=== PATIENT | male | born 1990 | race African-American/Black ===

== ENCOUNTER 2016-05-17 15:54 | Inpatient (IN) | payer SELFPAY ==
[~2016-05-17] VITALS: Ht 152.4 cm; Wt 66.0 kg
[2016-05-17] VITALS (7 sets, daily range): BP systolic 112–121; BP diastolic 65–79; PULSE 72–117; RESP 15–18; TEMP 102.9; O2SAT 96–99
[~2016-05-17 15:54] MED LIST: ALBUAER3 INH; PRED20 PO; VENTAER INH
--- NOTE | 2016-05-17 16:29 | PD ---
HPI . Cough and cold Chief Complaint: Cold / Flu Symptoms Time Seen by Provider: 16:18 Travel History International Travel<30 days: No Contact w/Intl Traveler<30days: No Traveled to known affect area: No History of Present Illness HPI Patient presents with a three-day history of cough, sputum production, shortness of breath, myalgias, nausea and vomiting. He states that he took a generic NyQuil earlier today. Otherwise he has not treated himself at home in any way. He has a history of asthma and states that he is out of his albuterol. PFSH Past Medical History ADHD: Yes Arthritis: No Asthma: Yes Blood Disorders: No Anxiety: Yes Depression: Yes Heart Rhythm Problems: Yes Cancer: No Cardiovascular Problems: No High Cholesterol: No Chest Pain: No Congestive Heart Failure: No COPD: No Diabetes: No Diminished Hearing: No Endocrine: No GERD: No Genitourinary: No Hiatal Hernia: No Immune Disorder: No Musculoskeletal: Yes (fx left arm and right wrist) Neurologic: No Psychiatric: No Reproductive: No Respiratory: Yes (ASTHMA) Integumentary: Yes (ezema) Immunizations Current: Yes Renal Failure: Yes (pt states 1st stage) Sleep Apnea: No Thyroid Disease: No Ulcer: No Past Surgical History Other Surgery: No Social History Alcohol Use: No Tobacco Use: Yes (0.25) Substance Use: No Allergies-Medications (Allergen,Severity, Reaction): Coded Allergies: No Known Allergies (Verified , 05/17/16) Reported Meds & Prescriptions Reported Meds & Active Scripts Active Prednisone 20 Mg Tab 40 Mg PO DAILY Ventolin Hfa 18 GM Inh (Albuterol Sulfate) 90 Mcg/Act Aer 2 Puff INH Q4H PRN Reported Proair Hfa 8.5 GM Inh (Albuterol Sulfate) 90 Mcg/Act Aer 2 Puff INH Q4-6H PRN 108 mcg/actuation Review of Systems Except as stated in HPI: all other systems reviewed are Neg General / Constitutional: Positive: Fever, Chills Cardiovascular: Positive: Chest Pain or Discomfort Respiratory: Positive: Cough, Shortness of Breath, Wheezing, Other (sputum production) Gastrointestinal: Positive: Nausea, Vomiting Musculoskeletal: Positive: Myalgias, Arthralgias Physical Exam Narrative GENERAL: This is a slightly built man who has a very persistent cough. SKIN: Warm and dry. HEAD: Atraumatic. Normocephalic. EYES: Pupils equal and round. ENT: No nasal bleeding or discharge. Mucous membranes pink and moist. NECK: Trachea midline. Neck is supple without cervical lymphadenopathy. CARDIOVASCULAR: Regular rate and rhythm. Heart sounds are normal. RESPIRATORY: No accessory muscle use. Chest is tight with diffuse expiratory wheezing. GASTROINTESTINAL: Abdomen soft, non-tender, nondistended. MUSCULOSKELETAL: No obvious deformities. No edema. NEUROLOGICAL: Awake and alert. No obvious cranial nerve deficits. Motor grossly within normal limits. Normal speech. PSYCHIATRIC: Appropriate mood and affect; insight and judgment normal. Data Data Last Documented VS Vital Signs Date Time Temp Pulse Resp B/P Pulse Ox O2 Delivery O2 Flow Rate FiO2 05/17/16 16:42 99 Nasal Cannula 2 05/17/16 15:56 102.9 117 16 121/79 Orders Electrocardiogram (05/17/16 16:19) Basic Metabolic Panel (Bmp) (05/17/16 16:19) Complete Blood Count With Diff (05/17/16 16:19) Lactic Acid Sepsis Protocol (05/17/16 16:19) Influenzae A/B Antigen (05/17/16 16:19) Blood Culture (05/17/16 16:19) Chest, Single Ap (05/17/16 16:19) Sodium Chloride 0.9% Flush (Ns Flush) (05/17/16 16:30) Albuterol-Ipratropium Neb (Duoneb Neb) (05/17/16 16:30) Methylprednisolone So Succ Inj (Solumedr (05/17/16 16:30) Acetaminophen (Tylenol) (05/17/16 16:30) MDM Medical Decision Making Medical Screen Exam Complete: Yes Emergency Medical Condition: Yes Interpretation(s) EKG shows a sinus rhythm with no acute ischemic changes. EKG is unchanged from previous. Differential Diagnosis Differential diagnosis of fever includes but is not limited to viral illness, strep throat, otitis media, pneumonia, sepsis, UTI Narrative Course Patient presents for evaluation and treatment of fever and respiratory symptoms. I have ordered a pneumonia workup. I have also ordered nebs and Solu -Medrol. Tylenol for the fever. Care will be turned over to the oncoming physician. Diagnosis Primary Impression: Fever Qualified Code: R50.9 - Fever, unspecified fever cause Additional Impression: Asthma exacerbation Condition: Liliana Larios MD May 17, 2016 16:29
[2016-05-17] MEDS ORDERED: ACETAMINOPHEN 325 MG TAB PO ONE ×2 (16:30→18:15)
[2016-05-17] MEDS ORDERED: methylPREDNISolone SOD SUCC 125 MG/2 ML VIAL IV PUSH ONE (16:30)
[2016-05-17] MEDS ORDERED: SODIUM CHLORIDE 0.9% FLUSH 5 ML FLUSH IVF PRN (16:30)
[2016-05-17] MEDS: RESP: ALBUTEROL 2.5 MG/IPRATROPIUM 0.5 MG NEB (SCH) INH ×2 (16:51→16:52)
[2016-05-17 17:14] LABS: AUTOMATED NEUTROPHIL # 5.5 TH/MM3 (1.8-7.7); BASOPHIL % 0.3 % (0.0-2.0); EOSINOPHIL % 0.2 % (0.0-4.0); HEMATOCRIT 41.3 % (39.0-51.0); HEMO FLAGS DIFF FINAL; LYMPHOCYTE # 1.5 TH/MM3 (1.0-4.8); MEAN CELL VOLUME 90.2 FL (80.0-100.0); MEAN CORPUSCULAR HEMOGLOBIN 30.8 PG (27.0-34.0); MEAN CORPUSCULAR HGB CONC 34.2 % (32.0-36.0); MONO % 8.8 % (0.0-8.0); NEUT % 70.7 % (16.0-70.0); PLATELET COUNT 233 TH/MM3 (150-450); RED BLOOD COUNT 4.57 MIL/MM3 (4.50-5.90); WHITE BLOOD COUNT 7.7 TH/MM3 (4.0-11.0)
--- NOTE | 2016-05-17 17:19 | RADRPT ---
EXAM DATE/TIME: 05/17/2016 17:00 [facility] COMPARISON: CHEST SINGLE AP, February 26, 2016, 4:45. INDICATIONS : Short of breath, cough MEDICAL HISTORY : Asthma SURGICAL HISTORY : None. ENCOUNTER: Initial ACUITY: 3 days PAIN SCORE: 0/10 LOCATION: Bilateral chest FINDINGS: A single view of the chest demonstrates the lungs to be symmetrically aerated without evidence of mas s, infiltrate or effusion. The cardiomediastinal contours are unremarkable. Osseous structures are intact. CONCLUSION: No acute disease. Rik Omer MD on May 17, 2016 at 17:15 Board Certified Radiologist. This report was verified electronically.
[2016-05-17 17:39] LABS: BICARBONATE 29.4 MEQ/L (21.0-32.0); POTASSIUM 3.8 MEQ/L (3.5-5.1)
[2016-05-17] MEDS ORDERED: SODIUM CHLOR 0.9% 1000 ML INJ 1,000 ML IV ONE ×2 (18:00→18:15)
[2016-05-17] MEDS: MAGNESIUM SULFATE 1 GM PREMIX 100 ML IV SCH ×2 (18:04→20:25)
--- NOTE | 2016-05-17 18:06 | PD ---
Data Data Last Documented VS Vital Signs Date Time Temp Pulse Resp B/P Pulse Ox O2 Delivery O2 Flow Rate FiO2 05/17/16 17:55 99 40 05/17/16 16:42 Nasal Cannula 2 05/17/16 15:56 102.9 117 16 121/79 Orders Electrocardiogram (05/17/16 16:19) Basic Metabolic Panel (Bmp) (05/17/16 16:19) Complete Blood Count With Diff (05/17/16 16:19) Lactic Acid Sepsis Protocol (05/17/16 16:19) Influenzae A/B Antigen (05/17/16 16:19) Blood Culture (05/17/16 16:19) Chest, Single Ap (05/17/16 16:19) Sodium Chloride 0.9% Flush (Ns Flush) (05/17/16 16:30) Albuterol-Ipratropium Neb (Duoneb Neb) (05/17/16 16:30) Methylprednisolone So Succ Inj (Solumedr (05/17/16 16:30) Acetaminophen (Tylenol) (05/17/16 16:30) Arterial Blood Gas (Abg) (05/17/16 ) Albuterol Neb (Albuterol Neb) (05/17/16 18:00) Magnesium Sulfate 1 Gm Premix (Magnesium (05/17/16 18:00) Sodium Chlor 0.9% 1000 Ml Inj (Ns 1000 M (05/17/16 18:00) Acetaminophen (Tylenol) (05/17/16 18:15) Sodium Chlor 0.9% 1000 Ml Inj (Ns 1000 M (05/17/16 18:15) Ckmb (Isoenzyme) Profile (05/17/16 18:06) Troponin I (05/17/16 18:06) CKMB (05/17/16 16:45) CKMB% (05/17/16 16:45) Labs Laboratory Tests Test 05/17/16 05/17/16 05/17/16 16:45 16:50 18:34 White Blood Count 7.7 TH/MM3 Red Blood Count 4.57 MIL/MM3 Hemoglobin 14.1 GM/DL Hematocrit 41.3 % Mean Corpuscular Volume 90.2 FL Mean Corpuscular Hemoglobin 30.8 PG Mean Corpuscular Hemoglobin 34.2 % Concent Red Cell Distribution Width 13.0 % Platelet Count 233 TH/MM3 Mean Platelet Volume 6.8 FL Neutrophils (%) (Auto) 70.7 % Lymphocytes (%) (Auto) 20.0 % Monocytes (%) (Auto) 8.8 % Eosinophils (%) (Auto) 0.2 % Basophils (%) (Auto) 0.3 % Neutrophils # (Auto) 5.5 TH/MM3 Lymphocytes # (Auto) 1.5 TH/MM3 Monocytes # (Auto) 0.7 TH/MM3 Eosinophils # (Auto) 0.0 TH/MM3 Basophils # (Auto) 0.0 TH/MM3 CBC Comment DIFF FINAL Differential Comment Sodium Level 131 MEQ/L Potassium Level 3.8 MEQ/L Chloride Level 97 MEQ/L Carbon Dioxide Level 29.4 MEQ/L Anion Gap 5 MEQ/L Blood Urea Nitrogen 18 MG/DL Creatinine 1.80 MG/DL Estimat Glomerular Filtration 55 ML/MIN Rate Random Glucose 83 MG/DL Calcium Level 8.5 MG/DL Total Creatine Kinase 114 U/L Creatine Kinase MB LESS THAN 0.5 NG/ML Troponin I LESS THAN 0.02 NG/ML Lactic Acid Level 1.7 mmol/L Blood Gas Puncture Site RT RADIAL Blood Gas Patient Temperature 98.6 Blood Gas HCO3 25 mmol/L Blood Gas Base Excess 1.5 mmol/L Blood Gas Oxygen Saturation 94 % Arterial Blood pH 7.47 Arterial Blood Partial 35 mmHg Pressure CO2 Arterial Blood Partial 152 mmHG Pressure O2 Arterial Blood Oxygen Content 17.1 Vol % Arterial Blood 2.5 % Carboxyhemoglobin Arterial Blood Methemoglobin 2.2 % Blood Gas Hemoglobin 12.7 G/DL Oxygen Delivery Device BIPAP Blood Gas Ventilator Setting 15/+5/PS10 Blood Gas Inspired Oxygen 40 % [facility] Supervised Visit with BILL: No Narrative Course The patient was initially evaluated by the previous provider in sign out to me at the beginning of my shift pending labs, chest x-ray, and disposition. See her note for further details. Briefly this is a 26-year-old male with history of asthma who presents with fever, cough, shortness of breath. Initial provider noted that the patient seemed very tight and not moving much air when breathing. She administered 3 DuoNeb treatments and IV Solu-Medrol. Upon my assessment the patient is in moderate respiratory distress, speaking a few words at a time, inspiratory and expiratory wheezes bilaterally. His O2 saturation was 99% on room air and his heart rate was in the 130s. His initial temp is 102.7F. I started the patient on BiPAP and provided 3 more albuterol nebulized treatments. Patient was also given 2 mg of IV magnesium. Blood cultures and lactate sent. Patient was also given Tylenol. CBC is essentially unremarkable. BMP is remarkable for sodium 131, chloride 97, creatinine 1.8 which is slightly worse than his baseline, GFR 55. Lactic acid is 1.7. Influenza is negative. Chest x-ray shows no acute disease. Patient was given 2 L of IV fluids as well as above treatments. He'll be admitted for further treatment and evaluation of fever, asthma exacerbation. Patient is complaining of chest pain. His EKG on initial presentation was reviewed and shows sinus, rate 97, normal axis, normal intervals, nonspecific ST /T-wave abnormality. Cardiac enzymes sent. Pt denies IVDU. Cardiac enzymes are negative. The patient has had significant improvement on BiPAP. He is still requiring BiPAP. Case discussed with farm worker Dr. Carreon who will admit the patient to his service. Diagnosis Primary Impression: Asthma exacerbation Additional Impression: Fever Qualified Code: R50.9 - Fever, unspecified fever cause Condition: Stable Samuel Handley MD May 17, 2016 18:06
[2016-05-17 18:44] LABS: CREATINE KINASE 114 U/L (39-308)
[2016-05-17 18:44] LABS: BLOOD GAS BASE EXCESS 1.5 mmol/L (-2-2); BLOOD GAS CARBOXYHEMOGLOBIN 2.5 % (0-4); BLOOD GAS HCO3 25 mmol/L (22-26); BLOOD GAS METHEMOGLOBIN 2.2 % (0-2); BLOOD GAS O2 HGB SATURATION 94 % (90-100); BLOOD GAS OXYGEN CONTENT 17.1 Vol % (12.0-20.0); BLOOD GAS PCO2 35 mmHg (38-42); BLOOD GAS PO2 152 mmHG (61-120); BLOOD GAS TOTAL HGB 12.7 G/DL (12.0-16.0); TEMP CORR TO 98.6
[2016-05-17 18:45] LABS: CRITICAL VALUE NO
[2016-05-17 18:46] LABS: DRAW SITE RT RADIAL; FIO2 40 %; NUMBER OF ARTERIAL PUNCTURES 1; OXYGEN DEVICE BIPAP; STAT YES; ULNAR PULSE PRESENT; VENT SETTINGS 15/+5/PS10
[2016-05-17 18:56] LABS: CKMB LESS THAN 0.5 NG/ML (0.5-3.6)
[2016-05-17] MEDS: RESP: ALBUTEROL 2.5 MG/3 ML NEB (SCH) INH ×2 (18:57→18:58)
[2016-05-17] MEDS ORDERED: POTASSIUM PHOSPHATE MONOBASIC 500 MG TAB PO PRN (20:15)
[2016-05-17] MEDS ORDERED: SODIUM CHLORIDE 0.9% FLUSH 5 ML FLUSH IV FLUSH PRN (20:15)
[2016-05-17] MEDS ORDERED: POTASSIUM PHOSPHATE INJ 30 MMOL in SODIUM CHLOR 0.9% 250 ML INJ 250 ML IV PRN (20:15)
[2016-05-17] MEDS ORDERED: MISCELLANEOUS NURSING INFORMATION XX SCH (20:15)
[2016-05-17] MEDS ORDERED: POTASSIUM CHLOR 20 MEQ PREMIX 100 ML IV PRN ×2 (20:15)
[2016-05-17] MEDS ORDERED: MAGNESIUM SULFATE INJ 2 GM in SODIUM CHLORIDE 0.9% INJ 96 ML IV PRN (20:15)
[2016-05-17] MEDS ORDERED: POTASSIUM CHLOR 40 MEQ PREMIX 100 ML IV PRN ×2 (20:15)
[2016-05-17] MEDS ORDERED: ACETAMINOPHEN 325 MG TAB PO PRN (20:15)
[2016-05-17] MEDS ORDERED: MAGNESIUM SULFATE INJ 4 GM in SODIUM CHLORIDE 0.9% INJ 92 ML IV PRN (20:15)
[2016-05-17] MEDS ORDERED: DEXTROSE 50% IN WATER 50 ML VIAL(D50) IV PUSH PRN (20:15)
[2016-05-17] MEDS ORDERED: POTASSIUM PHOSPHATE MONOBASIC 500 MG TAB PO/TUBE PRN (20:15)
[2016-05-17] MEDS ORDERED: MAGNESIUM OXIDE 400 MG TAB PO PRN (20:15)
[2016-05-17] MEDS ORDERED: RESP: ALBUTEROL 2.5 MG/IPRATROPIUM 0.5 MG NEB (PRN) INH (20:15)
[2016-05-17] MEDS ORDERED: CHLORHEXIDINE GLUCONATE 2 % 1 PACK (2 CLOTHS) TOP PRN (20:15)
[2016-05-17] MEDS ORDERED: POTASSIUM CL 40 MEQ/30 ML LIQ UDC PO/TUBE PRN ×2 (20:15)
[2016-05-17] MEDS ORDERED: SODIUM PHOSPHATE INJ 30 MMOL in SODIUM CHLOR 0.9% 250 ML INJ 240 ML IV PRN (20:15)
--- NOTE | 2016-05-17 20:16 | HHI.HP ---
HPI Service Critical Care Medicine Primary Care Physician No Primary Care Physician Admission Diagnosis asthma exacerbation, fever Diagnosis: Chief Complaint: Shortness of breath Travel History International Travel<30 Days: No Contact w/Intl Traveler <30 Da: No Traveled to Known Affected Are: No History of Present Illness This is a 26-year-old male with a history of asthma who presented with a three- day history of cough with productive sputum and worsening shortness of breath. He uses albuterol home but does not take any additional medications for his chronic asthma. On my evaluation the patient is severely dyspneic and cannot provide any additional history. He is currently on BiPAP on my evaluation. Critical-care medicine as consult to evaluate and manage his hypoxic and hypercarbic respiratory failure. In the emergency department he received a number of albuterol nebs as well as IV Solu-Medrol and IV magnesium. Review of Systems ROS Limitations: Clinical Condition (severely dyspneic) ROS patient severely dyspneic and unable to provide detailed ROS. Past Family Social History Allergies: Coded Allergies: No Known Allergies (Verified , 05/17/16) Past Medical History Patient's past medical history is unobtainable secondary to his clinical condition and his dyspnea. Per chart review: ADHD Asthma Anxiety Depression Prior fractures of the left arm and right wrist Eczema Stage I chronic kidney disease Past Surgical History Unobtainable secondary to patient's clinical condition. Per chart review: No past surgery. Reported Medications Unobtainable secondary to patient's clinical condition. Per chart review: Prednisone 20 Mg Tab 40 Mg PO DAILY Ventolin Hfa 18 GM Inh (Albuterol Sulfate) 90 Mcg/Act Aer 2 Puff INH Q4H PRN Proair Hfa 8.5 GM Inh (Albuterol Sulfate) 90 Mcg/Act Aer 2 Puff INH Q4-6H PRN 108 mcg/actuation Active Ordered Medications See MAR Family History Unobtainable secondary to patient's clinical condition. Unlikely to be contributory to his acute illness. Social History Unobtainable secondary to patient's clinical condition. Per chart review: 0.25 pack per day smoker. Physical Exam Vital Signs Vital Signs Date Time Temp Pulse Resp B/P Pulse Ox O2 Delivery O2 Flow Rate FiO2 05/17/16 17:55 99 40 05/17/16 16:42 99 Nasal Cannula 2 05/17/16 15:56 102.9 117 16 121/79 96 Room Air Physical Exam GENERAL: Male, lying in bed, BiPAP in place, in moderate to severe dyspnea and in distress due to this. HEENT: Normocephalic. Atraumatic. Pupils equal, round, reactive, conjugate. Mucous membranes are dry. NECK: Trachea is midline. There is no JVD. CHEST: Labored respirations. Equal chest rise. Significant expiratory wheezes. Distant breath sounds. CARDIOVASCULAR: Normal rate, regular rhythm. No appreciable murmurs. ABDOMEN:, Nontender, nondistended. No guarding. MUSCULOSKELETAL: No peripheral edema. Distal pulses 2+. NEUROLOGICAL: RASS 0. Oriented 3. Follows commands in all 4 extremities. Laboratory Laboratory Tests Test 05/17/16 05/17/16 05/17/16 16:45 16:50 18:34 White Blood Count 7.7 Red Blood Count 4.57 Hemoglobin 14.1 Hematocrit 41.3 Mean Corpuscular Volume 90.2 Mean Corpuscular Hemoglobin 30.8 Mean Corpuscular Hemoglobin 34.2 Concent Red Cell Distribution Width 13.0 Platelet Count 233 Mean Platelet Volume 6.8 Neutrophils (%) (Auto) 70.7 Lymphocytes (%) (Auto) 20.0 Monocytes (%) (Auto) 8.8 Eosinophils (%) (Auto) 0.2 Basophils (%) (Auto) 0.3 Neutrophils # (Auto) 5.5 Lymphocytes # (Auto) 1.5 Monocytes # (Auto) 0.7 Eosinophils # (Auto) 0.0 Basophils # (Auto) 0.0 CBC Comment DIFF FINAL Differential Comment Sodium Level 131 Potassium Level 3.8 Chloride Level 97 Carbon Dioxide Level 29.4 Anion Gap 5 Blood Urea Nitrogen 18 Creatinine 1.80 Estimat Glomerular Filtration 55 Rate Random Glucose 83 Calcium Level 8.5 Total Creatine Kinase 114 Creatine Kinase MB LESS THAN 0.5 Troponin I LESS THAN 0.02 Lactic Acid Level 1.7 Blood Gas Puncture Site RT RADIAL Blood Gas Patient Temperature 98.6 Blood Gas HCO3 25 Blood Gas Base Excess 1.5 Blood Gas Oxygen Saturation 94 Arterial Blood pH 7.47 Arterial Blood Partial 35 Pressure CO2 Arterial Blood Partial 152 Pressure O2 Arterial Blood Oxygen Content 17.1 Arterial Blood 2.5 Carboxyhemoglobin Arterial Blood Methemoglobin 2.2 Blood Gas Hemoglobin 12.7 Oxygen Delivery Device BIPAP Blood Gas Ventilator Setting 15/+5/PS10 Blood Gas Inspired Oxygen 40 Date/Time Procedure Status Source Growth 05/17/16 16:50 Aerobic Blood Culture Received Blood Peripheral Pending 05/17/16 16:50 Anaerobic Blood Culture Received Blood Peripheral Pending 05/17/16 16:40 Influenza Types A,B Antigen (TYREE) - Final Complete Nasal Washing NEGATIVE FOR FLU A AND B ANTIGEN.... Result Diagram: 05/17/16 1645 05/17/16 1645 Assessment and Plan Assessment and Plan Assessment: This is a 26-year-old male with history of asthma who presents with an asthma exacerbation and 3 days of productive cough and sputum production which is likely community-acquired pneumonia versus community acquired viral tracheal bronchitis. Given the severity of his asthma exacerbation we will cover him empirically with IV Levaquin. We will admit him to the ICU for close monitoring. We will continue his BiPAP and IV steroids as well as scheduled and when necessary nebs. He remains critically ill and may require intubation mechanical ventilation. Active problems: Asthma exacerbation Community-acquired pneumonia versus viral tracheobronchitis Acute hypercarbic and hypoxic respiratory failure Plan: Admit to the ICU Continue BiPAP ABG in the morning Wean FiO2 for goal SPO2 greater than 90% Chest x-ray in the morning Nothing by mouth for now Levaquin 750 mg IV every 24 hours Sputum culture Daily CBC and BMP Nebs every 4 and every 2 when necessary Solu-Medrol 60 mg IV every 12 Protonix for GI prophylaxis SCDs and Lovenox for DVT prophylaxis This patient remains critically ill with one or more organ systems which are or may become a threat to life. I have spent in excess of 40 minutes discontinuously in the care and management of this patient. This time is exclusive of procedures, and includes, but is not limited to, evaluation of the patient, review of the medical record, discussions with family, consultants, nursing staff, or respiratory therapy, and documentation in the medical record. Code Status full Code Pool Carreon MD May 17, 2016 20:16
[2016-05-17] MEDS: DOCUSATE SODIUM 50 MG/SENNA 8.6 MG TAB PO SCH (21:00)
[2016-05-17] MEDS: SODIUM CHLOR 0.9% 1000 ML INJ 1,000 ML IV SCH (23:40)
[2016-05-17] MEDS ORDERED: LEVOFLOXACIN 750 MG/DEXTROSE 150 ML IV ONE (23:45)
[2016-05-17] MEDS: SODIUM CHLORIDE 0.9% FLUSH 5 ML FLUSH IV FLUSH SCH (23:54)
[2016-05-17] MEDS: ENOXAPARIN SODIUM 40 MG/0.4 ML SYRINGE SQ SCH (23:55)
[2016-05-18] VITALS (18 sets, daily range): BP systolic 110–145; BP diastolic 61–86; PULSE 74–100; RESP 17–22; TEMP 98.2–99; O2SAT 97–100
[2016-05-18] MEDS: RESP: ALBUTEROL 2.5 MG/IPRATROPIUM 0.5 MG NEB (SCH) INH ×7 (00:19→23:15)
[2016-05-18] MEDS: CHLORHEXIDINE GLUCONATE 2 % 1 PACK (2 CLOTHS) TOP SCH (03:42)
[2016-05-18] MEDS ORDERED: methylPREDNISolone SOD SUCC 125 MG/2 ML VIAL IV PUSH SCH (05:00)
[2016-05-18] MEDS: SODIUM CHLOR 0.9% 1000 ML INJ 1,000 ML IV SCH ×3 (05:36→23:22)
[2016-05-18] MEDS: INSULIN NovoLIN REGULAR SUPPLEMENTAL SCALE SQ SCH ×4 (05:37→18:00)
--- NOTE | 2016-05-18 05:57 | RADRPT ---
EXAM DATE/TIME: 05/18/2016 05:38 [facility] COMPARISON: CHEST PA & LAT, October 12, 2013, 14:11. CHEST SINGLE AP, May 17, 2016, 17:00. INDICATIONS : Short of breath. MEDICAL HISTORY : Asthma. SURGICAL HISTORY : None. ENCOUNTER: Subsequent ACUITY: 3 days PAIN SCORE: Non-responsive. LOCATION: Bilateral chest FINDINGS: A single view of the chest demonstrates the lungs to be symmetrically aerated without evidence of mas s, infiltrate or effusion. The cardiomediastinal contours are unremarkable. Osseous structures are intact. CONCLUSION: 1. No acute cardiopulmonary disease. Rajan Nogueira MD on May 18, 2016 at 5:55 Board Certified Radiologist. This report was verified electronically.
[2016-05-18 06:00] LABS: BLOOD GAS CARBOXYHEMOGLOBIN 1.9 % (0-4); BLOOD GAS HCO3 22 mmol/L (22-26); BLOOD GAS O2 HGB SATURATION 94 % (90-100); BLOOD GAS OXYGEN CONTENT 15.6 Vol % (12.0-20.0); BLOOD GAS PCO2 34 mmHg (38-42); BLOOD GAS PO2 88 mmHG (61-120); BLOOD GAS TOTAL HGB 11.8 G/DL (12.0-16.0); CRITICAL VALUE NO; TEMP CORR TO 98.6
[2016-05-18 06:01] LABS: DRAW SITE LT RADIAL; FIO2 21 %; NUMBER OF ARTERIAL PUNCTURES 1; OXYGEN DEVICE BIPAP; STAT NO; ULNAR PULSE PRESENT; VENT SETTINGS IPAP=10 EPAP=5
[2016-05-18 07:47] LABS: HEMATOCRIT 33.2 % (39.0-51.0); MEAN CELL VOLUME 89.4 FL (80.0-100.0); MEAN CORPUSCULAR HEMOGLOBIN 30.1 PG (27.0-34.0); MEAN CORPUSCULAR HGB CONC 33.7 % (32.0-36.0); PLATELET COUNT 205 TH/MM3 (150-450); RED BLOOD COUNT 3.71 MIL/MM3 (4.50-5.90); RED CELL DISTRIBUTION WIDTH 13.2 % (11.6-17.2); REVIEW FLAG FINAL; WHITE BLOOD COUNT 9.2 TH/MM3 (4.0-11.0)
[2016-05-18 08:06] LABS: BICARBONATE 24.2 MEQ/L (21.0-32.0); POTASSIUM 4.1 MEQ/L (3.5-5.1)
[2016-05-18] MEDS: DOCUSATE SODIUM 50 MG/SENNA 8.6 MG TAB PO SCH ×2 (09:00→20:36)
[2016-05-18] MEDS: SODIUM CHLORIDE 0.9% FLUSH 5 ML FLUSH IV FLUSH SCH ×2 (09:00→20:36)
--- NOTE | 2016-05-18 10:14 | HHI.CCPN ---
Subjective Remarks/Hospital Course This is a 26-year-old male with a history of asthma who presented with a three- day history of cough with productive sputum and worsening shortness of breath. He uses albuterol home but does not take any additional medications for his chronic asthma. On my evaluation the patient is severely dyspneic and cannot provide any additional history. He is currently on BiPAP on my evaluation. Critical-care medicine as consult to evaluate and manage his hypoxic and hypercarbic respiratory failure. In the emergency department he received a number of albuterol nebs as well as IV Solu-Medrol and IV magnesium. 05/18 Patient is off BIPAP still reports SOB and wheezing. Afebrile. States he works in [employer] which exacerbates his asthma and requires him to use his inhalers more frequently. Objective Vital Signs Date Time Temp Pulse Resp B/P Pulse Ox O2 Delivery O2 Flow Rate FiO2 05/18/16 08:35 97 21 05/18/16 08:22 BiPAP 05/18/16 08:22 99.0 92 20 134/77 05/17/16 16:42 2 Result Diagram: 05/18/16 0656 05/18/16 0656 Other Results Laboratory Tests Test 05/17/16 05/17/16 05/17/16 05/18/16 16:45 16:50 18:34 05:55 White Blood Count 7.7 TH/MM3 Red Blood Count 4.57 MIL/MM3 Hemoglobin 14.1 GM/DL Hematocrit 41.3 % Mean Corpuscular Volume 90.2 FL Mean Corpuscular Hemoglobin 30.8 PG Mean Corpuscular Hemoglobin 34.2 % Concent Red Cell Distribution Width 13.0 % Platelet Count 233 TH/MM3 Mean Platelet Volume 6.8 FL Neutrophils (%) (Auto) 70.7 % Lymphocytes (%) (Auto) 20.0 % Monocytes (%) (Auto) 8.8 % Eosinophils (%) (Auto) 0.2 % Basophils (%) (Auto) 0.3 % Neutrophils # (Auto) 5.5 TH/MM3 Lymphocytes # (Auto) 1.5 TH/MM3 Monocytes # (Auto) 0.7 TH/MM3 Eosinophils # (Auto) 0.0 TH/MM3 Basophils # (Auto) 0.0 TH/MM3 CBC Comment DIFF FINAL Differential Comment Sodium Level 131 MEQ/L Potassium Level 3.8 MEQ/L Chloride Level 97 MEQ/L Carbon Dioxide Level 29.4 MEQ/L Anion Gap 5 MEQ/L Blood Urea Nitrogen 18 MG/DL Creatinine 1.80 MG/DL Estimat Glomerular Filtration 55 ML/MIN Rate Random Glucose 83 MG/DL Calcium Level 8.5 MG/DL Total Creatine Kinase 114 U/L Creatine Kinase MB LESS THAN 0.5 NG/ML Troponin I LESS THAN 0.02 NG/ML Lactic Acid Level 1.7 mmol/L Blood Gas Puncture Site RT RADIAL LT RADIAL Blood Gas Patient Temperature 98.6 98.6 Blood Gas HCO3 25 mmol/L 22 mmol/L Blood Gas Base Excess 1.5 mmol/L -2.0 mmol/L Blood Gas Oxygen Saturation 94 % 94 % Arterial Blood pH 7.47 7.42 Arterial Blood Partial 35 mmHg 34 mmHg Pressure CO2 Arterial Blood Partial 152 mmHG 88 mmHG Pressure O2 Arterial Blood Oxygen Content 17.1 Vol % 15.6 Vol % Arterial Blood 2.5 % 1.9 % Carboxyhemoglobin Arterial Blood Methemoglobin 2.2 % 2.0 % Blood Gas Hemoglobin 12.7 G/DL 11.8 G/DL Oxygen Delivery Device BIPAP BIPAP Blood Gas Ventilator Setting 15/+5/PS10 IPAP=10 EPAP=5 Blood Gas Inspired Oxygen 40 % 21 % Test 05/18/16 06:56 White Blood Count 9.2 TH/MM3 Red Blood Count 3.71 MIL/MM3 Hemoglobin 11.2 GM/DL Hematocrit 33.2 % Mean Corpuscular Volume 89.4 FL Mean Corpuscular Hemoglobin 30.1 PG Mean Corpuscular Hemoglobin 33.7 % Concent Red Cell Distribution Width 13.2 % Platelet Count 205 TH/MM3 Mean Platelet Volume 6.9 FL Sodium Level 134 MEQ/L Potassium Level 4.1 MEQ/L Chloride Level 104 MEQ/L Carbon Dioxide Level 24.2 MEQ/L Anion Gap 6 MEQ/L Blood Urea Nitrogen 17 MG/DL Creatinine 1.19 MG/DL Estimat Glomerular Filtration 89 ML/MIN Rate Random Glucose 112 MG/DL Calcium Level 7.7 MG/DL Imaging Last Impressions Chest X-Ray 05/18/16 0600 Signed Impressions: Service Date/Time: Wednesday, May 18, 2016 05:38 - CONCLUSION: 1. No acute cardiopulmonary disease. Rajan Nogueira MD Objective Remarks GENERAL: Patient is 26 yo off BIPAP still wheezing SKIN: Warm and dry. HEAD: Normocephalic. EYES: No scleral icterus. No injection or drainage. NECK: Supple, trachea midline. No JVD or lymphadenopathy. CARDIOVASCULAR: Regular rate and rhythm without murmurs, gallops, or rubs. RESPIRATORY: Breath sounds equal bilaterally. Scattered wheezing and coarse BS GASTROINTESTINAL: Abdomen soft, non-tender, nondistended. MUSCULOSKELETAL: No cyanosis, or edema. Neuro: Awake and alert A/P Assessment and Plan 1)Acute Resp Insuff 2)Acute Asthma exacerbation 3)Tracheobronchitis 4)Bronchospasm 5)Mild Hyponatremia Plan: Neuro: Awake and alert Pulm: Continue with oxygen keep sat >92% DuoNeb Q4+Q2 PRN , add Symbicort, increase Solumederol 60mg IV Q6 Pulm eval, will need PFT to asses severity of his obstructive lung disease Check IgE level. CV:Monitor HR and BP keep MAP >65mmHg. Lactic acid: 1.7 :Monitor renal function, electrolytes replacement per protocol. Decrease IVF NS@75ml/hr GI: On PO diet ID: Continue with empiric abx ( Levaquin)monitor for signs of infections ( Fever , WBC) Nasal washing for Influenza is negative. CXR: No acute disease Heme: Monior CBC Endo: SSI with accuchecks for glycemic control No indication for GI prophylaxis as patient ese PO diet. DVT prophylaxis- On Lovenox 40mg SQ daily Level 3 Mumtaz Upton MD May 18, 2016 10:14
--- NOTE | 2016-05-18 10:31 | EKG ---
Date Performed: 05/17/2016 Time Performed: 16:44:47 PTAGE: 26 years EKG: Sinus rhythm NONSPECIFIC ST & T-WAVE ABNORMALITY BORDERLINE ECG Compared to PREVIOUS TRACING the ST elevation is not as prominent. PREVIOUS TRACIN01/03/2016 06.3 2 DOCTOR: Nikolas Peters Interpretating Date/Time 05/18/2016 10:30:02
[2016-05-18] MEDS: methylPREDNISolone SOD SUCC 125 MG/2 ML VIAL IV PUSH SCH ×3 (11:31→23:21)
[2016-05-18] MEDS: BUDESONIDE-FORMOTEROL 160/4.5 MCG INHALER INH SCH ×2 (12:09→20:37)
--- NOTE | 2016-05-18 19:42 | MB ---
cc: ROCKY HIDALGO M.D. DATE OF CONSULTATION 05/18/2016 REASON FOR CONSULTATION Asthma exacerbation. HISTORY OF PRESENT ILLNESS Mr. Oakley is a 26-year-old -[place] male who was admitted with exacerbation of bronchial asthma, chest wheeze. The patient has been with increasing shortness of breath for a few days. He has longstanding bronchial asthma over 10 years. Has an albuterol inhaler which he uses as needed, however, has ran out of medication after which his symptomatology failed to improve. He denies history of fever, chills, cough, expectoration. No hemoptysis, TB or previous industrial exposure. PAST MEDICAL HISTORY Is that of: 1. Bronchial asthma. 2. ADHD. 3. Mood disorder namely anxiety and depression. 4. Eczema. 5. Mild chronic kidney disease. FAMILY HISTORY Noncontributory. REVIEW OF SYSTEMS Systems review, a 12 point review of systems as per HPI and past history otherwise negative. SOCIAL HISTORY The patient does smoke a few cigarettes a day as well as drinks alcohol socially. PHYSICAL EXAMINATION GENERAL: The patient is alert. VITAL SIGNS: Temperature 98 degrees Fahrenheit, pulse 80, respiratory rate 17, blood pressure 135/80. O2 saturation 98% on room air. HEENT: Unremarkable. Eyes without icterus. NECK: Without adenopathy or thyroid enlargement. Central trachea. CHEST: No dullness to percussion. Scattered wheeze on auscultation. CARDIAC: Point of maximal impulse distant. S1, S2 audible. No murmur, no rub. ABDOMEN: Lax. Audible bowel sounds. EXTREMITIES: No clubbing, cyanosis or edema. LABORATORY DATA White count 9.2, hemoglobin 11, hematocrit 33, platelets at 205,000. Arterial blood gas pH 7.42, pCO2 34 and a pO2 of 88 on room air. IMAGING Chest x-ray no acute infiltrate. IMPRESSION Asthma exacerbation. PLAN The patient has been given intravenous steroids as well as bronchodilator therapy and indeed he is improved. We will change to oral therapy once possible. Increase activities encouraged. I do thank you for asking me to partake in Mr. Oakley's care. Rocky Hidalgo MD WWW/DELIA /7:14 PM /7:28 PM
[2016-05-18] MEDS: ENOXAPARIN SODIUM 40 MG/0.4 ML SYRINGE SQ SCH (20:36)
[2016-05-18] MEDS: LEVOFLOXACIN 750 MG PREMIX INJ 150 ML IV SCH (23:21)
[2016-05-19] VITALS (13 sets, daily range): BP systolic 115–140; BP diastolic 58–74; PULSE 74–108; RESP 18–22; TEMP 97.9–98.4; O2SAT 95–99
[2016-05-19] MEDS: INSULIN NovoLIN REGULAR SUPPLEMENTAL SCALE SQ SCH ×5 (00:02→22:57)
[2016-05-19] MEDS: RESP: ALBUTEROL 2.5 MG/IPRATROPIUM 0.5 MG NEB (SCH) INH ×5 (03:24→23:48)
[2016-05-19] MEDS: CHLORHEXIDINE GLUCONATE 2 % 1 PACK (2 CLOTHS) TOP SCH (05:30)
[2016-05-19] MEDS: methylPREDNISolone SOD SUCC 125 MG/2 ML VIAL IV PUSH SCH ×3 (05:31→22:44)
[2016-05-19 06:10] LABS: AUTOMATED NEUTROPHIL # 11.9 TH/MM3 (1.8-7.7); BASOPHIL % 0.2 % (0.0-2.0); HEMATOCRIT 33.1 % (39.0-51.0); HEMO FLAGS DIFF FINAL; LYMPH % 4.5 % (9.0-44.0); LYMPHOCYTE # 0.6 TH/MM3 (1.0-4.8); MEAN CELL VOLUME 89.6 FL (80.0-100.0); MEAN CORPUSCULAR HEMOGLOBIN 29.6 PG (27.0-34.0); NEUT % 92.3 % (16.0-70.0); PLATELET COUNT 263 TH/MM3 (150-450); RED BLOOD COUNT 3.69 MIL/MM3 (4.50-5.90); RED CELL DISTRIBUTION WIDTH 13.3 % (11.6-17.2); WHITE BLOOD COUNT 12.9 TH/MM3 (4.0-11.0)
[2016-05-19 06:33] LABS: BICARBONATE 22.5 MEQ/L (21.0-32.0); POTASSIUM 3.9 MEQ/L (3.5-5.1)
[2016-05-19] MEDS: SODIUM CHLORIDE 0.9% FLUSH 5 ML FLUSH IV FLUSH SCH ×2 (07:44→22:46)
[2016-05-19] MEDS: DOCUSATE SODIUM 50 MG/SENNA 8.6 MG TAB PO SCH ×2 (07:44→22:44)
[2016-05-19] MEDS: BUDESONIDE-FORMOTEROL 160/4.5 MCG INHALER INH SCH ×2 (07:45→22:46)
--- NOTE | 2016-05-19 09:34 | HHI.CCPN ---
Subjective Remarks/Hospital Course This is a 26-year-old male with a history of asthma who presented with a three- day history of cough with productive sputum and worsening shortness of breath. He uses albuterol home but does not take any additional medications for his chronic asthma. On my evaluation the patient is severely dyspneic and cannot provide any additional history. He is currently on BiPAP on my evaluation. Critical-care medicine as consult to evaluate and manage his hypoxic and hypercarbic respiratory failure. In the emergency department he received a number of albuterol nebs as well as IV Solu-Medrol and IV magnesium. 05/18 Patient is off BIPAP still reports SOB and wheezing. Afebrile. States he works in [employer] which exacerbates his asthma and requires him to use his inhalers more frequently. 05/19 No acute events overnight. Patient is feeling better overall. Objective Vital Signs Date Time Temp Pulse Resp B/P Pulse Ox O2 Delivery O2 Flow Rate FiO2 05/19/16 06:00 102 05/19/16 04:00 98.3 20 115/63 95 05/18/16 13:36 BiPAP 21 05/18/16 07:00 Intake and Output 05/18/16 05/18/16 05/19/16 08:00 16:00 00:00 Intake Total 1075 ml Output Total 1150 ml Balance -75 ml Result Diagram: 05/19/16 0531 05/19/16 0531 Other Results Laboratory Tests Test 05/18/16 05/19/16 14:40 05:31 Nasal Screen MRSA (PCR) NEGATIVE White Blood Count 12.9 TH/MM3 Red Blood Count 3.69 MIL/MM3 Hemoglobin 10.9 GM/DL Hematocrit 33.1 % Mean Corpuscular Volume 89.6 FL Mean Corpuscular Hemoglobin 29.6 PG Mean Corpuscular Hemoglobin 33.0 % Concent Red Cell Distribution Width 13.3 % Platelet Count 263 TH/MM3 Mean Platelet Volume 7.4 FL Neutrophils (%) (Auto) 92.3 % Lymphocytes (%) (Auto) 4.5 % Monocytes (%) (Auto) 3.0 % Eosinophils (%) (Auto) 0.0 % Basophils (%) (Auto) 0.2 % Neutrophils # (Auto) 11.9 TH/MM3 Lymphocytes # (Auto) 0.6 TH/MM3 Monocytes # (Auto) 0.4 TH/MM3 Eosinophils # (Auto) 0.0 TH/MM3 Basophils # (Auto) 0.0 TH/MM3 CBC Comment DIFF FINAL Differential Comment Sodium Level 137 MEQ/L Potassium Level 3.9 MEQ/L Chloride Level 107 MEQ/L Carbon Dioxide Level 22.5 MEQ/L Anion Gap 8 MEQ/L Blood Urea Nitrogen 20 MG/DL Creatinine 1.15 MG/DL Estimat Glomerular Filtration 92 ML/MIN Rate Random Glucose 137 MG/DL Calcium Level 8.3 MG/DL Imaging Last Impressions Chest X-Ray 05/18/16 0600 Signed Impressions: Service Date/Time: Wednesday, May 18, 2016 05:38 - CONCLUSION: 1. No acute cardiopulmonary disease. Rajan Nogueira MD Objective Remarks GENERAL: Patient is 26 yo off BIPAP lying in bed in no acute distress SKIN: Warm and dry. HEAD: Normocephalic. EYES: No scleral icterus. No injection or drainage. NECK: Supple, trachea midline. No JVD or lymphadenopathy. CARDIOVASCULAR: Regular rate and rhythm without murmurs, gallops, or rubs. RESPIRATORY: Breath sounds equal bilaterally. Few scattered wheezing GASTROINTESTINAL: Abdomen soft, non-tender, nondistended. MUSCULOSKELETAL: No cyanosis, or edema. Neuro: Awake and alert A/P Assessment and Plan 1)Acute Resp Insuff 2)Acute Asthma exacerbation 3)Tracheobronchitis 4)Bronchospasm- improved 5)Mild Hyponatremia- resolved Plan: Neuro: Awake and alert Pulm: Continue with oxygen keep sat >92% DuoNeb Q4+Q2 PRN ,Symbicort, decrease Solumederol 60mg IV Q8 Pulm is following- Dr. Hidalgo, Follow up IgE level. CV:Monitor HR and BP keep MAP >65mmHg. Lactic acid: 1.7 :Monitor renal function, electrolytes replacement per protocol. D/c IVF GI: On PO diet ID: Continue with empiric abx ( Levaquin)monitor for signs of infections ( Fever , WBC) Nasal washing for Influenza is negative. CXR: No acute disease Heme: Monitor CBC Endo: SSI with accuchecks for glycemic control No indication for GI prophylaxis as patient ese PO diet. DVT prophylaxis- On Lovenox 40mg SQ daily Will sign off and transfer care to [facility] Level 3 Mumtaz Upton MD May 19, 2016 09:34
[2016-05-19] MEDS ORDERED: INFLUENZA VIRUS VACCINE (QUADRIVALENT) 0.5 ML SYR IM ONE (10:00)
--- NOTE | 2016-05-19 19:07 | HHI.PR ---
Subjective Remarks Alert less sob cough , white sputum Objective Vital Signs Date Time Temp Pulse Resp B/P Pulse Ox O2 Delivery O2 Flow Rate FiO2 05/19/16 19:02 98 Nasal Cannula 21 05/19/16 14:00 79 05/19/16 12:00 87 05/19/16 12:00 98.1 87 18 140/74 97 05/19/16 11:43 99 05/19/16 10:00 83 05/19/16 08:00 74 05/19/16 08:00 97.9 74 22 121/61 98 05/19/16 06:00 102 05/19/16 04:00 86 05/19/16 04:00 98.3 86 20 115/63 95 05/19/16 02:00 108 05/19/16 00:00 98.4 105 19 126/58 99 05/19/16 00:00 105 05/18/16 23:18 100 05/18/16 22:00 92 05/18/16 20:00 100 05/18/16 20:00 98.9 100 18 117/61 99 05/18/16 19:47 100 I/O 05/18/16 05/18/16 05/18/16 05/19/16 05/19/16 05/19/16 07:00 15:00 23:00 07:00 15:00 23:00 Intake Total 1075 ml 574 ml 240 ml Output Total 1150 ml 300 ml 600 ml Balance -75 ml 274 ml -360 ml Intake Oral 1060 ml 100 ml 240 ml IV Total 15 ml 474 ml 0 ml Output Urine Total 1150 ml 300 ml 600 ml Stool Total 0 ml 0 ml # Voids 1 2 1 2 # Bowel Movements 0 0 0 Result Diagram: 05/19/16 0531 05/19/16 05 Objective Remarks GENERAL: SKIN: Warm and dry. HEAD: Atraumatic. Normocephalic. EYES: Pupils equal and round. No scleral icterus. No injection or drainage. ENT: No nasal bleeding or discharge. Mucous membranes pink and moist. NECK: Trachea midline. No JVD. CARDIOVASCULAR: Regular rate and rhythm. RESPIRATORY: No accessory muscle use. Clear to auscultation. Breath sounds equal bilaterally. scattered wheeze GASTROINTESTINAL: Abdomen soft, non-tender, nondistended. Hepatic and splenic margins not palpable. MUSCULOSKELETAL: Extremities without clubbing, cyanosis, or edema. No obvious deformities. NEUROLOGICAL: Awake and alert. No obvious cranial nerve deficits. Motor grossly within normal limits. Five out of 5 muscle strength in the arms and legs. Normal speech. PSYCHIATRIC: Appropriate mood and affect; insight and judgment normal. Assessment and Plan Assessment and Plan ASTHMA EXACERBATION IMPROVING PLAN CONTINUE O2 BRONCHODILATOR THERAPY INCREASE ACTIVITY Rocky Hidalgo MD May 19, 2016 19:07
[2016-05-19] MEDS: ENOXAPARIN SODIUM 40 MG/0.4 ML SYRINGE SQ SCH (22:45)
[2016-05-19] MEDS: LEVOFLOXACIN 750 MG PREMIX INJ 150 ML IV SCH (22:45)
[2016-05-20] VITALS (9 sets, daily range): BP systolic 113–133; BP diastolic 61–76; PULSE 59–90; RESP 16–20; TEMP 97.7–98.3; O2SAT 97–99
[2016-05-20] MEDS: RESP: ALBUTEROL 2.5 MG/IPRATROPIUM 0.5 MG NEB (SCH) INH ×6 (03:17→23:50)
[2016-05-20] MEDS: CHLORHEXIDINE GLUCONATE 2 % 1 PACK (2 CLOTHS) TOP SCH (04:00)
[2016-05-20] MEDS ORDERED: ONDANSETRON HCL 4 MG/2 ML VIAL IV PUSH PRN (04:15)
[2016-05-20] MEDS: methylPREDNISolone SOD SUCC 125 MG/2 ML VIAL IV PUSH SCH (04:30)
[2016-05-20] MEDS: INSULIN NovoLIN REGULAR SUPPLEMENTAL SCALE SQ SCH ×3 (05:09→17:51)
[2016-05-20 06:02] LABS: AUTOMATED NEUTROPHIL # 10.6 TH/MM3 (1.8-7.7); BASOPHIL % 0.2 % (0.0-2.0); HEMATOCRIT 33.8 % (39.0-51.0); LYMPHOCYTE # 0.6 TH/MM3 (1.0-4.8); MEAN CORPUSCULAR HEMOGLOBIN 30.3 PG (27.0-34.0); MEAN CORPUSCULAR HGB CONC 34.4 % (32.0-36.0); MONO % 5.1 % (0.0-8.0); NEUT % 89.7 % (16.0-70.0); PLATELET COUNT 301 TH/MM3 (150-450); RED BLOOD COUNT 3.84 MIL/MM3 (4.50-5.90); RED CELL DISTRIBUTION WIDTH 13.2 % (11.6-17.2); WHITE BLOOD COUNT 11.8 TH/MM3 (4.0-11.0)
[2016-05-20 06:08] LABS: HEMO FLAGS AUTO DIFF
[2016-05-20 06:33] LABS: BICARBONATE 27.8 MEQ/L (21.0-32.0); MAGNESIUM 1.9 MG/DL (1.5-2.5); POTASSIUM 4.1 MEQ/L (3.5-5.1)
[2016-05-20 07:50] LABS: PLATELET ESTIMATE SMEAR NORMAL (NORMAL); PLATELET MORPHOLOGY NORMAL (NORMAL); SCAN/DIFF AUTO DIFF CONFIRMED
[2016-05-20] MEDS: SODIUM CHLORIDE 0.9% FLUSH 5 ML FLUSH IV FLUSH SCH ×2 (08:33→20:26)
[2016-05-20] MEDS: BUDESONIDE-FORMOTEROL 160/4.5 MCG INHALER INH SCH ×2 (08:36→20:25)
[2016-05-20] MEDS: DOCUSATE SODIUM 50 MG/SENNA 8.6 MG TAB PO SCH ×2 (08:36→20:26)
--- NOTE | 2016-05-20 08:50 | HHI.PR ---
Subjective Remarks Alert less sob cough , white sputum Objective Vital Signs Date Time Temp Pulse Resp B/P Pulse Ox O2 Delivery O2 Flow Rate FiO2 05/20/16 04:00 98.0 88 18 133/63 99 05/20/16 00:00 98.3 82 16 113/61 97 05/19/16 20:06 96 05/19/16 20:00 98.4 80 18 138/72 97 05/19/16 19:02 98 Nasal Cannula 21 05/19/16 16:00 98.4 91 20 129/60 95 05/19/16 14:00 79 05/19/16 12:00 87 05/19/16 12:00 98.1 87 18 140/74 97 05/19/16 11:43 99 05/19/16 10:00 83 I/O 05/19/16 05/19/16 05/19/16 05/20/16 05/20/16 05/20/16 07:00 15:00 23:00 07:00 15:00 23:00 Intake Total 574 ml 240 ml Output Total 300 ml 600 ml Balance 274 ml -360 ml Intake Oral 100 ml 240 ml IV Total 474 ml 0 ml Output Urine Total 300 ml 600 ml Stool Total 0 ml # Voids 1 2 # Bowel Movements 0 0 Result Diagram: 05/20/16 0519 05/20/16518 Objective Remarks GENERAL: SKIN: Warm and dry. HEAD: Atraumatic. Normocephalic. EYES: Pupils equal and round. No scleral icterus. No injection or drainage. ENT: No nasal bleeding or discharge. Mucous membranes pink and moist. NECK: Trachea midline. No JVD. CARDIOVASCULAR: Regular rate and rhythm. RESPIRATORY: No accessory muscle use. Clear to auscultation. Breath sounds equal bilaterally. scattered wheeze GASTROINTESTINAL: Abdomen soft, non-tender, nondistended. Hepatic and splenic margins not palpable. MUSCULOSKELETAL: Extremities without clubbing, cyanosis, or edema. No obvious deformities. NEUROLOGICAL: Awake and alert. No obvious cranial nerve deficits. Motor grossly within normal limits. Five out of 5 muscle strength in the arms and legs. Normal speech. PSYCHIATRIC: Appropriate mood and affect; insight and judgment normal. Assessment and Plan Assessment and Plan ASTHMA EXACERBATION IMPROVING PLAN CONTINUE O2 BRONCHODILATOR THERAPY INCREASE ACTIVITY Rocky Hidalgo MD May 20, 2016 08:50
--- NOTE | 2016-05-20 09:06 | HHI.PR ---
Subjective Remarks Follow for asthma exacerbation Still with tight breathing, better than yesterday, off BiPAP. Still coughing, afebrile. Objective Vitals Vital Signs Date Time Temp Pulse Resp B/P Pulse Ox O2 Delivery O2 Flow Rate FiO2 05/20/16 08:56 98 21 05/20/16 04:00 98.0 88 18 133/63 99 05/20/16 00:00 98.3 82 16 113/61 97 05/19/16 20:06 96 05/19/16 20:00 98.4 80 18 138/72 97 05/19/16 19:02 98 Nasal Cannula 21 05/19/16 16:00 98.4 91 20 129/60 95 05/19/16 14:00 79 05/19/16 12:00 87 05/19/16 12:00 98.1 87 18 140/74 97 05/19/16 11:43 99 05/19/16 10:00 83 I/O 05/19/16 05/19/16 05/19/16 05/20/16 05/20/16 05/20/16 07:00 15:00 23:00 07:00 15:00 23:00 Intake Total 574 ml 240 ml Output Total 300 ml 600 ml Balance 274 ml -360 ml Intake Oral 100 ml 240 ml IV Total 474 ml 0 ml Output Urine Total 300 ml 600 ml Stool Total 0 ml # Voids 1 2 # Bowel Movements 0 0 Result Diagram: 05/20/1651805/20/16518 Objective Remarks GENERAL: Patient is 26 yo off BIPAP, eating. SKIN: Warm and dry. HEAD: Normocephalic. EYES: No scleral icterus. No injection or drainage. NECK: Supple, trachea midline. No JVD or lymphadenopathy. CARDIOVASCULAR: Regular rate and rhythm without murmurs, gallops, or rubs. RESPIRATORY: Occasional wheezing, tight bilateral air entry. GASTROINTESTINAL: Abdomen soft, non-tender, nondistended. MUSCULOSKELETAL: No cyanosis, or edema. Neuro: Awake and alert, oriented 3, no focal deficits. A/P Assessment and Plan 26-year-old male initially admitted at the ICU unit for respiratory distress Acute respiratory failure-secondary to asthma exacerbation with tracheobronchitis-continue oxygen support, duo nebs, decrease Solu-Medrol to 40 mg every 12 hours, pulmonary following. Increase activity. Continue Levaquin empirically, switch to oral. Influenza negative. Chest x-ray unremarkable. IgE elevated. DVT prophylaxis- On Lovenox 40mg SQ daily Discharge Planning Possible discharge tomorrow Gaby Etienne MD May 20, 2016 09:06 , WBC) Nasal washing for Influenza is negative. CXR: No acute disease Heme: Monitor CBC Endo: SSI with accuchecks for glycemic control No indication for GI prophylaxis as patient ese PO diet. DVT prophylaxis- On Lovenox 40mg SQ daily Gaby Etienne MD May 20, 2016 09:06
[2016-05-20] MEDS: methylPREDNISolone SOD SUCC 40 MG/1 ML VIAL IV PUSH SCH (17:51)
[2016-05-20] MEDS: ENOXAPARIN SODIUM 40 MG/0.4 ML SYRINGE SQ SCH (20:25)
[2016-05-21] VITALS: BP 120/60; PULSE 78; RESP 22; TEMP 97.8; O2SAT 98
[2016-05-21] MEDS: CHLORHEXIDINE GLUCONATE 2 % 1 PACK (2 CLOTHS) TOP SCH (03:34)
[2016-05-21 04:00] VITALS: BP 134/76; PULSE 64; RESP 18; TEMP 98; O2SAT 97
[2016-05-21] MEDS: RESP: ALBUTEROL 2.5 MG/IPRATROPIUM 0.5 MG NEB (SCH) INH ×3 (05:02→10:18)
[2016-05-21] MEDS: methylPREDNISolone SOD SUCC 40 MG/1 ML VIAL IV PUSH SCH (05:16)
[2016-05-21] MEDS: INSULIN NovoLIN REGULAR SUPPLEMENTAL SCALE SQ SCH ×3 (05:20→10:32)
[2016-05-21 07:40] VITALS: O2SAT 97
[2016-05-21 08:00] VITALS: BP 123/59; PULSE 91; RESP 20; TEMP 96.7; O2SAT 97
--- NOTE | 2016-05-21 08:44 | HHI.PR ---
Subjective Remarks Alert less sob cough , white sputum Objective Vital Signs Date Time Temp Pulse Resp B/P Pulse Ox O2 Delivery O2 Flow Rate FiO2 05/21/16 07:40 97 21 05/21/16 04:00 98.0 64 18 134/76 97 05/21/16 00:00 97.8 78 22 120/60 98 05/20/16 20:34 90 05/20/16 20:00 97.9 80 20 124/69 97 05/20/16 19:55 97 05/20/16 16:00 98.3 77 18 115/65 97 05/20/16 12:00 98.3 62 18 122/76 99 05/20/16 08:56 98 21 I/O 05/20/16 05/20/16 05/20/16 05/21/16 05/21/16 05/21/16 07:00 15:00 23:00 07:00 15:00 23:00 Intake Total 480 ml 600 ml 240 ml Output Total 1400 ml 300 ml Balance -920 ml 600 ml -60 ml Intake Oral 480 ml 600 ml 240 ml Output Urine Total 1400 ml 300 ml # Voids 4 1 # Bowel Movements 0 1 0 Result Diagram: 05/20/16 0519 05/20/16 05 Objective Remarks GENERAL: SKIN: Warm and dry. HEAD: Atraumatic. Normocephalic. EYES: Pupils equal and round. No scleral icterus. No injection or drainage. ENT: No nasal bleeding or discharge. Mucous membranes pink and moist. NECK: Trachea midline. No JVD. CARDIOVASCULAR: Regular rate and rhythm. RESPIRATORY: No accessory muscle use. Clear to auscultation. Breath sounds equal bilaterally. scattered wheeze GASTROINTESTINAL: Abdomen soft, non-tender, nondistended. Hepatic and splenic margins not palpable. MUSCULOSKELETAL: Extremities without clubbing, cyanosis, or edema. No obvious deformities. NEUROLOGICAL: Awake and alert. No obvious cranial nerve deficits. Motor grossly within normal limits. Five out of 5 muscle strength in the arms and legs. Normal speech. PSYCHIATRIC: Appropriate mood and affect; insight and judgment normal. Assessment and Plan Assessment and Plan ASTHMA EXACERBATION IMPROVING PLAN CONTINUE O2 BRONCHODILATOR THERAPY INCREASE ACTIVITY Rocky Hidalgo MD May 21, 2016 08:44
[2016-05-21] MEDS: DOCUSATE SODIUM 50 MG/SENNA 8.6 MG TAB PO SCH (09:00)
[2016-05-21] MEDS: SODIUM CHLORIDE 0.9% FLUSH 5 ML FLUSH IV FLUSH SCH (09:00)
[2016-05-21] MEDS ORDERED: LEVOFLOXACIN 750 MG TAB PO SCH (09:00)
[2016-05-21] MEDS: BUDESONIDE-FORMOTEROL 160/4.5 MCG INHALER INH SCH (09:18)
[2016-05-21 10:29] VITALS: PULSE 80
[2016-05-21] MEDS ORDERED: MUCI30TA2 PO (11:42)
[2016-05-21] MEDS ORDERED: LEVA750T PO (11:42)
[2016-05-21] MEDS ORDERED: SYMB160A INH (11:42)
[2016-05-21] MEDS ORDERED: PRED20 PO (11:42)
[2016-05-21] MEDS ORDERED: VENTAER INH (11:42)
--- NOTE | 2016-05-21 11:46 | HHI.PR ---
Subjective Remarks Follow-up acute respiratory failure/asthma exacerbation 05/21/16-patient seen and examined, starting above 92%, still with some cough however nonproductive. Currently afebrile Objective Vitals Vital Signs Date Time Temp Pulse Resp B/P Pulse Ox O2 Delivery O2 Flow Rate FiO2 05/21/16 10:29 80 05/21/16 08:00 96.7 91 20 123/59 97 05/21/16 07:40 97 21 05/21/16 04:00 98.0 64 18 134/76 97 05/21/16 00:00 97.8 78 22 120/60 98 05/20/16 20:34 90 05/20/16 20:00 97.9 80 20 124/69 97 05/20/16 19:55 97 05/20/16 16:00 98.3 77 18 115/65 97 05/20/16 12:00 98.3 62 18 122/76 99 I/O 05/20/16 05/20/16 05/20/16 05/21/16 05/21/16 05/21/16 07:00 15:00 23:00 07:00 15:00 23:00 Intake Total 480 ml 600 ml 240 ml Output Total 1400 ml 300 ml Balance -920 ml 600 ml -60 ml Intake Oral 480 ml 600 ml 240 ml Output Urine Total 1400 ml 300 ml # Voids 4 1 # Bowel Movements 0 1 0 Result Diagram: 05/20/1651805/20/16518 Imaging Last Impressions Chest X-Ray 05/18/16 0600 Signed Impressions: Service Date/Time: Wednesday, May 18, 2016 05:38 - CONCLUSION: 1. No acute cardiopulmonary disease. Rajan Nogueira MD Objective Remarks GENERAL: NAD SKIN: Warm and dry. HEAD: Normocephalic. EYES: No scleral icterus. No injection or drainage. NECK: Supple, trachea midline. No JVD or lymphadenopathy. CARDIOVASCULAR: Regular rate and rhythm without murmurs, gallops, or rubs. RESPIRATORY: Breath sounds equal bilaterally. No accessory muscle use. GASTROINTESTINAL: Abdomen soft, non-tender, nondistended. MUSCULOSKELETAL: No cyanosis, or edema. BACK: Nontender without obvious deformity. No CVA tenderness. Procedures none A/P Problem List: (1) Acute respiratory failure ICD Code: J96.00 Status: Acute (2) Asthma exacerbation ICD Code: J45.901 Status: Acute Assessment and Plan 26-year-old male with 1-Acute respiratory failure: Secondary to asthma exacerbation, now resolved 2-Asthma exacerbation with tracheobronchitis:continue oxygen support, duo nebs, Levaquin 750 mg daily, discontinue Solu-Medrol to 40 mg every 12 hours and start by mouth prednisone. Appreciate input from pulmonary medicine. Influenza negative. Chest x-ray unremarkable. IgE elevated. 3-DVT prophylaxis: Karri Mishra MD May 21, 2016 11:46
--- NOTE | 2016-05-21 11:47 | HHI.DS ---
Discharge Summary Admission Date May 17, 2016 at 19:10 Discharge Date: May 21, 2016 Admitting Diagnosis asthma exacerbation, fever (1) Acute respiratory failure ICD Code: J96.00 (2) Asthma exacerbation ICD Code: J45.901 Procedures none Brief History - From Admission This is a 26-year-old male with a history of asthma who presented with a three- day history of cough with productive sputum and worsening shortness of breath. He uses albuterol home but does not take any additional medications for his chronic asthma. On my evaluation the patient is severely dyspneic and cannot provide any additional history. He is currently on BiPAP on my evaluation. Critical-care medicine as consult to evaluate and manage his hypoxic and hypercarbic respiratory failure. In the emergency department he received a number of albuterol nebs as well as IV Solu-Medrol and IV magnesium. CBC/BMP: 05/20/16 0519 05/20/16 0519 Significant Findings Laboratory Tests Test 05/18/16 05/19/16 05/20/16 12:18 05:31 05:19 Immunoglobulin E 1398 kU/L (<= 214) White Blood Count 12.9 TH/MM3 11.8 TH/MM3 (4.0-11.0) (4.0-11.0) Red Blood Count 3.69 MIL/MM3 3.84 MIL/MM3 (4.50-5.90) (4.50-5.90) Hemoglobin 10.9 GM/DL 11.6 GM/DL (13.0-17.0) (13.0-17.0) Hematocrit 33.1 % 33.8 % (39.0-51.0) (39.0-51.0) Neutrophils (%) (Auto) 92.3 % 89.7 % (16.0-70.0) (16.0-70.0) Lymphocytes (%) (Auto) 4.5 % 5.0 % (9.0-44.0) (9.0-44.0) Neutrophils # (Auto) 11.9 TH/MM3 10.6 TH/MM3 (1.8-7.7) (1.8-7.7) Lymphocytes # (Auto) 0.6 TH/MM3 0.6 TH/MM3 (1.0-4.8) (1.0-4.8) Blood Urea Nitrogen 20 MG/DL (7-18) Random Glucose 137 MG/DL 126 MG/DL (74-106) (74-106) Calcium Level 8.3 MG/DL (8.5-10.1) Imaging Last Impressions Chest X-Ray 05/18/16 0600 Signed Impressions: Service Date/Time: Wednesday, May 18, 2016 05:38 - CONCLUSION: 1. No acute cardiopulmonary disease. Rajan Nogueira MD PE at Discharge GENERAL: NAD SKIN: Warm and dry. HEAD: Normocephalic. EYES: No scleral icterus. No injection or drainage. NECK: Supple, trachea midline. No JVD or lymphadenopathy. CARDIOVASCULAR: Regular rate and rhythm without murmurs, gallops, or rubs. RESPIRATORY: Breath sounds equal bilaterally. No accessory muscle use. GASTROINTESTINAL: Abdomen soft, non-tender, nondistended. MUSCULOSKELETAL: No cyanosis, or edema. BACK: Nontender without obvious deformity. No CVA tenderness. Hospital Course 1-Acute respiratory failure: Secondary to asthma exacerbation, now resolved 2-Asthma exacerbation with tracheobronchitis: Treated with oxygen support, duo nebs, Levaquin 750 mg daily, discontinue Solu-Medrol to 40 mg every 12 hours and start by mouth prednisone. Appreciate input from pulmonary medicine. Influenza negative. Chest x-ray unremarkable. IgE elevated. 3-DVT prophylaxis: Lovenox Pt Condition on Discharge: Stable Discharge Disposition: Discharge Home Discharge Time: <= 30 minutes Discharge Instructions DIET: Follow Instructions for: As Tolerated, No Restrictions Activities you can perform: Regular-No Restrictions Follow up Referrals: PCP Follow-up - 1 Week New Medications: Albuterol 18 GM Inh (Ventolin Hfa 18 GM Inh) 90 Mcg/Act Aer 2 PUFF INH Q4H PRN SHORTNESS OF BREATH #1 Ref 3 INHALER Dextromethorphan-Guaifenesin (Mucinex DM) 30-600 Mg Tab 1 TAB PO BID PRN CHEST CONGESTION AND/OR COUGH #20 Ref 0 TAB Prednisone (Prednisone) 20 Mg Tab 20 MG PO DIRECTED 40 MG twice a day x 3 days, then 20 MG daily x 3 days, then 10 MG daily x 3 days Inflammation #11 Ref 0 TAB Budesonide-Formoterol Inh (Symbicort Inh) 160-4.5 Mcg/Act Aero 2 PUFF INH Q12HR Breathing Treatment #60 INHALER Levofloxacin (Levaquin) 750 Mg Tab 750 MG PO DAILY Infection #2 TAB Continued Medications: Albuterol 18 GM Inh (Ventolin Hfa 18 GM Inh) 90 Mcg/Act Aer 2 PUFF INH Q4H PRN SHORTNESS OF BREATH #1 Ref 0 INHALER Karri Barton MD May 21, 2016 11:47
[2016-05-21 12:00] VITALS: BP 123/59; PULSE 92; RESP 20; TEMP 98; O2SAT 98
[2016-05-22] MEDS ORDERED: predniSONE 20 MG TAB PO SCH (09:00)
== END 2016-05-21 13:44 | disposition home or self-care (01) | DRG 189 ==
LOC: NEPA 15:54 → NEDA 19:10 → NEDH 23:10 → HIMN 05-18 13:58 → N04A 05-19 16:12
PROVIDERS: ADMIT Hospitalist; ATTEND Hospitalist
PROC: 5A09357 Assistance with Respiratory Ventilation, Less than 24 Consecutive Hours, Continuous Positive Airway Pressure (ICD-10-PCS; principal; 2016-05-17)
PROC: 5A09357 Assistance with Respiratory Ventilation, Less than 24 Consecutive Hours, Continuous Positive Airway Pressure (ICD-10-PCS; 2016-05-18)
DX: J96.01 Acute respiratory failure with hypoxia (principal); E87.1 Hypo-osmolality and hyponatremia; J45.901 Unspecified asthma with (acute) exacerbation; J96.02 Acute respiratory failure with hypercapnia; J40 Bronchitis, not specified as acute or chronic; F32.9 Major depressive disorder, single episode, unspecified; F41.9 Anxiety disorder, unspecified; F90.9 Attention-deficit hyperactivity disorder, unspecified type; N18.1 Chronic kidney disease, stage 1; L30.9 Dermatitis, unspecified; F17.210 Nicotine dependence, cigarettes, uncomplicated; Z23 Encounter for immunization
CPT/HCPCS: 36600; 71010; 76937; 80048; 82550; 82552; 82785; 82805; 82948; 83605; 83735; 84100; 84484; 85025; 85027; 87040; 87070; 87205; 87641; 87804; 90686; 93005; 94002; 94003; 94150; 94640; 94664; 94667; 94668; 96365; 96375; J1650; J1956; J2405; J2920; J2930; J3475; J7030; J7613; Q2038

== ENCOUNTER 2016-05-29 00:58 | Observation (INO) | payer SELFPAY ==
[~2016-05-29] VITALS: Ht 152.4 cm; Wt 62.0 kg
[2016-05-29] VITALS (8 sets, daily range): BP systolic 98–126; BP diastolic 53–82; PULSE 80–118; RESP 16–20; TEMP 97.4–98.4; O2SAT 97–100
[~2016-05-29 00:58] MED LIST changes: -ALBUAER3 INH; +LEVA750T PO; +MUCI30TA2 PO; +SYMB160A INH
[2016-05-29] MEDS ORDERED: SODIUM CHLOR 0.9% 1000 ML INJ 1,000 ML IV SCH (02:14)
[2016-05-29] MEDS ORDERED: ONDANSETRON HCL 4 MG/2 ML VIAL IVP ONE (02:15)
[2016-05-29] MEDS ORDERED: MORPHINE SULFATE 4 MG/ML INJ IV PUSH ONE ×2 (02:15→04:00)
[2016-05-29] MEDS ORDERED: SODIUM CHLORIDE 0.9% FLUSH 5 ML FLUSH IVF PRN (02:15)
--- NOTE | 2016-05-29 02:26 | PD ---
HPI Chief Complaint: GI Complaint Time Seen by Provider: 02:06 Travel History International Travel<30 days: No Contact w/Intl Traveler<30days: No Traveled to known affect area: No History of Present Illness HPI The patient is a 26-year-old [place] male who presents emergency department for chest pain and epigastric abdominal pain with eating. The patient states his symptoms or 4 days ago when he was eating a hamburger. The patient felt like he had pain in the mid esophageal area, and then subsequently vomited a hamburger. The patient states he is unable to tolerate oral intake, solids, secondary to pain. He is able to drink a few fluids, however, occasionally will vomit the liquids as well. The patient states he has had very little oral intake over the last 4 days. The patient denies any known history of esophagitis, gastritis, esophageal spasm, or esophageal strictures. He denies any history of HIV or diabetes. The patient does have a history of pancreatitis several years ago, however, stated that episode was different with nausea, vomiting, and abdominal pain. The patient's symptoms are moderate, there are no known alleviating or exacerbating factors. PFSH Past Medical History ADHD: Yes Arthritis: No Asthma: Yes Blood Disorders: No Anxiety: Yes Depression: Yes Heart Rhythm Problems: Yes Cancer: No Cardiovascular Problems: No High Cholesterol: No Chest Pain: No Congestive Heart Failure: No COPD: No Diabetes: No Diminished Hearing: No Endocrine: No GERD: No Genitourinary: No Hiatal Hernia: No Immune Disorder: No Musculoskeletal: Yes (fx left arm and right wrist) Neurologic: No Psychiatric: No Reproductive: No Respiratory: Yes (ASTHMA) Integumentary: Yes (ezema) Immunizations Current: Yes Renal Failure: Yes (pt states 1st stage) Sleep Apnea: No Thyroid Disease: No Ulcer: No Past Surgical History Surgical History: No Previous Surgery Other Surgery: No Social History Alcohol Use: No Tobacco Use: Yes (0.25) Substance Use: No Allergies-Medications (Allergen,Severity, Reaction): Coded Allergies: No Known Allergies (Verified , 05/29/16) Reported Meds & Prescriptions Reported Meds & Active Scripts Active Mucinex DM (Dextromethorphan-Guaifenesin) 30-600 Mg Tab 1 Tab PO BID PRN Symbicort Inh (Budesonide/Formoterol Fumarate) 160-4.5 Mcg/Act Aero 2 Puff INH Q12HR Ventolin Hfa 18 GM Inh (Albuterol Sulfate) 90 Mcg/Act Aer 2 Puff INH Q4H PRN Review of Systems Except as stated in HPI: all other systems reviewed are Neg Cardiovascular: Positive: Chest Pain or Discomfort Respiratory: No: Shortness of Breath Gastrointestinal: Positive: Nausea, Vomiting, Abdominal Pain, Dysphagia Musculoskeletal: No: Weakness Neurologic: No: Weakness Physical Exam Narrative GENERAL: Awake, alert, 26-year-old male who appears his stated age and is in no acute respiratory distress. SKIN: Warm and dry. HEAD: Atraumatic. Normocephalic. EYES: Pupils equal and round. No scleral icterus. No injection or drainage. ENT: No nasal bleeding or discharge. Slightly dry mucous membranes. NECK: Trachea midline. No JVD. CARDIOVASCULAR: Regular, tachycardic with a heart rate of 105. RESPIRATORY: No accessory muscle use. Clear to auscultation. Breath sounds equal bilaterally. GASTROINTESTINAL: Abdomen soft, mild epigastric tenderness. No rebound tenderness. MUSCULOSKELETAL: No obvious deformities. No clubbing. No cyanosis. No edema. NEUROLOGICAL: Awake and alert. No obvious cranial nerve deficits. Motor grossly within normal limits. Normal speech. PSYCHIATRIC: Appropriate mood and affect; insight and judgment normal. Data Data Last Documented VS Vital Signs Date Time Temp Pulse Resp B/P Pulse Ox O2 Delivery O2 Flow Rate FiO2 05/29/16 02:49 16 99 Room Air 05/29/16 02:49 87 116/71 05/29/16 01:09 98.3 Orders Complete Blood Count With Diff (05/29/16 02:14) Comprehensive Metabolic Panel (05/29/16 02:14) Lipase (05/29/16 02:14) Ct Abd/Pel W/O Iv Contrast (05/29/16 02:14) Iv Access Insert/Monitor (05/29/16 02:14) Ecg Monitoring (05/29/16 02:14) Oximetry (05/29/16 02:14) Morphine Inj (Morphine Inj) (05/29/16 02:15) Ondansetron Inj (Zofran Inj) (05/29/16 02:15) Sodium Chlor 0.9% 1000 Ml Inj (Ns 1000 M (05/29/16 02:14) Sodium Chloride 0.9% Flush (Ns Flush) (05/29/16 02:15) Chest, Single Ap (05/29/16 02:14) Labs Laboratory Tests Test 05/29/16 02:20 White Blood Count 4.8 TH/MM3 Red Blood Count 4.64 MIL/MM3 Hemoglobin 14.6 GM/DL Hematocrit 41.3 % Mean Corpuscular Volume 89.1 FL Mean Corpuscular Hemoglobin 31.5 PG Mean Corpuscular Hemoglobin 35.4 % Concent Red Cell Distribution Width 13.5 % Platelet Count 345 TH/MM3 Mean Platelet Volume 6.2 FL Neutrophils (%) (Auto) 62.4 % Lymphocytes (%) (Auto) 24.8 % Monocytes (%) (Auto) 10.3 % Eosinophils (%) (Auto) 2.1 % Basophils (%) (Auto) 0.4 % Neutrophils # (Auto) 3.0 TH/MM3 Lymphocytes # (Auto) 1.2 TH/MM3 Monocytes # (Auto) 0.5 TH/MM3 Eosinophils # (Auto) 0.1 TH/MM3 Basophils # (Auto) 0.0 TH/MM3 CBC Comment AUTO DIFF Sodium Level 134 MEQ/L Potassium Level 4.0 MEQ/L Chloride Level 100 MEQ/L Carbon Dioxide Level 24.9 MEQ/L Anion Gap 9 MEQ/L Blood Urea Nitrogen 26 MG/DL Creatinine 1.62 MG/DL Estimat Glomerular Filtration 62 ML/MIN Rate Random Glucose 69 MG/DL Calcium Level 8.3 MG/DL Total Bilirubin 0.3 MG/DL Aspartate Amino Transf 19 U/L (AST/SGOT) Alanine Aminotransferase 18 U/L (ALT/SGPT) Alkaline Phosphatase 51 U/L Total Protein 8.9 GM/DL Albumin 2.7 GM/DL Lipase 91 U/L [facility] Medical Decision Making Medical Screen Exam Complete: Yes Emergency Medical Condition: Yes Medical Record Reviewed: Yes Interpretation(s) Last Impressions Chest X-Ray 05/29/16213 Signed Impressions: Service Date/Time: Sunday, May 29, 2016 02:47 - CONCLUSION: Normal examination. Tim Simon MD Abdomen/Pelvis CT 05/29/16213 Signed Impressions: Service Date/Time: Sunday, May 29, 2016 03:08 - CONCLUSION: 1. Right basilar pulmonary scarring otherwise unremarkable exam. Tim Simon MD Laboratory Tests Test 05/29/16 02:20 White Blood Count 4.8 TH/MM3 Red Blood Count 4.64 MIL/MM3 Hemoglobin 14.6 GM/DL Hematocrit 41.3 % Mean Corpuscular Volume 89.1 FL Mean Corpuscular Hemoglobin 31.5 PG Mean Corpuscular Hemoglobin 35.4 % Concent Red Cell Distribution Width 13.5 % Platelet Count 345 TH/MM3 Mean Platelet Volume 6.2 FL Neutrophils (%) (Auto) 62.4 % Lymphocytes (%) (Auto) 24.8 % Monocytes (%) (Auto) 10.3 % Eosinophils (%) (Auto) 2.1 % Basophils (%) (Auto) 0.4 % Neutrophils # (Auto) 3.0 TH/MM3 Lymphocytes # (Auto) 1.2 TH/MM3 Monocytes # (Auto) 0.5 TH/MM3 Eosinophils # (Auto) 0.1 TH/MM3 Basophils # (Auto) 0.0 TH/MM3 CBC Comment AUTO DIFF Sodium Level 134 MEQ/L Potassium Level 4.0 MEQ/L Chloride Level 100 MEQ/L Carbon Dioxide Level 24.9 MEQ/L Anion Gap 9 MEQ/L Blood Urea Nitrogen 26 MG/DL Creatinine 1.62 MG/DL Estimat Glomerular Filtration 62 ML/MIN Rate Random Glucose 69 MG/DL Calcium Level 8.3 MG/DL Total Bilirubin 0.3 MG/DL Aspartate Amino Transf 19 U/L (AST/SGOT) Alanine Aminotransferase 18 U/L (ALT/SGPT) Alkaline Phosphatase 51 U/L Total Protein 8.9 GM/DL Albumin 2.7 GM/DL Lipase 91 U/L Differential Diagnosis Differential diagnosis includes esophagitis, esophageal stricture, esophageal motility disorder, food bolus impaction, gastritis, peptic ulcer disease, pancreatitis. Narrative Course IV was established, labs are drawn and sent, the patient was placed on cardiac telemetry monitoring continuous pulse oximetry monitoring. Chest x-ray was obtained. CT of the abdomen and pelvis was obtained. The patient was provided IV fluids and Zofran. The patient's kidney function is elevated with creatinine 1.62, albumin is low at 2.7, may be indicative of mild dehydration and poor nutrition. CT the abdomen and pelvis is negative. Chest x-rays unremarkable. The patient may benefit from GI consultation for evaluation of the esophagus including barium swallow and/or endoscopy. The patient is comfortable with this plan of care. Therefore, the on-call medical service was paged for 23 hour observation. Physician Communication Physician Communication The on-call medical service was paged for 23 hour observation. Diagnosis Primary Impression: Dysphagia Qualified Code: R13.10 - Dysphagia, unspecified type Additional Impressions: Acute kidney injury (nontraumatic) Dehydration Admitting Information Admitting Physician Requests: Observation Condition: Stable Carson Ly MD May 29, 2016 02:26
[2016-05-29 02:37] LABS: BASOPHIL % 0.4 % (0.0-2.0); EOSINOPHIL # 0.1 TH/MM3 (0-0.4); EOSINOPHIL % 2.1 % (0.0-4.0); HEMATOCRIT 41.3 % (39.0-51.0); LYMPH % 24.8 % (9.0-44.0); LYMPHOCYTE # 1.2 TH/MM3 (1.0-4.8); MEAN CELL VOLUME 89.1 FL (80.0-100.0); MEAN CORPUSCULAR HEMOGLOBIN 31.5 PG (27.0-34.0); MEAN CORPUSCULAR HGB CONC 35.4 % (32.0-36.0); MONO % 10.3 % (0.0-8.0); NEUT % 62.4 % (16.0-70.0); PLATELET COUNT 345 TH/MM3 (150-450); RED BLOOD COUNT 4.64 MIL/MM3 (4.50-5.90); RED CELL DISTRIBUTION WIDTH 13.5 % (11.6-17.2); WHITE BLOOD COUNT 4.8 TH/MM3 (4.0-11.0)
[2016-05-29 02:45] LABS: HEMO FLAGS AUTO DIFF
[2016-05-29 02:54] LABS: ALT (GPT) 18 U/L (12-78); ANION GAP 9 MEQ/L (5-15); AST (GOT) 19 U/L (15-37); BICARBONATE 24.9 MEQ/L (21.0-32.0); BLOOD UREA NITROGEN 26 MG/DL (7-18); CHLORIDE 100 MEQ/L (98-107); GLOMERULAR FILTRATION RATE 62 ML/MIN (>89); SODIUM (NA) 134 MEQ/L (136-145)
--- NOTE | 2016-05-29 02:54 | RADRPT ---
EXAM DATE/TIME: 05/29/2016 02:47 [facility] COMPARISON: CHEST SINGLE AP, May 18, 2016, 5:38. INDICATIONS : Chest pain. MEDICAL HISTORY : Asthma SURGICAL HISTORY : None. ENCOUNTER: Initial ACUITY: 1 day PAIN SCORE: 6/10 LOCATION: Bilateral chest FINDINGS: A single view of the chest demonstrates the lungs to be symmetrically aerated without evidence of mas s, infiltrate or effusion. The cardiomediastinal contours are unremarkable. Osseous structures are intact. CONCLUSION: Normal examination. Tim Simon MD on May 29, 2016 at 2:52 Board Certified Radiologist. This report was verified electronically.
[2016-05-29 02:57] LABS: ALKALINE PHOSPHATASE 51 U/L (45-117); TOTAL BILIRUBIN ADULT 0.3 MG/DL (0.2-1.0)
--- NOTE | 2016-05-29 03:21 | RADRPT ---
EXAM DATE/TIME: 05/29/2016 03:08 [facility] COMPARISON: CT ABDOMEN & PELVIS W/O CONTRAST, February 13, 2015, 14:06. INDICATIONS : Epigastric pain with swallowing. ORAL CONTRAST: No oral contrast ingested. RADIATION DOSE: 4.48 CTDIvol (mGy) MEDICAL HISTORY : Cardiovascular disease. Renal failure, chronic. Asthma SURGICAL HISTORY : None. ENCOUNTER: Initial ACUITY: 4 - 6 days PAIN SCALE: 5/10 LOCATION: abdomen TECHNIQUE: Volumetric scanning of the abdomen and pelvis was performed. Using automated exposure control and ad justment of the mA and/or kV according to patient size, radiation dose was kept as low as reasonably achievable to obtain optimal diagnostic quality images. FINDINGS: LOWER LUNGS: There is bandlike scarring at the right lung base. LIVER: Homogeneous density without lesion. There is no dilation of the biliary tree. No calcified gallston es. SPLEEN: Normal size without lesion. PANCREAS: Within normal limits. KIDNEYS: Normal in size and shape. There is no mass, stone, or hydronephrosis. ADRENAL GLANDS: Within normal limits. VASCULAR: There is no aortic aneurysm. BOWEL/MESENTERY: The stomach, small bowel, and colon demonstrate no acute abnormality. There is no free intraperitone al air or fluid. ABDOMINAL WALL: Within normal limits. RETROPERITONEUM: There is no lymphadenopathy. BLADDER: No wall thickening or mass. REPRODUCTIVE: Within normal limits. INGUINAL: There is no lymphadenopathy or hernia. MUSCULOSKELETAL: Within normal limits for patient age. CONCLUSION: 1. Right basilar pulmonary scarring otherwise unremarkable exam. Tim Simon MD on May 29, 2016 at 3:18 Board Certified Radiologist. This report was verified electronically.
[2016-05-29] MEDS ORDERED: SODIUM CHLOR 0.9% 1000 ML INJ 1,000 ML IV ONE (03:45)
[2016-05-29] MEDS ORDERED: ACETAMINOPHEN/HYDROcodone 325 MG/5 MG TAB PO PRN (04:00)
[2016-05-29] MEDS ORDERED: ONDANSETRON HCL 4 MG/2 ML VIAL IVP PRN (04:00)
[2016-05-29] MEDS ORDERED: ACETAMINOPHEN 325 MG TAB PO PRN (04:00)
[2016-05-29] MEDS ORDERED: SODIUM CHLORIDE 0.9% FLUSH 5 ML FLUSH FLUSH PRN (04:00)
[2016-05-29] MEDS ORDERED: PANTOPRAZOLE SODIUM 40 MG VIAL IV PUSH ONE (04:00)
[2016-05-29] MEDS ORDERED: BISACODYL 10 MG SUPP PR PRN (04:00)
[2016-05-29 04:05] LABS: SCAN/DIFF AUTO DIFF CONFIRMED
[2016-05-29] MEDS: SODIUM CHLOR 0.9% 1000 ML INJ 1,000 ML IV SCH ×2 (04:24→17:02)
--- NOTE | 2016-05-29 05:02 | HHI.HP ---
[facility] Service [facility] Primary Care Physician No Primary Care Physician Admission Diagnosis dysphagia, acute kidney injury, dehydration Diagnoses: (1) Dysphagia Diagnosis: Principal (2) CINDY (acute kidney injury) Diagnosis: Principal (3) Dehydration Diagnosis: Principal Travel History International Travel<30 Days: No Contact w/Intl Traveler <30 Da: No Traveled to Known Affected Are: No History of Present Illness This is a 26-year-old male with a PMH of Asthma and h/o Pancreatitis who presented to the ER w/ complaints of epigastric pain and difficulty swallowing x4 days. States he was eating a hamburger approx 4 days ago and felt "like it got stuck". States he's been unable to swallow liquids or solids since then due to intense squeezing pain followed by non-bloody emesis. Denies fever, chills, nausea, vomiting or diarrhea. No h/o similar symptoms in the past. Recent admit 05/17-05/21/16 for Asthma exacerbation, on Solu-Medrol IV and d/c'd on Prednisone taper in addition to Symbicort, Albuterol and Levaquin. Review of Systems ROS: 14 point review of systems otherwise negative. Past Family Social History Past Medical History PMH: Asthma and h/o Pancreatitis Past Surgical History PAST SURGICAL HISTORY: None Allergies: Coded Allergies: No Known Allergies (Verified , 05/29/16) Family History PAST FAMILY HISTORY: Reviewed. No h/o DM or CAD Social History PAST SOCIAL HISTORY: Negative for alcohol or drugs. Smokes 1/4 ppd. Physical Exam Vital Signs Vital Signs Date Time Temp Pulse Resp B/P Pulse Ox O2 Delivery O2 Flow Rate FiO2 05/29/16 04:24 83 16 109/60 99 Room Air 05/29/16 04:24 16 05/29/16 02:49 16 99 Room Air 05/29/16 02:49 87 16 116/71 99 Room Air 05/29/16 02:09 16 05/29/16 01:09 98.3 118 18 126/82 99 Room Air Physical Exam PE: GENERAL: Young black male in no acute distress. Speaking clearly, no airway compromise. HEENT: PERRLA, EOMI. No scleral icterus or conjunctival pallor. No lid lag or facial droop. CARDIOVASCULAR: Regular rate and rhythm. No obvious murmurs to auscultation. No chest tenderness to palpation. RESPIRATORY: No obvious rhonchi or wheezing. Clear to auscultation. Breath sounds equal bilaterally. GASTROINTESTINAL: Abdomen soft, mild epigastric tenderness to palpation, nondistended. BS normal. MUSCULOSKELETAL: Extremities without clubbing, cyanosis, or edema. No obvious deformities. NEUROLOGICAL: Awake, alert and oriented x4. No focal neurologic deficits. Moving both upper and lower extremities spontaneously. Laboratory Laboratory Tests Test 05/29/16 02:20 White Blood Count 4.8 Red Blood Count 4.64 Hemoglobin 14.6 Hematocrit 41.3 Mean Corpuscular Volume 89.1 Mean Corpuscular Hemoglobin 31.5 Mean Corpuscular Hemoglobin 35.4 Concent Red Cell Distribution Width 13.5 Platelet Count 345 Mean Platelet Volume 6.2 Neutrophils (%) (Auto) 62.4 Lymphocytes (%) (Auto) 24.8 Monocytes (%) (Auto) 10.3 Eosinophils (%) (Auto) 2.1 Basophils (%) (Auto) 0.4 Neutrophils # (Auto) 3.0 Lymphocytes # (Auto) 1.2 Monocytes # (Auto) 0.5 Eosinophils # (Auto) 0.1 Basophils # (Auto) 0.0 CBC Comment AUTO DIFF Differential Comment AUTO DIFF CONFIRMED Sodium Level 134 Potassium Level 4.0 Chloride Level 100 Carbon Dioxide Level 24.9 Anion Gap 9 Blood Urea Nitrogen 26 Creatinine 1.62 Estimat Glomerular Filtration 62 Rate Random Glucose 69 Calcium Level 8.3 Total Bilirubin 0.3 Aspartate Amino Transf 19 (AST/SGOT) Alanine Aminotransferase 18 (ALT/SGPT) Alkaline Phosphatase 51 Total Protein 8.9 Albumin 2.7 Lipase 91 Result Diagram: 05/29/1621905/29/16219 Assessment and Plan Problem List: (1) Dysphagia ICD Code: R13.10 Status: Acute (2) CINDY (acute kidney injury) ICD Code: N17.9 Status: Acute (3) Dehydration ICD Code: E86.0 Status: Acute Assessment and Plan A/P: 1. Dysphagia: acute onset of dysphagia for liquids and solids x4 days, unable to tolerate PO secondary to pain and occasional episodes of emesis after attempting to eat. No h/o similar symptoms. Denies HIV. No h/o DM. Recent admit for Asthma on Solu-Medrol IV and d/c'd home 05/21/16 on Prednisone taper, symptoms possibly secondary to severe gastritis from steroid therapy. Protonix IV. Barium Swallow to eval for stricture/obstruction. GI Consult as needed. IVF, antiemetics/analgesics as needed. 2. CINDY: Creatinine 1.62, previously 1.15 on 05/20/16. Likely secondary to decreased PO intake. IVF, repeat labs in am. 3. Dehydration: secondary to above, IVF for hydration. Repeat labs in am. 4. DVT Prophylaxis: SCD/Teds. 5. Social work for d/c planning as needed. 6. Case discussed w/ ER physician at length. Problem Qualifiers (1) Dysphagia: Qualified Code: R13.10 - Dysphagia, unspecified type Afia Perea MD May 29, 2016 05:02
[2016-05-29] MEDS: MORPHINE SULFATE 4 MG/ML INJ IV PRN ×4 (07:48→21:44)
--- NOTE | 2016-05-29 08:04 | HHI.PR ---
Subjective Remarks F-U Odynophagia/dysphagia 05/29/16-patient seen and examined; complains of mostly pain with swallowing and from the ligament of Trez down; Afebrile. denies any SOB. Reported only one episode of GI bleed of a small amount Objective Vitals Vital Signs Date Time Temp Pulse Resp B/P Pulse Ox O2 Delivery O2 Flow Rate FiO2 05/29/16 07:36 97.4 83 16 98/53 97 05/29/16 05:23 98.2 82 16 104/59 99 05/29/16 04:24 83 16 109/60 99 Room Air 05/29/16 04:24 16 05/29/16 02:49 16 99 Room Air 05/29/16 02:49 87 16 116/71 99 Room Air 05/29/16 02:09 16 05/29/16 01:09 98.3 118 18 126/82 99 Room Air I/O 05/28/16 05/28/16 05/28/16 05/29/16 05/29/16 05/29/16 07:00 15:00 23:00 07:00 15:00 23:00 Intake Total 120 ml Balance 120 ml Intake Oral 120 ml Result Diagram: 05/29/1621905/29/16219 Imaging Last Impressions Chest X-Ray 05/29/16213 Signed Impressions: Service Date/Time: Sunday, May 29, 2016 02:47 - CONCLUSION: Normal examination. Tim Simon MD Abdomen/Pelvis CT 05/29/16213 Signed Impressions: Service Date/Time: Sunday, May 29, 2016 03:08 - CONCLUSION: 1. Right basilar pulmonary scarring otherwise unremarkable exam. Tim Simon MD Objective Remarks GENERAL: NAD SKIN: Warm and dry. HEAD: Normocephalic. EYES: No scleral icterus. No injection or drainage. NECK: Supple, trachea midline. No JVD or lymphadenopathy. CARDIOVASCULAR: Regular rate and rhythm without murmurs, gallops, or rubs. RESPIRATORY: Breath sounds equal bilaterally. No accessory muscle use. GASTROINTESTINAL: Abdomen soft, non-tender, nondistended. MUSCULOSKELETAL: No cyanosis, or edema. BACK: Nontender without obvious deformity. No CVA tenderness. A/P Problem List: (1) Dysphagia ICD Code: R13.10 Status: Acute (2) CINDY (acute kidney injury) ICD Code: N17.9 Status: Acute (3) Dehydration ICD Code: E86.0 Status: Acute Assessment and Plan 26yrs old man 1. Odynophagia/Dysphagia: No h/o DM. symptoms possibly secondary to severe gastritis from steroid therapy. Protonix IV. Barium Swallow to eval for stricture/obstruction this AM. GI Consult as needed. IVF, antiemetics/ analgesics as needed. 2. CINDY: Creatinine 1.62, previously 1.15 on 05/20/16. Likely secondary to decreased PO intake. IVF, repeat labs pending this am. 3. Dehydration: secondary to above, IVF for hydration. Repeat labs in am. 4. DVT Prophylaxis: SCD/Teds. Problem Qualifiers (1) Dysphagia: Qualified Code: R13.10 - Dysphagia, unspecified type Karri Barton MD May 29, 2016 08:04
[2016-05-29] MEDS: NYSTATIN SUSP 500,000 U/5 ML CUP SWISH-SWAL SCH ×4 (09:05→21:43)
[2016-05-29] MEDS: SODIUM CHLORIDE 0.9% FLUSH 5 ML FLUSH FLUSH SCH ×2 (09:06→21:00)
--- NOTE | 2016-05-29 09:09 | RADRPT ---
EXAM DATE/TIME: 05/29/2016 08:18 [facility] COMPARISON: CT ABDOMEN & PELVIS W/O CONTRAST, May 29, 2016, 3:08. INDICATIONS : Pain While Swallowing. FLUORO TIME: 0.7 minutes IMAGE COUNT: 9 CONTRAST: 1. Liquid E-Z Paque Barium Sulfate (60% w/v, 41% w.w) 2. E-Z HD Barium Sulfate (98% w.w) MEDICAL HISTORY : Cardiovascular disease. Renal failure, chronic. Asthma SURGICAL HISTORY : None. ENCOUNTER: Initial ACUITY: 4 - 6 days PAIN SCORE: 8/10 LOCATION: Esophagus. FINDINGS: Patient swallowed thin and thick barium suspension. Multiple digital spot images were obtained. Cervical esophagus is within normal limits without oval narrowing or filling defect. Contrast passes without delay into the stomach. Thoracic esophagus demonstrates normal contour and ca liber. No focal filling defects or diverticula. No hiatal hernia identified. The patient indicates ma rked discomfort during swallowing. CONCLUSION: 1. Barium swallow within normal limits. 2. Marked discomfort indicated by the patient during swallowing as contrast passes through the esopha aisha raising the question of occult esophagitis Byron Pineda MD on May 29, 2016 at 8:57 Board Certified Radiologist. This report was verified electronically.
[2016-05-30 01:03] VITALS: BP 139/84; PULSE 86; RESP 20; TEMP 98; O2SAT 100
[2016-05-30] MEDS: MORPHINE SULFATE 4 MG/ML INJ IV PRN (03:32)
[2016-05-30] MEDS: SODIUM CHLOR 0.9% 1000 ML INJ 1,000 ML IV SCH ×2 (03:32→09:19)
[2016-05-30 04:43] VITALS: BP 122/72; PULSE 78; RESP 20; TEMP 98.3; O2SAT 99
[2016-05-30 08:08] LABS: AUTOMATED NEUTROPHIL # 1.7 TH/MM3 (1.8-7.7); BASOPHIL % 0.4 % (0.0-2.0); EOSINOPHIL # 0.1 TH/MM3 (0-0.4); EOSINOPHIL % 3.5 % (0.0-4.0); HEMATOCRIT 35.7 % (39.0-51.0); LYMPH % 37.1 % (9.0-44.0); LYMPHOCYTE # 1.3 TH/MM3 (1.0-4.8); MEAN CELL VOLUME 90.4 FL (80.0-100.0); MEAN CORPUSCULAR HEMOGLOBIN 29.7 PG (27.0-34.0); MEAN CORPUSCULAR HGB CONC 32.9 % (32.0-36.0); MONO % 11.1 % (0.0-8.0); NEUT % 47.9 % (16.0-70.0); PLATELET COUNT 262 TH/MM3 (150-450); RED BLOOD COUNT 3.94 MIL/MM3 (4.50-5.90); RED CELL DISTRIBUTION WIDTH 13.3 % (11.6-17.2); WHITE BLOOD COUNT 3.5 TH/MM3 (4.0-11.0)
[2016-05-30 08:29] LABS: ALKALINE PHOSPHATASE 43 U/L (45-117); ALT (GPT) 13 U/L (12-78); ANION GAP 5 MEQ/L (5-15); AST (GOT) 24 U/L (15-37); BICARBONATE 27.5 MEQ/L (21.0-32.0); BLOOD UREA NITROGEN 12 MG/DL (7-18); CHLORIDE 107 MEQ/L (98-107); GLOMERULAR FILTRATION RATE 69 ML/MIN (>89); POTASSIUM 4.8 MEQ/L (3.5-5.1); SODIUM (NA) 139 MEQ/L (136-145); TOTAL BILIRUBIN ADULT 0.3 MG/DL (0.2-1.0)
[2016-05-30 08:31] VITALS: BP 118/64; PULSE 77; RESP 18; TEMP 99; O2SAT 99
[2016-05-30 08:32] LABS: HEMO FLAGS AUTO DIFF
--- NOTE | 2016-05-30 08:46 | HHI.PR ---
Subjective Remarks F-U Odynophagia/dysphagia 05/29/16-patient seen and examined; complains of mostly pain with swallowing and from the ligament of Trez down; Afebrile. denies any SOB. Reported only one episode of GI bleed of a small amount 05/30/16-patient seen and examined, still complain of periumbilical epigastric pain. Barium swallow study was within normal limit however with finding of possible occult esophagitis Objective Vitals Vital Signs Date Time Temp Pulse Resp B/P Pulse Ox O2 Delivery O2 Flow Rate FiO2 05/30/16 08:31 99.0 77 18 118/64 99 05/30/16 04:43 98.3 78 20 122/72 99 05/30/16 04:08 18 05/30/16 01:03 98.0 86 20 139/84 100 05/29/16 19:50 98.3 91 20 118/61 97 05/29/16 15:21 97.5 83 16 115/62 100 05/29/16 11:40 98.4 80 18 108/55 98 I/O 05/29/16 05/29/16 05/29/16 05/30/16 05/30/16 05/30/16 07:00 15:00 23:00 07:00 15:00 23:00 Intake Total 120 ml 600 ml Output Total 1400 ml Balance 120 ml 600 ml -1400 ml Intake Oral 120 ml 300 ml IV Total 300 ml Output Urine Total 1400 ml # Voids 2 Result Diagram: 05/30/1640 05/30/1640 Imaging Last Impressions Chest X-Ray 05/29/16213 Signed Impressions: Service Date/Time: Sunday, May 29, 2016 02:47 - CONCLUSION: Normal examination. Tim Simon MD Abdomen/Pelvis CT 05/29/16213 Signed Impressions: Service Date/Time: Sunday, May 29, 2016 03:08 - CONCLUSION: 1. Right basilar pulmonary scarring otherwise unremarkable exam. Tim Simon MD Barium Swallow X-Ray 05/29/16 0000 Signed Impressions: Service Date/Time: Sunday, May 29, 2016 08:18 - CONCLUSION: 1. Barium swallow within normal limits. 2. Marked discomfort indicated by the patient during swallowing as contrast passes through the esophagus raising the question of occult esophagitis Byron Pineda MD Objective Remarks GENERAL: NAD SKIN: Warm and dry. HEAD: Normocephalic. EYES: No scleral icterus. No injection or drainage. NECK: Supple, trachea midline. No JVD or lymphadenopathy. CARDIOVASCULAR: Regular rate and rhythm without murmurs, gallops, or rubs. RESPIRATORY: Breath sounds equal bilaterally. No accessory muscle use. GASTROINTESTINAL: Abdomen soft, non-tender, nondistended. MUSCULOSKELETAL: No cyanosis, or edema. BACK: Nontender without obvious deformity. No CVA tenderness. A/P Problem List: (1) Esophagitis ICD Code: K20.9 Status: Acute (2) Dysphagia ICD Code: R13.10 Status: Acute (3) CINDY (acute kidney injury) ICD Code: N17.9 Status: Acute (4) Dehydration ICD Code: E86.0 Status: Resolved Assessment and Plan 26yrs old man 1. Occult esophagitis : symptoms possibly secondary to severe gastritis from steroid therapy.Barium swallow study was within normal limit however with finding of possible occult esophagitis. Protonix IV and switch to by mouth. IVF, antiemetics/analgesics as needed. 2. CINDY: Creatinine 1.62, previously 1.15 on 05/20/16. Likely secondary to decreased PO intake. IVF, 3. Dehydration: secondary to above, improved with IVF for hydration. 4. DVT Prophylaxis: SCD/Teds. Discharge Planning Discharge patient to home Condition on discharge: Improved Regular Diet as tolerated Ad Natalie activity Rx written: Protonix 40 mg by mouth daily Follow-up with primary care physician in one week Problem Qualifiers (1) Dysphagia: Qualified Code: R13.10 - Dysphagia, unspecified type Karri Barton MD May 30, 2016 08:46
[2016-05-30] MEDS ORDERED: PROT40TA PO (08:47)
[2016-05-30] MEDS: NYSTATIN SUSP 500,000 U/5 ML CUP SWISH-SWAL SCH ×2 (09:19→13:00)
[2016-05-30] MEDS: SODIUM CHLORIDE 0.9% FLUSH 5 ML FLUSH FLUSH SCH (09:19)
[2016-05-30 10:17] LABS: SCAN/DIFF AUTO DIFF CONFIRMED
[2016-05-30 12:06] VITALS: BP 113/64; PULSE 86; RESP 22; TEMP 98; O2SAT 98
== END 2016-05-30 15:07 | disposition home or self-care (01) ==
LOC: NEPE 00:58 → NEDA 03:45 → NEPGCP 05:43
PROVIDERS: ADMIT Hospitalist; ATTEND Hospitalist
DX: R13.10 Dysphagia, unspecified (principal); N17.9 Acute kidney failure, unspecified; E86.0 Dehydration; K92.2 Gastrointestinal hemorrhage, unspecified; K20.9 Esophagitis, unspecified; F90.9 Attention-deficit hyperactivity disorder, unspecified type; J45.909 Unspecified asthma, uncomplicated
CPT/HCPCS: 71010; 74176; 74230; 80053; 83690; 85025; 96361; 96374; 96375; 99285; C9113; G0378; J2270; J2405; J7030

== ENCOUNTER 2016-07-17 03:06 | Emergency (ER) | payer OTHER ==
[~2016-07-17 03:06] MED LIST changes: -LEVA750T PO; -PRED20 PO; +PROT40TA PO
[2016-07-17 03:14] VITALS: BP 139/73; PULSE 82; RESP 20; TEMP 97.6; O2SAT 96
[2016-07-17] MEDS ORDERED: methylPREDNISolone SOD SUCC 125 MG/2 ML VIAL IM ONE (03:15)
[2016-07-17] MEDS ORDERED: FAMOTIDINE 20 MG/2 ML VIAL IV PUSH ONE (03:15)
[2016-07-17] MEDS ORDERED: SODIUM CHLORIDE 0.9% FLUSH 10 ML FLUSH IV FLUSH PRN (03:15)
[2016-07-17 03:24] VITALS: RESP 18; O2SAT 96
--- NOTE | 2016-07-17 04:08 | PD ---
HPI . Anaphylaxis Chief Complaint: Allergic/Adverse Reaction Time Seen by Provider: 03:12 Travel History International Travel<30 days: No Contact w/Intl Traveler<30days: No Traveled to known affect area: No History of Present Illness HPI Patient is brought to us by EMS for wheezing, angioedema, hives. This all started about an hour prior to presentation. Symptoms were severe. He was treated by EMS with subcutaneous epinephrine, Benadryl 50 mg IV, DuoNeb 3. Symptoms have improved but he is still pruritic and wheezing. Patient reports no exacerbating factors. Relieving factors were the medications administered by EMS. PFSH Past Medical History ADHD: Yes Arthritis: No Asthma: Yes Blood Disorders: No Anxiety: Yes Depression: Yes Heart Rhythm Problems: Yes Cancer: No Cardiovascular Problems: No High Cholesterol: No Chest Pain: No Congestive Heart Failure: No COPD: No Diabetes: No Diminished Hearing: No Endocrine: No Gastrointestinal Disorders: Yes (Reflux) GERD: No Genitourinary: No Hiatal Hernia: No Immune Disorder: No Musculoskeletal: Yes Neurologic: No Psychiatric: Yes Reproductive: No Respiratory: Yes Integumentary: Yes (ezema) Immunizations Current: Yes Renal Failure: Yes (pt states 1st stage) Sleep Apnea: No Thyroid Disease: No Ulcer: No Past Surgical History Surgical History: No Previous Surgery Other Surgery: No Social History Alcohol Use: No Tobacco Use: Yes (0.25) Substance Use: No Allergies-Medications (Allergen,Severity, Reaction): Uncoded Allergies: cucumber body wash (Allergy, Severe, Hives, 07/17/16) shortness of breath,swelling Reported Meds & Prescriptions Reported Meds & Active Scripts Active Symbicort Inh (Budesonide/Formoterol Fumarate) 160-4.5 Mcg/Act Aero 2 Puff INH Q12HR Ventolin Hfa 18 GM Inh (Albuterol Sulfate) 90 Mcg/Act Aer 2 Puff INH Q4H PRN Review of Systems Except as stated in HPI: all other systems reviewed are Neg General / Constitutional: No: Fever, Chills HENT: Positive: Other (angioedema) Respiratory: Positive: Shortness of Breath, Wheezing Gastrointestinal: Positive: Nausea, No: Vomiting, Diarrhea Skin: Positive Rash Physical Exam Narrative GENERAL: Patient does appear to be in some distress. SKIN: Warm and dry. Urticarial rash. HEAD: Atraumatic. Normocephalic. EYES: Pupils equal and round. Extraocular movements intact. ENT: No nasal bleeding or discharge. Mucous membranes pink and moist. NECK: Trachea midline. Neck supple. CARDIOVASCULAR: Tachycardic rate, regular rhythm. RESPIRATORY: Tachypneic with wheezing. GASTROINTESTINAL: Abdomen soft, non-tender, nondistended. MUSCULOSKELETAL: No obvious deformities. No peripheral edema. NEUROLOGICAL: Awake and alert. No obvious cranial nerve deficits. Motor grossly within normal limits. Normal speech. PSYCHIATRIC: Appropriate mood and affect; insight and judgment normal. Data Data Last Documented VS Vital Signs Date Time Temp Pulse Resp B/P Pulse Ox O2 Delivery O2 Flow Rate FiO2 07/17/16 05:41 74 16 144/66 99 Nasal Cannula 2 07/17/16 03:14 97.6 Orders Ecg Monitoring (07/17/16 03:12) Iv Access Insert/Monitor (07/17/16 03:12) Oximetry (07/17/16 03:12) Oxygen Administration (07/17/16 03:12) Methylprednisolone So Succ Inj (Solumedr (07/17/16 03:15) Famotidine Inj (Pepcid Inj) (07/17/16 03:15) Sodium Chloride 0.9% Flush (Ns Flush) (07/17/16 03:15) Albuterol-Ipratropium Neb (Duoneb Neb) (07/17/16 04:15) Complete Blood Count With Diff (07/17/16 04:08) Basic Metabolic Panel (Bmp) (07/17/16 04:08) Magnesium (Mg) (07/17/16 04:08) Ckmb (Isoenzyme) Profile (07/17/16 04:08) Troponin I (07/17/16 04:08) Arterial Blood Gas (Abg) (07/17/16 04:08) Electrocardiogram (07/17/16 04:08) Chest, Single Ap (07/17/16 04:08) Methylprednisolone So Succ Inj (Solumedr (07/17/16 04:45) CKMB (07/17/16 04:30) CKMB% (07/17/16 04:30) Labs Laboratory Tests Test 07/17/16 07/17/16 04:30 05:10 White Blood Count 4.6 TH/MM3 Red Blood Count 4.35 MIL/MM3 Hemoglobin 13.7 GM/DL Hematocrit 39.1 % Mean Corpuscular Volume 89.9 FL Mean Corpuscular Hemoglobin 31.5 PG Mean Corpuscular Hemoglobin 35.1 % Concent Red Cell Distribution Width 14.1 % Platelet Count 302 TH/MM3 Mean Platelet Volume 6.8 FL Neutrophils (%) (Auto) 50.0 % Lymphocytes (%) (Auto) 38.0 % Monocytes (%) (Auto) 8.4 % Eosinophils (%) (Auto) 3.2 % Basophils (%) (Auto) 0.4 % Neutrophils # (Auto) 2.3 TH/MM3 Lymphocytes # (Auto) 1.8 TH/MM3 Monocytes # (Auto) 0.4 TH/MM3 Eosinophils # (Auto) 0.2 TH/MM3 Basophils # (Auto) 0.0 TH/MM3 CBC Comment AUTO DIFF Differential Total Cells 100 Counted Neutrophils % (Manual) 54 % Band Neutrophils % 3 % Lymphocytes % 33 % Monocytes % 7 % Eosinophils % 2 % Basophils % 1 % Neutrophils # (Manual) 2.6 TH/MM3 Differential Comment FINAL DIFF MANUAL Atypical Lymphocytes % Platelet Estimate NORMAL Platelet Morphology Comment NORMAL Sodium Level 141 MEQ/L Potassium Level 3.5 MEQ/L Chloride Level 108 MEQ/L Carbon Dioxide Level 26.4 MEQ/L Anion Gap 7 MEQ/L Blood Urea Nitrogen 22 MG/DL Creatinine 1.22 MG/DL Estimat Glomerular Filtration 86 ML/MIN Rate Random Glucose 109 MG/DL Calcium Level 7.8 MG/DL Magnesium Level 2.0 MG/DL Total Creatine Kinase 109 U/L Creatine Kinase MB 1.0 NG/ML Troponin I LESS THAN 0.02 NG/ML Blood Gas Puncture Site RT BRACHIAL Blood Gas Patient Temperature 98.6 Blood Gas HCO3 26 mmol/L Blood Gas Base Excess 1.5 mmol/L Blood Gas Oxygen Saturation 91 % Arterial Blood pH 7.39 Arterial Blood Partial 44 mmHg Pressure CO2 Arterial Blood Partial 54 mmHG Pressure O2 Arterial Blood Oxygen Content 17.2 Vol % Arterial Blood 2.2 % Carboxyhemoglobin Arterial Blood Methemoglobin 0.6 % Blood Gas Hemoglobin 13.5 G/DL Blood Gas Inspired Oxygen 21 % [facility] Medical Decision Making Medical Screen Exam Complete: Yes Emergency Medical Condition: Yes Interpretation(s) EKG shows a normal sinus rhythm with an early repolarization pattern. It is unchanged from previous. Differential Diagnosis My differential diagnosis includes but is not limited to asthma, COPD, bronchitis, pneumonia, CHF, allergic reaction Narrative Course Patient presents to us via EMS with an allergic reaction. He had been treated prior to presentation with epinephrine, Benadryl and given nebs. I added Pepcid and Solu-Medrol. Recheck showed continued wheezing. I have added 3 more duo nebs. CBC & BMP Diagram 07/17/16 04:30 pH 7.39, pCO2 44, pO2 54 and sats 91% on RA. Are sats are not really correlating with his sats from the blood gas. He has been 98-99% on RA. Sats have been rechecked off of oxygen. They remain in the upper 90s. Cardiac enzymes negative. Last Impressions Chest X-Ray 07/17/16 0408 Signed Impressions: Service Date/Time: Sunday, July 17, 2016 04:19 - CONCLUSION: No acute cardiopulmonary disease. Rajan Nogueira MD Chest x-ray was independently viewed by me. The patient has been observed here for about 3 hours. He appears medically stable for discharge. Critical Care Narrative Aggregate critical care time was 45 minutes. Time to perform other separately billable procedures was not included in the critical care time. My time did not include minutes spent treating any other patients simultaneously or on activities that did not directly contribute to the patient's treatment. The services I provided to this patient were to treat and/or prevent clinically significant deterioration due to anaphylaxis I provided critical care services requiring my management, as noted below: Chart data review, documentation time, medication orders and management, vital sign assessments/reviewing monitor data, ordering and reviewing lab tests, ordering and interpreting/reviewing x-rays and diagnostic studies, care of the patient and discussion of the patient with the admitting physicians Diagnosis Primary Impression: Anaphylaxis Qualified Code: T78.2XXA - Anaphylaxis, initial encounter Patient Instructions: Anaphylaxis (DC), General Instructions Med/Other Pt SpecificInfo: Prescription(s) given Scripts Epinephrine Inj (Epipen 2-Arjun Inj)0.3 Mg/0.3 Ml Pfpen0.3 Mg SQ ONCE PRN ( ALLERGIC REACTION) #1 PACK Ref 0 Prov:Liliana Stephens MD 07/17/16 Hydroxyzine Pamoate (Vistaril)50 Mg Cap50 Mg PO QID PRN (RASH) #30 CAP Ref 0 Prov:Liliana Stephens MD 07/17/16 Budesonide-Formoterol Inh (Symbicort Inh)160-4.5 Mcg/Act Aero2 Puff INH Q12HR # 60 INHALER Prov:Liliana Stephens MD 07/17/16 Albuterol 18 GM Inh (Ventolin Hfa 18 GM Inh)90 Mcg/Act Aer2 Puff INH Q4H PRN ( SHORTNESS OF BREATH) #1 INHALER Ref 0 Prov:Liliana Stephens MD 07/17/16 Disposition: 01 DISCHARGE HOME Condition: Stable Liliana Stephens MD Jul 17, 2016 04:08
[2016-07-17] MEDS: RESP: ALBUTEROL 2.5 MG/IPRATROPIUM 0.5 MG NEB (SCH) INH (04:13)
[2016-07-17] MEDS ORDERED: methylPREDNISolone SOD SUCC 125 MG/2 ML VIAL IV PUSH ONE (04:45)
[2016-07-17 04:54] LABS: AUTOMATED NEUTROPHIL # 2.3 TH/MM3 (1.8-7.7); BASOPHIL % 0.4 % (0.0-2.0); EOSINOPHIL # 0.2 TH/MM3 (0-0.4); EOSINOPHIL % 3.2 % (0.0-4.0); HEMATOCRIT 39.1 % (39.0-51.0); LYMPHOCYTE # 1.8 TH/MM3 (1.0-4.8); MEAN CELL VOLUME 89.9 FL (80.0-100.0); MEAN CORPUSCULAR HEMOGLOBIN 31.5 PG (27.0-34.0); MEAN CORPUSCULAR HGB CONC 35.1 % (32.0-36.0); MONO % 8.4 % (0.0-8.0); PLATELET COUNT 302 TH/MM3 (150-450); RED BLOOD COUNT 4.35 MIL/MM3 (4.50-5.90); RED CELL DISTRIBUTION WIDTH 14.1 % (11.6-17.2); WHITE BLOOD COUNT 4.6 TH/MM3 (4.0-11.0)
[2016-07-17 04:56] LABS: HEMO FLAGS AUTO DIFF
--- NOTE | 2016-07-17 05:20 | RADRPT ---
EXAM DATE/TIME: 07/17/2016 04:19 [facility] COMPARISON: CHEST SINGLE AP, May 29, 2016, 2:47. INDICATIONS : Shortness of breath; allergic reaction. MEDICAL HISTORY : Asthma. SURGICAL HISTORY : None. ENCOUNTER: Initial ACUITY: 1 day PAIN SCORE: 0/10 LOCATION: Bilateral chest FINDINGS: The cardiac silhouette is normal in transverse diameter. The lungs are free of acute parenchymal opac ity. No effusions are identified. CONCLUSION: No acute cardiopulmonary disease. Rajan Nogueira MD on July 17, 2016 at 5:18 Board Certified Radiologist. This report was verified electronically.
[2016-07-17 05:21] LABS: ANION GAP 7 MEQ/L (5-15); BICARBONATE 26.4 MEQ/L (21.0-32.0); BLOOD UREA NITROGEN 22 MG/DL (7-18); CHLORIDE 108 MEQ/L (98-107); CREATINE KINASE 109 U/L (39-308); GLOMERULAR FILTRATION RATE 86 ML/MIN (>89); SODIUM (NA) 141 MEQ/L (136-145)
[2016-07-17 05:24] LABS: BLOOD GAS BASE EXCESS 1.5 mmol/L (-2-2); BLOOD GAS CARBOXYHEMOGLOBIN 2.2 % (0-4); BLOOD GAS HCO3 26 mmol/L (22-26); BLOOD GAS METHEMOGLOBIN 0.6 % (0-2); BLOOD GAS O2 HGB SATURATION 91 % (90-100); BLOOD GAS OXYGEN CONTENT 17.2 Vol % (12.0-20.0); BLOOD GAS PCO2 44 mmHg (38-42); BLOOD GAS PO2 54 mmHG (61-120); BLOOD GAS TOTAL HGB 13.5 G/DL (12.0-16.0); TEMP CORR TO 98.6
[2016-07-17 05:24] LABS: POTASSIUM 3.5 MEQ/L (3.5-5.1)
[2016-07-17 05:25] LABS: CRITICAL VALUE YES; DRAW SITE RT BRACHIAL; FIO2 21 %; NUMBER OF ARTERIAL PUNCTURES 1; STAT YES; ULNAR PULSE PRESENT
[2016-07-17 05:38] LABS: BANDS 3 % (0-6); BASOPHILS 1 % (0-2); EOSINOPHILS 2 % (0-4); NEUTROPHIL # MANUAL DIFF 2.6 TH/MM3 (1.8-7.7); PLATELET ESTIMATE SMEAR NORMAL (NORMAL); PLATELET MORPHOLOGY NORMAL (NORMAL); POLYS (SEG NEUTROPHILS) 54 % (16-70); SCAN/DIFF FINAL DIFF MANUAL; WBC DIFF SAMPLE 100
[2016-07-17 05:41] VITALS: BP 144/66; PULSE 74; RESP 16; O2SAT 99
[2016-07-17] MEDS ORDERED: EPIP0.3I SQ (06:05)
[2016-07-17] MEDS ORDERED: VENTAER INH (06:05)
[2016-07-17] MEDS ORDERED: SYMB160A INH (06:05)
[2016-07-17] MEDS ORDERED: VIST50CA PO (06:05)
--- NOTE | 2016-07-17 14:05 | EKG ---
Date Performed: 07/17/2016 Time Performed: 04:23:39 PTAGE: 26 years EKG: Sinus rhythm ST-T changes are compatible with early repolarization Compared to previous tracing, early repolariza tion changes are somewhat more prominant. ABNORMAL ECG PREVIOUS TRACING : 05/17/2016 16.44 DOCTOR: Ralph Hernandez Interpretating Date/Time 07/17/2016 14:03:28
== END 2016-07-17 06:35 | disposition home or self-care (01) ==
LOC: NEPE 03:06
DX: T78.2XXA Anaphylactic shock, unspecified, initial encounter (principal); J45.909 Unspecified asthma, uncomplicated; R94.31 Abnormal electrocardiogram [ECG] [EKG]; K21.9 Gastro-esophageal reflux disease without esophagitis; F17.210 Nicotine dependence, cigarettes, uncomplicated; R11.0 Nausea; R00.0 Tachycardia, unspecified; R06.82 Tachypnea, not elsewhere classified; R06.2 Wheezing
CPT/HCPCS: 36600; 71010; 80048; 82550; 82552; 82805; 83735; 84484; 85007; 85027; 93005; 94664; 96374; 96375; 99291; J2930

== ENCOUNTER 2016-08-15 20:44 | Emergency (ER) | payer MEDICAID, OTHER ==
[~2016-08-15] VITALS: Ht 152.4 cm; Wt 50.0 kg
[~2016-08-15 20:44] MED LIST changes: +EPIP0.3I SQ; -MUCI30TA2 PO; -PROT40TA PO; +VIST50CA PO
[2016-08-15 20:51] VITALS: BP 116/69; PULSE 79; RESP 18; TEMP 99.5; O2SAT 18; O2SAT 99
[2016-08-15] MEDS ORDERED: SODIUM CHLOR 0.9% 1000 ML INJ 1,000 ML IV SCH (21:01)
[2016-08-15] MEDS ORDERED: ZITH250T PO (21:04)
[2016-08-15] MEDS ORDERED: BACT800T5 PO (21:04)
--- NOTE | 2016-08-15 21:09 | PD ---
HPI Chief Complaint: Abdominal Pain Time Seen by Provider: 21:04 Travel History International Travel<30 days: No Contact w/Intl Traveler<30days: No Traveled to known affect area: No History of Present Illness HPI 26-year-old male presents to the emergency department via EMS for evaluation of abdominal pain. Patient states he was diagnosed with HIV approximately one month ago. He states his CD4 count is less than 200. He states he went to an urgent care center approximately 2 weeks ago for evaluation of cough, congestion. He states he was started on Bactrim. He states he started this about 3 days ago. He also states that he saw his infectious disease physician for the first time. He states he is not on antivirals at this time. However, he is also on azithromycin. Reports history of asthma. He states that he has had increased wheezing, shortness of breath, cough over the past 2 weeks. He also reports nausea, vomiting, diarrhea for the past 3 days. He states he has not any eaten anything for 3 days. He reports abdominal pain. Patient states he had fever at home up to 102. PFSH Past Medical History ADHD: Yes Arthritis: No Asthma: Yes Blood Disorders: No Anxiety: Yes Depression: Yes Heart Rhythm Problems: Yes Cancer: No Cardiovascular Problems: No High Cholesterol: No Chest Pain: No Congestive Heart Failure: No COPD: No Diabetes: No Diminished Hearing: No Endocrine: No Gastrointestinal Disorders: Yes (Reflux) GERD: No Genitourinary: No Hiatal Hernia: No Immune Disorder: No Medical other: Yes (HIV+) Musculoskeletal: Yes Neurologic: No Psychiatric: Yes Reproductive: No Respiratory: Yes Integumentary: Yes (ezema) Immunizations Current: Yes Renal Failure: Yes (pt states 1st stage) Sleep Apnea: No Thyroid Disease: No Ulcer: No Tetanus Vaccination: < 5 Years Influenza Vaccination: Yes Past Surgical History Surgical History: No Previous Surgery Other Surgery: No Social History Alcohol Use: No Tobacco Use: Yes (0.25) Substance Use: No Allergies-Medications (Allergen,Severity, Reaction): Uncoded Allergies: cucumber body wash (Allergy, Severe, Hives, 07/17/16) shortness of breath,swelling Reported Meds & Prescriptions Reported Meds & Active Scripts Active Epipen 2-Arjun Inj (Epinephrine) 0.3 Mg/0.3 Ml Pfpen 0.3 Mg SQ ONCE PRN Vistaril (Hydroxyzine Pamoate) 50 Mg Cap 50 Mg PO QID PRN Symbicort Inh (Budesonide/Formoterol Fumarate) 160-4.5 Mcg/Act Aero 2 Puff INH Q12HR Ventolin Hfa 18 GM Inh (Albuterol Sulfate) 90 Mcg/Act Aer 2 Puff INH Q4H PRN Reported Zithromax (Azithromycin) 250 Mg Tab 250 Mg PO DAILY Bactrim DS (Sulfamethoxazole-Trimethoprim) 800-160 Mg Tab 1 Tab PO BID Review of Systems Except as stated in HPI: all other systems reviewed are Neg Physical Exam Narrative GENERAL: Well-nourished, well-developed male patient, ambulatory. Temperature 99.5. SKIN: Focused skin assessment warm/dry. HEAD: Normocephalic. Atraumatic. ENT: Mucosa pink and moist. No erythema or exudates. No uvular edema. No uvular , palatal, or tonsillar deviation. Airway patent. Nasal turbinates appear normal without nasal blood, purulent drainage or septal hematoma. Bilateral tympanic membranes are clear without erythema or perforation. EYES: No scleral icterus. No injection or drainage. NECK: Supple, trachea midline. No JVD or lymphadenopathy. CARDIOVASCULAR: Regular rate and rhythm without murmurs, gallops, or rubs. RESPIRATORY: Breath sounds equal bilaterally. No accessory muscle use. Lungs sounds with expiratory wheezes noted throughout. GASTROINTESTINAL: Abdomen soft and nondistended. Patient has tenderness throughout with palpation. MUSCULOSKELETAL: No cyanosis, or edema. BACK: Nontender without obvious deformity. No CVA tenderness. Data Data Last Documented VS Vital Signs Date Time Temp Pulse Resp B/P Pulse Ox O2 Delivery O2 Flow Rate FiO2 08/15/16 22:35 98 18 118/63 98 Room Air 08/15/16 20:51 99.5 Orders Complete Blood Count With Diff (08/15/16 21:) Comprehensive Metabolic Panel (08/15/16 21:01) Lipase (08/15/16 21:01) Lactic Acid (08/15/16 21:01) Prothrombin Time / Inr (Pt) (08/15/16 21:) Act Partial Throm Time (Ptt) (08/15/16 21:01) Urinalysis - C+S If Indicated (08/15/16 21:01) Ct Abd/Pel W Iv Contrast(Rout) (08/15/16 21:01) Iv Access Insert/Monitor (08/15/16 21:01) Ecg Monitoring (08/15/16 21:01) Oximetry (08/15/16 21:01) Ondansetron Inj (Zofran Inj) (08/15/16 21:15) Sodium Chlor 0.9% 1000 Ml Inj (Ns 1000 M (08/15/16 21:01) Sodium Chloride 0.9% Flush (Ns Flush) (08/15/16 21:15) Electrocardiogram (08/15/16 21:01) Blood Culture (08/15/16 21:01) Chest, Single Ap (08/15/16 ) Sodium Chlor 0.9% 1000 Ml Inj (Ns 1000 M (08/15/16 21:15) Methylprednisolone So Succ Inj (Solumedr (08/15/16 21:15) Albuterol-Ipratropium Neb (Duoneb Neb) (08/15/16 21:15) Iohexol 350 Inj (Omnipaque 350 Inj) (08/15/16 22:21) Labs Laboratory Tests Test 08/15/16 08/15/16 21:10 21:20 White Blood Count 4.6 TH/MM3 Red Blood Count 4.60 MIL/MM3 Hemoglobin 13.7 GM/DL Hematocrit 40.4 % Mean Corpuscular Volume 88.0 FL Mean Corpuscular Hemoglobin 29.7 PG Mean Corpuscular Hemoglobin 33.8 % Concent Red Cell Distribution Width 13.2 % Platelet Count 246 TH/MM3 Mean Platelet Volume 7.3 FL Neutrophils (%) (Auto) 59.9 % Lymphocytes (%) (Auto) 23.6 % Monocytes (%) (Auto) 7.7 % Eosinophils (%) (Auto) 8.5 % Basophils (%) (Auto) 0.3 % Neutrophils # (Auto) 2.8 TH/MM3 Lymphocytes # (Auto) 1.1 TH/MM3 Monocytes # (Auto) 0.4 TH/MM3 Eosinophils # (Auto) 0.4 TH/MM3 Basophils # (Auto) 0.0 TH/MM3 CBC Comment DIFF FINAL Differential Comment Prothrombin Time 11.0 SEC Prothromb Time International 1.0 RATIO Ratio Activated Partial 27.0 SEC Thromboplast Time Sodium Level 137 MEQ/L Potassium Level 4.1 MEQ/L Chloride Level 108 MEQ/L Carbon Dioxide Level 23.4 MEQ/L Anion Gap 6 MEQ/L Blood Urea Nitrogen 17 MG/DL Creatinine 1.47 MG/DL Estimat Glomerular Filtration 70 ML/MIN Rate Random Glucose 79 MG/DL Calcium Level 8.4 MG/DL Total Bilirubin 0.3 MG/DL Aspartate Amino Transf 25 U/L (AST/SGOT) Alanine Aminotransferase 21 U/L (ALT/SGPT) Alkaline Phosphatase 65 U/L Total Protein 8.9 GM/DL Albumin 3.1 GM/DL Lipase 331 U/L Lactic Acid Level 0.6 mmol/L [facility] Medical Decision Making Medical Screen Exam Complete: Yes Emergency Medical Condition: Yes Medical Record Reviewed: Yes Interpretation(s) chest x-ray - CONCLUSION: No acute disease. Differential Diagnosis Pneumonia versus electrolytes abnormality versus UTI versus diverticulitis versus sepsis versus pancreatitis Narrative Course 26-year-old male presents to the emergency department for evaluation of abdominal pain, vomiting, diarrhea, fever. He has reports cough, congestion, increased wheezing and shortness of breath. EKG, CBC, CMP, lipase, lactic acid , PTT, PTT/INR, UA, blood cultures 2 are ordered and pending. Chest x-ray and CT the abdomen/pelvis with IV contrast is ordered and pending. Patient is given normal saline 1 L IV bolus, Zofran 4 mg IV, Solu-Medrol 125 mg IV, DuoNeb 3. EKG shows sinus rhythm, heart rate 80, no acute ST changes. CBC is unremarkable. CMP shows elevated creatinine of 1.47, no acute abnormalities. Lipase is 331. Lactic acid is 0.6. Coags are unremarkable. UA is pending. Chest x-ray shows no acute disease. CT abdomen/pelvis is pending. Dr. Peters will follow up on CT results. Vannesa Roberts August 15, 2016 21:08
[2016-08-15] MEDS: RESP: ALBUTEROL 2.5 MG/IPRATROPIUM 0.5 MG NEB (SCH) INH ×3 (21:13→21:15)
[2016-08-15] MEDS ORDERED: SODIUM CHLORIDE 0.9% FLUSH 10 ML FLUSH IV FLUSH PRN (21:15)
[2016-08-15] MEDS ORDERED: methylPREDNISolone SOD SUCC 125 MG/2 ML VIAL IVP ONE (21:15)
[2016-08-15] MEDS ORDERED: SODIUM CHLOR 0.9% 1000 ML INJ 1,000 ML IV ONE (21:15)
[2016-08-15] MEDS ORDERED: ONDANSETRON HCL 4 MG/2 ML VIAL IVP ONE (21:15)
--- NOTE | 2016-08-15 21:24 | RADRPT ---
EXAM DATE/TIME: 08/15/2016 21:15 [facility] COMPARISON: CHEST SINGLE AP, July 17, 2016, 4:19. INDICATIONS : Chest and abdominal pain with nausea and vomitting. MEDICAL HISTORY : HIV SURGICAL HISTORY : None. ENCOUNTER: Initial ACUITY: 1 week PAIN SCORE: 5/10 LOCATION: Bilateral chest FINDINGS: A single view of the chest demonstrates the lungs to be symmetrically aerated without evidence of mas s, infiltrate or effusion. The cardiomediastinal contours are unremarkable. Osseous structures are intact. CONCLUSION: No acute disease. Koffi Ferguson MD FACR on August 15, 2016 at 21:22 Board Certified Radiologist. This report was verified electronically.
[2016-08-15 21:30] VITALS: BP 114/57; PULSE 74; RESP 18; O2SAT 99
[2016-08-15 21:33] LABS: AUTOMATED NEUTROPHIL # 2.8 TH/MM3 (1.8-7.7); BASOPHIL % 0.3 % (0.0-2.0); EOSINOPHIL # 0.4 TH/MM3 (0-0.4); EOSINOPHIL % 8.5 % (0.0-4.0); HEMATOCRIT 40.4 % (39.0-51.0); HEMO FLAGS DIFF FINAL; LYMPH % 23.6 % (9.0-44.0); LYMPHOCYTE # 1.1 TH/MM3 (1.0-4.8); MEAN CORPUSCULAR HEMOGLOBIN 29.7 PG (27.0-34.0); MEAN CORPUSCULAR HGB CONC 33.8 % (32.0-36.0); MONO % 7.7 % (0.0-8.0); NEUT % 59.9 % (16.0-70.0); PLATELET COUNT 246 TH/MM3 (150-450); RED CELL DISTRIBUTION WIDTH 13.2 % (11.6-17.2); WHITE BLOOD COUNT 4.6 TH/MM3 (4.0-11.0)
[2016-08-15 22:04] LABS: ALT (GPT) 21 U/L (12-78); ANION GAP 6 MEQ/L (5-15); AST (GOT) 25 U/L (15-37); BICARBONATE 23.4 MEQ/L (21.0-32.0); BLOOD UREA NITROGEN 17 MG/DL (7-18); CHLORIDE 108 MEQ/L (98-107); GLOMERULAR FILTRATION RATE 70 ML/MIN (>89); POTASSIUM 4.1 MEQ/L (3.5-5.1); SODIUM (NA) 137 MEQ/L (136-145)
[2016-08-15 22:06] LABS: ALKALINE PHOSPHATASE 65 U/L (45-117); TOTAL BILIRUBIN ADULT 0.3 MG/DL (0.2-1.0)
[2016-08-15] MEDS ORDERED: IOHEXOL 350 MG/ML 10 ML VIAL (for RAD DIAG) IV ONE (22:21)
[2016-08-15 22:35] VITALS: BP 118/63; PULSE 98; RESP 18; O2SAT 98
--- NOTE | 2016-08-15 23:07 | PD ---
Data Data Last Documented VS Vital Signs Date Time Temp Pulse Resp B/P Pulse Ox O2 Delivery O2 Flow Rate FiO2 08/16/16 00:02 77 18 108/53 98 08/15/16 22:35 Room Air 08/15/16 20:51 99.5 Orders Complete Blood Count With Diff (08/15/16 21:01) Comprehensive Metabolic Panel (08/15/16 21:01) Lipase (08/15/16 21:01) Lactic Acid (08/15/16 21:01) Prothrombin Time / Inr (Pt) (08/15/16 21:01) Act Partial Throm Time (Ptt) (08/15/16 21:01) Ct Abd/Pel W Iv Contrast(Rout) (08/15/16 21:01) Iv Access Insert/Monitor (08/15/16 21:01) Ecg Monitoring (08/15/16 21:01) Oximetry (08/15/16 21:01) Ondansetron Inj (Zofran Inj) (08/15/16 21:15) Sodium Chlor 0.9% 1000 Ml Inj (Ns 1000 M (08/15/16 21:01) Sodium Chloride 0.9% Flush (Ns Flush) (08/15/16 21:15) Electrocardiogram (08/15/16 21:01) Blood Culture (08/15/16 21:01) Chest, Single Ap (08/15/16 ) Sodium Chlor 0.9% 1000 Ml Inj (Ns 1000 M (08/15/16 21:15) Methylprednisolone So Succ Inj (Solumedr (08/15/16 21:15) Albuterol-Ipratropium Neb (Duoneb Neb) (08/15/16 21:15) Iohexol 350 Inj (Omnipaque 350 Inj) (08/15/16 22:21) Labs Laboratory Tests Test 08/15/16 08/15/16 21:10 21:20 White Blood Count 4.6 TH/MM3 Red Blood Count 4.60 MIL/MM3 Hemoglobin 13.7 GM/DL Hematocrit 40.4 % Mean Corpuscular Volume 88.0 FL Mean Corpuscular Hemoglobin 29.7 PG Mean Corpuscular Hemoglobin 33.8 % Concent Red Cell Distribution Width 13.2 % Platelet Count 246 TH/MM3 Mean Platelet Volume 7.3 FL Neutrophils (%) (Auto) 59.9 % Lymphocytes (%) (Auto) 23.6 % Monocytes (%) (Auto) 7.7 % Eosinophils (%) (Auto) 8.5 % Basophils (%) (Auto) 0.3 % Neutrophils # (Auto) 2.8 TH/MM3 Lymphocytes # (Auto) 1.1 TH/MM3 Monocytes # (Auto) 0.4 TH/MM3 Eosinophils # (Auto) 0.4 TH/MM3 Basophils # (Auto) 0.0 TH/MM3 CBC Comment DIFF FINAL Differential Comment Prothrombin Time 11.0 SEC Prothromb Time International 1.0 RATIO Ratio Activated Partial 27.0 SEC Thromboplast Time Sodium Level 137 MEQ/L Potassium Level 4.1 MEQ/L Chloride Level 108 MEQ/L Carbon Dioxide Level 23.4 MEQ/L Anion Gap 6 MEQ/L Blood Urea Nitrogen 17 MG/DL Creatinine 1.47 MG/DL Estimat Glomerular Filtration 70 ML/MIN Rate Random Glucose 79 MG/DL Calcium Level 8.4 MG/DL Total Bilirubin 0.3 MG/DL Aspartate Amino Transf 25 U/L (AST/SGOT) Alanine Aminotransferase 21 U/L (ALT/SGPT) Alkaline Phosphatase 65 U/L Total Protein 8.9 GM/DL Albumin 3.1 GM/DL Lipase 331 U/L Lactic Acid Level 0.6 mmol/L MDM Medical Record Reviewed: Yes Supervised Visit with BILL: No Interpretation(s) Last Impressions Abdomen/Pelvis CT 08/15/16 2101 Signed Impressions: Service Date/Time: Monday, August 15, 2016 22:21 - CONCLUSION: Mildly nonspecific, nonobstructive bowel gas pattern which could represent a mild ileus or gastroenteritis. Rik Omer MD Chest X-Ray 08/15/16 0000 Signed Impressions: Service Date/Time: Monday, August 15, 2016 21:15 - CONCLUSION: No acute disease. Koffi Ferguson MD FACR Narrative Course During the course of the patients emergency department visit, the patients history, examination, and differential diagnosis were reviewed with the patient. The patient had IV access obtained and blood work sent for analysis. The patient was placed on a remanufacturing technician with oximetry and blood pressure monitoring. The patient's case was checked out to me by Vannesa. Please see her complete history and physical. The patient was checked out to me at the conclusion of Vannesa shift. The patient at that time had a urinalysis and CT scan of the abdomen and pelvis pending. The patient was initially provided DuoNeb nebs for wheezing, Solu-Medrol 125 mg IV, normal saline a 1 L IV fluid bolus which was repeated 1, Zofran 4 mg IV. The patients laboratory studies were reviewed and remarkable for a white count of 4.6, hemoglobin 13.7, platelets 246 of 8.5 eosinophils, CMP is remarkable for chloride of 108, creatinine 1.47, GFR 70, calcium 8.4, total protein 8.9, albumin 3.1, lipase 331, lactic acid 0.6, PT PTT within normal limits Radiology studies were reviewed and remarkable for a chest x-ray that shows no acute abnormality. CT scan of the abdomen and pelvis showed a nonspecific bowel gas pattern, mild ileus versus gastroenteritis. No other acute abnormality. The patient will be discharged home with a Medrol Dosepak taper and a prescription for Phenergan to be taken as needed for nausea. The patient is instructed to continue the use of his inhaler as needed for wheezing. The patient is instructed to continue on the antibiotic that was recently prescribed. The patient is instructed regarding the importance of close follow- up with his physician for reexamination in the next 2 days. The patient is resting comfortably and feels better, is alert and in no distress. The patients results and examination findings were discussed with the patient. The repeat examination is unremarkable and benign. The history, exam, diagnostic testing, and current condition do not suggest any significant pathology to warrant further testing, continued ED treatment, admission, or surgical evaluation at this point. The vital signs have been stable. The patient does not have uncontrollable pain, intractable vomiting, or other significant symptoms. The patient's condition is stable and appropriate for discharge. The patient will pursue further outpatient evaluation with a primary care physician or other designated or consulting physician as indicated in the discharge instructions. The patient expressed understanding and was agreeable with this plan. Diagnosis Primary Impression: Nausea, vomiting, and diarrhea Additional Impressions: Asthma exacerbation Immunocompromised state Referrals: Primary Care Physician 2 days Patient Instructions: Acute Diarrhea (ED), Acute Nausea and Vomiting (ED), General Instructions Med/Other Pt SpecificInfo: Prescription(s) given Scripts Promethazine 12.5 Mg Tab12.5 Mg PO Q6H PRN (NAUSEA OR VOMITING) #7 TAB Ref 0 Prov:Krys Peters MD 08/15/16 Methylprednisolone Dosepak (Medrol Dosepak)4 Mg Dspk4 Mg PO DIRECTED #1 DSPK Ref 0 Per Pharmacist direction Prov:Krys Peters MD 08/15/16 Disposition: 01 DISCHARGE HOME Condition: Stable Krys Peters MD August 15, 2016 23:07
--- NOTE | 2016-08-15 23:10 | RADRPT ---
EXAM DATE/TIME: 08/15/2016 22:21 [facility] COMPARISON: CT ABDOMEN & PELVIS W CONTRAST, January 28, 2009, 2:50. INDICATIONS : Nausea and vomiting x 2 days. Lower abdominal pain today with blood in stool. IV CONTRAST: 96 cc Omnipaque 350 (iohexol) IV ORAL CONTRAST: No oral contrast ingested. RADIATION DOSE: 4.50 CTDIvol (mGy) MEDICAL HISTORY : Gastroesophageal reflux disease. Asthma. Renal failure. SURGICAL HISTORY : None. ENCOUNTER: Initial ACUITY: 2 days PAIN SCALE: 4/10 LOCATION: Bilateral lower quadrant TECHNIQUE: Volumetric scanning of the abdomen and pelvis was performed. Using automated exposure control and ad justment of the mA and/or kV according to patient size, radiation dose was kept as low as reasonably achievable to obtain optimal diagnostic quality images. FINDINGS: LOWER LUNGS: The visualized lower lungs are clear. LIVER: Homogeneous density without lesion. There is no dilation of the biliary tree. No calcified gallston es. SPLEEN: Normal size without lesion. PANCREAS: Within normal limits. KIDNEYS: Normal in size and shape. There is no mass, stone or hydronephrosis. ADRENAL GLANDS: Within normal limits. VASCULAR: There is no aortic aneurysm. BOWEL/MESENTERY: There are multiple loops of nondilated small bowel with several small air-fluid levels. No oral contr ast was given limiting the sensitivity and exam. There is no evidence of free air or definite fluid c ollection. There is minimal mesenteric fat limiting visualization of the individual bowel loops. ABDOMINAL WALL: Within normal limits. RETROPERITONEUM: There is no lymphadenopathy. BLADDER: No wall thickening or mass. REPRODUCTIVE: Within normal limits. INGUINAL: There is no lymphadenopathy or hernia. MUSCULOSKELETAL: Within normal limits for patient age. CONCLUSION: Mildly nonspecific, nonobstructive bowel gas pattern which could represent a mild ileus or gastroente ritis. Rik Omer MD on August 15, 2016 at 23:06 Board Certified Radiologist. This report was verified electronically.
[2016-08-15] MEDS ORDERED: PROM12.54 PO (23:26)
[2016-08-15] MEDS ORDERED: MEDR4PAK PO (23:26)
[2016-08-16 00:02] VITALS: BP 108/53
--- NOTE | 2016-08-16 14:40 | EKG ---
Date Performed: 08/15/2016 Time Performed: 21:58:33 PTAGE: 26 years EKG: Sinus rhythm WITH SINUS ARRHYTHMIA POSSIBLE RIGHT VENTRICULAR CONDUCTION DELAY NONSPECIFIC ST ELEVATION Compared to prior tracing no significant change BORDERLINE ECG PREVIOUS TRACING : 07/17/2016 04.23 DOCTOR: Daquan Hudson Interpretating Date/Time 08/16/2016 14:38:42
== END 2016-08-16 00:12 | disposition home or self-care (01) ==
LOC: NEPC 20:44
DX: J45.901 Unspecified asthma with (acute) exacerbation (principal); R11.2 Nausea with vomiting, unspecified; R19.7 Diarrhea, unspecified; F41.8 Other specified anxiety disorders; Z72.0 Tobacco use
CPT/HCPCS: 71010; 74177; 80053; 83605; 83690; 85025; 85610; 85730; 87040; 93005; 94640; 94664; 96374; 96375; 99285; J2405; J2930; J7030; Q9967

== ENCOUNTER 2016-11-27 10:07 | Inpatient (IN) | payer MEDICAID ==
[~2016-11-27] VITALS: Ht 152.4 cm; Wt 62.1 kg
[~2016-11-27 10:07] MED LIST changes: +BACT800T5 PO; +MEDR4PAK PO; +PROM12.54 PO; +ZITH250T PO
[2016-11-27 10:11] VITALS: BP 144/73; PULSE 100; RESP 28; TEMP 98.4; O2SAT 99
[2016-11-27 10:30] VITALS: O2SAT 96
[2016-11-27] MEDS: RESP: ALBUTEROL 2.5 MG/IPRATROPIUM 0.5 MG NEB (SCH) INH ×2 (10:31→11:45)
--- NOTE | 2016-11-27 10:35 | RADRPT ---
EXAM DATE/TIME: 11/27/2016 10:28 [facility] COMPARISON: CHEST SINGLE AP, August 15, 2016, 21:15. INDICATIONS : Shortness of breath. MEDICAL HISTORY : Gastroesophageal reflux disease. Asthma. Renal failure. SURGICAL HISTORY : None. ENCOUNTER: Initial ACUITY: 1 day PAIN SCORE: 0/10 LOCATION: Bilateral chest FINDINGS: A single view of the chest demonstrates the lungs to be symmetrically aerated without evidence of mas s, infiltrate or effusion. The cardiomediastinal contours are unremarkable. Osseous structures are intact. CONCLUSION: Normal examination for a patient of this age. No significant change has occurred. Walt Orozco MD on November 27, 2016 at 10:33 Board Certified Radiologist. This report was verified electronically.
[2016-11-27] MEDS: MAGNESIUM SULFATE 1 GM PREMIX 100 ML IV SCH ×2 (10:46→12:33)
[2016-11-27 10:48] LABS: BLOOD GAS BASE EXCESS 0.5 mmol/L (-2-2); BLOOD GAS CARBOXYHEMOGLOBIN 1.4 % (0-4); BLOOD GAS HCO3 24 mmol/L (22-26); BLOOD GAS METHEMOGLOBIN 0.7 % (0-2); BLOOD GAS O2 HGB SATURATION 91 % (90-100); BLOOD GAS OXYGEN CONTENT 17.2 Vol % (12.0-20.0); BLOOD GAS PCO2 35 mmHg (38-42); BLOOD GAS PO2 62 mmHG (61-120); BLOOD GAS TOTAL HGB 13.4 G/DL (12.0-16.0); CRITICAL VALUE NO; DRAW SITE RT RADIAL; LITER FLOW 2 L/M; NUMBER OF ARTERIAL PUNCTURES 1; OXYGEN DEVICE NASAL CANNULA; STAT YES; TEMP CORR TO 98.6; ULNAR PULSE PRESENT
--- NOTE | 2016-11-27 10:52 | PD ---
HPI . Respiratory distress Chief Complaint: Respiratory Distress Time Seen by Provider: 10:14 Travel History International Travel<30 days: No Contact w/Intl Traveler<30days: No Traveled to known affect area: No History of Present Illness HPI This patient presents to us via [facility] with the chief complaint of respiratory distress. Onset of symptoms was last night. It has been getting slightly worse since that time and became acutely worse just prior to presentation. He reports that his symptoms are now severe. He was reportedly treated with 2 albuterol nebs and Solu-Medrol 125 mg IV per [facility]. He states that he is not feeling any better with this treatment. No exacerbating factor noted. He states that he had a fever yesterday. He denies any sputum production. The patient reports a history of asthma and states that he has been "on a breathing machine before." He states that he was on the breathing machine the last time that he was here for his asthma. I have reviewed his records and he was on BiPAP. He was not intubated. PFSH Past Medical History ADHD: Yes Arthritis: No Asthma: Yes Blood Disorders: No Anxiety: Yes Depression: Yes Heart Rhythm Problems: Yes Cancer: No Cardiovascular Problems: No High Cholesterol: No Chest Pain: No Congestive Heart Failure: No COPD: No Diabetes: No Diminished Hearing: No Endocrine: No Gastrointestinal Disorders: Yes (Reflux) GERD: No Genitourinary: No Hiatal Hernia: No Hypertension: Yes Immune Disorder: No Musculoskeletal: Yes Neurologic: No Psychiatric: Yes Reproductive: No Respiratory: Yes (ASHTMA COPD) Integumentary: Yes (ezema) Immunizations Current: Yes Renal Failure: Yes (pt states 1st stage) Sleep Apnea: No Thyroid Disease: No Ulcer: No Past Surgical History Surgical History: No Previous Surgery Other Surgery: No Social History Alcohol Use: No Tobacco Use: Yes (0.25) Substance Use: No Allergies-Medications (Allergen,Severity, Reaction): Uncoded Allergies: cucumber body wash (Allergy, Severe, Hives, 11/27/16) shortness of breath,swelling. Reported Meds & Prescriptions Reported Meds & Active Scripts Active Epipen 2-Arjun Inj (Epinephrine) 0.3 Mg/0.3 Ml Pfpen 0.3 Mg SQ ONCE PRN Symbicort Inh (Budesonide/Formoterol Fumarate) 160-4.5 Mcg/Act Aero 2 Puff INH Q12HR Ventolin Hfa 18 GM Inh (Albuterol Sulfate) 90 Mcg/Act Aer 2 Puff INH Q4H PRN Review of Systems Except as stated in HPI: all other systems reviewed are Neg Respiratory: Positive: Cough, Shortness of Breath, Wheezing Genitourinary: Positive: Dysuria Physical Exam Narrative GENERAL: This patient is in respiratory distress with diaphoresis. SKIN: Warm and diaphoretic.. HEAD: Atraumatic. Normocephalic. EYES: Pupils equal and round. Extraocular movements are intact. ENT: No nasal bleeding or discharge. Mucous membranes pink and moist. NECK: Trachea midline. Neck is supple. CARDIOVASCULAR: Regular rate and rhythm. Heart sounds normal. RESPIRATORY: Tachypneic. Use of accessory muscles. Retractions. Decreased air movement throughout. Diffuse inspiratory and expiratory wheezing. GASTROINTESTINAL: Abdomen soft, non-tender, nondistended. MUSCULOSKELETAL: No obvious deformities. No edema. NEUROLOGICAL: Awake and alert. No obvious cranial nerve deficits. Motor grossly within normal limits. Normal speech. PSYCHIATRIC: Appropriate mood and affect; insight and judgment normal. Data Data Last Documented VS Vital Signs Date Time Temp Pulse Resp B/P (MAP) Pulse Ox O2 Delivery O2 Flow Rate FiO2 11/27/16 10:30 96 Nasal Cannula 2.00 11/27/16 10:15 98 26 11/27/16 10:11 98.4 144/73 (96) Orders Orders Complete Blood Count With Diff (11/27/16 10:15) Basic Metabolic Panel (Bmp) (11/27/16 10:15) Magnesium (Mg) (11/27/16 10:15) Arterial Blood Gas (Abg) (11/27/16 10:15) Blood Culture (11/27/16 10:15) Iv Access Insert/Monitor (11/27/16 10:15) Ecg Monitoring (11/27/16 10:15) Oximetry (11/27/16 10:15) Oxygen Administration (11/27/16 10:15) Chest, Single Ap (11/27/16 10:15) Sodium Chloride 0.9% Flush (Ns Flush) (11/27/16 10:15) Albuterol-Ipratropium Neb (Duoneb Neb) (11/27/16 10:15) Resp Bipap / Cpap Non Invas Vt (11/27/16 10:15) Magnesium Sulfate 1 Gm Premix (Magnesium (11/27/16 10:15) Lactic Acid (11/27/16 10:15) Urinalysis - C+S If Indicated (11/27/16 10:52) Albuterol-Ipratropium Neb (Duoneb Neb) (11/27/16 11:45) Labs Laboratory Tests Test 11/27/16 10:30 11/27/16 11:43 White Blood Count 8.4 TH/MM3 Red Blood Count 4.34 MIL/MM3 Hemoglobin 13.4 GM/DL Hematocrit 40.1 % Mean Corpuscular Volume 92.3 FL Mean Corpuscular Hemoglobin 30.9 PG Mean Corpuscular Hemoglobin Concent 33.5 % Red Cell Distribution Width 14.7 % Platelet Count 258 TH/MM3 Mean Platelet Volume 6.8 FL Neutrophils (%) (Auto) 58.2 % Lymphocytes (%) (Auto) 31.3 % Monocytes (%) (Auto) 6.7 % Eosinophils (%) (Auto) 3.5 % Basophils (%) (Auto) 0.3 % Neutrophils # (Auto) 4.9 TH/MM3 Lymphocytes # (Auto) 2.6 TH/MM3 Monocytes # (Auto) 0.6 TH/MM3 Eosinophils # (Auto) 0.3 TH/MM3 Basophils # (Auto) 0.0 TH/MM3 CBC Comment DIFF FINAL Differential Comment Blood Gas Puncture Site RT RADIAL Blood Gas Patient Temperature 98.6 Blood Gas HCO3 24 mmol/L Blood Gas Base Excess 0.5 mmol/L Blood Gas Oxygen Saturation 91 % Arterial Blood pH 7.45 Arterial Blood Partial Pressure CO2 35 mmHg Arterial Blood Partial Pressure O2 62 mmHG Arterial Blood Oxygen Content 17.2 Vol % Arterial Blood Carboxyhemoglobin 1.4 % Arterial Blood Methemoglobin 0.7 % Blood Gas Hemoglobin 13.4 G/DL Oxygen Delivery Device NASAL CANNULA Blood Gas Liter Flow 2 L/M Lactic Acid Level 2.2 mmol/L Blood Urea Nitrogen 14 MG/DL Creatinine 1.46 MG/DL Random Glucose 121 MG/DL Calcium Level 8.5 MG/DL Magnesium Level 2.5 MG/DL Sodium Level 141 MEQ/L Potassium Level 3.3 MEQ/L Chloride Level 106 MEQ/L Carbon Dioxide Level 27.1 MEQ/L Anion Gap 8 MEQ/L Estimat Glomerular Filtration Rate 70 ML/MIN [facility] Medical Decision Making Medical Screen Exam Complete: Yes Emergency Medical Condition: Yes Medical Record Reviewed: Yes (records reviewed. He does have a long-standing history of asthma and was admitted here in May for asthma. He was treated with BiPAP but did not require intubation.) Interpretation(s) EKG shows a sinus rhythm with rate of 97. No acute ischemic change. Differential Diagnosis Differential diagnosis of dyspnea includes but is not limited to congestive heart failure, pneumonia, wheezing, pneumothorax, pulmonary embolism Narrative Course This patient presents in respiratory distress because of an asthma attack. He was treated en route here with albuterol nebs 2 and Solu-Medrol 125 mg IV. I have ordered stacked DuoNeb 6, IV magnesium, BiPAP. The usual workup has been initiated including blood work and a chest x-ray. The respiratory therapist would like to see how he does with the stacked nebs before initiating BiPAP. ABG Test 11/27/16 10:30 Arterial Blood Carboxyhemoglobin 1.4 % Arterial Blood Methemoglobin 0.7 % Arterial Blood Oxygen Content 17.2 Vol % Arterial Blood Partial Pressure CO2 35 mmHg L Arterial Blood Partial Pressure O2 62 mmHG Arterial Blood pH 7.45 H Blood Gas Base Excess 0.5 mmol/L Blood Gas HCO3 24 mmol/L Blood Gas Hemoglobin 13.4 G/DL Blood Gas Liter Flow 2 L/M Blood Gas Oxygen Saturation 91 % Oxygen Delivery Device NASAL CANNULA Last Impressions Chest X-Ray 11/27/16 1015 Signed Impressions: Service Date/Time: Sunday, November 27, 2016 10:28 - CONCLUSION: Normal examination for a patient of this age. No significant change has occurred. Walt Orozco MD The chest x-ray was independently viewed by me. BMP Diagram 11/27/16 11:43 Calcium Level 8.5, Magnesium Level 2.5 CBC Diagram 11/27/16 10:30 This patient has been treated with 2 rounds of stacked DuoNebs. He was treated with Solu-Medrol prior to presentation. He has received 2 g of magnesium. He generally seems to be resting comfortably but continues to have diffuse inspiratory and expiratory wheezing. I will admit him to observation. Critical Care Narrative Aggregate critical care time was 45 minutes. Time to perform other separately billable procedures was not included in the critical care time. My time did not include minutes spent treating any other patients simultaneously or on activities that did not directly contribute to the patient's treatment. The services I provided to this patient were to treat and/or prevent clinically significant deterioration due to respiratory distress I provided critical care services requiring my management, as noted below: Chart data review, documentation time, medication orders and management, vital sign assessments/reviewing monitor data, ordering and reviewing lab tests, ordering and interpreting/reviewing x-rays and diagnostic studies, care of the patient and discussion of the patient with the admitting physicians Physician Communication Physician Communication Dr. Gray Diagnosis Primary Impression: Respiratory distress Additional Impressions: Asthma exacerbation Dysuria Admitting Information Admitting Physician Requests: Observation Condition: Stable Liliana Stephens MD Nov 27, 2016 10:52
[2016-11-27 10:59] LABS: AUTOMATED NEUTROPHIL # 4.9 TH/MM3 (1.8-7.7); BASOPHIL % 0.3 % (0.0-2.0); EOSINOPHIL # 0.3 TH/MM3 (0-0.4); EOSINOPHIL % 3.5 % (0.0-4.0); HEMATOCRIT 40.1 % (39.0-51.0); HEMO FLAGS DIFF FINAL; LYMPH % 31.3 % (9.0-44.0); LYMPHOCYTE # 2.6 TH/MM3 (1.0-4.8); MEAN CELL VOLUME 92.3 FL (80.0-100.0); MEAN CORPUSCULAR HEMOGLOBIN 30.9 PG (27.0-34.0); MEAN CORPUSCULAR HGB CONC 33.5 % (32.0-36.0); MONO % 6.7 % (0.0-8.0); NEUT % 58.2 % (16.0-70.0); PLATELET COUNT 258 TH/MM3 (150-450); RED BLOOD COUNT 4.34 MIL/MM3 (4.50-5.90); RED CELL DISTRIBUTION WIDTH 14.7 % (11.6-17.2); WHITE BLOOD COUNT 8.4 TH/MM3 (4.0-11.0)
[2016-11-27 12:15] LABS: BICARBONATE 27.1 MEQ/L (21.0-32.0); MAGNESIUM 2.5 MG/DL (1.5-2.5); POTASSIUM 3.3 MEQ/L (3.5-5.1)
[2016-11-27 14:16] VITALS: BP 131/72; PULSE 92; RESP 20; O2SAT 96
[2016-11-27 15:15] VITALS: BP 140/66; PULSE 88; RESP 20; TEMP 97.3; O2SAT 94
--- NOTE | 2016-11-27 15:18 | EKG ---
Date Performed: 11/27/2016 Time Performed: 10:19:44 PTAGE: 26 years EKG: Sinus rhythm NONSPECIFIC ST & T-WAVE ABNORMALITY BORDERLINE ECG PREVIOUS TRACING : 08/15/2016 21.58 Compared to prior tracing no significant change DOCTOR: Georgina Newberry Interpretating Date/Time 11/27/2016 15:17:44
--- NOTE | 2016-11-27 15:50 | HHI.HP ---
[facility] Yanna De Jesus MD Admission Diagnosis asthma Diagnoses: Chief Complaint: Shortness of breath Travel History International Travel<30 Days: No Contact w/Intl Traveler <30 Da: No Traveled to Known Affected Are: No History of Present Illness Patient is a 26-year-old male with history of hyperreactive airway disease, HIV with last CD4 count of 210, still smokes 2 sticks of cigarettes a day, recently got out of custodial about a week ago and - was getting his inhalers. However he was discharged/released from with no medications. About 2 days ago started getting short of breath associated with dry cough. Last night with worsening shortness of breath associated with fever and dry cough which patient to call [facility] and enroute was given 125 milligrams of IV Solu-Medrol. Down in the emergency room patient received 3 DuoNeb treatments with no relief which prompted patient to be admitted and for further observation. Patient states dry cough, occasional fever at night sweats and some burning urination. No nausea vomiting no diarrhea. History of mechanical intubation in the past Patient tachypneic- speak haltingly due to shortness of breath Past Family Social History Past Medical History HIV positive diagnosed years ago and last CD4 count was 10 about 8 weeks ago but patient is not sure. Hyperreactive airway disease on Advair 1 puff twice a day Past Surgical History No major surgeries Reported Medications Advair one puff twice a At one point was on Bactrim for what I'm assuming his PCP prophylaxis. Patient states he is not on any HIV meds Allergies: Coded Allergies: cucumber (Verified Allergy, Severe, 11/27/16) THE VEG CUCUMBER WELL CUCUMBER SOAP Uncoded Allergies: cucumber body wash (Allergy, Severe, Hives/ , 11/27/16) shortness of breath,swelling. Family History Family positive history of hypertension Grandmother with heart disease Social History Smokes about 2-5 sticks a day Occasional alcohol use Occasional marijuana use Physical Exam Vital Signs Vital Signs Date Time Temp Pulse Resp B/P (MAP) Pulse Ox O2 Delivery O2 Flow Rate FiO2 11/27/16 15:09 11/27/16 14:16 92 20 131/72 (91) 96 Nasal Cannula 2.00 11/27/16 10:30 96 Nasal Cannula 2.00 11/27/16 10:25 97 Nasal Cannula 2.00 11/27/16 10:15 98 26 98 Nasal Cannula 2.00 11/27/16 10:11 98.4 100 28 144/73 (96) 99 Physical Exam GENERAL: Awake alert acutely tachycardic with diffuse wheezing SKIN: No rashes, ecchymoses or lesions. Cool and dry. HEAD: Atraumatic. Normocephalic. No temporal or scalp tenderness. EYES: Pupils equal round and reactive. Extraocular motions intact. No scleral icterus. No injection or drainage. ENT: Dry oral mucosa Nose without bleeding, purulent drainage or septal hematoma. Throat without erythema, Uvula midline. Airway patent. NECK: Trachea midline. No JVD or lymphadenopathy. Supple, nontender, no meningeal signs. CARDIOVASCULAR: Regular rate and rhythm, tachycardic RESPIRATORY: Tachypneic, tight with diffuse inspiratory and expiratory wheezes GASTROINTESTINAL: Abdomen soft, non-tender, No hepato-splenomegaly, or palpable masses. No guarding. MUSCULOSKELETAL: Extremities without clubbing, cyanosis, or edema. No joint tenderness, effusion, or edema noted. No calf tenderness. Negative Homans sign bilaterally. NEUROLOGICAL: Awake and alert. Cranial nerves II through XII intact. Motor and sensory grossly within normal limits. Five out of 5 muscle strength in all muscle groups. Normal speech. Laboratory Laboratory Tests Test 11/27/16 10:30 11/27/16 11:43 White Blood Count 8.4 Red Blood Count 4.34 Hemoglobin 13.4 Hematocrit 40.1 Mean Corpuscular Volume 92.3 Mean Corpuscular Hemoglobin 30.9 Mean Corpuscular Hemoglobin Concent 33.5 Red Cell Distribution Width 14.7 Platelet Count 258 Mean Platelet Volume 6.8 Neutrophils (%) (Auto) 58.2 Lymphocytes (%) (Auto) 31.3 Monocytes (%) (Auto) 6.7 Eosinophils (%) (Auto) 3.5 Basophils (%) (Auto) 0.3 Neutrophils # (Auto) 4.9 Lymphocytes # (Auto) 2.6 Monocytes # (Auto) 0.6 Eosinophils # (Auto) 0.3 Basophils # (Auto) 0.0 CBC Comment DIFF FINAL Differential Comment Blood Gas Puncture Site RT RADIAL Blood Gas Patient Temperature 98.6 Blood Gas HCO3 24 Blood Gas Base Excess 0.5 Blood Gas Oxygen Saturation 91 Arterial Blood pH 7.45 Arterial Blood Partial Pressure CO2 35 Arterial Blood Partial Pressure O2 62 Arterial Blood Oxygen Content 17.2 Arterial Blood Carboxyhemoglobin 1.4 Arterial Blood Methemoglobin 0.7 Blood Gas Hemoglobin 13.4 Oxygen Delivery Device NASAL CANNULA Blood Gas Liter Flow 2 Lactic Acid Level 2.2 Blood Urea Nitrogen 14 Creatinine 1.46 Random Glucose 121 Calcium Level 8.5 Magnesium Level 2.5 Sodium Level 141 Potassium Level 3.3 Chloride Level 106 Carbon Dioxide Level 27.1 Anion Gap 8 Estimat Glomerular Filtration Rate 70 Date/Time Source Procedure Growth Status 11/27/16 10:30 Blood Peripheral Aerobic Blood Culture Pending Received 11/27/16 10:30 Blood Peripheral Anaerobic Blood Culture Pending Received Result Diagram: 11/27/16 1030 11/27/16 1143 Imaging Last Impressions Chest X-Ray 11/27/16 1015 Signed Impressions: Service Date/Time: Sunday, November 27, 2016 10:28 - CONCLUSION: Normal examination for a patient of this age. No significant change has occurred. Walt Orozco MD Septic Shock Reassessment Heart: Regular rate and rhythm Lungs: Other (diffuse wheezes) Skin: Warm Peripheral Pulses: Bounding Right Radial Bounding Left Radial Bounding Right Popliteal Bounding Left Popliteal Bounding Right Dorsalis Pedis Bounding Left Dorsalis Pedis Bounding Right Posterior Tibial Bounding Left Posterior Tibial Capillary Refill: Brisk Caprini VTE Risk Assessment Caprini VTE Risk Assessment: No/Low Risk (score <= 1) Caprini Risk Assessment Model Point Value = 1 Point Value = 2 Point Value = 3 Point Value = 5 Age 41-60 Minor surgery BMI > 25 kg/m2 Swollen legs Varicose veins or History of unexplained or recurrent spontaneous Oral contraceptives or hormone replacement Sepsis (< 1 month) Serious lung disease, including pneumonia (< 1 month) Abnormal pulmonary function Acute myocardial infarction Congestive heart failure (< 1 month) History of inflammatory bowel disease Medical patient at bed rest Age 61-74 Arthroscopic surgery Major open surgery (> 45 min) Laparoscopic surgery (> 45 min) Malignancy Confined to bed (> 72 hours) Immobilizing plaster cast Central venous access Age >= 75 History of VTE Family history of VTE Factor V Leiden Prothrombin [id number] Lupus anticoagulant Anticardiolipin antibodies Elevated serum homocysteine Heparin-induced thrombocytopenia Other congenital or acquired thrombophilia Stroke (< 1 month) Elective arthroplasty Hip, pelvis, or leg fracture Acute spinal cord injury (< 1 month) Prophylaxis Regimen Total Risk Factor Score Risk Level Prophylaxis Regimen 0-1 Low Early ambulation 2 Moderate Order ONE of the following: *Sequential Compression Device (SCD) *Heparin 5000 units SQ BID 3-4 Higher Order ONE of the following medications: *Heparin 5000 units SQ TID *Enoxaparin/Lovenox 40 mg SQ daily (WT < 150 kg, CrCl > 30 mL/min) *Enoxaparin/Lovenox 30 mg SQ daily (WT < 150 kg, CrCl > 10-29 mL/min) *Enoxaparin/Lovenox 30 mg SQ BID (WT < 150 kg, CrCl > 30 mL/min) AND/OR *Sequential Compression Device (SCD) 5 or more Highest Order ONE of the following medications: *Heparin 5000 units SQ TID (Preferred with Epidurals) *Enoxaparin/Lovenox 40 mg SQ daily (WT < 150 kg, CrCl > 30 mL/min) *Enoxaparin/Lovenox 30 mg SQ daily (WT < 150 kg, CrCl > 10-29 mL/min) *Enoxaparin/Lovenox 30 mg SQ BID (WT < 150 kg, CrCl > 30 mL/min) AND *Sequential Compression Device (SCD) Assessment and Plan Assessment and Plan 26-year-old male with shortness of breath Hyperreactive airway disease in severe exacerbation with history of intubation in the past We'll start patient on Solu-Medrol 60 mg IV every 6 first dose now *Dual nebs every 2 x 3 then q 4 hours scheduled Monitor closely for any worsening O2 nasal cannula 2 L/m History of HIV last CD4 count to 210 years ago. outpatient follow-up. Hypokalemia given by mouth potassium 1 Burning urination- check UA chronic renal insufficiency- IVF. ff BMP PPI for GI prophylaxis TEDS/ SCDs for DVT prophylaxis early ambulation as respiratory status improves Discussed Condition With Patient Dinorah Gray MD Nov 27, 2016 15:50
[2016-11-27] MEDS ORDERED: POTASSIUM CHLORIDE 20 MEQ CONTROLLED RELEASE TAB PO ONE (16:15)
[2016-11-27] MEDS ORDERED: RESP: ALBUTEROL 2.5 MG/IPRATROPIUM 0.5 MG NEB (PRN) NEB (17:30)
[2016-11-27] MEDS: methylPREDNISolone SOD SUCC 125 MG/2 ML VIAL IV PUSH SCH ×2 (17:54→23:28)
[2016-11-27] MEDS: AZITHROMYCIN INJ 500 MG in SODIUM CHLOR 0.9% 250 ML INJ 250 ML IV SCH (17:58)
[2016-11-27] MEDS ORDERED: PANTOPRAZOLE SODIUM 40 MG VIAL IV PUSH SCH (18:00)
[2016-11-27] MEDS: SULFAMETHOXAZOLE-TRIMETHOPRIM DS 800-160 MG TAB PO SCH (18:00)
[2016-11-27] MEDS: NS + KCL 20 MEQ INJ 1,000 ML IV SCH (18:09)
[2016-11-27] MEDS: LEVOFLOXACIN 500 MG PREMIX INJ 100 ML IV SCH (19:48)
[2016-11-27 20:00] VITALS: BP 124/59; PULSE 107; RESP 21; TEMP 97.7; O2SAT 94
[2016-11-27] MEDS: RESP: ALBUTEROL 2.5 MG/IPRATROPIUM 0.5 MG NEB (SCH) NEB ×2 (20:10→22:11)
[2016-11-27 22:54] LABS: BLOOD, URINE MOD (NEG); COMMENT (UR) CULT NOT INDICATED; CULTURE IF INDICATED CULT NOT INDICATED; GLUCOSE,URINE NEG (NEG); KETONE, URINE NEG (NEG); NITRITE,URINE NEG (NEG); URINE COLOR YELLOW (YELLW/STRAW)
[2016-11-28] VITALS (9 sets, daily range): BP systolic 122–144; BP diastolic 56–76; PULSE 88–112; RESP 16–21; TEMP 96.9–98.9; O2SAT 94–98
[2016-11-28] MEDS: RESP: ALBUTEROL 2.5 MG/IPRATROPIUM 0.5 MG NEB (SCH) NEB ×5 (00:30→19:36)
[2016-11-28] MEDS: methylPREDNISolone SOD SUCC 125 MG/2 ML VIAL IV PUSH SCH ×4 (05:08→23:57)
[2016-11-28] MEDS: NS + KCL 20 MEQ INJ 1,000 ML IV SCH (06:46)
[2016-11-28 08:07] LABS: ALT (GPT) 15 U/L (12-78); ANION GAP 10 MEQ/L (5-15); AST (GOT) 11 U/L (15-37); BICARBONATE 22.5 MEQ/L (21.0-32.0); BLOOD UREA NITROGEN 18 MG/DL (7-18); CHLORIDE 107 MEQ/L (98-107); GLOMERULAR FILTRATION RATE 86 ML/MIN (>89); POTASSIUM 3.9 MEQ/L (3.5-5.1); SODIUM (NA) 139 MEQ/L (136-145)
[2016-11-28 08:09] LABS: ALKALINE PHOSPHATASE 51 U/L (45-117); LDH SERUM 197 U/L (87-241); TOTAL BILIRUBIN ADULT 0.2 MG/DL (0.2-1.0)
--- NOTE | 2016-11-28 12:38 | HHI.PR ---
Subjective Remarks feeling better now able to speak in full sentences cough- minimal dry Objective Vitals Vital Signs Date Time Temp Pulse Resp B/P (MAP) Pulse Ox O2 Delivery O2 Flow Rate FiO2 11/28/16 08:15 98 Nasal Cannula 2.00 11/28/16 04:00 97.7 92 20 134/60 (84) 96 11/28/16 00:00 98.2 112 21 122/56 (78) 94 11/27/16 20:00 97.7 107 21 124/59 (80) 94 11/27/16 15:15 97.3 88 20 140/66 (90) 94 11/27/16 15:09 11/27/16 14:16 92 20 131/72 (91) 96 Nasal Cannula 2.00 I/O 11/27/16 11/27/16 11/27/16 11/28/16 11/28/16 11/28/16 07:00 15:00 23:00 07:00 15:00 23:00 Intake Total 100 ml 240 ml 1608 ml Output Total 950 ml Balance 100 ml 240 ml 658 ml Intake Oral 240 ml 240 ml IV Total 100 ml 1368 ml Output Urine Total 950 ml Result Diagram: 11/27/16 1030 11/28/16 0645 Imaging Last Impressions Chest X-Ray 11/27/16 1015 Signed Impressions: Service Date/Time: Sunday, November 27, 2016 10:28 - CONCLUSION: Normal examination for a patient of this age. No significant change has occurred. Walt Orozco MD Objective Remarks no acute distress, less tachypneic anicteric no oral thrush, no exudates lung exam still with few expiratory wheezes and rhonchi - less compared to admission regular rhythm- HR 80s abdomen soft extremities no edema, no calf swelling A/P Assessment and Plan 26-year-old male with shortness of breath Hyperreactive airway disease in severe exacerbation with history of intubation in the past- improving- exam less wheezing- few expiratory wheezes and rhonchi continue on Solu-Medrol 60 mg IV q 6- start taper in am or switch to po if continues to improve *Du0 nebs q 4 hours scheduled O2 nasal cannula 2 L/m increase activity History of HIV last CD4 count to 210 years ago. outpatient follow-up. Hypokalemia- resolved Microscopic hematuria -monitor. IVF. ff renal functions, now no burning or pain on urination with hydration Chronic kidney insufficiency- baseline creatinine 1.47 - creatinine improved with IVF. ff BMP- PPI for GI prophylaxis TEDS/ SCDs for DVT prophylaxis . Up and ambulating encourage Dinorah Gray MD Nov 28, 2016 12:38
[2016-11-28] MEDS: AZITHROMYCIN INJ 500 MG in SODIUM CHLOR 0.9% 250 ML INJ 250 ML IV SCH (17:07)
[2016-11-28] MEDS: LEVOFLOXACIN 500 MG PREMIX INJ 100 ML IV SCH (19:43)
[2016-11-29] VITALS (8 sets, daily range): BP systolic 122–146; BP diastolic 62–74; PULSE 76–109; RESP 16–20; TEMP 96.9–98.1; O2SAT 94–99
[2016-11-29] MEDS: NS + KCL 20 MEQ INJ 1,000 ML IV SCH ×3 (00:01→19:44)
[2016-11-29] MEDS: RESP: ALBUTEROL 2.5 MG/IPRATROPIUM 0.5 MG NEB (SCH) NEB ×6 (01:18→21:35)
[2016-11-29] MEDS: methylPREDNISolone SOD SUCC 125 MG/2 ML VIAL IV PUSH SCH (05:47)
[2016-11-29] MEDS: SODIUM CHLORIDE 0.9% FLUSH 10 ML FLUSH IVF PRN ×2 (05:48→22:49)
[2016-11-29] MEDS: PANTOPRAZOLE SOD 40 MG DELAYED RELEASE TAB PO SCH (08:05)
[2016-11-29] MEDS: SULFAMETHOXAZOLE-TRIMETHOPRIM DS 800-160 MG TAB PO SCH (08:05)
[2016-11-29] MEDS ORDERED: LORATADINE 10 MG TAB PO ONE (10:15)
--- NOTE | 2016-11-29 11:43 | HHI.PR ---
Subjective Remarks Only minimal improvement compared to yesterday. Patient is continuing to have significant dyspnea and problems exerting himself. This includes walking to the bathroom which is within 10 foot distance. Wheezing is continuous. Objective Vital Signs Date Time Temp Pulse Resp B/P (MAP) Pulse Ox O2 Delivery O2 Flow Rate FiO2 11/29/16 08:44 98 11/29/16 08:00 97.4 76 18 144/69 (94) 96 11/29/16 04:00 96.9 84 20 130/69 (89) 99 11/29/16 00:00 97.3 82 18 146/69 (94) 96 11/28/16 20:00 96.9 109 18 144/69 (94) 94 11/28/16 19:37 97 21 11/28/16 17:36 97 11/28/16 16:00 98.9 100 16 135/68 (90) 96 11/28/16 12:00 97.3 90 18 142/76 (98) 94 I/O 11/28/16 11/28/16 11/28/16 11/29/16 11/29/16 11/29/16 07:00 15:00 23:00 07:00 15:00 23:00 Intake Total 1608 ml 2030 ml 1000 ml Output Total 950 ml 1151 ml 400 ml 350 ml Balance 658 ml 879 ml 600 ml -350 ml Intake Oral 240 ml 1680 ml IV Total 1368 ml 350 ml 1000 ml Output Urine Total 950 ml 1151 ml 400 ml 350 ml # Voids 1 # Bowel Movements 1 Result Diagram: 11/27/16 1030 11/28/16 0645 Objective Remarks GENERAL: NAD, A&Ox3 HEAD: Normocephalic. NECK: Supple, trachea midline. No lymphadenopathy. EYES: No scleral icterus. No injection or drainage. CARDIOVASCULAR: Regular rate and rhythm without murmurs, gallops, or rubs. RESPIRATORY: Breath sounds equal bilaterally. No accessory muscle use. Diffuse wheezing bilaterally. GASTROINTESTINAL: Abdomen soft, non-tender, nondistended. MUSCULOSKELETAL: No cyanosis, or edema. SKIN: Warm and dry. NEURO: No focal neurological deficitis. A/P Problem List: (1) Asthma exacerbation ICD Code: J45.901 - Asthma with acute exacerbation Status: Acute (2) Respiratory distress ICD Code: R06.00 - Dyspnea, unspecified Status: Acute (3) Immunocompromised state ICD Code: D84.9 - Immunodeficiency, unspecified; R19.7 - Diarrhea, unspecified Status: Acute Assessment and Plan Assessment and plan 26-year-old male admitted secondary to reactive airway disease, asthma exacerbation. 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 Continue steroids IV Continue azithromycin empirically Continue schedule duo nebs Continue as needed albuterol Continue oxygen supplementation as needed Monitor for improvements clinically and symptomatically And loratadine 10 mg by mouth daily History of HIV Immunocompromise Continue Bactrim Empiric coverage with azithromycin No evidence of pneumonia on imaging Chronic kidney disease Follow renal function DVT prophylaxis SCDs Ambulation encouraged Discharge planning Exacerbated state of patient's respiratory status inhibitors discharge thus far Monitor for appropriate weaned from respiratory support Monitor for improved functional status Potential discharge in 1-2 days Aden Shaw MD Nov 29, 2016 11:43
[2016-11-29] MEDS: methylPREDNISolone SOD SUCC 40 MG/1 ML VIAL IV PUSH SCH ×2 (13:05→22:48)
[2016-11-29] MEDS: AZITHROMYCIN INJ 500 MG in SODIUM CHLOR 0.9% 250 ML INJ 250 ML IV SCH (19:42)
[2016-11-30] VITALS: BP 127/67; PULSE 92; RESP 18; TEMP 97; O2SAT 96
[2016-11-30] MEDS: RESP: ALBUTEROL 2.5 MG/IPRATROPIUM 0.5 MG NEB (SCH) NEB ×4 (01:19→12:45)
[2016-11-30 04:00] VITALS: BP 129/59; PULSE 76; RESP 18; TEMP 97.1; O2SAT 99
[2016-11-30] MEDS: NS + KCL 20 MEQ INJ 1,000 ML IV SCH (05:00)
[2016-11-30] MEDS: methylPREDNISolone SOD SUCC 40 MG/1 ML VIAL IV PUSH SCH ×2 (06:13→15:36)
[2016-11-30 08:00] VITALS: BP 141/81; PULSE 81; RESP 19; TEMP 97.3; O2SAT 98
[2016-11-30 08:22] VITALS: O2SAT 98
[2016-11-30] MEDS: PANTOPRAZOLE SOD 40 MG DELAYED RELEASE TAB PO SCH (08:56)
[2016-11-30] MEDS ORDERED: NEBULIZER1 MI1 (08:58)
[2016-11-30] MEDS ORDERED: SYMB160A INH (08:58)
[2016-11-30] MEDS ORDERED: VENTAER INH (08:58)
[2016-11-30] MEDS ORDERED: ALBU0.08 NEB (08:58)
[2016-11-30] MEDS ORDERED: CLAR10TA7 PO (08:58)
[2016-11-30] MEDS ORDERED: LACTTAB8 PO (08:58)
[2016-11-30] MEDS ORDERED: PRED10PA2 PO (08:58)
[2016-11-30] MEDS ORDERED: AZIT250T3 PO (08:58)
[2016-11-30] MEDS ORDERED: LORATADINE 10 MG TAB PO SCH (09:00)
--- NOTE | 2016-11-30 09:00 | HHI.DS ---
Discharge Summary Admission Date Nov 29, 2016 at 11:38 Discharge Date: Nov 30, 2016 Admitting Diagnosis asthma (1) Asthma exacerbation ICD Code: J45.901 - Asthma with acute exacerbation Diagnosis: Principal Status: Acute Procedures None Brief History - From Admission Patient is a 26-year-old male with history of hyperreactive airway disease, HIV with last CD4 count of 210, still smokes 2 sticks of cigarettes a day, recently got out of long-term about a week ago and - was getting his inhalers. However he was discharged/released from with no medications. About 2 days ago started getting short of breath associated with dry cough. Last night with worsening shortness of breath associated with fever and dry cough which patient to call [facility] and enroute was given 125 milligrams of IV Solu-Medrol. Down in the emergency room patient received 3 DuoNeb treatments with no relief which prompted patient to be admitted and for further observation. Patient states dry cough, occasional fever at night sweats and some burning urination. No nausea vomiting no diarrhea. History of mechanical intubation in the past Patient tachypneic- speak haltingly due to shortness of breath CBC/BMP: 11/27/16 1030 11/28/16 0645 Significant Findings Laboratory Tests Test 11/27/16 10:30 11/27/16 11:43 11/27/16 21:05 11/28/16 06:45 Red Blood Count 4.34 MIL/MM3 (4.50-5.90) Mean Platelet Volume 6.8 FL (7.0-11.0) Arterial Blood pH 7.45 (7.380-7.420) Arterial Blood Partial Pressure CO2 35 mmHg (38-42) Lactic Acid Level 2.2 mmol/L (0.4-2.0) Creatinine 1.46 MG/DL (0.60-1.30) Random Glucose 121 MG/DL (74-106) 156 MG/DL (74-106) Potassium Level 3.3 MEQ/L (3.5-5.1) Estimat Glomerular Filtration Rate 70 ML/MIN (>89) 86 ML/MIN (>89) Urine Occult Blood MOD (NEG) Urine RBC 6 /hpf (0-3) Albumin 2.7 GM/DL (3.4-5.0) Calcium Level 8.4 MG/DL (8.5-10.1) Aspartate Amino Transf (AST/SGOT) 11 U/L (15-37) Test 11/29/16 05:54 PE at Discharge no acute distress, less tachypneic anicteric no oral thrush, no exudates lung exam still with few expiratory wheezes and rhonchi - less compared to admission regular rhythm- HR 80s abdomen soft extremities no edema, no calf swelling Hospital Course Mr. Oakley is a 26-year-old male. He was admitted secondary to an acute asthma exacerbation. He seems to have severe persistent asthma at baseline and required oxygenation secondary to hypoxia at time of admit. She has had gradual recovery in today is stable off oxygen. Wheezing is improving. Exertional tolerance is improving. She is recommended to stay off work for 2 more days and finished treatments. He will finish a prednisone taper, 4 more days of antibiotic, and continued breathing treatments on a when necessary basis and on the long-acting basis. Medically stable for discharge today. Pt Condition on Discharge: Stable Discharge Disposition: Discharge Home Discharge Time: <= 30 minutes Discharge Instructions DIET: Follow Instructions for: As Tolerated, No Restrictions Activities you can perform: Regular-No Restrictions Follow up Referrals: PCP Follow-up - 1 Week New Medications: Albuterol Neb (Albuterol Neb) 2.5 Mg/3 Ml Neb 2.5 MG NEB Q4HR NEB PRN for SHORTNESS OF BREATH, #60 NEBULE 0 Refills Azithromycin (Azithromycin) 250 Mg Tab 250 MG PO DAILY for Infection, #4 TAB 0 Refills Lactobacillus Acidophilus (Lactobacillus Acidophilus) 1 Billion Cell Tab 1 TAB PO TIDAC for Nutritional Supplement, #21 TAB 0 Refills Nebulizer (Nebulizer) 1 Mis Mis EA .ROUTE DIRECTED for Breathing Treatment, #1 0 Refills Prednisone (48) 10 mg tab Dose Pack (Prednisone (48) 10 mg tab Dose Pack) 10 Mg Dspk 10 MG PO DIRECTED for Inflammation, #1 DSPK 0 Refills Loratadine (Claritin) 10 Mg Tablet 10 MG PO DAILY for Inflammation, #4 TAB Continued Medications: Albuterol 18 GM Inh (Ventolin Hfa 18 GM Inh) 90 Mcg/Act Aer 2 PUFF INH Q4H PRN for SHORTNESS OF BREATH, #1 INHALER 0 Refills (This prescription has been renewed) Budesonide-Formoterol Inh (Symbicort Inh) 160-4.5 Mcg/Act Aero 2 PUFF INH Q12HR for Breathing Treatment, #60 INHALER (This prescription has been renewed) Epinephrine Inj (Epipen 2-Arjun Inj) 0.3 Mg/0.3 Ml Pfpen 0.3 MG SQ ONCE PRN for ALLERGIC REACTION, #1 PACK 0 Refills Aden Shaw MD Nov 30, 2016 09:00
[2016-11-30] MEDS ORDERED: DOCUSATE SODIUM 100 MG CAP PO ONE (09:15)
[2016-11-30] MEDS ORDERED: SENNOSIDES 8.6 MG TAB PO PRN (10:00)
[2016-11-30 12:00] VITALS: BP 113/55; PULSE 94; RESP 20; TEMP 98.3; O2SAT 95
[2016-12-01 03:53] LABS: CD4/CD8 RATIO 0.3 (0.86-5.00)
== END 2016-11-30 16:01 | disposition home or self-care (01) | DRG 203 ==
LOC: NEPE 10:07 → NEDA 12:59 → HOCA 15:01 → OBSVTOIN 11-29 11:38
PROVIDERS: ADMIT Hospitalist; ATTEND Hospitalist
PROC: 3E0F7GC Introduction of Other Therapeutic Substance into Respiratory Tract, Via Natural or Artificial Opening (ICD-10-PCS; principal; 2016-11-27)
DX: J45.51 Severe persistent asthma with (acute) exacerbation (principal); E87.6 Hypokalemia; F17.210 Nicotine dependence, cigarettes, uncomplicated; Z82.49 Family history of ischemic heart disease and other diseases of the circulatory system; F12.90 Cannabis use, unspecified, uncomplicated; N18.9 Chronic kidney disease, unspecified; Z21 Asymptomatic human immunodeficiency virus [HIV] infection status; R09.02 Hypoxemia
CPT/HCPCS: 36600; 71010; 76937; 80048; 80053; 81001; 82805; 83605; 83615; 83735; 85025; 86355; 86357; 86359; 86360; 87040; 93005; 94640; 94664; 96361; 96365; 96366; 96367; 96375; 96376; C9113; G0378; J0456; J1956; J2920; J2930; J3475; J3480; J7050

== ENCOUNTER 2017-03-26 04:11 | Observation (INO) | payer MEDICAID ==
[2017-03-26] VITALS (12 sets, daily range): BP systolic 124–147; BP diastolic 58–92; PULSE 67–107; RESP 16–20; TEMP 97.5–98.4; O2SAT 94–98
[~2017-03-26] VITALS: Ht 152.4 cm; Wt 63.0 kg
[~2017-03-26 04:11] MED LIST changes: +ALBU0.08 NEB; +AZIT250T3 PO; -BACT800T5 PO; +CLAR10TA7 PO; +LACTTAB8 PO; -MEDR4PAK PO; +NEBULIZER1 MI1; +PRED10PA2 PO; -PROM12.54 PO; -VIST50CA PO; -ZITH250T PO
[2017-03-26] MEDS ORDERED: methylPREDNISolone SOD SUCC 125 MG/2 ML VIAL IV PUSH ONE (04:45)
[2017-03-26] MEDS: RESP: ALBUTEROL 2.5 MG/IPRATROPIUM 0.5 MG NEB (SCH) INH ×2 (04:50→04:51)
[2017-03-26] MEDS ORDERED: ONDANSETRON HCL 4 MG/2 ML VIAL ONE (04:57)
--- NOTE | 2017-03-26 05:05 | PD ---
HPI Chief Complaint: Respiratory Distress Time Seen by Provider: 04:39 Travel History International Travel<30 days: No Contact w/Intl Traveler<30days: No Traveled to known affect area: No History of Present Illness HPI 27yo M with PMH of asthma presents to the ED with c/o sob since yesterday. Also with midsternal chest pain, fever yesterday and cough. Denies any n/v, focal weakness or numbness. PFSH Past Medical History ADHD: Yes Arthritis: No Asthma: Yes Blood Disorders: No Anxiety: Yes Depression: Yes Heart Rhythm Problems: Yes Cancer: No Cardiovascular Problems: No High Cholesterol: No Chest Pain: No Congestive Heart Failure: No COPD: Yes Diabetes: No Diminished Hearing: No Endocrine: No Gastrointestinal Disorders: Yes (Reflux) GERD: No Genitourinary: No Hiatal Hernia: No Hypertension: Yes Immune Disorder: Yes (HIV) Musculoskeletal: Yes Neurologic: No Psychiatric: Yes Reproductive: No Respiratory: Yes (ASTHMA) Integumentary: Yes (ezema) Immunizations Current: Yes Renal Failure: Yes (pt states 1st stage) Sleep Apnea: No Thyroid Disease: No Ulcer: No Past Surgical History Surgical History: No Previous Surgery Other Surgery: No Social History Alcohol Use: Yes Tobacco Use: Yes Substance Use: Yes (MARIJUANA) Allergies-Medications (Allergen,Severity, Reaction): Coded Allergies: cucumber (Verified Allergy, Severe, 11/27/16) THE VEG CUCUMBER WELL CUCUMBER SOAP Uncoded Allergies: cucumber body wash (Allergy, Severe, Hives/ , 11/27/16) shortness of breath,swelling. Reported Meds & Prescriptions Reported Meds & Active Scripts Active Claritin (Loratadine) 10 Mg Tablet 10 Mg PO DAILY Lactobacillus Acidophilus 1 Billion Cell Tab 1 Tab PO TIDAC Albuterol Neb (Albuterol Sulfate) 2.5 Mg/3 Ml Neb 2.5 Mg NEB Q4HR NEB PRN Symbicort Inh (Budesonide/Formoterol Fumarate) 160-4.5 Mcg/Act Aero 2 Puff INH Q12HR Ventolin Hfa 18 GM Inh (Albuterol Sulfate) 90 Mcg/Act Aer 2 Puff INH Q4H PRN Epipen 2-Arjun Inj (Epinephrine) 0.3 Mg/0.3 Ml Pfpen 0.3 Mg SQ ONCE PRN Review of Systems Except as stated in HPI: all other systems reviewed are Neg Physical Exam Narrative GENERAL: 27yo M in moderate distress. SKIN: Focused skin assessment warm/dry. HEAD: Atraumatic. Normocephalic. EYES: Pupils equal and round. No scleral icterus. No injection or drainage. ENT: No nasal bleeding or discharge. Mucous membranes pink and moist. NECK: Trachea midline. No JVD. CARDIOVASCULAR: Regular rate and rhythm. No murmur appreciated. RESPIRATORY: + accessory muscle use. Expiratory wheezing bilaterally. GASTROINTESTINAL: Abdomen soft, diffuse ttp. MUSCULOSKELETAL: No obvious deformities. No clubbing. No cyanosis. No edema. NEUROLOGICAL: Awake and alert. No obvious cranial nerve deficits. Motor grossly within normal limits. Normal speech. PSYCHIATRIC: Appropriate mood and affect; insight and judgment normal. Data Data Last Documented VS Vital Signs Date Time Temp Pulse Resp B/P (MAP) Pulse Ox O2 Delivery O2 Flow Rate FiO2 03/26/17 07:44 18 03/26/17 06:54 81 129/70 (89) 98 Room Air 03/26/17 04:53 21 03/26/17 04:12 98.2 Orders Orders Complete Blood Count With Diff (03/26/17 04:44) Basic Metabolic Panel (Bmp) (03/26/17 04:44) Act Partial Throm Time (Ptt) (03/26/17 04:44) Prothrombin Time / Inr (Pt) (03/26/17 04:44) Troponin I (03/26/17 04:44) Electrocardiogram (03/26/17 04:44) Chest, Single Ap (03/26/17 04:44) Methylprednisolone So Succ Inj (Solumedr (03/26/17 04:45) Albuterol-Ipratropium Neb (Duoneb Neb) (03/26/17 04:45) Ondansetron Inj (Zofran Inj) (03/26/17 04:57) Ondansetron Inj (Zofran Inj) (03/26/17 05:15) Ct Abd/Pel W/O Iv Contrast (03/26/17 ) Albuterol Neb (Albuterol Neb) (03/26/17 06:45) Morphine Inj (Morphine Inj) (03/26/17 06:45) Morphine Inj (Morphine Inj) (03/26/17 07:10) Albuterol-Ipratropium Neb (Duoneb Neb) (03/26/17 08:15) Admit Order (Ed Use Only) (03/26/17 09:33) Labs Laboratory Tests Test 03/26/17 05:00 White Blood Count 3.4 TH/MM3 Red Blood Count 4.74 MIL/MM3 Hemoglobin 14.9 GM/DL Hematocrit 43.2 % Mean Corpuscular Volume 91.2 FL Mean Corpuscular Hemoglobin 31.4 PG Mean Corpuscular Hemoglobin Concent 34.4 % Red Cell Distribution Width 13.4 % Platelet Count 249 TH/MM3 Mean Platelet Volume 7.2 FL Neutrophils (%) (Auto) 32.2 % Lymphocytes (%) (Auto) 48.1 % Monocytes (%) (Auto) 10.6 % Eosinophils (%) (Auto) 7.2 % Basophils (%) (Auto) 1.9 % Neutrophils # (Auto) 1.1 TH/MM3 Lymphocytes # (Auto) 1.6 TH/MM3 Monocytes # (Auto) 0.4 TH/MM3 Eosinophils # (Auto) 0.2 TH/MM3 Basophils # (Auto) 0.1 TH/MM3 CBC Comment DIFF FINAL Differential Comment Prothrombin Time 10.0 SEC Prothromb Time International Ratio 1.0 RATIO Activated Partial Thromboplast Time 24.3 SEC Blood Urea Nitrogen 24 MG/DL Creatinine 1.40 MG/DL Random Glucose 81 MG/DL Calcium Level 8.7 MG/DL Sodium Level 138 MEQ/L Potassium Level 3.9 MEQ/L Chloride Level 104 MEQ/L Carbon Dioxide Level 29.0 MEQ/L Anion Gap 5 MEQ/L Estimat Glomerular Filtration Rate 73 ML/MIN Troponin I LESS THAN 0.02 NG/ML MDM Medical Decision Making Medical Screen Exam Complete: Yes Emergency Medical Condition: Yes Interpretation(s) EKG: Mobitz 1 AV block. Differential Diagnosis Asthma exacerbation vs. Pneumonia vs. ACS Narrative Course 27yo M with sob and chest pain since yesterday. Wheezing bilaterally but saturating well at 98% on RA. Pt given duonebs x3, methylprednisolone 125mg IV. Labs reviewed, WBC at 3.4. Troponin negative. BUN/creatinine mildly elevated at 24/1.40. CXR negative. Pt reevaluated at bedside and still sob. Pt also with abdominal pain on reevaluation and said he had pain and diarrhea since yesterday. Additional albuterol neb ordered. Pt sign out to next team to follow up CT and reevaluate. Diagnosis Primary Impression: Asthma exacerbation Qualified Codes: J45.901 - Unspecified asthma with (acute) exacerbation Vicky Mcadams DO Mar 26, 2017 05:05
[2017-03-26 05:10] LABS: AUTOMATED NEUTROPHIL # 1.1 TH/MM3 (1.8-7.7); BASOPHIL # 0.1 TH/MM3 (0-0.2); BASOPHIL % 1.9 % (0.0-2.0); EOSINOPHIL # 0.2 TH/MM3 (0-0.4); EOSINOPHIL % 7.2 % (0.0-4.0); HEMATOCRIT 43.2 % (39.0-51.0); HEMOGLOBIN 14.9 GM/DL (13.0-17.0); LYMPH % 48.1 % (9.0-44.0); LYMPHOCYTE # 1.6 TH/MM3 (1.0-4.8); MEAN CELL VOLUME 91.2 FL (80.0-100.0); MEAN CORPUSCULAR HEMOGLOBIN 31.4 PG (27.0-34.0); MEAN CORPUSCULAR HGB CONC 34.4 % (32.0-36.0); MEAN PLATELET VOLUME 7.2 FL (7.0-11.0); MONO % 10.6 % (0.0-8.0); MONOCYTE # 0.4 TH/MM3 (0-0.9); NEUT % 32.2 % (16.0-70.0); PLATELET COUNT 249 TH/MM3 (150-450); RED BLOOD COUNT 4.74 MIL/MM3 (4.50-5.90); RED CELL DISTRIBUTION WIDTH 13.4 % (11.6-17.2); WHITE BLOOD COUNT 3.4 TH/MM3 (4.0-11.0)
[2017-03-26] MEDS ORDERED: ONDANSETRON HCL 4 MG/2 ML VIAL IV PUSH ONE (05:15)
[2017-03-26 05:30] LABS: BLOOD UREA NITROGEN 24 MG/DL (7-18); CALCIUM 8.7 MG/DL (8.5-10.1); CHLORIDE 104 MEQ/L (98-107); GLOMERULAR FILTRATION RATE 73 ML/MIN (>89); GLUCOSE,RANDOM 81 MG/DL (74-106); SODIUM (NA) 138 MEQ/L (136-145)
[2017-03-26 05:31] LABS: TROPONIN I LESS THAN 0.02 NG/ML (0.02-0.05)
--- NOTE | 2017-03-26 06:27 | RADRPT ---
EXAM DATE/TIME: 03/26/2017 05:02 [facility] COMPARISON: CHEST SINGLE AP, November 27, 2016, 10:28. INDICATIONS : Shortness of breath. MEDICAL HISTORY : Gastroesophageal reflux disease. Asthma Renal failure SURGICAL HISTORY : None. ENCOUNTER: Initial ACUITY: 1 day PAIN SCORE: 0/10 LOCATION: Bilateral chest FINDINGS: A single view of the chest demonstrates the lungs to be symmetrically aerated without evidence of mas s, infiltrate or effusion. The cardiomediastinal contours are unremarkable. Osseous structures are intact. CONCLUSION: No acute disease. Carlyle Ziegler MD on March 26, 2017 at 6:25 Board Certified Radiologist. This report was verified electronically.
[2017-03-26] MEDS ORDERED: RESP: ALBUTEROL 2.5 MG/3 ML NEB (SCH) NEB ONE (06:45)
[2017-03-26] MEDS ORDERED: MORPHINE SULFATE 4 MG/ML INJ IV PUSH ONE (06:45)
[2017-03-26] MEDS ORDERED: MORPHINE SULFATE 2 MG/ML INJ IV PUSH ONE (07:10)
--- NOTE | 2017-03-26 07:57 | RADRPT ---
EXAM DATE/TIME: 03/26/2017 07:20 [facility] COMPARISON: CT ABDOMEN & PELVIS W/O CONTRAST, May 29, 2016, 3:08. INDICATIONS : Bilateral lower quadrant pain for two days. ORAL CONTRAST: No oral contrast ingested. RADIATION DOSE: 4.56 CTDIvol (mGy) MEDICAL HISTORY : Renal failure, chronic. HIV. Hypertension. SURGICAL HISTORY : None. ENCOUNTER: Initial ACUITY: 2 days PAIN SCALE: 5/10 LOCATION: Bilateral lower quadrant TECHNIQUE: Volumetric scanning of the abdomen and pelvis was performed. Using automated exposure control and ad justment of the mA and/or kV according to patient size, radiation dose was kept as low as reasonably achievable to obtain optimal diagnostic quality images. DICOM format image data is available electro nically for review and comparison. FINDINGS: Minimal bibasilar parenchymal changes are evident. Liver and gallbladder are unremarkable. Spleen i s normal. Pancreas and adrenal glands are normal. There is minimal brian hepatis adenopathy. There is no significant retroperitoneal adenopathy. The right and left kidneys are unremarkable There is no ascites Pelvic contents appear normal Review of bone windows reveals no abnormality. CONCLUSION: Negative for acute process. I do not see an etiology for the abdominal pain. Koffi Ferguson MD FACR on March 26, 2017 at 7:47 Board Certified Radiologist. This report was verified electronically.
[2017-03-26] MEDS ORDERED: RESP: ALBUTEROL 2.5 MG/IPRATROPIUM 0.5 MG NEB (SCH) INH ONE (08:15)
--- NOTE | 2017-03-26 09:38 | PD ---
Physical Exam Date Seen by Provider: Mar 26, 2017 Time Seen by Provider: 07:00 Narrative The patient was signed out to me by Dr. Vicky Mcadams at change of shift. Please see her H&P for further details. This is a 27-year-old male who presented with asthma exacerbation. The patient has been admitted several times in the past for asthma exacerbation. He was given 3 rounds of nebulizer treatments and 125 g of Solu-Medrol. Despite this, he was still having wheezes. Dr. Mcadams was concerned that there may be abdominal component to his breathing so she ordered a CT scan to rule out any acute abdominal process. Data Data Last Documented VS Vital Signs Date Time Temp Pulse Resp B/P (MAP) Pulse Ox O2 Delivery O2 Flow Rate FiO2 03/26/17 07:44 18 03/26/17 06:54 81 129/70 (89) 98 Room Air 03/26/17 04:53 21 03/26/17 04:12 98.2 Orders Orders Complete Blood Count With Diff (03/26/17 04:44) Basic Metabolic Panel (Bmp) (03/26/17 04:44) Act Partial Throm Time (Ptt) (03/26/17 04:44) Prothrombin Time / Inr (Pt) (03/26/17 04:44) Troponin I (03/26/17 04:44) Electrocardiogram (03/26/17 04:44) Chest, Single Ap (03/26/17 04:44) Methylprednisolone So Succ Inj (Solumedr (03/26/17 04:45) Albuterol-Ipratropium Neb (Duoneb Neb) (03/26/17 04:45) Ondansetron Inj (Zofran Inj) (03/26/17 04:57) Ondansetron Inj (Zofran Inj) (03/26/17 05:15) Ct Abd/Pel W/O Iv Contrast (03/26/17 ) Albuterol Neb (Albuterol Neb) (03/26/17 06:45) Morphine Inj (Morphine Inj) (03/26/17 06:45) Morphine Inj (Morphine Inj) (03/26/17 07:10) Albuterol-Ipratropium Neb (Duoneb Neb) (03/26/17 08:15) Admit Order (Ed Use Only) (03/26/17 09:33) Labs Laboratory Tests Test 03/26/17 05:00 White Blood Count 3.4 TH/MM3 Red Blood Count 4.74 MIL/MM3 Hemoglobin 14.9 GM/DL Hematocrit 43.2 % Mean Corpuscular Volume 91.2 FL Mean Corpuscular Hemoglobin 31.4 PG Mean Corpuscular Hemoglobin Concent 34.4 % Red Cell Distribution Width 13.4 % Platelet Count 249 TH/MM3 Mean Platelet Volume 7.2 FL Neutrophils (%) (Auto) 32.2 % Lymphocytes (%) (Auto) 48.1 % Monocytes (%) (Auto) 10.6 % Eosinophils (%) (Auto) 7.2 % Basophils (%) (Auto) 1.9 % Neutrophils # (Auto) 1.1 TH/MM3 Lymphocytes # (Auto) 1.6 TH/MM3 Monocytes # (Auto) 0.4 TH/MM3 Eosinophils # (Auto) 0.2 TH/MM3 Basophils # (Auto) 0.1 TH/MM3 CBC Comment DIFF FINAL Differential Comment Prothrombin Time 10.0 SEC Prothromb Time International Ratio 1.0 RATIO Activated Partial Thromboplast Time 24.3 SEC Blood Urea Nitrogen 24 MG/DL Creatinine 1.40 MG/DL Random Glucose 81 MG/DL Calcium Level 8.7 MG/DL Sodium Level 138 MEQ/L Potassium Level 3.9 MEQ/L Chloride Level 104 MEQ/L Carbon Dioxide Level 29.0 MEQ/L Anion Gap 5 MEQ/L Estimat Glomerular Filtration Rate 73 ML/MIN Troponin I LESS THAN 0.02 NG/ML MDM Medical Record Reviewed: Yes Supervised Visit with BILL: No Narrative Course 27-year-old male with history of asthma, presents with asthma exacerbation. Patient was seen and evaluated previously by Dr. Vicky Mcadams. He was signed out to me at change of shift. The patient presents with diffuse expiratory wheezes. His been given 3 breathing treatments and 125 mg of Solu-Medrol. On my reexamination after his CT scan, patient still had diffuse expiratory wheezes. He was still mildly tachypnea. Given this, the patient will be admitted under observation. There is a call out to the [facility] for observation admission. He was given one further nebulizer treatment which he still has wheezes after. CT scan was negative for acute process. Diagnosis Primary Impression: Asthma exacerbation Qualified Codes: J45.901 - Unspecified asthma with (acute) exacerbation Additional Impression: Chronic kidney disease Admitting Information Admitting Physician Requests: Observation Israel Fisher MD Mar 26, 2017 09:38
[2017-03-26] MEDS ORDERED: SENNOSIDES 8.6 MG TAB PO PRN (10:15)
[2017-03-26] MEDS ORDERED: NALOXONE HCL 0.4 MG/ML AMP IV PUSH PRN (10:15)
[2017-03-26] MEDS ORDERED: SODIUM CHLORIDE 0.9% FLUSH 10 ML FLUSH IV FLUSH SCH (10:15)
[2017-03-26] MEDS ORDERED: MAGNESIUM HYDROXIDE SUSP 30 ML CUP PO PRN (10:15)
[2017-03-26] MEDS ORDERED: SODIUM CHLORIDE 0.9% FLUSH 10 ML FLUSH IV FLUSH PRN ×2 (10:15)
[2017-03-26] MEDS ORDERED: BISACODYL 10 MG SUPP RECTAL PRN (10:15)
[2017-03-26] MEDS ORDERED: ONDANSETRON HCL 4 MG/2 ML VIAL IVP PRN (10:15)
[2017-03-26] MEDS ORDERED: ACETAMINOPHEN 325 MG TAB PO PRN ×2 (10:15)
[2017-03-26] MEDS ORDERED: PROCHLORPERAZINE 25 MG SUPP RECTAL PRN (10:15)
[2017-03-26] MEDS ORDERED: LACTULOSE SYRUP 20 GM/30 ML CUP PO PRN (10:15)
[2017-03-26] MEDS ORDERED: oxyCODONE/ACETAMINOPHEN 5 MG/325 MG TAB PO PRN (10:15)
[2017-03-26] MEDS ORDERED: oxyCODONE/ACETAMINOPHEN 10 MG/325 MG TAB PO PRN (10:15)
[2017-03-26] MEDS ORDERED: RESP: ALBUTEROL 2.5 MG/IPRATROPIUM 0.5 MG NEB (PRN) NEB (10:15)
--- NOTE | 2017-03-26 10:23 | HHI.HP ---
[facility] Yanna De Jesus MD Admission Diagnosis acute asthma exacerbation, Diagnoses: (1) HIV (human immunodeficiency virus infection) Diagnosis: Secondary (2) Asthma exacerbation Diagnosis: Principal (3) Chronic kidney disease Diagnosis: Secondary (4) SOB (shortness of breath) Diagnosis: Principal (5) Asthma Diagnosis: Principal Chief Complaint: Respiratory distress Travel History International Travel<30 Days: No Contact w/Intl Traveler <30 Da: No Traveled to Known Affected Are: No History of Present Illness Patient is a 27-year-old gentleman. With past medical history of asthma and HIV presents to the emergency department with the complaints of worsening shortness of breath since yesterday. Patient has had some chest pain and some possible fevers yesterday and some cough denies any nausea vomiting or weakness or numbness denies any dysuria urgency or frequency Patient will be placed in observation will be given Solu-Medrol will be given antibiotics will be given duo nebs will be given Mucinex as well as incentive spirometry Review of Systems Constitutional: COMPLAINS OF: Fatigue, Fever, DENIES: Diaphoretic episodes, Weight gain, Weight loss, Chills, Dizziness, Change in appetite, Night Sweats Endocrine: DENIES: Heat/cold intolerance, Polydipsia, Polyuria, Polyphagia Eyes: DENIES: Blurred vision, Diplopia, Eye inflammation, Eye pain Ears, nose, mouth, throat: DENIES: Tinnitus, Hearing loss, Vertigo, Nasal discharge Respiratory: COMPLAINS OF: Wheezing, Shortness of breath, DENIES: Apneas, Cough , Snoring, Hemoptysis, Sputum production Cardiovascular: COMPLAINS OF: Chest pain, DENIES: Palpitations, Syncope, Dyspnea on Exertion, PND Gastrointestinal: DENIES: Abdominal pain, Black stools, Bloody stools Musculoskeletal: DENIES: Joint pain, Muscle aches, Stiffness, Joint Swelling Integumentary: DENIES: Abnormal pigmentation, Nail changes Hematologic/lymphatic: DENIES: Bruising, Lymphadenopathy Immunologic/allergic: DENIES: Eczema, Urticaria Neurologic: DENIES: Abnormal gait, Headache, Localized weakness, Paresthesias, Seizures Psychiatric: DENIES: Anxiety, Confusion, Mood changes, Depression Except as stated in HPI: all other systems reviewed are Neg Past Family Social History Past Medical History HIV positive Questionable as to whether or not he HAS HAD FULL BLOWN AIDS?? Asthma ADHD NONCOMPLIANCE ANXIETY DEPRESSION GERD Past Surgical History Denies any surgery Reported Medications Reported Meds & Active Scripts Active Claritin (Loratadine) 10 Mg Tablet 10 Mg PO DAILY Lactobacillus Acidophilus 1 Billion Cell Tab 1 Tab PO TIDAC Nebulizer 1 Mis Mis Ea .ROUTE DIRECTED Albuterol Neb (Albuterol Sulfate) 2.5 Mg/3 Ml Neb 2.5 Mg NEB Q4HR NEB PRN Symbicort Inh (Budesonide/Formoterol Fumarate) 160-4.5 Mcg/Act Aero 2 Puff INH Q12HR Ventolin Hfa 18 GM Inh (Albuterol Sulfate) 90 Mcg/Act Aer 2 Puff INH Q4H PRN Epipen 2-Arjun Inj (Epinephrine) 0.3 Mg/0.3 Ml Pfpen 0.3 Mg SQ ONCE PRN Allergies: Coded Allergies: cucumber (Verified Allergy, Severe, 11/27/16) THE VEG CUCUMBER WELL CUCUMBER SOAP Uncoded Allergies: cucumber body wash (Allergy, Severe, Hives/ , 11/27/16) shortness of breath,swelling. Active Ordered Medications Current Medications Methylprednisolone Sodium Succinate (SoluMEDROL INJ) 125 mg ONCE ONCE IV PUSH Last administered on 03/26/17 04:45; Start 03/26/17 at 04:45; Stop 03/26/17 at 04:46; Status DC Albuterol/ Ipratropium (Duoneb Neb) 1 ampule Q15M INH Last administered on 04:51; Start 03/26/17 at 04:45; Stop 03/26/17 at 05:16; Status DC Ondansetron HCl (Zofran Inj) 4 mg STK-MED ONCE .ROUTE ; Start 03/26/17 at 04:57 ; Stop 03/26/17 at 04:58; Status DC Ondansetron HCl (Zofran Inj) 4 mg ONCE ONCE IV PUSH Last administered on 03/26 05:15; Start 03/26/17 at 05:15; Stop 03/26/17 at 05:16; Status DC Albuterol Sulfate (Albuterol Neb) 2.5 mg ONCE ONCE NEB Last administered on 06:39; Start 03/26/17 at 06:45; Stop 03/26/17 at 06:46; Status DC Morphine Sulfate (Morphine Inj) 4 mg ONCE ONCE IV PUSH ; Start 03/26/17 at 06: 45; Stop 03/26/17 at 06:46; Status DC Morphine Sulfate (Morphine Inj) 4 mg ONCE ONCE IV PUSH Last administered on 06:59; Start 03/26/17 at 07:10; Stop 03/26/17 at 07:11; Status DC Albuterol/ Ipratropium (Duoneb Neb) 1 ampule ONCE ONCE INH Last administered on 03/26/17 08:12; Start 03/26/17 at 08:15; Stop 03/26/17 at 08:16; Status DC Budesonide/ Formoterol Fumarate (Symbicort 160-4.5 Mcg Inh) 2 puff Q12HR INH ; Start 03/26/17 at 09:45; Status UNV Lactobacillus Acidophilus (Lactinex) 1 tab TIDAC PO ; Start 03/26/17 at 12:00; Status UNV Loratadine (Claritin) 10 mg DAILY PO ; Start 03/26/17 at 09:45; Status UNV Sodium Chloride 1,000 ml @ 100 mls/hr Q10H IV ; Start 03/26/17 at 10:07; Status UNV Sodium Chloride (NS Flush) 2 ml UNSCH PRN IV FLUSH FLUSH AFTER USING IV ACCESS ; Start 03/26/17 at 10:15; Status UNV Sodium Chloride (NS Flush) 2 ml BID IV FLUSH ; Start 03/26/17 at 10:15; Status UNV Acetaminophen (Tylenol) 650 mg Q4H PRN PO TEMP > 100.4; Start 03/26/17 at 10: 15; Status UNV Ondansetron HCl (Zofran Inj) 4 mg Q6H PRN IVP NAUSEA OR VOMITING; Start at 10:15; Status UNV Prochlorperazine (Compazine Supp) 25 mg Q12H PRN KS NAUSEA OR VOMITING; Start 03/26/17 at 10:15; Status UNV Enoxaparin Sodium (Lovenox Inj) 40 mg Q24H SQ ; Start 03/26/17 at 10:15; Status UNV Acetaminophen (Tylenol) 650 mg Q6H PRN PO PAIN SCALE 1 TO 2; Start 03/26/17 at 10:15; Status UNV Oxycodone/ Acetaminophen (Percocet 5-325 Mg) 1 tab Q6H PRN PO PAIN SCALE 3 TO 5; Start 03/26/17 at 10:15; Status UNV Oxycodone/ Acetaminophen (Percocet 10-325 Mg) 1 tab Q6H PRN PO PAIN SCALE 6 TO 10; Start 03/26/17 at 10:15; Status UNV Morphine Sulfate (Morphine Inj) 2 mg Q3H PRN IV PUSH Pain 3-5; if unable to take PO; Start 03/26/17 at 10:15; Status UNV Morphine Sulfate (Morphine Inj) 4 mg Q3H PRN IV PUSH Pain 6-10;if unable to take PO; Start 03/26/17 at 10:15; Status UNV Naloxone HCl (Narcan Inj) 0.4 mg UNSCH PRN IV PUSH SEE LABEL COMMENTS; Start 03/26/17 at 10:15; Status UNV Senna/Docusate Sodium (Viridiana-Colace) 1 tab BID PO ; Start 03/26/17 at 21:00; Status UNV Magnesium Hydroxide (Milk Of Magnesia Liq) 30 ml Q12H PRN PO Mild constipation ; Start 03/26/17 at 10:15; Status UNV Sennosides (Senokot) 17.2 mg Q12H PRN PO Moderate constipation; Start at 10:15; Status UNV Bisacodyl (Dulcolax Supp) 10 mg DAILY PRN RECTAL SEVERE CONSITIPATION; Start 03/26/17 at 10:15; Status UNV Lactulose (Lactulose Liq) 30 ml DAILY PRN PO SEVERE CONSITIPATION; Start 03/26 at 10:15; Status UNV Sodium Chloride (NS Flush) 2 ml BID IV FLUSH ; Start 03/26/17 at 10:15; Status UNV Sodium Chloride (NS Flush) 2 ml UNSCH PRN IV FLUSH FLUSH AFTER USING IV ACCESS ; Start 03/26/17 at 10:15; Status UNV Albuterol/ Ipratropium (Duoneb Neb) 1 ampule Q4HR NEB NEB ; Start 03/26/17 at 12:00; Status UNV Albuterol/ Ipratropium (Duoneb Neb) 1 ampule Q2HR NEB PRN NEB SHORTNESS OF BREATH; Start 03/26/17 at 10:15; Status UNV Methylprednisolone Sodium Succinate (SoluMEDROL INJ) 60 mg Q6H IV PUSH ; Start 03/26/17 at 10:15; Status UNV Family History Probable hypertension Social History Smokes marijuana as well as tobacco and occasional alcohol Physical Exam Vital Signs Vital Signs Date Time Temp Pulse Resp B/P (MAP) Pulse Ox O2 Delivery O2 Flow Rate FiO2 03/26/17 07:44 18 03/26/17 06:54 81 20 129/70 (89) 98 Room Air 03/26/17 04:53 98 21 03/26/17 04:38 98 Room Air 03/26/17 04:12 98.2 67 20 147/92 (110) 94 Room Air Physical Exam GENERAL: This is a well-nourished, well-developed patient, in mild distress. SKIN: No rashes, ecchymoses or lesions. Cool and dry. HEAD: Atraumatic. Normocephalic. No temporal or scalp tenderness. EYES: Pupils equal round and reactive. Extraocular motions intact. No scleral icterus. No injection or drainage. ENT: Nose without bleeding, purulent drainage or septal hematoma. Throat without erythema, tonsillar hypertrophy or exudate. Uvula midline. Airway patent. NECK: Trachea midline. No JVD or lymphadenopathy. Supple, nontender, no meningeal signs. CARDIOVASCULAR: Regular rate and rhythm without murmurs, gallops, or rubs. S1 and S2 no S3 or S4 RESPIRATORY: Expiratory wheezes bilaterally. Breath sounds equal bilaterally. Few scattered rhonchi. GASTROINTESTINAL: Abdomen soft, non-tender, nondistended. No hepato-splenomegaly , or palpable masses. No guarding. MUSCULOSKELETAL: Extremities without clubbing, cyanosis, or edema. No joint tenderness, effusion, or edema noted. No calf tenderness. Negative Homans sign bilaterally. NEUROLOGICAL: Awake and alert. Cranial nerves II through XII intact. Motor and sensory grossly within normal limits. Five out of 5 muscle strength in all muscle groups. Normal speech. Insight and judgment are good Mood and behavior somewhat appropriate Laboratory Laboratory Tests Test 03/26/17 05:00 White Blood Count 3.4 Red Blood Count 4.74 Hemoglobin 14.9 Hematocrit 43.2 Mean Corpuscular Volume 91.2 Mean Corpuscular Hemoglobin 31.4 Mean Corpuscular Hemoglobin Concent 34.4 Red Cell Distribution Width 13.4 Platelet Count 249 Mean Platelet Volume 7.2 Neutrophils (%) (Auto) 32.2 Lymphocytes (%) (Auto) 48.1 Monocytes (%) (Auto) 10.6 Eosinophils (%) (Auto) 7.2 Basophils (%) (Auto) 1.9 Neutrophils # (Auto) 1.1 Lymphocytes # (Auto) 1.6 Monocytes # (Auto) 0.4 Eosinophils # (Auto) 0.2 Basophils # (Auto) 0.1 CBC Comment DIFF FINAL Differential Comment Prothrombin Time 10.0 Prothromb Time International Ratio 1.0 Activated Partial Thromboplast Time 24.3 Blood Urea Nitrogen 24 Creatinine 1.40 Random Glucose 81 Calcium Level 8.7 Sodium Level 138 Potassium Level 3.9 Chloride Level 104 Carbon Dioxide Level 29.0 Anion Gap 5 Estimat Glomerular Filtration Rate 73 Troponin I LESS THAN 0.02 Result Diagram: 03/26/17 0500 03/26/17 0500 Imaging Last Impressions Chest X-Ray 03/26/17 0444 Signed Impressions: Service Date/Time: Sunday, March 26, 2017 05:02 - CONCLUSION: No acute disease. Carlyle Ziegler MD Abdomen/Pelvis CT 03/26/17 0000 Signed Impressions: Service Date/Time: Sunday, March 26, 2017 07:20 - CONCLUSION: Negative for acute process. I do not see an etiology for the abdominal pain. Koffi Ferguson MD FACR Caprini VTE Risk Assessment Caprini VTE Risk Assessment: Mod/High Risk (score >= 2) Caprini Risk Assessment Model Point Value = 1 Point Value = 2 Point Value = 3 Point Value = 5 Age 41-60 Minor surgery BMI > 25 kg/m2 Swollen legs Varicose veins or History of unexplained or recurrent spontaneous Oral contraceptives or hormone replacement Sepsis (< 1 month) Serious lung disease, including pneumonia (< 1 month) Abnormal pulmonary function Acute myocardial infarction Congestive heart failure (< 1 month) History of inflammatory bowel disease Medical patient at bed rest Age 61-74 Arthroscopic surgery Major open surgery (> 45 min) Laparoscopic surgery (> 45 min) Malignancy Confined to bed (> 72 hours) Immobilizing plaster cast Central venous access Age >= 75 History of VTE Family history of VTE Factor V Leiden Prothrombin [id number] Lupus anticoagulant Anticardiolipin antibodies Elevated serum homocysteine Heparin-induced thrombocytopenia Other congenital or acquired thrombophilia Stroke (< 1 month) Elective arthroplasty Hip, pelvis, or leg fracture Acute spinal cord injury (< 1 month) Prophylaxis Regimen Total Risk Factor Score Risk Level Prophylaxis Regimen 0-1 Low Early ambulation 2 Moderate Order ONE of the following: *Sequential Compression Device (SCD) *Heparin 5000 units SQ BID 3-4 Higher Order ONE of the following medications: *Heparin 5000 units SQ TID *Enoxaparin/Lovenox 40 mg SQ daily (WT < 150 kg, CrCl > 30 mL/min) *Enoxaparin/Lovenox 30 mg SQ daily (WT < 150 kg, CrCl > 10-29 mL/min) *Enoxaparin/Lovenox 30 mg SQ BID (WT < 150 kg, CrCl > 30 mL/min) AND/OR *Sequential Compression Device (SCD) 5 or more Highest Order ONE of the following medications: *Heparin 5000 units SQ TID (Preferred with Epidurals) *Enoxaparin/Lovenox 40 mg SQ daily (WT < 150 kg, CrCl > 30 mL/min) *Enoxaparin/Lovenox 30 mg SQ daily (WT < 150 kg, CrCl > 10-29 mL/min) *Enoxaparin/Lovenox 30 mg SQ BID (WT < 150 kg, CrCl > 30 mL/min) AND *Sequential Compression Device (SCD) Assessment and Plan Problem List: (1) HIV (human immunodeficiency virus infection) ICD Code: B20 - Human immunodeficiency virus [HIV] disease (2) Asthma ICD Code: J45.909 - Asthma Status: Acute (3) SOB (shortness of breath) ICD Code: R06.02 - SOB (shortness of breath) Status: Acute (4) Asthma exacerbation ICD Code: J45.901 - Asthma with acute exacerbation Status: Acute (5) Chronic kidney disease ICD Code: N18.9 - Chronic kidney disease, unspecified Status: Acute (6) Immunocompromised state ICD Code: D84.9 - Immunodeficiency, unspecified; R19.7 - Diarrhea, unspecified Status: Acute Assessment and Plan HIV positive unsure if patient has full-blown AIDS or not Try to restart his home medications once he gets the nurse his medication list Asthma exacerbation Continue on Zithromax IV daily Continue on DuoNeb's every 4 hours and when necessary breath continue on incentive spirometry continue on Mucinex Continue on IV steroids continue Symbicort Renal insufficiency/dehydration Avoid nephrotoxic agents A.m. labs Anxiety depression try and obtain home medications of his taking any Noncompliance recommend patient take all his medications Tobacco abuse recommend smoking cessation Marijuana abuse recommend that patient not smoke marijuana can eat it if he has a prescription for marijuana GI and DVT prophylaxis Code Status Full code Discussed Condition With RN and patient and emergency room physician Problem Qualifiers (1) Asthma exacerbation: Qualified Codes: J45.901 - Unspecified asthma with (acute) exacerbation Koffi Rivera DO Mar 26, 2017 10:23
[2017-03-26] MEDS ORDERED: MORPHINE SULFATE 2 MG/ML INJ IV PUSH PRN ×2 (10:45)
[2017-03-26] MEDS: SODIUM CHLOR 0.9% 1000 ML INJ 1,000 ML IV SCH ×2 (11:08→21:07)
[2017-03-26] MEDS: SODIUM CHLORIDE 0.9% FLUSH 10 ML FLUSH IV FLUSH SCH ×2 (11:08→21:08)
[2017-03-26] MEDS: methylPREDNISolone SOD SUCC 125 MG/2 ML VIAL IV PUSH SCH ×2 (11:09→17:11)
[2017-03-26] MEDS: RESP: ALBUTEROL 2.5 MG/IPRATROPIUM 0.5 MG NEB (SCH) NEB ×4 (11:31→23:32)
[2017-03-26] MEDS: LACTOBACILLUS ACIDOPHILUS TAB PO SCH ×2 (11:47→17:07)
[2017-03-26] MEDS: guaiFENesin E.R. 600 MG TAB PO SCH ×2 (11:47→21:08)
[2017-03-26] MEDS: FAMOTIDINE 20 MG TAB PO SCH ×2 (11:47→21:08)
[2017-03-26] MEDS: LORATADINE 10 MG TAB PO SCH (11:47)
[2017-03-26] MEDS ORDERED: ENOXAPARIN SODIUM 40 MG/0.4 ML SYRINGE SQ SCH (12:00)
[2017-03-26] MEDS ORDERED: AZITHROMYCIN INJ 500 MG in SODIUM CHLOR 0.9% 250 ML INJ 250 ML IV SCH (12:00)
[2017-03-26] MEDS: BUDESONIDE-FORMOTEROL 160/4.5 MCG INHALER INH SCH ×2 (12:21→21:07)
[2017-03-26 14:32] LABS: TROPONIN I LESS THAN 0.02 NG/ML (0.02-0.05)
--- NOTE | 2017-03-26 17:00 | EKG ---
Date Performed: 03/26/2017 Time Performed: 05:07:00 PTAGE: 27 years EKG: Sinus rhythm WITH TYPE 1 SECOND DEGREE AV BLOCK EARLY REPOLARIZATION ABNORMAL RHYTHM ECG PREVIOUS TRACING : 03/26/2017 05.06 Compared to prior tracing no significant change DOCTOR: Georgina Newberry Interpretating Date/Time 03/26/2017 16:59:35
--- NOTE | 2017-03-26 17:02 | EKG ---
Date Performed: 03/26/2017 Time Performed: 05:06:30 PTAGE: 27 years EKG: Sinus rhythm WITH TYPE 1 SECOND DEGREE AV BLOCK EARLY REPOLARIZATION ABNORMAL ECG PREVIOUS TRACING : 03/26/2017 05.05 Compared to prior tracing no significant change DOCTOR: Georgina Newberry Interpretating Date/Time 03/26/2017 17:00:55
--- NOTE | 2017-03-26 17:03 | EKG ---
Date Performed: 03/26/2017 Time Performed: 05:05:04 PTAGE: 27 years EKG: Sinus rhythm WITH TYPE 1 SECOND DEGREE AV BLOCK BORDERLINE ECG PREVIOUS TRACING : 11/27/2016 10.19 Compared to the previous tracing AV block present DOCTOR: Georgina Newberry Interpretating Date/Time 03/26/2017 17:01:49
[2017-03-26] MEDS: DOCUSATE SODIUM 50 MG/SENNA 8.6 MG TAB PO SCH (21:08)
[2017-03-26 22:36] LABS: TROPONIN I LESS THAN 0.02 NG/ML (0.02-0.05)
[2017-03-27 00:04] VITALS: PULSE 107
[2017-03-27] MEDS: methylPREDNISolone SOD SUCC 125 MG/2 ML VIAL IV PUSH SCH ×3 (00:33→09:25)
[2017-03-27] MEDS: RESP: ALBUTEROL 2.5 MG/IPRATROPIUM 0.5 MG NEB (SCH) NEB ×2 (03:09→07:31)
[2017-03-27 04:06] VITALS: PULSE 97
[2017-03-27 04:10] VITALS: BP 117/54; PULSE 90; RESP 18; TEMP 98.4; O2SAT 96
[2017-03-27 05:12] LABS: AUTOMATED NEUTROPHIL # 7.3 TH/MM3 (1.8-7.7); BASOPHIL % 0.1 % (0.0-2.0); HEMATOCRIT 37.3 % (39.0-51.0); HEMOGLOBIN 12.4 GM/DL (13.0-17.0); LYMPH % 11.6 % (9.0-44.0); MEAN CELL VOLUME 90.5 FL (80.0-100.0); MEAN CORPUSCULAR HEMOGLOBIN 30.1 PG (27.0-34.0); MEAN CORPUSCULAR HGB CONC 33.2 % (32.0-36.0); MEAN PLATELET VOLUME 6.8 FL (7.0-11.0); MONO % 2.6 % (0.0-8.0); MONOCYTE # 0.2 TH/MM3 (0-0.9); NEUT % 85.7 % (16.0-70.0); PLATELET COUNT 244 TH/MM3 (150-450); RED BLOOD COUNT 4.12 MIL/MM3 (4.50-5.90); RED CELL DISTRIBUTION WIDTH 13.2 % (11.6-17.2); WHITE BLOOD COUNT 8.5 TH/MM3 (4.0-11.0)
[2017-03-27 05:31] LABS: ALBUMIN 2.8 GM/DL (3.4-5.0); AST (GOT) 14 U/L (15-37); BICARBONATE 25.2 MEQ/L (21.0-32.0); BLOOD UREA NITROGEN 21 MG/DL (7-18); CALCIUM 8.4 MG/DL (8.5-10.1); CHLORIDE 105 MEQ/L (98-107); GLOMERULAR FILTRATION RATE 80 ML/MIN (>89); GLUCOSE,RANDOM 158 MG/DL (74-106); MAGNESIUM 1.8 MG/DL (1.5-2.5); SODIUM (NA) 137 MEQ/L (136-145)
[2017-03-27 05:40] LABS: ALKALINE PHOSPHATASE 41 U/L (45-117); ALT (GPT) 13 U/L (12-78); FREE T4 0.89 NG/DL (0.76-1.46); PHOSPHORUS 2.2 MG/DL (2.5-4.9); TOTAL BILIRUBIN ADULT 0.1 MG/DL (0.2-1.0); TOTAL PROTEIN 8.8 GM/DL (6.4-8.2)
[2017-03-27] MEDS: SODIUM CHLOR 0.9% 1000 ML INJ 1,000 ML IV SCH (05:47)
[2017-03-27 07:34] VITALS: O2SAT 98
[2017-03-27 07:52] VITALS: PULSE 98
[2017-03-27 08:57] VITALS: BP 123/62; PULSE 104; RESP 18; TEMP 98.2; O2SAT 98
[2017-03-27] MEDS: SODIUM CHLORIDE 0.9% FLUSH 10 ML FLUSH IV FLUSH SCH (09:00)
[2017-03-27] MEDS: BUDESONIDE-FORMOTEROL 160/4.5 MCG INHALER INH SCH (09:23)
[2017-03-27] MEDS: LACTOBACILLUS ACIDOPHILUS TAB PO SCH (09:24)
[2017-03-27] MEDS: LORATADINE 10 MG TAB PO SCH (09:24)
[2017-03-27] MEDS: FAMOTIDINE 20 MG TAB PO SCH (09:24)
[2017-03-27] MEDS: guaiFENesin E.R. 600 MG TAB PO SCH (09:25)
[2017-03-27] MEDS: DOCUSATE SODIUM 50 MG/SENNA 8.6 MG TAB PO SCH (09:25)
[2017-03-27] MEDS ORDERED: NEBULIZER1 MI1 (10:30)
[2017-03-27] MEDS ORDERED: PRED10PA PO (10:30)
[2017-03-27] MEDS ORDERED: AZIT500T2 PO (10:30)
--- NOTE | 2017-03-27 10:32 | HHI.PR ---
Subjective Remarks Patient reports is feeling much better. Breathing much more comfortably. States he needs a nebulizer machine at home. He feels comfortable going home. Objective Vitals Vital Signs Date Time Temp Pulse Resp B/P (MAP) Pulse Ox O2 Delivery O2 Flow Rate FiO2 03/27/17 08:57 98.2 104 18 123/62 (82) 98 03/27/17 07:52 98 03/27/17 07:34 98 21 03/27/17 04:10 98.4 90 18 117/54 (75) 96 03/27/17 04:06 97 03/27/17 00:04 107 03/26/17 23:20 98.3 93 17 133/58 (83) 95 03/26/17 20:17 98.4 100 16 127/65 (85) 97 03/26/17 20:03 107 03/26/17 19:33 98 03/26/17 15:45 84 03/26/17 12:40 97.5 94 18 124/59 (80) 96 03/26/17 12:31 98 03/26/17 11:11 70 18 124/67 (86) 98 I/O 03/26/17 03/26/17 03/26/17 03/27/17 03/27/17 03/27/17 07:00 15:00 23:00 07:00 15:00 23:00 Intake Total 250 ml 2000 ml Output Total 500 ml 825 ml Balance 250 ml -500 ml 1175 ml Intake Oral 1000 ml IV Total 250 ml 1000 ml Output Urine Total 500 ml 825 ml Result Diagram: 03/27/17 0451 03/27/17 0451 Objective Remarks GENERAL: This is a well-nourished, well-developed patient, in no apparent distress. CARDIOVASCULAR: Normal rate and regular rhythm without murmurs, gallops, or rubs. RESPIRATORY: Good respiratory efforts. Mild diffuse end expiratory wheezing. GASTROINTESTINAL: Abdomen soft, non-tender, non-distended. Normal active bowel sounds MUSCULOSKELETAL: Extremities without cyanosis, or edema. NEURO: Alert & Oriented x4 to person, place, time, situation. Moves all ext x4 PSYCH: Appropriate mood and affect. A/P Problem List: (1) HIV (human immunodeficiency virus infection) ICD Code: B20 - Human immunodeficiency virus [HIV] disease (2) Asthma ICD Code: J45.909 - Asthma Status: Acute (3) SOB (shortness of breath) ICD Code: R06.02 - SOB (shortness of breath) Status: Acute (4) Asthma exacerbation ICD Code: J45.901 - Asthma with acute exacerbation Status: Acute (5) Chronic kidney disease ICD Code: N18.9 - Chronic kidney disease, unspecified Status: Acute (6) Immunocompromised state ICD Code: D84.9 - Immunodeficiency, unspecified; R19.7 - Diarrhea, unspecified Status: Acute Assessment and Plan 27-year-old male admitted for asthma exacerbation. The patient was given IV Solu-Medrol, breathing treatments and Zithromax. His symptoms improved. He is to continue at home with a steroid taper. He was given a prescription for nebulizer machine. He already has nebulized treatments at home. The patient also has HIV. He states he just ran out of his HIV medications. He was counseled to follow-up with his infectious disease specialist. Regarding tobacco and marijuana abuse. The patient was strongly counseled to stop especially given his asthma diagnosis. Discharge Planning Discharge home in good condition Follow-up: With PCP and infectious disease Activity: Regular as tolerated Diet: Regular as tolerated Meds: Per med rec Problem Qualifiers (1) Asthma exacerbation: Qualified Codes: J45.901 - Unspecified asthma with (acute) exacerbation Juan Ramirez MD Mar 27, 2017 10:32
--- NOTE | 2017-03-27 10:32 | HHI.DCPOC ---
Discharge Care Plan Diagnosis: (1) Asthma exacerbation (2) HIV (human immunodeficiency virus infection) (3) CINDY (acute kidney injury) Goals to Promote Your Health * To prevent worsening of your condition and complications * To maintain your health at the optimal level Directions to Meet Your Goals Take your medications as prescribed Follow your dietary instruction Follow activity as directed Keep your appointments as scheduled Take your immunizations and boosters as scheduled If your symptoms worsen call your PCP, if no PCP go to Urgent Care Center or Emergency Room Smoking is Dangerous to Your Health. Avoid second hand smoke Call the 24-hour hour crisis hotline for domestic abuse at Juan Ramirez MD Mar 27, 2017 10:32
[2017-03-27 11:27] LABS: HEMOGLOBIN A1C 5.2 % (4.3-6.0)
== END 2017-03-27 11:07 | disposition home or self-care (01) ==
LOC: NEPE 04:11 → NEDA 09:34 → NEPHCDU 11:30
PROVIDERS: ADMIT Family Medicine; ATTEND Family Medicine
DX: B20 Human immunodeficiency virus [HIV] disease (principal); J45.901 Unspecified asthma with (acute) exacerbation; J44.9 Chronic obstructive pulmonary disease, unspecified; E86.0 Dehydration; R19.7 Diarrhea, unspecified; I12.9 Hypertensive chronic kidney disease with stage 1 through stage 4 chronic kidney disease, or unspecified chronic kidney disease; N18.9 Chronic kidney disease, unspecified; N17.9 Acute kidney failure, unspecified; K21.9 Gastro-esophageal reflux disease without esophagitis; F90.9 Attention-deficit hyperactivity disorder, unspecified type; F41.8 Other specified anxiety disorders; F12.10 Cannabis abuse, uncomplicated; F17.200 Nicotine dependence, unspecified, uncomplicated; Z91.19 Patient's noncompliance with other medical treatment and regimen
CPT/HCPCS: 71010; 74176; 80048; 80053; 82550; 83036; 83735; 84100; 84439; 84443; 84484; 85025; 85610; 85730; 87804; 93005; 94150; 94640; 94664; 94799; 96361; 96365; 96372; 96375; 96376; 97162; 97165; 99285; G0378; G8987; G8988; G8989; J0456; J1650; J2270; J2405; J2930; J7030; J7050; J7613

== ENCOUNTER 2017-05-03 10:49 | Observation (INO) | payer MEDICAID ==
[~2017-05-03] VITALS: Ht 152.4 cm; Wt 60.0 kg
[2017-05-03] VITALS (7 sets, daily range): BP systolic 121–173; BP diastolic 62–88; PULSE 68–95; RESP 18–28; TEMP 97.7–98.4; O2SAT 96–100
[~2017-05-03 10:49] MED LIST changes: -AZIT250T3 PO; +AZIT500T2 PO; +PRED10PA PO; -PRED10PA2 PO
[2017-05-03] MEDS: RESP: ALBUTEROL 2.5 MG/IPRATROPIUM 0.5 MG NEB (SCH) INH (11:20)
--- NOTE | 2017-05-03 11:53 | RADRPT ---
EXAM DATE/TIME: 05/03/2017 11:37 [place] COMPARISON: No previous studies available for comparison. INDICATIONS : Wheezing. Cough. MEDICAL HISTORY : HIV Renal failure, chronic. Hypertension. Smoking. SURGICAL HISTORY : None. ENCOUNTER: Subsequent ACUITY: 1 day PAIN SCORE: 2/10 LOCATION: Bilateral chest FINDINGS: PA and lateral views of the chest demonstrate the lungs to be symmetrically aerated without evidence of mass, infiltrate or effusion. The cardiomediastinal contours are unremarkable. Osseous structure s are intact. CONCLUSION: No acute disease. Xavier Quintanilla MD on May 03, 2017 at 11:50 Board Certified Radiologist. This report was verified electronically.
--- NOTE | 2017-05-03 11:55 | PD ---
HPI Chief Complaint: Respiratory Symptoms Time Seen by Provider: 11:35 Travel History International Travel<30 days: No Contact w/Intl Traveler<30days: No Traveled to known affect area: No History of Present Illness HPI 27-year-old male, with history of asthma, presents to the emergency department complaint of shortness of breath, chest tightness, wheezing 2 days. Reports recent cough and nasal congestion. Unknown fevers. Reports night sweats. Ran out of his Symbicort inhaler 2 days ago. Has not taken any medications or tried to alleviate symptoms. Symptoms are [id number] in severity. Says he works outside doing [employer] and his symptoms are aggravated frequently. No known relieving factors. Allergies to cucumber. No primary care provider. History of asthma. Has not medical complaints. No other modifying factors or associated signs and symptoms. 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) Hiatal Hernia: No Hypertension: Yes Immune Disorder: Yes (HIV) Musculoskeletal: No Neurologic: No Psychiatric: Yes Reproductive: No Respiratory: Yes (snoring) Integumentary: Yes (ezema) Immunizations Current: Yes Renal Failure: Yes (pt states 1st stage) Sleep Apnea: No Thyroid Disease: No Ulcer: No Past Surgical History Other Surgery: No Social History Alcohol Use: Yes Tobacco Use: Yes Substance Use: Yes (cocaine 2 mo, marijuana 03/24/2017) Allergies-Medications (Allergen,Severity, Reaction): Coded Allergies: cucumber (Verified Allergy, Severe, 11/27/16) THE VEG CUCUMBER WELL CUCUMBER SOAP Uncoded Allergies: cucumber body wash (Allergy, Severe, Hives/ , 11/27/16) shortness of breath,swelling. Reported Meds & Prescriptions Reported Meds & Active Scripts Active Azithromycin 500 Mg Tab 500 Mg PO DAILY Nebulizer 1 Mis Mis Ea .ROUTE DIRECTED Prednisone (21) 10 mg tab Dose Pack (Prednisone) 10 Mg Pack 10 Mg PO DIRECTED Claritin (Loratadine) 10 Mg Tablet 10 Mg PO DAILY Lactobacillus Acidophilus 1 Billion Cell Tab 1 Tab PO TIDAC Albuterol Neb (Albuterol Sulfate) 2.5 Mg/3 Ml Neb 2.5 Mg NEB Q4HR NEB PRN Symbicort Inh (Budesonide/Formoterol Fumarate) 160-4.5 Mcg/Act Aero 2 Puff INH Q12HR Ventolin Hfa 18 GM Inh (Albuterol Sulfate) 90 Mcg/Act Aer 2 Puff INH Q4H PRN Epipen 2-Arjun Inj (Epinephrine) 0.3 Mg/0.3 Ml Pfpen 0.3 Mg SQ ONCE PRN Review of Systems Except as stated in HPI: all other systems reviewed are Neg Physical Exam Narrative GENERAL: Well-nourished, well-developed black male patient; afebrile, nontoxic- appearing SKIN: Warm and dry. HEAD: Atraumatic. Normocephalic. EYES: Pupils equal and round. No scleral icterus. No injection or drainage. ENT: Mucosa pink and moist. No erythema or exudates. No uvular edema. No uvular , palatal, or tonsillar deviation. Airway patent. Nares without nasal blood, purulent drainage or septal hematoma. EARS: Bilateral pinnae and external canals appear within normal limits. Bilateral tympanic membranes without erythema, dullness or perforation. NECK: Trachea midline. No lymphadenopathy. CARDIOVASCULAR: Regular rate and rhythm. No murmur appreciated. RESPIRATORY: Tachypnea. Lungs with Wheezing and decreased throughout to auscultation. Breath sounds equal bilaterally. Audible wheezing. GASTROINTESTINAL: Abdomen soft, non-tender, nondistended. Hepatic and splenic margins not palpable. Bowel sounds are active 4 quadrants. MUSCULOSKELETAL: No obvious deformities. No clubbing. No cyanosis. No edema. NEUROLOGICAL: Awake and alert. Oriented 3. No obvious cranial nerve deficits. Motor grossly within normal limits. Normal speech. Moves all extremities. 5/5 strength to all extremities. PSYCHIATRIC: Appropriate mood and affect; insight and judgment normal. Data Data Last Documented VS Vital Signs Date Time Temp Pulse Resp B/P (MAP) Pulse Ox O2 Delivery O2 Flow Rate FiO2 05/03/17 13:00 68 24 130/71 (90) 100 Nasal Cannula 2.00 05/03/17 10:50 98.1 Orders Orders Chest, Pa & Lat (05/03/17 11:07) Albuterol-Ipratropium Neb (Duoneb Neb) (05/03/17 11:15) Basic Metabolic Panel (Bmp) (05/03/17 11:47) Complete Blood Count With Diff (05/03/17 11:47) Methylprednisolone So Succ Inj (Solumedr (05/03/17 12:00) Albuterol-Ipratropium Neb (Duoneb Neb) (05/03/17 12:00) Influenzae A/B Antigen (05/03/17 11:47) Ondansetron Inj (Zofran Inj) (05/03/17 12:00) Budeson-Formot 160-4.5 Mcg Inh (Symbicor (05/03/17 14:15) Admit Order (Ed Use Only) (05/03/17 14:14) Labs Laboratory Tests Test 05/03/17 12:20 White Blood Count 3.5 TH/MM3 Red Blood Count 4.73 MIL/MM3 Hemoglobin 14.9 GM/DL Hematocrit 43.2 % Mean Corpuscular Volume 91.2 FL Mean Corpuscular Hemoglobin 31.5 PG Mean Corpuscular Hemoglobin Concent 34.5 % Red Cell Distribution Width 13.5 % Platelet Count 288 TH/MM3 Mean Platelet Volume 6.4 FL Neutrophils (%) (Auto) 32.7 % Lymphocytes (%) (Auto) 50.8 % Monocytes (%) (Auto) 9.4 % Eosinophils (%) (Auto) 6.3 % Basophils (%) (Auto) 0.8 % Neutrophils # (Auto) 1.2 TH/MM3 Lymphocytes # (Auto) 1.8 TH/MM3 Monocytes # (Auto) 0.3 TH/MM3 Eosinophils # (Auto) 0.2 TH/MM3 Basophils # (Auto) 0.0 TH/MM3 CBC Comment AUTO DIFF Differential Comment AUTO DIFF CONFIRMED Blood Urea Nitrogen 13 MG/DL Creatinine 1.30 MG/DL Random Glucose 89 MG/DL Calcium Level 8.6 MG/DL Sodium Level 138 MEQ/L Potassium Level 3.8 MEQ/L Chloride Level 104 MEQ/L Carbon Dioxide Level 26.5 MEQ/L Anion Gap 8 MEQ/L Estimat Glomerular Filtration Rate 80 ML/MIN MDM Medical Decision Making Medical Screen Exam Complete: Yes Emergency Medical Condition: Yes Medical Record Reviewed: Yes Differential Diagnosis Asthma exacerbation, influenza, viral illness Narrative Course 27-year-old male with history of asthma with asthma exacerbation. Patient received DuoNeb 3 prior to arrival to the ER room. She notes oxygen saturation was 98% on room air on arrival. He is still tachypneic, short of breath, and with audible wheezing. Patient placed on cardiopulmonary monitor and oxygen. Dr. Russo evaluated the patient. CBC, BMP, influenza, DuoNeb 1, Solu-Medrol ordered. Patient to be admitted. 1156: patient vomiting. Zofran ordered. Chest x-ray with no acute disease. 1340: CBC, BMP unremarkable. Patient with continued wheezing and shortness of breath. Call placed to admit patient for observation. 1414: I spoke with Dr. Ramirez and report was given for patient admission. Physician Communication Physician Communication Dr. Ramirez Diagnosis Primary Impression: Asthma exacerbation Qualified Codes: J45.901 - Unspecified asthma with (acute) exacerbation Admitting Information Admitting Physician Requests: Observation Iona Carson May 03, 2017 11:55
[2017-05-03] MEDS ORDERED: ONDANSETRON HCL 4 MG/2 ML VIAL IV PUSH ONE (12:00)
[2017-05-03] MEDS ORDERED: RESP: ALBUTEROL 2.5 MG/IPRATROPIUM 0.5 MG NEB (SCH) INH ONE (12:00)
[2017-05-03] MEDS ORDERED: methylPREDNISolone SOD SUCC 125 MG/2 ML VIAL IV PUSH ONE (12:00)
[2017-05-03 12:34] LABS: AUTOMATED NEUTROPHIL # 1.2 TH/MM3 (1.8-7.7); BASOPHIL % 0.8 % (0.0-2.0); EOSINOPHIL # 0.2 TH/MM3 (0-0.4); EOSINOPHIL % 6.3 % (0.0-4.0); HEMATOCRIT 43.2 % (39.0-51.0); HEMOGLOBIN 14.9 GM/DL (13.0-17.0); LYMPH % 50.8 % (9.0-44.0); LYMPHOCYTE # 1.8 TH/MM3 (1.0-4.8); MEAN CELL VOLUME 91.2 FL (80.0-100.0); MEAN CORPUSCULAR HEMOGLOBIN 31.5 PG (27.0-34.0); MEAN CORPUSCULAR HGB CONC 34.5 % (32.0-36.0); MEAN PLATELET VOLUME 6.4 FL (7.0-11.0); MONO % 9.4 % (0.0-8.0); MONOCYTE # 0.3 TH/MM3 (0-0.9); NEUT % 32.7 % (16.0-70.0); PLATELET COUNT 288 TH/MM3 (150-450); RED BLOOD COUNT 4.73 MIL/MM3 (4.50-5.90); RED CELL DISTRIBUTION WIDTH 13.5 % (11.6-17.2); WHITE BLOOD COUNT 3.5 TH/MM3 (4.0-11.0)
[2017-05-03 12:57] LABS: BICARBONATE 26.5 MEQ/L (21.0-32.0); CALCIUM 8.6 MG/DL (8.5-10.1); CREATININE 1.3 MG/DL (0.60-1.30)
[2017-05-03] MEDS ORDERED: SODIUM CHLORIDE 0.9% FLUSH 10 ML FLUSH IV FLUSH PRN (14:15)
[2017-05-03] MEDS ORDERED: RESP: ALBUTEROL 2.5 MG/3 ML NEB (PRN) NEB (14:15)
[2017-05-03] MEDS: RESP: ALBUTEROL 2.5 MG/IPRATROPIUM 0.5 MG NEB (SCH) NEB ×3 (16:16→23:36)
--- NOTE | 2017-05-03 17:43 | HHI.HP ---
HPI [facility] Yanna De Jesus MD Admission Diagnosis asthma exacerbation Diagnoses: Chief Complaint: Shortness of breath Travel History International Travel<30 Days: No Contact w/Intl Traveler <30 Da: No Traveled to Known Affected Are: No History of Present Illness 27 Y/O male with a medical history significant for HIV and asthma presents to the emergency room with concerns for asthma exacerbation. Patient complains of shortness of breath, wheezing, and chest congestion for the past two days. I am familiar with the patient from previous admission. Unfortunately he is non compliant. He was given a prescription for a nebulizer at the last visit but he is still reporting that he does not have a nebulizer. He continues to smoke cigarettes and Marijuana. He has not taken any asthma medications. He denies any sick contact. No fevers or chills. Review of Systems Constitutional: COMPLAINS OF: Chills, DENIES: Fever Respiratory: COMPLAINS OF: Cough, Wheezing, Shortness of breath Cardiovascular: DENIES: Chest pain Except as stated in HPI: all other systems reviewed are Neg Past Family Social History Past Medical History HIV, has not been complaint with HAART. Has been off medications for at least 6 months. Asthma. Tobacco abuser Past Surgical History None Reported Medications Patient does not currently take any medications. Allergies: Coded Allergies: cucumber (Verified Allergy, Severe, 11/27/16) THE VEG CUCUMBER WELL CUCUMBER SOAP Uncoded Allergies: cucumber body wash (Allergy, Severe, Hives/ , 11/27/16) shortness of breath,swelling. Family History Reviewed and is noncontributory. Social History Everyday tobacco user. Also use Marijuana +for alcohol use Physical Exam Vital Signs Vital Signs Date Time Temp Pulse Resp B/P (MAP) Pulse Ox O2 Delivery O2 Flow Rate FiO2 05/03/17 17:00 97.7 75 18 143/73 (96) 99 05/03/17 15:14 68 18 100 2.00 05/03/17 13:00 68 24 130/71 (90) 100 Nasal Cannula 2.00 05/03/17 12:00 98 Nasal Cannula 05/03/17 12:00 87 28 143/88 (106) 98 Nasal Cannula 05/03/17 10:50 98.1 93 19 173/80 (111) 100 Physical Exam GENERAL: This is a well-nourished, well-developed patient, in no apparent distress. SKIN: No rashes, ecchymoses or lesions. Cool and dry. HEAD: Atraumatic. Normocephalic. No temporal or scalp tenderness. EYES: Pupils equal round and reactive. Extraocular motions intact. No scleral icterus. No injection or drainage. ENT: Nose without drainage. Throat without erythema, tonsillar hypertrophy or exudate. Uvula midline. Airway patent. NECK: Trachea midline. No JVD or lymphadenopathy. Supple, nontender, no meningeal signs. CARDIOVASCULAR: Regular rate and rhythm without murmurs, gallops, or rubs. RESPIRATORY: Air movement is fair. Diffuse wheezing bilaterally. GASTROINTESTINAL: Abdomen soft, non-tender, nondistended. MUSCULOSKELETAL: Extremities without clubbing, cyanosis, or edema. NEUROLOGICAL: Awake and alert. Cranial nerves II through XII intact. Normal speech. Laboratory Laboratory Tests Test 05/03/17 12:20 White Blood Count 3.5 Red Blood Count 4.73 Hemoglobin 14.9 Hematocrit 43.2 Mean Corpuscular Volume 91.2 Mean Corpuscular Hemoglobin 31.5 Mean Corpuscular Hemoglobin Concent 34.5 Red Cell Distribution Width 13.5 Platelet Count 288 Mean Platelet Volume 6.4 Neutrophils (%) (Auto) 32.7 Lymphocytes (%) (Auto) 50.8 Monocytes (%) (Auto) 9.4 Eosinophils (%) (Auto) 6.3 Basophils (%) (Auto) 0.8 Neutrophils # (Auto) 1.2 Lymphocytes # (Auto) 1.8 Monocytes # (Auto) 0.3 Eosinophils # (Auto) 0.2 Basophils # (Auto) 0.0 CBC Comment AUTO DIFF Differential Comment AUTO DIFF CONFIRMED Blood Urea Nitrogen 13 Creatinine 1.30 Random Glucose 89 Calcium Level 8.6 Sodium Level 138 Potassium Level 3.8 Chloride Level 104 Carbon Dioxide Level 26.5 Anion Gap 8 Estimat Glomerular Filtration Rate 80 Date/Time Source Procedure Growth Status 05/03/17 12:28 Nasal Washing Influenza Types A,B Antigen (TYREE) - Final NEGATIVE FOR FLU A AND B ANTIGEN.... Complete Result Diagram: 05/03/17 1220 05/03/17 1220 Imaging Last Impressions Chest X-Ray 05/03/17 1107 Signed Impressions: Service Date/Time: Wednesday, May 03, 2017 11:37 - CONCLUSION: No acute disease. MD Abelino Hall VTE Risk Assessment Abelino VTE Risk Assessment: No/Low Risk (score <= 1) Elliotrini Risk Assessment Model Point Value = 1 Point Value = 2 Point Value = 3 Point Value = 5 Age 41-60 Minor surgery BMI > 25 kg/m2 Swollen legs Varicose veins or History of unexplained or recurrent spontaneous Oral contraceptives or hormone replacement Sepsis (< 1 month) Serious lung disease, including pneumonia (< 1 month) Abnormal pulmonary function Acute myocardial infarction Congestive heart failure (< 1 month) History of inflammatory bowel disease Medical patient at bed rest Age 61-74 Arthroscopic surgery Major open surgery (> 45 min) Laparoscopic surgery (> 45 min) Malignancy Confined to bed (> 72 hours) Immobilizing plaster cast Central venous access Age >= 75 History of VTE Family history of VTE Factor V Leiden Prothrombin [id number] Lupus anticoagulant Anticardiolipin antibodies Elevated serum homocysteine Heparin-induced thrombocytopenia Other congenital or acquired thrombophilia Stroke (< 1 month) Elective arthroplasty Hip, pelvis, or leg fracture Acute spinal cord injury (< 1 month) Prophylaxis Regimen Total Risk Factor Score Risk Level Prophylaxis Regimen 0-1 Low Early ambulation 2 Moderate Order ONE of the following: *Sequential Compression Device (SCD) *Heparin 5000 units SQ BID 3-4 Higher Order ONE of the following medications: *Heparin 5000 units SQ TID *Enoxaparin/Lovenox 40 mg SQ daily (WT < 150 kg, CrCl > 30 mL/min) *Enoxaparin/Lovenox 30 mg SQ daily (WT < 150 kg, CrCl > 10-29 mL/min) *Enoxaparin/Lovenox 30 mg SQ BID (WT < 150 kg, CrCl > 30 mL/min) AND/OR *Sequential Compression Device (SCD) 5 or more Highest Order ONE of the following medications: *Heparin 5000 units SQ TID (Preferred with Epidurals) *Enoxaparin/Lovenox 40 mg SQ daily (WT < 150 kg, CrCl > 30 mL/min) *Enoxaparin/Lovenox 30 mg SQ daily (WT < 150 kg, CrCl > 10-29 mL/min) *Enoxaparin/Lovenox 30 mg SQ BID (WT < 150 kg, CrCl > 30 mL/min) AND *Sequential Compression Device (SCD) Assessment and Plan Problem List: (1) Asthma exacerbation ICD Code: J45.901 - Asthma with acute exacerbation Status: Acute (2) HIV (human immunodeficiency virus infection) ICD Code: B20 - Human immunodeficiency virus [HIV] disease Assessment and Plan 27 Y/O male with HIV and asthma, non compliant with medications admitted for asthma exacerbation: Asthma exacerbation: - Continue IV solumedrol. - Breathing treatments with duonebs - Supplemental oxygen. Wean as tolerated. - Patient strongly counseled to quit smoking. HIV: Last CD4 count over 8 months ago was around 99. He has not been on therapy for the past 6 months per his report siting lack of insurance - Patient counseled extensively. He needs to be on HAART therapy outpatient. CM consulted. Admit for observation and watch for improvement of respiratory symptoms. Anticipate DC in 24-48 hrs. Problem Qualifiers (1) Asthma exacerbation: Qualified Codes: J45.901 - Unspecified asthma with (acute) exacerbation Juan Ramirez MD May 03, 2017 17:43
[2017-05-03] MEDS: methylPREDNISolone SOD SUCC 125 MG/2 ML VIAL IV PUSH SCH ×2 (18:21→23:54)
[2017-05-03] MEDS: BUDESONIDE-FORMOTEROL 160/4.5 MCG INHALER INH SCH ×2 (20:03→20:04)
[2017-05-03] MEDS: SODIUM CHLORIDE 0.9% FLUSH 10 ML FLUSH IV FLUSH SCH (20:03)
[2017-05-04] MEDS: ACETAMINOPHEN 325 MG TAB PO PRN ×2 (00:18→20:21)
[2017-05-04] MEDS: RESP: ALBUTEROL 2.5 MG/IPRATROPIUM 0.5 MG NEB (SCH) NEB ×6 (03:29→23:44)
[2017-05-04 04:28] VITALS: BP 148/64; PULSE 115; RESP 20; TEMP 97.6; O2SAT 98
[2017-05-04] MEDS: methylPREDNISolone SOD SUCC 125 MG/2 ML VIAL IV PUSH SCH ×4 (05:06→23:57)
[2017-05-04 07:55] VITALS: BP 136/62; PULSE 99; RESP 18; TEMP 98.3; O2SAT 98
[2017-05-04] MEDS: BUDESONIDE-FORMOTEROL 160/4.5 MCG INHALER INH SCH ×2 (09:20→20:00)
[2017-05-04] MEDS: SODIUM CHLORIDE 0.9% FLUSH 10 ML FLUSH IV FLUSH SCH ×2 (09:21→20:04)
--- NOTE | 2017-05-04 09:28 | HHI.PR ---
Subjective Remarks Follow-up visit asthma exacerbation, HIV. Patient seen and examined today lying in bed. On 2 L nasal cannula. Reports he continues to have some cough which makes him have chest pain because of tightness. Continues to be short of breath on and off. Continues to have wheezing. Reports nausea and vomiting with Solu-Medrol IV use. States he's been having night sweats and chills. Denies abdominal pain, dysuria. Objective Vitals Vital Signs Date Time Temp Pulse Resp B/P (MAP) Pulse Ox O2 Delivery O2 Flow Rate FiO2 05/04/17 07:55 98.3 99 18 136/62 (86) 98 05/04/17 04:28 97.6 115 20 148/64 (92) 98 05/04/17 03:30 21 05/03/17 23:09 98.2 94 20 121/70 (87) 99 05/03/17 19:43 98.4 95 19 132/62 (85) 96 05/03/17 19:25 99 Nasal Cannula 2.00 05/03/17 17:00 97.7 75 18 143/73 (96) 99 05/03/17 15:14 68 18 100 2.00 05/03/17 13:00 68 24 130/71 (90) 100 Nasal Cannula 2.00 05/03/17 12:00 98 Nasal Cannula 05/03/17 12:00 87 28 143/88 (106) 98 Nasal Cannula 05/03/17 10:50 98.1 93 19 173/80 (111) 100 I/O 05/03/17 05/03/17 05/03/17 05/04/17 05/04/17 05/04/17 07:00 15:00 23:00 07:00 15:00 23:00 Output Total 350 ml Balance -350 ml Output Urine Total 350 ml # Voids 1 Result Diagram: 05/03/17 1220 05/03/17 1220 Imaging Last Impressions Chest X-Ray 05/03/17 1107 Signed Impressions: Service Date/Time: Wednesday, May 03, 2017 11:37 - CONCLUSION: No acute disease. Xavier Quintanilla MD Objective Remarks GENERAL: This is a well-nourished, well-developed patient, in no apparent distress. SKIN: Warm and dry. HEENT: Normocephalic. Pupils equal round and reactive. Nose without bleeding. Airway patent. NECK: Trachea midline. No JVD. Supple. CARDIOVASCULAR: Regular rate and rhythm without murmurs, gallops, or rubs. RESPIRATORY: Minimal Air Entry. Wheezing. GASTROINTESTINAL: Abdomen soft, non-tender, nondistended. Bowel Sounds normoactive x4. MUSCULOSKELETAL: Extremities without clubbing, cyanosis, or edema. NEUROLOGICAL: Awake and alert. Oriented to time, place, person. No focal neuro deficit. Moves all extremities. Normal speech. A/P Problem List: (1) Asthma exacerbation ICD Code: J45.901 - Asthma with acute exacerbation Status: Acute (2) HIV (human immunodeficiency virus infection) ICD Code: B20 - Human immunodeficiency virus [HIV] disease Assessment and Plan Patient is 27-year-old male with primary medical history of HIV and asthma who came to ED for concerns of asthma exacerbation. Asthma exacerbation: - Continue IV solumedrol. We'll switch over to by mouth prednisone when patient does not have as much wheezing or chest tightness. We'll continue with IV for now. - Breathing treatments with duonebs scheduled and PRN - Supplemental oxygen. Wean as tolerated. - Patient strongly counseled to quit smoking. Nicotine Patch if necessary. HIV: Last CD4 count over 8 months ago was around 99. He has not been on therapy for the past 6 months per his report lack of insurance - Reports chills, feverish feeling overnight. CXR negative for acute disease. - CD4 ordered. Start Bactrim DS - Patient counseled extensively. He needs to be on HAART therapy outpatient. CM consulted. DVT prop ambulatory Discharge Planning If significantly improved. Plan to discharge tomorrow. Problem Qualifiers (1) Asthma exacerbation: Qualified Codes: J45.901 - Unspecified asthma with (acute) exacerbation Alexandru Santos May 04, 2017 09:28
[2017-05-04] MEDS ORDERED: INFLUENZA VIRUS VACCINE (QUADRIVALENT) 0.5 ML SYR IM ONE (10:00)
[2017-05-04 11:35] VITALS: BP 134/59; PULSE 104; RESP 18; TEMP 98.1; O2SAT 98
[2017-05-04] MEDS: ONDANSETRON HCL 4 MG/2 ML VIAL IV PUSH PRN ×3 (11:50→23:57)
[2017-05-04] MEDS: SULFAMETHOXAZOLE-TRIMETHOPRIM DS 800-160 MG TAB PO SCH (11:52)
[2017-05-04 12:34] LABS: AUTOMATED NEUTROPHIL # 11.8 TH/MM3 (1.8-7.7); BASOPHIL % 0.2 % (0.0-2.0); HEMATOCRIT 38.9 % (39.0-51.0); HEMOGLOBIN 13.2 GM/DL (13.0-17.0); LYMPH % 9.3 % (9.0-44.0); LYMPHOCYTE # 1.3 TH/MM3 (1.0-4.8); MEAN CELL VOLUME 90.5 FL (80.0-100.0); MEAN CORPUSCULAR HEMOGLOBIN 30.6 PG (27.0-34.0); MEAN CORPUSCULAR HGB CONC 33.8 % (32.0-36.0); MEAN PLATELET VOLUME 6.6 FL (7.0-11.0); MONO % 5.1 % (0.0-8.0); MONOCYTE # 0.7 TH/MM3 (0-0.9); NEUT % 85.4 % (16.0-70.0); PLATELET COUNT 301 TH/MM3 (150-450); RED CELL DISTRIBUTION WIDTH 13.5 % (11.6-17.2); WHITE BLOOD COUNT 13.9 TH/MM3 (4.0-11.0)
[2017-05-04 13:00] LABS: ALKALINE PHOSPHATASE 45 U/L (45-117); TOTAL BILIRUBIN ADULT LESS THAN 0.1 MG/DL (0.2-1.0); TOTAL PROTEIN 8.5 GM/DL (6.4-8.2)
[2017-05-04 13:02] LABS: ALBUMIN 2.9 GM/DL (3.4-5.0); ALT (GPT) 12 U/L (12-78); AST (GOT) 14 U/L (15-37); BICARBONATE 25.8 MEQ/L (21.0-32.0); BLOOD UREA NITROGEN 17 MG/DL (7-18); CALCIUM 8.8 MG/DL (8.5-10.1); CHLORIDE 103 MEQ/L (98-107); CREATININE 1.29 MG/DL (0.60-1.30); GLOMERULAR FILTRATION RATE 80 ML/MIN (>89); GLUCOSE,RANDOM 150 MG/DL (74-106); SODIUM (NA) 137 MEQ/L (136-145)
[2017-05-04 16:07] VITALS: BP 124/59; PULSE 93; RESP 18; TEMP 98.2; O2SAT 97
[2017-05-04 20:34] VITALS: O2SAT 97
[2017-05-04 21:18] VITALS: BP 133/65; PULSE 115; RESP 20; TEMP 98.2; O2SAT 98
[2017-05-05 00:21] VITALS: BP 130/62; PULSE 118; RESP 20; TEMP 98; O2SAT 96
[2017-05-05] MEDS: RESP: ALBUTEROL 2.5 MG/IPRATROPIUM 0.5 MG NEB (SCH) NEB ×4 (03:42→16:07)
[2017-05-05 04:44] VITALS: BP 132/67; PULSE 117; RESP 22; TEMP 97.9; O2SAT 98
[2017-05-05] MEDS: methylPREDNISolone SOD SUCC 125 MG/2 ML VIAL IV PUSH SCH ×2 (05:26→13:43)
[2017-05-05] MEDS: ONDANSETRON HCL 4 MG/2 ML VIAL IV PUSH PRN (05:27)
[2017-05-05] MEDS: ACETAMINOPHEN 325 MG TAB PO PRN (05:37)
[2017-05-05 08:42] VITALS: BP 129/60; PULSE 81; RESP 20; TEMP 98.5; O2SAT 95
--- NOTE | 2017-05-05 09:02 | HHI.PR ---
Subjective Remarks Follow-up visit asthma exacerbation, HIV. Patient seen and examined today lying in bed. On room air, he is breathing a lot better. Denies chest pain, palpitations, headaches, dizziness. Denies fevers, chills, n/v/d. Denies dysuria. Objective Vital Signs Date Time Temp Pulse Resp B/P (MAP) Pulse Ox O2 Delivery O2 Flow Rate FiO2 05/05/17 08:42 98.5 81 20 129/60 (83) 95 05/05/17 04:44 97.9 117 22 132/67 (88) 98 05/05/17 00:21 98.0 118 20 130/62 (84) 96 05/04/17 21:18 98.2 115 20 133/65 (87) 98 05/04/17 20:34 97 21 05/04/17 16:07 98.2 93 18 124/59 (80) 97 05/04/17 11:35 98.1 104 18 134/59 (84) 98 I/O 05/04/17 05/04/17 05/04/17 05/05/17 05/05/17 05/05/17 07:00 15:00 23:00 07:00 15:00 23:00 Intake Total 220 ml Balance 220 ml Intake Oral 220 ml # Voids 1 1 Result Diagram: 05/04/17 1215 05/04/17 1215 Imaging Last Impressions Chest X-Ray 05/03/17 1107 Signed Impressions: Service Date/Time: Wednesday, May 03, 2017 11:37 - CONCLUSION: No acute disease. Xavier Quintanilla MD Procedures None Objective Remarks GENERAL: This is a well-nourished, well-developed patient, in no apparent distress. SKIN: Warm and dry. HEENT: Normocephalic. Pupils equal round and reactive. Nose without bleeding. Airway patent. NECK: Trachea midline. No JVD. Supple. CARDIOVASCULAR: Regular rate and rhythm without murmurs, gallops, or rubs. RESPIRATORY: Minimal Air Entry. Wheezing. GASTROINTESTINAL: Abdomen soft, non-tender, nondistended. Bowel Sounds normoactive x4. MUSCULOSKELETAL: Extremities without clubbing, cyanosis, or edema. NEUROLOGICAL: Awake and alert. Oriented to time, place, person. No focal neuro deficit. Moves all extremities. Normal speech. A/P Problem List: (1) HIV (human immunodeficiency virus infection) ICD Code: B20 - Human immunodeficiency virus [HIV] disease (2) Asthma exacerbation ICD Code: J45.901 - Asthma with acute exacerbation Status: Acute (3) SOB (shortness of breath) ICD Code: R06.02 - SOB (shortness of breath) Status: Acute Assessment and Plan Patient is 27-year-old male with primary medical history of HIV and asthma who came to ED for concerns of asthma exacerbation. Asthma exacerbation: - Switch over to by mouth prednisone when patient does not have as much wheezing or chest tightness. Improved Air entry. - Breathing treatments with duonebs scheduled and PRN - Off O2, now on RA. Tolerating - Patient strongly counseled to quit smoking. Nicotine Patch if necessary. Reports exacerbation has been frequent and that he has not been compliant. - Will DC with Prednisone, Ventolin inhaler, Symbicort. Refer to [employer]. HIV: Last CD4 count over 8 months ago was around 99. He has not been on therapy for the past 6 months per his report lack of insurance - Reports chills, feverish feeling overnight. CXR negative for acute disease. - CD4 ordered. Start Bactrim DS - Patient counseled extensively. He needs to be on HAART therapy outpatient. CM consulted. DVT prop ambulatory Discharge Planning Plan to DC home today. Will coordinate with CM for medication assistance. Problem Qualifiers (1) Asthma exacerbation: Qualified Codes: J45.901 - Unspecified asthma with (acute) exacerbation Alexandru Santos May 05, 2017 09:02
[2017-05-05 09:13] VITALS: O2SAT 95
[2017-05-05] MEDS: SULFAMETHOXAZOLE-TRIMETHOPRIM DS 800-160 MG TAB PO SCH (09:21)
[2017-05-05] MEDS: SODIUM CHLORIDE 0.9% FLUSH 10 ML FLUSH IV FLUSH SCH (09:21)
[2017-05-05] MEDS: BUDESONIDE-FORMOTEROL 160/4.5 MCG INHALER INH SCH (09:21)
[2017-05-05] MEDS ORDERED: SULF1TAB23 PO (09:25)
[2017-05-05] MEDS ORDERED: SYMB160A INH (09:25)
[2017-05-05] MEDS ORDERED: PRED10PA PO (09:25)
[2017-05-05] MEDS ORDERED: VENTAER INH (09:25)
[2017-05-05] MEDS ORDERED: NICO14DI T-DERMAL (09:26)
--- NOTE | 2017-05-05 09:44 | HHI.DS ---
Discharge Summary Admission Date May 03, 2017 at 14:16 Discharge Date: May 05, 2017 Admitting Diagnosis asthma exacerbation (1) Asthma exacerbation ICD Code: J45.901 - Asthma with acute exacerbation Status: Acute (2) HIV (human immunodeficiency virus infection) ICD Code: B20 - Human immunodeficiency virus [HIV] disease Procedures None Brief History - From Admission 27 Y/O male with a medical history significant for HIV and asthma presents to the emergency room with concerns for asthma exacerbation. Patient complains of shortness of breath, wheezing, and chest congestion for the past two days. I am familiar with the patient from previous admission. Unfortunately he is non compliant. He was given a prescription for a nebulizer at the last visit but he is still reporting that he does not have a nebulizer. He continues to smoke cigarettes and Marijuana. He has not taken any asthma medications. He denies any sick contact. No fevers or chills. CBC/BMP: 05/04/17 1215 05/04/17 1215 Significant Findings Laboratory Tests Test 05/03/17 12:20 05/04/17 12:15 White Blood Count 3.5 TH/MM3 (4.0-11.0) 13.9 TH/MM3 (4.0-11.0) Mean Platelet Volume 6.4 FL (7.0-11.0) 6.6 FL (7.0-11.0) Lymphocytes (%) (Auto) 50.8 % (9.0-44.0) Monocytes (%) (Auto) 9.4 % (0.0-8.0) Eosinophils (%) (Auto) 6.3 % (0.0-4.0) Neutrophils # (Auto) 1.2 TH/MM3 (1.8-7.7) 11.8 TH/MM3 (1.8-7.7) Estimat Glomerular Filtration Rate 80 ML/MIN (>89) 80 ML/MIN (>89) Red Blood Count 4.30 MIL/MM3 (4.50-5.90) Hematocrit 38.9 % (39.0-51.0) Neutrophils (%) (Auto) 85.4 % (16.0-70.0) Random Glucose 150 MG/DL (74-106) Total Protein 8.5 GM/DL (6.4-8.2) Albumin 2.9 GM/DL (3.4-5.0) Aspartate Amino Transf (AST/SGOT) 14 U/L (15-37) Total Bilirubin LESS THAN 0.1 MG/DL Imaging Last Impressions Chest X-Ray 05/03/17 1107 Signed Impressions: Service Date/Time: Wednesday, May 03, 2017 11:37 - CONCLUSION: No acute disease. Xavier Quintanilla MD PE at Discharge GENERAL: This is a well-nourished, well-developed patient, in no apparent distress. SKIN: Warm and dry. HEENT: Normocephalic. Pupils equal round and reactive. Nose without bleeding. Airway patent. NECK: Trachea midline. No JVD. Supple. CARDIOVASCULAR: Regular rate and rhythm without murmurs, gallops, or rubs. RESPIRATORY: Minimal Air Entry. Wheezing. GASTROINTESTINAL: Abdomen soft, non-tender, nondistended. Bowel Sounds normoactive x4. MUSCULOSKELETAL: Extremities without clubbing, cyanosis, or edema. NEUROLOGICAL: Awake and alert. Oriented to time, place, person. No focal neuro deficit. Moves all extremities. Normal speech. Pt update on day of discharge Follow-up visit asthma exacerbation, HIV. Patient seen and examined today lying in bed. On room air, he is breathing a lot better. Denies chest pain, palpitations, headaches, dizziness. Denies fevers, chills, n/v/d. Denies dysuria. Hospital Course Patient is 27-year-old male with primary medical history of HIV and asthma who came to ED for concerns of asthma exacerbation. Patient was treated with IV Solu-Medrol which was later on switched over to by mouth prednisone. Lung sounds improved patient was on breathing treatment off of 2 L nasal cannula and tolerating room air. Counseled strongly to quit smoking and is advised to wear nicotine patch if necessary. Patient assistance was provided to procure medication prednisone, Ventolin inhaler, Symbicort and was referred to [facility] for PCP follow-up. Patient also has HIV with last CD4 count over 8 months ago. CD4 has been repeated and was pending to date. Will call patient' s regarding results. She was started on Bactrim prophylactically. Discuss with patient need to follow-up with health department to start HAART therapy and outpatient. Patient agrees with plan. Patient has met maximal benefits of hospitalization. Clinically stable for discharge. Pt Condition on Discharge: Stable Discharge Disposition: Discharge Home Discharge Time: <= 30 minutes Discharge Instructions DIET: Follow Instructions for: As Tolerated, No Restrictions Activities you can perform: Regular-No Restrictions Follow up Referrals: PCP Follow-up - 1 Week Refer to [facility]. Needs Asthma Management. HIV. New Medications: Nicotine Patch (Nicotine Patch) 14 Mg/24 Hr Patch 14 MG T-DERMAL DAILY for Smoking Cessation for 30 Days, #30 PATCH 0 Refills Sulfamethoxazole-Trimethoprim (Sulfamethoxazole-Trimethoprim) 800-160 Mg Tab 1 TAB PO DAILY for Infection Prophylaxis, #30 TAB Continued Medications: Albuterol 18 GM Inh (Ventolin Hfa 18 GM Inh) 90 Mcg/Act Aer 2 PUFF INH Q4H PRN for SHORTNESS OF BREATH, #1 INHALER 1 Refill (This prescription has been renewed) Albuterol Neb (Albuterol Neb) 2.5 Mg/3 Ml Neb 2.5 MG NEB Q4HR NEB PRN for SHORTNESS OF BREATH, #60 NEBULE 0 Refills Budesonide-Formoterol Inh (Symbicort Inh) 160-4.5 Mcg/Act Aero 2 PUFF INH Q12HR for Breathing Treatment, #60 INHALER 1 Refill (This prescription has been renewed) Loratadine (Claritin) 10 Mg Tablet 10 MG PO DAILY for Inflammation, #4 TAB Nebulizer (Nebulizer) 1 Mis Mis EA .ROUTE DIRECTED for Breathing Treatment, #1 0 Refills Prednisone (21) 10 mg tab Dose Pack (Prednisone (21) 10 mg tab Dose Pack) 10 Mg Pack 10 MG PO DIRECTED for Inflammation, #1 DSPK 0 Refills (This prescription has been renewed) Discontinued Medications: Azithromycin (Azithromycin) 500 Mg Tab 500 MG PO DAILY for Infection, #5 TAB 0 Refills Alexandru Santos May 05, 2017 09:44
--- NOTE | 2017-05-05 09:44 | HHI.DCPOC ---
Discharge Care Plan Diagnosis: (1) HIV (human immunodeficiency virus infection) (2) SOB (shortness of breath) (3) Asthma exacerbation Your Health Problems Are: Shortness of Breath Goals to Promote Your Health * To prevent worsening of your condition and complications * To maintain your health at the optimal level Directions to Meet Your Goals Take your medications as prescribed Follow your dietary instruction Follow activity as directed Keep your appointments as scheduled Take your immunizations and boosters as scheduled If your symptoms worsen call your PCP, if no PCP go to Urgent Care Center or Emergency Room Smoking is Dangerous to Your Health. Avoid second hand smoke Call the 24-hour hour crisis hotline for domestic abuse at Alexandru Santos May 05, 2017 09:44
[2017-05-05 11:56] VITALS: BP 115/59; PULSE 111; RESP 20; TEMP 98.1; O2SAT 94
== END 2017-05-05 18:11 | disposition home or self-care (01) ==
LOC: NEPD 10:49 → NEDA 14:16 → NEPFCDU 15:21
PROVIDERS: ADMIT Hospitalist; ATTEND Hospitalist
DX: J45.901 Unspecified asthma with (acute) exacerbation (principal); Z21 Asymptomatic human immunodeficiency virus [HIV] infection status; R07.89 Other chest pain; J44.9 Chronic obstructive pulmonary disease, unspecified; K21.9 Gastro-esophageal reflux disease without esophagitis; I12.9 Hypertensive chronic kidney disease with stage 1 through stage 4 chronic kidney disease, or unspecified chronic kidney disease; N18.1 Chronic kidney disease, stage 1; R06.83 Snoring; F17.210 Nicotine dependence, cigarettes, uncomplicated; F12.90 Cannabis use, unspecified, uncomplicated; Z91.19 Patient's noncompliance with other medical treatment and regimen; Z23 Encounter for immunization
CPT/HCPCS: 71046; 80048; 80053; 83735; 85025; 86355; 86357; 86359; 86360; 87804; 90471; 90686; 94640; 94664; 96374; 96375; 96376; 99285; G0378; J2405; J2930; G0008; Q2038

== ENCOUNTER 2017-07-08 00:02 | Observation (INO) | payer SELFPAY ==
[~2017-07-08] VITALS: Ht 157.5 cm; Wt 65.0 kg
[2017-07-08] VITALS (12 sets, daily range): BP systolic 117–160; BP diastolic 61–98; PULSE 72–95; RESP 16–22; TEMP 98–98.7; O2SAT 96–99
[~2017-07-08 00:02] MED LIST changes: -AZIT500T2 PO; +NICO14DI T-DERMAL; +SULF1TAB23 PO
[2017-07-08] MEDS ORDERED: SODIUM CHLOR 0.9% 1000 ML INJ 1,000 ML IV SCH (01:50)
[2017-07-08] MEDS ORDERED: DIATRIZOATE MEGLUM/DIATRIZOATE SOD 9 ML CUP PO ONE (02:00)
[2017-07-08] MEDS ORDERED: SODIUM CHLORIDE 0.9% FLUSH 10 ML FLUSH IV FLUSH PRN ×2 (02:00→06:45)
--- NOTE | 2017-07-08 03:27 | PD ---
HPI Chief Complaint: Complaint Time Seen by Provider: 01:42 Travel History International Travel<30 days: No Contact w/Intl Traveler<30days: No Traveled to known affect area: No History of Present Illness HPI 27-year-old male with history of HIV, ran out of his anti-retroviral is 2 days ago, last CD4 count was 142, here for evaluation of decreased urine output and lower abdominal pain. Patient reports that he has not urinated since yesterday. He has noted some penile discharge that appears greenish/bloody. Patient is also reporting moderate lower abdominal cramping. No history of abdominal surgeries. No fevers or chills. No vomiting or diarrhea. He is sexually active with one female partner. PFSH Past Medical History ADHD: Yes Arthritis: No Asthma: Yes Blood Disorders: No Anxiety: Yes Depression: Yes Heart Rhythm Problems: Yes Cancer: No Cardiovascular Problems: Yes High Cholesterol: No Chest Pain: No Congestive Heart Failure: No COPD: Yes Diabetes: No Diminished Hearing: No Endocrine: No Gastrointestinal Disorders: Yes (Reflux) GERD: No Genitourinary: No Hiatal Hernia: No Hypertension: Yes Immune Disorder: Yes (HIV,) Implanted Vascular Access Dvce: No Musculoskeletal: No Neurologic: No Psychiatric: Yes Reproductive: No Respiratory: Yes (snoring) Integumentary: Yes (ezema) Immunizations Current: Yes Renal Failure: Yes (pt states 1st stage) Sleep Apnea: No Thyroid Disease: No Ulcer: No Tetanus Vaccination: Unknown Influenza Vaccination: Yes Past Surgical History Other Surgery: No Social History Alcohol Use: Yes Tobacco Use: Yes Substance Use: Yes (marijuana 03/24/2017) Allergies-Medications (Allergen,Severity, Reaction): Coded Allergies: cucumber (Verified Allergy, Severe, 07/08/17) THE VEG CUCUMBER WELL CUCUMBER SOAP Uncoded Allergies: cucumber body wash (Allergy, Severe, Hives/ , 11/27/16) shortness of breath,swelling. Reported Meds & Prescriptions Reported Meds & Active Scripts Active Nicotine Patch (Nicotine) 14 Mg/24 Hr Patch 14 Mg T-DERMAL DAILY 30 Days Sulfamethoxazole-Trimethoprim 800-160 Mg Tab 1 Tab PO DAILY Prednisone (21) 10 mg tab Dose Pack (Prednisone) 10 Mg Pack 10 Mg PO DIRECTED Symbicort Inh (Budesonide/Formoterol Fumarate) 160-4.5 Mcg/Act Aero 2 Puff INH Q12HR Ventolin Hfa 18 GM Inh (Albuterol Sulfate) 90 Mcg/Act Aer 2 Puff INH Q4H PRN Nebulizer 1 Mis Mis Ea .ROUTE DIRECTED Claritin (Loratadine) 10 Mg Tablet 10 Mg PO DAILY Lactobacillus Acidophilus 1 Billion Cell Tab 1 Tab PO TIDAC Albuterol Neb (Albuterol Sulfate) 2.5 Mg/3 Ml Neb 2.5 Mg NEB Q4HR NEB PRN Epipen 2-Arjun Inj (Epinephrine) 0.3 Mg/0.3 Ml Pfpen 0.3 Mg SQ ONCE PRN Review of Systems Except as stated in HPI: all other systems reviewed are Neg Physical Exam Narrative GENERAL: Well-developed, well-nourished, comfortable, no apparent distress. SKIN: Focused skin assessment warm/dry. No rash. HEAD: Atraumatic. Normocephalic. EYES: Pupils equal and round. No scleral icterus. No injection or drainage. ENT: Mucous membranes pink and moist. NECK: Trachea midline. No JVD. CARDIOVASCULAR: Regular rate and rhythm. No murmur appreciated. RESPIRATORY: No accessory muscle use. Clear to auscultation. Breath sounds equal bilaterally. GASTROINTESTINAL: Abdomen soft, nondistended. Moderate suprapubic tenderness without peritoneal signs. Rest of abdomen is mildly tender. : Normal exam without masses or swelling. No penile discharge. No crepitus or skin color changes. MUSCULOSKELETAL: No obvious deformities. No clubbing. No cyanosis. No edema. NEUROLOGICAL: Awake and alert. No obvious cranial nerve deficits. Motor grossly within normal limits. Normal speech. PSYCHIATRIC: Appropriate mood and affect; insight and judgment normal. Data Data Last Documented VS Vital Signs Date Time Temp Pulse Resp B/P (MAP) Pulse Ox O2 Delivery O2 Flow Rate FiO2 07/08/17 06:30 85 18 155/90 (111) 98 Room Air 07/08/17 00:53 98.4 Orders Orders Complete Blood Count With Diff (07/08/17 01:50) Comprehensive Metabolic Panel (07/08/17 01:50) Lipase (07/08/17 01:50) Prothrombin Time / Inr (Pt) (07/08/17 01:50) Act Partial Throm Time (Ptt) (07/08/17 01:50) Urinalysis - C+S If Indicated (07/08/17 01:50) Iv Access Insert/Monitor (07/08/17 01:50) Ecg Monitoring (07/08/17 01:50) Oximetry (07/08/17 01:50) Sodium Chlor 0.9% 1000 Ml Inj (Ns 1000 M (07/08/17 01:50) Sodium Chloride 0.9% Flush (Ns Flush) (07/08/17 02:00) Gc And Chlamydia Pcr (07/08/17 01:50) Creatine Kinase (Cpk) (07/08/17 01:50) Ct Abd/Pel W Iv Contrast(Rout) (07/08/17 01:58) Diatrizoate Liq ( Gastroview Liq) (07/08/17 02:00) Oral Contrast - Adult (07/08/17 02:05) Urinary Catheter Insert/Apply (07/08/17 03:25) Morphine Inj (Morphine Inj) (07/08/17 04:45) Ondansetron Inj (Zofran Inj) (07/08/17 04:41) Urine Culture (07/08/17 04:10) Ceftriaxone Inj (Rocephin Inj) (07/08/17 05:00) Azithromycin (Zithromax) (07/08/17 05:00) Iohexol 350 Inj (Omnipaque 350 Inj) (07/08/17 05:25) Morphine Inj (Morphine Inj) (07/08/17 06:30) Admit Order (Ed Use Only) (07/08/17 06:40) Labs Laboratory Tests Test 07/08/17 03:20 07/08/17 04:10 White Blood Count 3.5 TH/MM3 Red Blood Count 4.67 MIL/MM3 Hemoglobin 14.4 GM/DL Hematocrit 42.6 % Mean Corpuscular Volume 91.2 FL Mean Corpuscular Hemoglobin 30.9 PG Mean Corpuscular Hemoglobin Concent 33.8 % Red Cell Distribution Width 13.5 % Platelet Count 271 TH/MM3 Mean Platelet Volume 6.6 FL Neutrophils (%) (Auto) 50.8 % Lymphocytes (%) (Auto) 32.1 % Monocytes (%) (Auto) 10.0 % Eosinophils (%) (Auto) 6.6 % Basophils (%) (Auto) 0.5 % Neutrophils # (Auto) 1.8 TH/MM3 Lymphocytes # (Auto) 1.1 TH/MM3 Monocytes # (Auto) 0.4 TH/MM3 Eosinophils # (Auto) 0.2 TH/MM3 Basophils # (Auto) 0.0 TH/MM3 CBC Comment DIFF FINAL Differential Comment Prothrombin Time 9.9 SEC Prothromb Time International Ratio 1.0 RATIO Activated Partial Thromboplast Time 21.2 SEC Blood Urea Nitrogen 24 MG/DL Creatinine 1.42 MG/DL Random Glucose 74 MG/DL Total Protein 9.7 GM/DL Albumin 3.0 GM/DL Calcium Level 8.6 MG/DL Alkaline Phosphatase 51 U/L Aspartate Amino Transf (AST/SGOT) 27 U/L Alanine Aminotransferase (ALT/SGPT) 22 U/L Total Bilirubin 0.3 MG/DL Sodium Level 137 MEQ/L Potassium Level 4.1 MEQ/L Chloride Level 109 MEQ/L Carbon Dioxide Level 23.9 MEQ/L Anion Gap 4 MEQ/L Estimat Glomerular Filtration Rate 72 ML/MIN Total Creatine Kinase 226 U/L Lipase 654 U/L Urine Color YELLOW Urine Turbidity CLEAR Urine pH 6.5 Urine Specific Lamy 1.025 Urine Protein TRACE mg/dL Urine Glucose (UA) NEG mg/dL Urine Ketones NEG mg/dL Urine Occult Blood MOD Urine Nitrite NEG Urine Bilirubin NEG Urine Urobilinogen LESS THAN 2.0 MG/DL Urine Leukocyte Esterase MOD Urine RBC 5 /hpf Urine WBC 45 /hpf Microscopic Urinalysis Comment CULTURE INDICATED Chlamydia trachomatis DNA (PCR) NOT DETECTED Neisseria gonorrhoeae DNA (PCR) DETECTED MDM Medical Decision Making Medical Screen Exam Complete: Yes Emergency Medical Condition: Yes Differential Diagnosis Urinary retention, UTI, cystitis, urethritis, rhabdomyolysis, dehydration, renal insufficiency, appendicitis, colitis, prostatitis Narrative Course Vital signs show heart rate 82, blood pressure 151/85, pulse ox 99% on room air , oral temperature 98.4F. CBC: WBC 3.5, hemoglobin 14.4, hematocrit 42.6, platelets 271. CMP is remarkable for BUN 24, creatinine 1.42, GFR 72 which is close to his baseline. Lipase is 654. UA: Moderate occult blood, moderate leukocyte esterase, 5 RBCs, 45 WBCs. Patient was empirically treated for gonorrhea and chlamydia with Rocephin and azithromycin. Patient attempted to urinate in the emergency department and was unable to. Welch catheter was placed with 650 cc of cloudy urine output. Gonorrhea and chlamydia PCR are pending. CT abdomen pelvis: No acute findings in the abdomen or pelvis. The patient was given 2 doses of morphine and continues to have abdominal discomfort. He is moderately tender on exam. Given ongoing tenderness, urinary retention with likely prostatitis in this patient with HIV who is off of his antiretroviral medications, the patient will be admitted for further treatment and evaluation. Case discussed with hospitalist Dr. Sanches who will admit the patient to the hospitalist service. Diagnosis Primary Impression: Urinary retention Additional Impressions: Prostatitis Qualified Codes: N41.0 - Acute prostatitis Intractable abdominal pain Admitting Information Admitting Physician Requests: Observation Samuel Handley MD Jul 08, 2017 03:27
[2017-07-08 03:40] LABS: AUTOMATED NEUTROPHIL # 1.8 TH/MM3 (1.8-7.7); BASOPHIL % 0.5 % (0.0-2.0); EOSINOPHIL # 0.2 TH/MM3 (0-0.4); EOSINOPHIL % 6.6 % (0.0-4.0); HEMATOCRIT 42.6 % (39.0-51.0); HEMOGLOBIN 14.4 GM/DL (13.0-17.0); LYMPH % 32.1 % (9.0-44.0); LYMPHOCYTE # 1.1 TH/MM3 (1.0-4.8); MEAN CELL VOLUME 91.2 FL (80.0-100.0); MEAN CORPUSCULAR HEMOGLOBIN 30.9 PG (27.0-34.0); MEAN CORPUSCULAR HGB CONC 33.8 % (32.0-36.0); MEAN PLATELET VOLUME 6.6 FL (7.0-11.0); MONOCYTE # 0.4 TH/MM3 (0-0.9); NEUT % 50.8 % (16.0-70.0); PLATELET COUNT 271 TH/MM3 (150-450); PROTHROMBIN TIME - PATIENT 9.9 SEC (9.8-11.6); RED BLOOD COUNT 4.67 MIL/MM3 (4.50-5.90); RED CELL DISTRIBUTION WIDTH 13.5 % (11.6-17.2); WHITE BLOOD COUNT 3.5 TH/MM3 (4.0-11.0)
[2017-07-08 04:24] LABS: ALKALINE PHOSPHATASE 51 U/L (45-117); ALT (GPT) 22 U/L (12-78); AST (GOT) 27 U/L (15-37); BICARBONATE 23.9 MEQ/L (21.0-32.0); BLOOD UREA NITROGEN 24 MG/DL (7-18); CALCIUM 8.6 MG/DL (8.5-10.1); CHLORIDE 109 MEQ/L (98-107); CREATININE 1.42 MG/DL (0.60-1.30); GLOMERULAR FILTRATION RATE 72 ML/MIN (>89); GLUCOSE,RANDOM 74 MG/DL (74-106); SODIUM (NA) 137 MEQ/L (136-145); TOTAL BILIRUBIN ADULT 0.3 MG/DL (0.2-1.0); TOTAL PROTEIN 9.7 GM/DL (6.4-8.2)
[2017-07-08] MEDS ORDERED: ONDANSETRON HCL 4 MG/2 ML VIAL ONE (04:41)
[2017-07-08] MEDS ORDERED: MORPHINE SULFATE 2 MG/ML SYRINGE IV PUSH ONE ×2 (04:45→06:30)
[2017-07-08 04:51] LABS: BILIRUBIN, URINE NEG (NEG); BLOOD, URINE MOD (NEG); GLUCOSE,URINE NEG (NEG); KETONE, URINE NEG (NEG); NITRITE,URINE NEG (NEG); PH, URINE 6.5 (5.0-8.5); URINE COLOR YELLOW (YELLW/STRAW); URINE LEUKOCYTE ESTERASE MOD (NEG)
[2017-07-08] MEDS ORDERED: cefTRIAXone INJ 1,000 MG in SODIUM CHLORIDE 0.9% INJ 100 ML IV ONE (05:00)
[2017-07-08] MEDS ORDERED: AZITHROMYCIN 250 MG TAB PO ONE (05:00)
[2017-07-08] MEDS ORDERED: IOHEXOL 350 MG/ML 10 ML VIAL (for RAD DIAG) IVCONTRAST ONE (05:25)
--- NOTE | 2017-07-08 05:43 | RADRPT ---
EXAM DATE/TIME: 07/08/2017 05:18 [facility] COMPARISON: CT ABDOMEN & PELVIS W CONTRAST, August 15, 2016, 22:21. INDICATIONS : Lower abdominal pain, hematuria and urinary retention. IV CONTRAST: 100 cc Omnipaque 350 (iohexol) IV ORAL CONTRAST: Prescribed oral contrast ingested. RADIATION DOSE: 6.64 CTDIvol (mGy) MEDICAL HISTORY : Hypertension. HIV. Chronic obstructive pulmonary disease.Renal failure. SURGICAL HISTORY : None. ENCOUNTER: Initial ACUITY: 3 days PAIN SCALE: 6/10 LOCATION: Bilateral lower quadrant TECHNIQUE: Volumetric scanning of the abdomen and pelvis was performed. Using automated exposure control and ad justment of the mA and/or kV according to patient size, radiation dose was kept as low as reasonably achievable to obtain optimal diagnostic quality images. DICOM format image data is available electro nically for review and comparison. FINDINGS: LOWER LUNGS: The visualized lower lungs are clear. LIVER: Homogeneous density without lesion. There is no dilation of the biliary tree. No calcified gallston es. SPLEEN: Normal size without lesion. PANCREAS: Within normal limits. KIDNEYS: Normal in size and shape. There is no mass, stone or hydronephrosis. ADRENAL GLANDS: Within normal limits. VASCULAR: There is no aortic aneurysm. BOWEL/MESENTERY: The stomach, small bowel, and colon demonstrate no acute abnormality. There is no free intraperitone al air or fluid. ABDOMINAL WALL: Within normal limits. RETROPERITONEUM: There is no lymphadenopathy. BLADDER: Welch catheter in place. Urinary bladder collapsed. REPRODUCTIVE: Within normal limits. INGUINAL: There is no lymphadenopathy or hernia. MUSCULOSKELETAL: Within normal limits for patient age. CONCLUSION: No acute findings in the abdomen or pelvis. Byron Pineda MD on July 08, 2017 at 5:34 Board Certified Radiologist. This report was verified electronically.
[2017-07-08] MEDS ORDERED: SENNOSIDES 8.6 MG TAB PO PRN (06:45)
[2017-07-08] MEDS ORDERED: ACETAMINOPHEN 325 MG TAB PO PRN (06:45)
[2017-07-08] MEDS ORDERED: LACTULOSE SYRUP 20 GM/30 ML CUP PO PRN (06:45)
[2017-07-08] MEDS ORDERED: NALOXONE HCL 0.4 MG/ML AMP IV PUSH PRN (06:45)
[2017-07-08] MEDS ORDERED: MORPHINE SULFATE 4 MG/ML INJ IV PUSH PRN (06:45)
[2017-07-08] MEDS ORDERED: BISACODYL 10 MG SUPP RECTAL PRN (06:45)
[2017-07-08] MEDS ORDERED: ONDANSETRON HCL 4 MG/2 ML VIAL IVP PRN (06:45)
[2017-07-08] MEDS ORDERED: ACETAMINOPHEN/HYDROcodone 325 MG/10 MG TAB PO PRN (11:30)
[2017-07-08] MEDS ORDERED: ACETAMINOPHEN/HYDROcodone 325 MG/5 MG TAB PO PRN (11:30)
[2017-07-08] MEDS: SODIUM CHLORIDE 0.9% FLUSH 10 ML FLUSH IV FLUSH SCH (11:31)
[2017-07-08] MEDS: DOCUSATE SODIUM 50 MG/SENNA 8.6 MG TAB PO SCH (11:31)
--- NOTE | 2017-07-08 12:04 | HHI.HP ---
HPI Service [facility] Hospitalists Primary Care Physician Yanna De Jesus MD Admission Diagnosis Urinary retention, prostatitis, intractable abdominal pain Diagnoses: Chief Complaint: Urinary retention Dysuria Penile discharge Travel History International Travel<30 Days: No Contact w/Intl Traveler <30 Da: No Traveled to Known Affected Are: No History of Present Illness Written by Jaqueline Dunaway, acting as scribe for Dr. Simons on 07/08/17 at 11: 57. This is a 27yo male patient with PMHX of HIV positive, medication compliant and asthma who presents to [facility] ED with complaints of painful urination, urinary retention and penile discharge x 1 week. He reports a single episode of hematuria two days ago. He decided to come into the ED today due to severe pain with urination and low urine output. He reports the pain is in his abdomen and runs around the right side into his kidney area. He states the penile discharge is greenish. He endorses night sweats. He denies any change in his chronic shortness of breath from asthma. He denies any chest pain. Denies any nausea or vomiting or diarrhea. He denies any dizziness, lightheadedness, numbness, tingling or weakness. He follows with ID physician on Lala aMtos but cannot recall his name. He has been compliant with his antiretroviral medications up until 2 days ago when he ran out of his medications. His last CD4 count was 142. He is sexually active with one female sex partner who is also HIV positive. In the ED, patient tested positive for gonorrhea but chlamydia was not detected. He was given a one-time dose of azithromycin and started on IV ceftriaxone. Review of Systems Except as stated in HPI: all other systems reviewed are Neg Past Family Social History Past Medical History HIV, compliant with antiretroviral medications Asthma Past Surgical History Patient denies any previous surgical procedures Reported Medications Nicotine Patch (Nicotine) 14 Mg/24 Hr Patch 14 Mg T-DERMAL DAILY 30 Days Sulfamethoxazole-Trimethoprim 800-160 Mg Tab 1 Tab PO DAILY Prednisone (21) 10 mg tab Dose Pack (Prednisone) 10 Mg Pack 10 Mg PO DIRECTED Symbicort Inh (Budesonide/Formoterol Fumarate) 160-4.5 Mcg/Act Aero 2 Puff INH Q12HR Ventolin Hfa 18 GM Inh (Albuterol Sulfate) 90 Mcg/Act Aer 2 Puff INH Q4H PRN Nebulizer 1 Mis Mis Ea .ROUTE DIRECTED Claritin (Loratadine) 10 Mg Tablet 10 Mg PO DAILY Lactobacillus Acidophilus 1 Billion Cell Tab 1 Tab PO TIDAC Albuterol Neb (Albuterol Sulfate) 2.5 Mg/3 Ml Neb 2.5 Mg NEB Q4HR NEB PRN Epipen 2-Arjun Inj (Epinephrine) 0.3 Mg/0.3 Ml Pfpen 0.3 Mg SQ ONCE PRN Allergies: Coded Allergies: cucumber (Verified Allergy, Severe, 07/08/17) THE VEG CUCUMBER WELL CUCUMBER SOAP Uncoded Allergies: cucumber body wash (Allergy, Severe, Hives/ , 11/27/16) shortness of breath,swelling. Active Ordered Medications Current Medications Medications (Trade) Dose Ordered Sig/Sarah Route Start Time Stop Time Status Last Admin (Morphine Inj) 4 mg Q3H PRN IV PUSH 07/08/17 06:45 Ceftriaxone Sodium 2000 mg/ Sodium Chloride 100 ml @ 200 mls/hr Q24H IV 07/09/17 05:00 (NS Flush) 2 ml UNSCH PRN IV FLUSH 07/08/17 06:45 (NS Flush) 2 ml BID IV FLUSH 07/08/17 09:00 07/08/17 11:31 (Tylenol) 650 mg Q4H PRN PO 07/08/17 06:45 (Zofran Inj) 4 mg Q6H PRN IVP 07/08/17 06:45 (Narcan Inj) 0.4 mg UNSCH PRN IV PUSH 07/08/17 06:45 (Viridiana-Colace) 1 tab BID PO 07/08/17 09:00 07/08/17 11:31 (Milk Of Magnesia Liq) 30 ml Q12H PRN PO 07/08/17 06:45 (Senokot) 17.2 mg Q12H PRN PO 07/08/17 06:45 (Dulcolax Supp) 10 mg DAILY PRN RECTAL 07/08/17 06:45 (Lactulose Liq) 30 ml DAILY PRN PO 07/08/17 06:45 (Flomax) 0.4 mg DAILY PO 07/09/17 09:00 Family History DM CVA Social History He smokes less than a pack a day for the past 6 or 7 years. He reports rare EtOH use. He occasionally smokes marijuana. Physical Exam Vital Signs Vital Signs Date Time Temp Pulse Resp B/P (MAP) Pulse Ox O2 Delivery O2 Flow Rate FiO2 07/08/17 11:26 98.3 89 20 119/61 (80) 96 07/08/17 08:11 98.0 80 18 134/82 (99) 97 07/08/17 07:00 84 16 142/75 (97) 98 Room Air 07/08/17 06:30 85 18 155/90 (111) 98 Room Air 07/08/17 05:30 76 18 143/93 (110) 99 Room Air 07/08/17 04:30 80 17 160/95 (116) 99 Room Air 07/08/17 04:00 82 18 148/83 (104) 99 Room Air 07/08/17 03:30 72 18 117/67 (84) 99 Room Air 07/08/17 00:53 98.4 82 22 151/85 (107) 99 Physical Exam GENERAL: This is a well-nourished, well-developed young -[place] male patient, in no apparent distress. Awake and alert. SKIN: No rashes, ecchymoses or lesions. Cool and dry. HEAD: Atraumatic. Normocephalic. No temporal or scalp tenderness. EYES: Pupils equal round and reactive. Extraocular motions intact. No scleral icterus. No injection or drainage. ENT: Nose without bleeding, purulent drainage or septal hematoma. Throat without erythema, tonsillar hypertrophy or exudate. Uvula midline. Airway patent. NECK: Trachea midline. No lymphadenopathy. Supple, nontender, no meningeal signs. CARDIOVASCULAR: Regular rate and rhythm without murmurs, gallops, or rubs. RESPIRATORY: Clear to auscultation. Breath sounds equal bilaterally. No wheezes , rales, or rhonchi. GASTROINTESTINAL: Abdomen soft, non-tender, nondistended. No hepato-splenomegaly , or palpable masses. No guarding. GENITOURINARY: Campos catheter in place with yellow urine in bag. MUSCULOSKELETAL: Extremities without clubbing, cyanosis, or edema. No joint tenderness, effusion, or edema noted. No calf tenderness. NEUROLOGICAL: Awake and alert. Cranial nerves II through XII grossly intact. Motor and sensory grossly within normal limits. Five out of 5 muscle strength in all muscle groups. Normal speech. Laboratory Laboratory Tests Test 07/08/17 03:20 07/08/17 04:10 White Blood Count 3.5 Red Blood Count 4.67 Hemoglobin 14.4 Hematocrit 42.6 Mean Corpuscular Volume 91.2 Mean Corpuscular Hemoglobin 30.9 Mean Corpuscular Hemoglobin Concent 33.8 Red Cell Distribution Width 13.5 Platelet Count 271 Mean Platelet Volume 6.6 Neutrophils (%) (Auto) 50.8 Lymphocytes (%) (Auto) 32.1 Monocytes (%) (Auto) 10.0 Eosinophils (%) (Auto) 6.6 Basophils (%) (Auto) 0.5 Neutrophils # (Auto) 1.8 Lymphocytes # (Auto) 1.1 Monocytes # (Auto) 0.4 Eosinophils # (Auto) 0.2 Basophils # (Auto) 0.0 CBC Comment DIFF FINAL Differential Comment Prothrombin Time 9.9 Prothromb Time International Ratio 1.0 Activated Partial Thromboplast Time 21.2 Blood Urea Nitrogen 24 Creatinine 1.42 Random Glucose 74 Total Protein 9.7 Albumin 3.0 Calcium Level 8.6 Alkaline Phosphatase 51 Aspartate Amino Transf (AST/SGOT) 27 Alanine Aminotransferase (ALT/SGPT) 22 Total Bilirubin 0.3 Sodium Level 137 Potassium Level 4.1 Chloride Level 109 Carbon Dioxide Level 23.9 Anion Gap 4 Estimat Glomerular Filtration Rate 72 Total Creatine Kinase 226 Lipase 654 Urine Color YELLOW Urine Turbidity CLEAR Urine pH 6.5 Urine Specific Carrier 1.025 Urine Protein TRACE Urine Glucose (UA) NEG Urine Ketones NEG Urine Occult Blood MOD Urine Nitrite NEG Urine Bilirubin NEG Urine Urobilinogen LESS THAN 2.0 Urine Leukocyte Esterase MOD Urine RBC 5 Urine WBC 45 Microscopic Urinalysis Comment CULTURE INDICATED Chlamydia trachomatis DNA (PCR) NOT DETECTED Neisseria gonorrhoeae DNA (PCR) DETECTED Date/Time Source Procedure Growth Status 07/08/17 04:10 Urine Random Urine Urine Culture Pending Received Result Diagram: 07/08/17 0320 07/08/17 0320 Imaging Last Impressions Abdomen/Pelvis CT 07/08/17 0158 Signed Impressions: Service Date/Time: Saturday, July 08, 2017 05:18 - CONCLUSION: No acute findings in the abdomen or pelvis. Byron Pineda MD Caprini VTE Risk Assessment Caprini VTE Risk Assessment: No/Low Risk (score <= 1) Caprini Risk Assessment Model Point Value = 1 Point Value = 2 Point Value = 3 Point Value = 5 Age 41-60 Minor surgery BMI > 25 kg/m2 Swollen legs Varicose veins or History of unexplained or recurrent spontaneous Oral contraceptives or hormone replacement Sepsis (< 1 month) Serious lung disease, including pneumonia (< 1 month) Abnormal pulmonary function Acute myocardial infarction Congestive heart failure (< 1 month) History of inflammatory bowel disease Medical patient at bed rest Age 61-74 Arthroscopic surgery Major open surgery (> 45 min) Laparoscopic surgery (> 45 min) Malignancy Confined to bed (> 72 hours) Immobilizing plaster cast Central venous access Age >= 75 History of VTE Family history of VTE Factor V Leiden Prothrombin [id number] Lupus anticoagulant Anticardiolipin antibodies Elevated serum homocysteine Heparin-induced thrombocytopenia Other congenital or acquired thrombophilia Stroke (< 1 month) Elective arthroplasty Hip, pelvis, or leg fracture Acute spinal cord injury (< 1 month) Prophylaxis Regimen Total Risk Factor Score Risk Level Prophylaxis Regimen 0-1 Low Early ambulation 2 Moderate Order ONE of the following: *Sequential Compression Device (SCD) *Heparin 5000 units SQ BID 3-4 Higher Order ONE of the following medications: *Heparin 5000 units SQ TID *Enoxaparin/Lovenox 40 mg SQ daily (WT < 150 kg, CrCl > 30 mL/min) *Enoxaparin/Lovenox 30 mg SQ daily (WT < 150 kg, CrCl > 10-29 mL/min) *Enoxaparin/Lovenox 30 mg SQ BID (WT < 150 kg, CrCl > 30 mL/min) AND/OR *Sequential Compression Device (SCD) 5 or more Highest Order ONE of the following medications: *Heparin 5000 units SQ TID (Preferred with Epidurals) *Enoxaparin/Lovenox 40 mg SQ daily (WT < 150 kg, CrCl > 30 mL/min) *Enoxaparin/Lovenox 30 mg SQ daily (WT < 150 kg, CrCl > 10-29 mL/min) *Enoxaparin/Lovenox 30 mg SQ BID (WT < 150 kg, CrCl > 30 mL/min) AND *Sequential Compression Device (SCD) Assessment and Plan Assessment and Plan 27yo male patient with PMHX of HIV positive, medication compliant and asthma who presents to [facility] ED with complaints of painful urination, urinary retention and penile discharge x 1 week. He reports a single episode of hematuria two days ago. //Urinary retention -campos catheter placed in the ED with 650 cc of UOP -Start on Flomax 0.4 mg, give dose now -Discontinue Campos and monitor for spontaneous voiding //CINDY secondary to urinary retention -Avoid nephrotoxic agents -Continue to monitor kidney function //Gonorrhea urethritis -Patient given a dose of azithromycin 1000mg po and Ceftriaxone 1000mg IM x 1 in the ED //UTI -Suspect secondary to above -Patient started on IV ceftriaxone in the ED -Follow-up on urine culture results //HIV -patient complaint with his antiretroviral meds up until 2 days ago when he ran out -follow up with ID physician following discharge to resume HIV meds //DVT prophylaxis -Bilateral SCD/KYLE emyken Discussed Condition With Patient, nursing staff This note was transcribed by nelida Dunaway. I, Dr. Oscar Simons personally performed the history, physical exam, and medical decision making; and confirmed the accuracy of the information in the transcribed note. Authenticated by Dr. Oscar Simons on 07/11/17 at 15:00. Jaqueline Dunaway Jul 08, 2017 12:04 Oscar Simons MD Jul 11, 2017 15:01
[2017-07-08] MEDS ORDERED: TAMSULOSIN HCL 0.4 MG CAP PO ONE (14:00)
[2017-07-09] MEDS: DOCUSATE SODIUM 50 MG/SENNA 8.6 MG TAB PO SCH ×3 (00:04→20:52)
[2017-07-09] MEDS: SODIUM CHLORIDE 0.9% FLUSH 10 ML FLUSH IV FLUSH SCH ×3 (00:04→20:53)
[2017-07-09] MEDS: MAGNESIUM HYDROXIDE SUSP 30 ML CUP PO PRN ×2 (00:18→20:52)
[2017-07-09] MEDS ORDERED: ACETAMINOPHEN/HYDROcodone 325 MG/5 MG TAB PO ONE (00:45)
[2017-07-09 03:34] VITALS: BP 136/77; RESP 18; TEMP 98.2; O2SAT 97
[2017-07-09] MEDS: cefTRIAXone INJ 2,000 MG in SODIUM CHLORIDE 0.9% INJ 100 ML IV SCH (04:26)
[2017-07-09 08:23] LABS: AUTOMATED NEUTROPHIL # 0.9 TH/MM3 (1.8-7.7); BASOPHIL % 0.6 % (0.0-2.0); EOSINOPHIL # 0.2 TH/MM3 (0-0.4); EOSINOPHIL % 8.8 % (0.0-4.0); HEMATOCRIT 42.4 % (39.0-51.0); HEMOGLOBIN 14.3 GM/DL (13.0-17.0); LYMPH % 44.5 % (9.0-44.0); LYMPHOCYTE # 1.1 TH/MM3 (1.0-4.8); MEAN CELL VOLUME 91.5 FL (80.0-100.0); MEAN CORPUSCULAR HEMOGLOBIN 30.8 PG (27.0-34.0); MEAN CORPUSCULAR HGB CONC 33.6 % (32.0-36.0); MEAN PLATELET VOLUME 6.9 FL (7.0-11.0); MONO % 9.3 % (0.0-8.0); MONOCYTE # 0.2 TH/MM3 (0-0.9); NEUT % 36.8 % (16.0-70.0); PLATELET COUNT 239 TH/MM3 (150-450); RED BLOOD COUNT 4.64 MIL/MM3 (4.50-5.90); RED CELL DISTRIBUTION WIDTH 13.5 % (11.6-17.2); WHITE BLOOD COUNT 2.5 TH/MM3 (4.0-11.0)
[2017-07-09 08:47] LABS: BICARBONATE 25.2 MEQ/L (21.0-32.0); CALCIUM 8.4 MG/DL (8.5-10.1); CREATININE 1.28 MG/DL (0.60-1.30)
[2017-07-09 08:59] VITALS: BP 130/78; PULSE 76; RESP 20; TEMP 97.9; O2SAT 98
[2017-07-09] MEDS ORDERED: INFLUENZA VIRUS VACCINE (QUADRIVALENT) 0.5 ML SYR IM ONE (09:00)
[2017-07-09] MEDS: TAMSULOSIN HCL 0.4 MG CAP PO SCH (09:51)
[2017-07-09 10:18] LABS: BANDS 11 % (0-6); LYMPHOCYTES 28 % (9-44); MONOCYTES 11 % (0-8); NEUTROPHIL # MANUAL DIFF 1.4 TH/MM3 (1.8-7.7); POLYS (SEG NEUTROPHILS) 45 % (16-70)
[2017-07-09 12:15] VITALS: BP 128/68; PULSE 70; RESP 20; TEMP 97.9; O2SAT 96
--- NOTE | 2017-07-09 15:19 | HHI.PR ---
Subjective Remarks Follow-up visit HIV, gonorrhea, painful urination, urinary retention, urinary tract infection. Patient seen and examined today. Reports he is now able to urinate. Continues to have some discomfort but states it is better compared to when he came into the hospital. Denies any fevers, chills overnight. Denies any shortness of breath or dyspnea. Denies chest pain, palpitations, dizziness , headaches. Denies hematuria, minimal penile discharge. Objective Vitals Vital Signs Date Time Temp Pulse Resp B/P (MAP) Pulse Ox O2 Delivery O2 Flow Rate FiO2 07/09/17 12:15 97.9 70 20 128/68 (88) 96 07/09/17 08:59 97.9 76 20 130/78 (95) 98 07/09/17 03:34 98.2 18 136/77 (96) 97 07/08/17 23:57 98.4 80 18 128/78 (95) 96 07/08/17 20:59 98.5 95 18 137/98 (111) 96 07/08/17 16:25 98.7 77 20 125/68 (87) 98 I/O 07/08/17 07/08/17 07/08/17 07/09/17 07/09/17 07/09/17 07:00 15:00 23:00 07:00 15:00 23:00 Intake Total 1000 ml Output Total 250 ml 350 ml 250 ml Balance 1000 ml -250 ml -350 ml -250 ml Intake IV Total 1000 ml Output Urine Total 250 ml 350 ml 250 ml Result Diagram: 07/09/17 0642 07/09/17 0642 Imaging Last Impressions Abdomen/Pelvis CT 07/08/17 0158 Signed Impressions: Service Date/Time: Saturday, July 08, 2017 05:18 - CONCLUSION: No acute findings in the abdomen or pelvis. Byron Pineda MD Objective Remarks GENERAL: This is a well-nourished, well-developed patient, in no apparent distress. SKIN: Warm and dry. HEENT: Normocephalic. Pupils equal round and reactive. Nose without bleeding. Airway patent. NECK: Trachea midline. No JVD. Supple. CARDIOVASCULAR: Regular rate and rhythm without murmurs, gallops, or rubs. RESPIRATORY: Clear to auscultation. Breath sounds equal bilaterally. No wheezes , rales, or rhonchi. GASTROINTESTINAL: Abdomen soft, non-tender, nondistended. Bowel Sounds normoactive x4. Spontaneous void MUSCULOSKELETAL: Extremities without clubbing, cyanosis, or edema. NEUROLOGICAL: Awake and alert. Oriented to time, place, person. No focal neuro deficit. Moves all extremities. Normal speech. A/P Problem List: (1) Urinary retention ICD Code: R33.9 - Retention of urine, unspecified Status: Acute (2) SOB (shortness of breath) ICD Code: R06.02 - SOB (shortness of breath) Status: Acute (3) HIV (human immunodeficiency virus infection) ICD Code: B20 - Human immunodeficiency virus [HIV] disease (4) Prostatitis ICD Code: N41.9 - Inflammatory disease of prostate, unspecified Status: Acute Assessment and Plan 27yo male patient with PMHX of HIV positive, medication compliant and asthma who presents to [facility] ED with complaints of painful urination, urinary retention and penile discharge x 1 week. He reports a single episode of hematuria two days ago. Urinary retention -campos catheter placed in the ED with 650 cc of UOP -on Flomax 0.4 mg daily -Spontaneously voiding now. 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 Monitor cultures. Will switch over to PO if cultures indicate HIV - On 2 HIV meds. Will ask RN to reconcile medications and restart patient DVT prophylaxis -Bilateral SCD/KYLE hose Discharge Planning Plan to discharge home tomorrow if clinically improved and if cultures come back and placed on appropriate antibiotic if necessary. Problem Qualifiers (1) Prostatitis: Qualified Codes: N41.0 - Acute prostatitis Alexandru Santos Jul 09, 2017 15:18
[2017-07-09] MEDS ORDERED: EMTR1TAB4 PO (16:46)
[2017-07-09] MEDS ORDERED: DOLU1TAB5 PO (16:46)
[2017-07-09 16:49] VITALS: BP 128/65; PULSE 80; RESP 20; TEMP 97.9; O2SAT 98
[2017-07-09] MEDS: DOLUTEGRAVIR SODIUM 50 MG TAB PO SCH (18:00)
--- NOTE | 2017-07-09 18:38 | HHI.DCPOC ---
Discharge Care Plan Diagnosis: (1) Prostatitis (2) Urinary retention Your Health Problems Are: Urinary Difficulties Goals to Promote Your Health * To prevent worsening of your condition and complications * To maintain your health at the optimal level Directions to Meet Your Goals Take your medications as prescribed Follow your dietary instruction Follow activity as directed Keep your appointments as scheduled Take your immunizations and boosters as scheduled If your symptoms worsen call your PCP, if no PCP go to Urgent Care Center or Emergency Room Smoking is Dangerous to Your Health. Avoid second hand smoke Call the 24-hour hour crisis hotline for domestic abuse at Alexandru Santos [facility] Jul 09, 2017 18:38
[2017-07-09 20:39] VITALS: BP 118/62; PULSE 80; RESP 18; TEMP 97.9; O2SAT 95
[2017-07-09 22:31] VITALS: BP 129/68; PULSE 81; RESP 20; TEMP 98; O2SAT 94
[2017-07-10 03:11] VITALS: BP 128/63; PULSE 76; RESP 16; TEMP 97.4; O2SAT 95
[2017-07-10] MEDS: cefTRIAXone INJ 2,000 MG in SODIUM CHLORIDE 0.9% INJ 100 ML IV SCH (04:09)
[2017-07-10 08:30] VITALS: BP 128/62; PULSE 68; RESP 18; TEMP 97.9; O2SAT 96
[2017-07-10] MEDS: TAMSULOSIN HCL 0.4 MG CAP PO SCH (08:39)
[2017-07-10] MEDS: DOLUTEGRAVIR SODIUM 50 MG TAB PO SCH (08:39)
[2017-07-10] MEDS: DOCUSATE SODIUM 50 MG/SENNA 8.6 MG TAB PO SCH (08:39)
[2017-07-10] MEDS: SODIUM CHLORIDE 0.9% FLUSH 10 ML FLUSH IV FLUSH SCH (08:40)
[2017-07-10] MEDS ORDERED: EMTRICITABINE TENOFOVIR ALAFENAMIDE PO SCH (09:00)
[2017-07-10] MEDS ORDERED: CIPR-9 PO (11:16)
[2017-07-10] MEDS ORDERED: TAMS5CAP PO (11:28)
[2017-07-10] MEDS ORDERED: VENTAER INH (12:20)
[2017-07-10] MEDS ORDERED: SYMB160A INH (12:20)
[2017-07-10 12:37] VITALS: BP 140/66; PULSE 80; RESP 18; TEMP 98.6; O2SAT 98
--- NOTE | 2017-07-10 13:52 | HHI.DS ---
Discharge Summary Admission Date Jul 08, 2017 at 06:41 Discharge Date: Jul 10, 2017 Admitting Diagnosis Urinary retention, prostatitis, intractable abdominal pain (1) Urinary retention ICD Code: R33.9 - Retention of urine, unspecified Status: Acute (2) SOB (shortness of breath) ICD Code: R06.02 - SOB (shortness of breath) Status: Acute (3) HIV (human immunodeficiency virus infection) ICD Code: B20 - Human immunodeficiency virus [HIV] disease (4) Prostatitis ICD Code: N41.9 - Inflammatory disease of prostate, unspecified Status: Acute Procedures none Brief History - From Admission Written by Jaqueline Dunaway, acting as scribe for Dr. Simons on 07/08/17 at 11: 57. This is a 27yo male patient with PMHX of HIV positive, medication compliant and asthma who presents to [facility] ED with complaints of painful urination, urinary retention and penile discharge x 1 week. He reports a single episode of hematuria two days ago. He decided to come into the ED today due to severe pain with urination and low urine output. He reports the pain is in his abdomen and runs around the right side into his kidney area. He states the penile discharge is greenish. He endorses night sweats. He denies any change in his chronic shortness of breath from asthma. He denies any chest pain. Denies any nausea or vomiting or diarrhea. He denies any dizziness, lightheadedness, numbness, tingling or weakness. He follows with ID physician on Lala Matos but cannot recall his name. He has been compliant with his antiretroviral medications up until 2 days ago when he ran out of his medications. His last CD4 count was 142. He is sexually active with one female sex partner who is also HIV positive. In the ED, patient tested positive for gonorrhea but chlamydia was not detected. He was given a one-time dose of azithromycin and started on IV ceftriaxone. CBC/BMP: 07/09/17 0642 07/09/17 0642 Significant Findings Laboratory Tests Test 07/08/17 03:20 07/08/17 04:10 07/09/17 06:42 White Blood Count 3.5 TH/MM3 (4.0-11.0) 2.5 TH/MM3 (4.0-11.0) Mean Platelet Volume 6.6 FL (7.0-11.0) 6.9 FL (7.0-11.0) Monocytes (%) (Auto) 10.0 % (0.0-8.0) 9.3 % (0.0-8.0) Eosinophils (%) (Auto) 6.6 % (0.0-4.0) 8.8 % (0.0-4.0) Activated Partial Thromboplast Time 21.2 SEC (24.3-30.1) Blood Urea Nitrogen 24 MG/DL (7-18) Creatinine 1.42 MG/DL (0.60-1.30) Total Protein 9.7 GM/DL (6.4-8.2) Albumin 3.0 GM/DL (3.4-5.0) Chloride Level 109 MEQ/L (98-107) Anion Gap 4 MEQ/L (5-15) Estimat Glomerular Filtration Rate 72 ML/MIN (>89) 81 ML/MIN (>89) Lipase 654 U/L (73-393) Urine Occult Blood MOD (NEG) Urine Leukocyte Esterase MOD (NEG) Urine RBC 5 /hpf (0-3) Urine WBC 45 /hpf (0-5) Lymphocytes (%) (Auto) 44.5 % (9.0-44.0) Neutrophils # (Auto) 0.9 TH/MM3 (1.8-7.7) Band Neutrophils % 11 % (0-6) Monocytes % 11 % (0-8) Eosinophils % 5 % (0-4) Neutrophils # (Manual) 1.4 TH/MM3 (1.8-7.7) Calcium Level 8.4 MG/DL (8.5-10.1) Sodium Level 135 MEQ/L (136-145) Imaging Last Impressions Abdomen/Pelvis CT 07/08/17 0158 Signed Impressions: Service Date/Time: Saturday, July 08, 2017 05:18 - CONCLUSION: No acute findings in the abdomen or pelvis. Byron Pineda MD PE at Discharge GENERAL: This is a well-nourished, well-developed patient, in no apparent distress. SKIN: Warm and dry. HEENT: Normocephalic. Pupils equal round and reactive. Nose without bleeding. Airway patent. NECK: Trachea midline. No JVD. Supple. CARDIOVASCULAR: Regular rate and rhythm without murmurs, gallops, or rubs. RESPIRATORY: Clear to auscultation. Breath sounds equal bilaterally. No wheezes , rales, or rhonchi. GASTROINTESTINAL: Abdomen soft, non-tender, nondistended. Bowel Sounds normoactive x4. Spontaneous void MUSCULOSKELETAL: Extremities without clubbing, cyanosis, or edema. NEUROLOGICAL: Awake and alert. Oriented to time, place, person. No focal neuro deficit. Moves all extremities. Normal speech. Hospital Course 27yo male patient with PMHX of HIV positive, medication compliant and asthma who presents to [facility] ED with complaints of painful urination, urinary retention and penile discharge x 1 week. He reports a single episode of hematuria two days ago. Urinary retention -campos catheter placed in the ED with 650 cc of UOP -on Flomax 0.4 mg daily -Spontaneously voiding now. 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 Patient to follow-up with urology as an outpatient within 1 week to determine complete course of antibiotic treatment HIV - On 2 HIV meds. Will ask RN to reconcile medications and restart patient DVT prophylaxis -Bilateral SCD/KYLE hose Pt Condition on Discharge: Stable Discharge Disposition: Discharge Home Discharge Time: <= 30 minutes Discharge Instructions DIET: Follow Instructions for: As Tolerated, No Restrictions Activities you can perform: Regular-No Restrictions Follow up Referrals: PCP Follow-up - 2-3 Days Urology - 1 Week with Jamel De Jesus DO New Medications: Ciprofloxacin (Cipro) 500 Mg Tab 500 MG PO BID for Infection for 14 Days, #28 TAB 0 Refills Tamsulosin (Flomax) 0.4 Mg Cap 0.4 MG PO DAILY for urinary retention, #30 CAP 0 Refills Continued Medications: Albuterol 18 GM Inh (Ventolin Hfa 18 GM Inh) 90 Mcg/Act Aer 2 PUFF INH Q4H PRN for SHORTNESS OF BREATH, #1 INHALER 1 Refill (This prescription has been renewed) Albuterol Neb (Albuterol Neb) 2.5 Mg/3 Ml Neb 2.5 MG NEB Q4HR NEB PRN for SHORTNESS OF BREATH, #60 NEBULE 0 Refills Budesonide-Formoterol Inh (Symbicort Inh) 160-4.5 Mcg/Act Aero 2 PUFF INH Q12HR for Breathing Treatment, #1 INHALER 1 Refill (This prescription has been renewed) Dolutegravir (Tivicay) 25 Mg Tab 25 MG PO DAILY for Mgmt Viral Infection, #30 TAB 0 Refills Emtricitabine-Tenofovir Alafenamide (Descovy) 200-25 mg Tab 1 TAB PO DAILY for Mgmt Viral Infection, #30 TAB 0 Refills Epinephrine Inj (Epipen 2-Arjun Inj) 0.3 Mg/0.3 Ml Pfpen 0.3 MG SQ ONCE PRN for ALLERGIC REACTION, #1 PACK 0 Refills Lactobacillus Acidophilus (Lactobacillus Acidophilus) 1 Billion Cell Tab 1 TAB PO TIDAC for Nutritional Supplement, #21 TAB 0 Refills Loratadine (Claritin) 10 Mg Tablet 10 MG PO DAILY for Inflammation, #4 TAB Nicotine Patch (Nicotine Patch) 14 Mg/24 Hr Patch 14 MG T-DERMAL DAILY for Smoking Cessation for 30 Days, #30 PATCH 0 Refills Sulfamethoxazole-Trimethoprim (Sulfamethoxazole-Trimethoprim) 800-160 Mg Tab 1 TAB PO DAILY for Infection Prophylaxis, #30 TAB Discontinued Medications: Prednisone (21) 10 mg tab Dose Pack (Prednisone (21) 10 mg tab Dose Pack) 10 Mg Pack 10 MG PO DIRECTED for Inflammation, #1 DSPK 0 Refills Iliana Meredith Jul 10, 2017 13:52
--- NOTE | 2017-07-10 13:54 | HHI.DCPOC ---
Discharge Care Plan Diagnosis: (1) Prostatitis (2) Gonorrhea (3) Immunocompromised state (4) Urinary retention Goals to Promote Your Health * To prevent worsening of your condition and complications * To maintain your health at the optimal level Directions to Meet Your Goals Take your medications as prescribed Follow your dietary instruction Follow activity as directed Keep your appointments as scheduled Take your immunizations and boosters as scheduled If your symptoms worsen call your PCP, if no PCP go to Urgent Care Center or Emergency Room Smoking is Dangerous to Your Health. Avoid second hand smoke Call the 24-hour hour crisis hotline for domestic abuse at Iliana Meredith Jul 10, 2017 13:54
== END 2017-07-10 13:32 | disposition home or self-care (01) ==
LOC: NEPC 00:02 → NEDA 06:41 → NEDH 09:10 → NEPHCDU 15:13
PROVIDERS: ADMIT Hospitalist; ATTEND Hospitalist
DX: R33.9 Retention of urine, unspecified (principal); N17.9 Acute kidney failure, unspecified; N41.9 Inflammatory disease of prostate, unspecified; N34.2 Other urethritis; A54.9 Gonococcal infection, unspecified; R36.9 Urethral discharge, unspecified; R31.9 Hematuria, unspecified; R06.02 Shortness of breath; K21.9 Gastro-esophageal reflux disease without esophagitis; F41.9 Anxiety disorder, unspecified; F32.9 Major depressive disorder, single episode, unspecified; J44.9 Chronic obstructive pulmonary disease, unspecified; I10 Essential (primary) hypertension; Z21 Asymptomatic human immunodeficiency virus [HIV] infection status; F90.9 Attention-deficit hyperactivity disorder, unspecified type; R06.83 Snoring
CPT/HCPCS: 51702; 74177; 80048; 80053; 81001; 82550; 83690; 85007; 85025; 85027; 85610; 85730; 87086; 87491; 87591; 96361; 96365; 96372; 96375; 96376; 99285; G0378; J0696; J2270; J2405; J7030; Q9963; Q9967

== ENCOUNTER 2017-09-08 13:04 | Emergency (ER) | payer SELFPAY ==
[~2017-09-08] VITALS: Ht 154.9 cm; Wt 70.0 kg
[~2017-09-08 13:04] MED LIST changes: +CIPR-9 PO; +DOLU1TAB5 PO; +EMTR1TAB4 PO; -PRED10PA PO; +TAMS5CAP PO
[2017-09-08 13:08] VITALS: BP 142/71; PULSE 77; RESP 28; TEMP 97.7; O2SAT 99
[2017-09-08] MEDS: RESP: ALBUTEROL 2.5 MG/3 ML NEB (SCH) INH ×5 (13:29→15:32)
[2017-09-08] MEDS ORDERED: MAGNESIUM SULFATE 1 GM PREMIX 100 ML IV ONE (13:30)
[2017-09-08] MEDS ORDERED: SODIUM CHLORIDE 0.9% FLUSH 10 ML FLUSH IVF PRN (13:30)
[2017-09-08] MEDS ORDERED: TERBUTALINE INJ 1 MG/ML AMP SQ ONE (13:30)
[2017-09-08] MEDS ORDERED: methylPREDNISolone SOD SUCC 125 MG/2 ML VIAL IV PUSH ONE (13:30)
[2017-09-08] MEDS ORDERED: SODIUM CHLOR 0.9% 1000 ML INJ 1,000 ML IV ONE (13:30)
--- NOTE | 2017-09-08 13:30 | PD ---
HPI Chief Complaint: Respiratory Symptoms Time Seen by Provider: 13:20 Travel History International Travel<30 days: No Contact w/Intl Traveler<30days: No Traveled to known affect area: No History of Present Illness HPI Patient comes in stating that he has had this exacerbation ongoing for the past 2 days, despite using his home albuterol which he has run out of . Patient works in [employer] and is out and about exposed to grass and other allergens AND does not wear any type of protective mask. Patient explicitly denies any smoking history. Patient also denies any alleviating or aggravating factors . Patient states that he has has no associated factors such as fever, rash, chest pain, back pain, abdominal pain, nausea/vomiting/diarrhea, frequency/urgency/ dysuria, runny nose/sore throat or productive cough. No known drug allergy Past medical history significant for hypertension, respiratory disorders such as asthma/COPD, stated for stage renal failure, ADHD, history of depression and anxiety. Also history of HIV on to the [facility] [place] [facility] Past Medical History ADHD: Yes Arthritis: No Asthma: Yes Blood Disorders: No Anxiety: Yes Depression: Yes Heart Rhythm Problems: Yes Cancer: No Cardiovascular Problems: Yes High Cholesterol: No Chemotherapy: No Chest Pain: No Congestive Heart Failure: No COPD: Yes Diabetes: No Diminished Hearing: No Endocrine: No Gastrointestinal Disorders: Yes (Reflux) GERD: No Genitourinary: No Hiatal Hernia: No Hypertension: Yes Immune Disorder: Yes (HIV,) Implanted Vascular Access Dvce: No Musculoskeletal: No Neurologic: No Psychiatric: Yes Reproductive: No Respiratory: Yes (snoring) Integumentary: Yes (ezema) Immunizations Current: Yes Radiation Therapy: No Renal Failure: Yes (pt states 1st stage) Sleep Apnea: No Thyroid Disease: No Ulcer: No Past Surgical History Other Surgery: No Social History Alcohol Use: Yes Tobacco Use: Yes Substance Use: Yes (marijuana 03/24/2017) Allergies-Medications (Allergen,Severity, Reaction): Coded Allergies: cucumber (Verified Allergy, Severe, 07/08/17) THE VEG CUCUMBER WELL CUCUMBER SOAP Uncoded Allergies: cucumber body wash (Allergy, Severe, Hives/ , 11/27/16) shortness of breath,swelling. Reported Meds & Prescriptions Reported Meds & Active Scripts Active Medrol Dosepak (Methylprednisolone) 4 Mg Dspk 4 Mg PO DIRECTED Per Pharmacist direction Proventil Hfa 6.7 GM Inh (Albuterol Sulfate) 90 Mcg/Act Aer 2 Puff INH Q4-6H PRN Symbicort Inh (Budesonide/Formoterol Fumarate) 160-4.5 Mcg/Act Aero 2 Puff INH Q12HR Ventolin Hfa 18 GM Inh (Albuterol Sulfate) 90 Mcg/Act Aer 2 Puff INH Q4H PRN Flomax (Tamsulosin HCl) 0.4 Mg Cap 0.4 Mg PO DAILY Cipro (Ciprofloxacin HCl) 500 Mg Tab 500 Mg PO BID 14 Days Nicotine Patch (Nicotine) 14 Mg/24 Hr Patch 14 Mg T-DERMAL DAILY 30 Days Sulfamethoxazole-Trimethoprim 800-160 Mg Tab 1 Tab PO DAILY Nebulizer 1 Mis Mis Ea .ROUTE DIRECTED Claritin (Loratadine) 10 Mg Tablet 10 Mg PO DAILY Lactobacillus Acidophilus 1 Billion Cell Tab 1 Tab PO TIDAC Albuterol Neb (Albuterol Sulfate) 2.5 Mg/3 Ml Neb 2.5 Mg NEB Q4HR NEB PRN Epipen 2-Arjun Inj (Epinephrine) 0.3 Mg/0.3 Ml Pfpen 0.3 Mg SQ ONCE PRN Reported Descovy (Emtricitabine-Tenofovir Alafenamide) 200-25 mg Tab 1 Tab PO DAILY Tivicay (Dolutegravir Sodium) 25 Mg Tab 25 Mg PO DAILY Review of Systems General / Constitutional: No: Fever Eyes: No: Visual changes HENT: No: Headaches Cardiovascular: No: Chest Pain or Discomfort Respiratory: Positive: Shortness of Breath, Wheezing Gastrointestinal: No: Abdominal Pain Genitourinary: No: Dysuria Musculoskeletal: No: Pain Skin: No Rash Neurologic: No: Weakness Psychiatric: No: Depression Endocrine: No: Polydipsia Hematologic/Lymphatic: No: Easy Bruising Physical Exam Narrative GENERAL: SKIN: Warm and dry. HEAD: Atraumatic. Normocephalic. EYES: Pupils equal and round. No scleral icterus. No injection or drainage. ENT: No nasal bleeding or discharge. Mucous membranes pink and moist. NECK: Trachea midline. No JVD. CARDIOVASCULAR: Regular rate and rhythm. RESPIRATORY: Suprasternal accessory muscles, decreased tidal volume, generalized wheezing diffusely. GASTROINTESINAL: Abdomen soft, non-tender, nondistended. MUSCULOSKELETAL: Extremities without clubbing, cyanosis, or edema. No obvious deformities. NEUROLOGICAL: Awake and alert. No obvious cranial nerve deficits. Motor grossly within normal limits. Five out of 5 muscle strength in the arms and legs. Normal speech. PSYCHIATRIC: Appropriate mood and affect; insight and judgment normal. Data Data Last Documented VS Vital Signs Date Time Temp Pulse Resp B/P (MAP) Pulse Ox O2 Delivery O2 Flow Rate FiO2 09/08/17 13:44 98 Nasal Cannula 2.00 09/08/17 13:08 97.7 77 28 142/71 (94) Orders Orders Complete Blood Count With Diff (09/08/17 13:20) Comprehensive Metabolic Panel (09/08/17 13:20) Chest, Single Ap (09/08/17 13:20) Ecg Monitoring (09/08/17 13:20) Iv Access Insert/Monitor (09/08/17 13:20) Oximetry (09/08/17 13:20) Oxygen Administration (09/08/17 13:20) Methylprednisolone So Succ Inj (Solumedr (09/08/17 13:30) Albuterol Neb (Albuterol Neb) (09/08/17 13:30) Sodium Chloride 0.9% Flush (Ns Flush) (09/08/17 13:30) Magnesium Sulfate 1 Gm Premix (Magnesium (09/08/17 13:30) Terbutaline Inj (Brethine Inj) (09/08/17 13:30) Sodium Chlor 0.9% 1000 Ml Inj (Ns 1000 M (09/08/17 13:30) Promethazine Inj (Phenergan Inj) (09/08/17 14:00) Ondansetron Odt (Zofran Odt) (09/08/17 14:00) Albuterol Neb (Albuterol Neb) (09/08/17 15:15) Labs Laboratory Tests Test 09/08/17 13:50 09/08/17 15:22 White Blood Count 3.3 TH/MM3 Red Blood Count 4.73 MIL/MM3 Hemoglobin 14.6 GM/DL Hematocrit 43.2 % Mean Corpuscular Volume 91.2 FL Mean Corpuscular Hemoglobin 30.8 PG Mean Corpuscular Hemoglobin Concent 33.7 % Red Cell Distribution Width 13.9 % Platelet Count 273 TH/MM3 Mean Platelet Volume 6.9 FL Neutrophils (%) (Auto) 44.0 % Lymphocytes (%) (Auto) 40.0 % Monocytes (%) (Auto) 11.0 % Eosinophils (%) (Auto) 4.5 % Basophils (%) (Auto) 0.5 % Neutrophils # (Auto) 1.5 TH/MM3 Lymphocytes # (Auto) 1.3 TH/MM3 Monocytes # (Auto) 0.4 TH/MM3 Eosinophils # (Auto) 0.1 TH/MM3 Basophils # (Auto) 0.0 TH/MM3 CBC Comment DIFF FINAL Differential Comment Blood Urea Nitrogen 15 MG/DL Creatinine 1.34 MG/DL Random Glucose 102 MG/DL Total Protein 9.5 GM/DL Albumin 3.0 GM/DL Calcium Level 7.8 MG/DL Alkaline Phosphatase 48 U/L Aspartate Amino Transf (AST/SGOT) 21 U/L Alanine Aminotransferase (ALT/SGPT) 26 U/L Total Bilirubin 0.2 MG/DL Sodium Level 141 MEQ/L Potassium Level 3.4 MEQ/L Chloride Level 109 MEQ/L Carbon Dioxide Level 23.5 MEQ/L Anion Gap 9 MEQ/L Estimat Glomerular Filtration Rate 77 ML/MIN [facility] Medical Decision Making Medical Screen Exam Complete: Yes Emergency Medical Condition: Yes Medical Record Reviewed: Yes Interpretation(s) Pulse ox: With an excellent pleth wave, room air oximetry is reading between 96 and 100 which is within normal limits and shows no evidence of hypoxemia Differential Diagnosis Asthma exacerbation versus pneumonia versus pneumothorax versus Narrative Course CBC shows WBC of 3.3, without any left shift. No evidence of anemia and normal platelet count Chest x-ray read by radiologist as no acute cardiopulmonary disease Electrolytes are all within normal limits, creatinine is slightly elevated at 1.34 Normal liver functions. Diagnosis Primary Impression: Acute severe exacerbation of moderate persistent asthma Patient Instructions: Asthma (ED), General Instructions Scripts Methylprednisolone Dosepak (Medrol Dosepak) 4 Mg Dspk 4 MG PO DIRECTED, #1 DSPK 0 Refills Per Pharmacist direction Prov: Hunter Cyr MD 09/08/17 Albuterol 6.7 GM Inh (Proventil Hfa 6.7 GM Inh) 90 Mcg/Act Aer 2 PUFF INH Q4-6H Y for SHORTNESS OF BREATH, #1 INHALER 1 Refill Prov: Hunter Cyr MD 09/08/17 Disposition: 01 DISCHARGE HOME Condition: Stable Hunter Cyr MD Sep 08, 2017 13:30
--- NOTE | 2017-09-08 13:52 | RADRPT ---
EXAM DATE: 09/08/2017 1:40 PM EDT AGE/SEX: 27 years / Male INDICATIONS: Short of breath, wheezing. CLINICAL DATA: This is the patient's initial encounter. Patient reports that signs and symptoms have been present for 1 day and indicates a pain score of 0/10. MEDICAL/SURGICAL HISTORY: Asthma. None. COMPARISON: [facility] [place], CHEST PA & LAT, 05/03/2017. . FINDINGS: The lungs are clear without infiltrate, nodule, or mass. There is no appreciable pleural effusion fo r technique. Heart and mediastinum are unremarkable. CONCLUSION: No acute cardiopulmonary disease. Electronically signed by: Nuria Stephenson MD 09/08/2017 1:50 PM EDT
[2017-09-08] MEDS ORDERED: ONDANSETRON ODT 4 MG TAB PO ONE (14:00)
[2017-09-08] MEDS ORDERED: PROMETHAZINE INJ 25 MG/ML VIAL IM ONE (14:00)
[2017-09-08 14:12] LABS: AUTOMATED NEUTROPHIL # 1.5 TH/MM3 (1.8-7.7); BASOPHIL % 0.5 % (0.0-2.0); EOSINOPHIL # 0.1 TH/MM3 (0-0.4); EOSINOPHIL % 4.5 % (0.0-4.0); HEMATOCRIT 43.2 % (39.0-51.0); HEMOGLOBIN 14.6 GM/DL (13.0-17.0); LYMPHOCYTE # 1.3 TH/MM3 (1.0-4.8); MEAN CELL VOLUME 91.2 FL (80.0-100.0); MEAN CORPUSCULAR HEMOGLOBIN 30.8 PG (27.0-34.0); MEAN CORPUSCULAR HGB CONC 33.7 % (32.0-36.0); MEAN PLATELET VOLUME 6.9 FL (7.0-11.0); MONOCYTE # 0.4 TH/MM3 (0-0.9); PLATELET COUNT 273 TH/MM3 (150-450); RED BLOOD COUNT 4.73 MIL/MM3 (4.50-5.90); RED CELL DISTRIBUTION WIDTH 13.9 % (11.6-17.2); WHITE BLOOD COUNT 3.3 TH/MM3 (4.0-11.0)
[2017-09-08 14:29] LABS: ALKALINE PHOSPHATASE 48 U/L (45-117); TOTAL BILIRUBIN ADULT 0.2 MG/DL (0.2-1.0); TOTAL PROTEIN 9.5 GM/DL (6.4-8.2)
[2017-09-08] MEDS ORDERED: MEDR4PAK PO (14:43)
[2017-09-08] MEDS ORDERED: ALBU6.7H INH (14:43)
[2017-09-08 15:50] LABS: AST (GOT) 21 U/L (15-37); BICARBONATE 23.5 MEQ/L (21.0-32.0); BLOOD UREA NITROGEN 15 MG/DL (7-18); CALCIUM 7.8 MG/DL (8.5-10.1); CHLORIDE 109 MEQ/L (98-107); CREATININE 1.34 MG/DL (0.60-1.30); GLOMERULAR FILTRATION RATE 77 ML/MIN (>89); GLUCOSE,RANDOM 102 MG/DL (74-106); SODIUM (NA) 141 MEQ/L (136-145)
[2017-09-08 15:53] LABS: ALT (GPT) 26 U/L (12-78)
[2017-09-08] MEDS ORDERED: traMADol HCL 50 MG TAB PO ONE (17:00)
== END 2017-09-08 17:12 | disposition home or self-care (01) ==
LOC: NEPD 13:04
DX: J45.41 Moderate persistent asthma with (acute) exacerbation (principal); J44.9 Chronic obstructive pulmonary disease, unspecified; I12.9 Hypertensive chronic kidney disease with stage 1 through stage 4 chronic kidney disease, or unspecified chronic kidney disease; N18.1 Chronic kidney disease, stage 1; F90.9 Attention-deficit hyperactivity disorder, unspecified type; F41.9 Anxiety disorder, unspecified; F32.9 Major depressive disorder, single episode, unspecified; K21.9 Gastro-esophageal reflux disease without esophagitis; B20 Human immunodeficiency virus [HIV] disease
CPT/HCPCS: 71045; 80053; 85025; 94640; 94664; 96365; 96366; 96372; 96375; 99284; J2550; J2930; J3105; J3475; J7030; J7613

== ENCOUNTER 2017-11-29 12:06 | Inpatient (IN) ==
[2017-11-29] MEDS ORDERED: MethylPREDNISolone Sod Succinate Inj 125 MG/2 ML Vial IV.PUSH ONE (12:22)
--- NOTE | 2017-11-29 12:43 | XR ---
EXAM DATE: 11/29/2017 12:36 PM EDT AGE/SEX: 27 years / Male INDICATIONS: Short of breath. CLINICAL DATA: This is the patient's initial encounter. Patient reports that signs and symptoms have been present for 2 days and indicates a pain score of 0/10. MEDICAL/SURGICAL HISTORY: . asthma None. COMPARISON: [facility] [place], CHEST SINGLE AP, 09/08/2017. . FINDINGS: Portable AP view of the chest demonstrates a normal-sized cardiac silhouette. No effusion, consolidat ion, or pneumothorax is identified. The bones and soft tissues demonstrate no acute finding. CONCLUSION: No acute cardiopulmonary abnormality is identified. Electronically signed by: Carlyle Yan MD 11/29/2017 12:41 PM EDT
--- NOTE | 2017-11-29 12:44 | ED ---
HPI General Chief complaint: Respiratory Symptoms Stated complaint: SOB Time Seen by Provider: 11/29/17 12:19 Source: patient Mode of arrival: ambulatory Limitations: no limitations History of Present Illness HPI narrative: 27-year-old male with history of HIV, diagnosed 1 year ago, asthma, presents emergency department for evaluation of difficulty breathing since around 8:00 last evening. Patient states he has had cough and chest congestion for the last 2 days with subjective fever and chills. He also reports liquid green diarrhea for 2 weeks. He denies any significant abdominal pain. Denies any chest pain or tightness. Patient has been out of his medications for the last several months. He has no other symptoms to report. Related Data Home Medications Medication Instructions Recorded Confirmed albuterol sulfate [Ventolin HFA] 2 puff INHALATION Q4H PRN 11/29/17 11/29/17 budesonide-formoterol [Symbicort] 2 puff INHALATION Q12H 11/29/17 11/29/17 dolutegravir [Tivicay] 25 mg PO DAILY 11/29/17 11/29/17 emtricitabine-tenofovir alafen 1 tab PO DAILY 11/29/17 11/29/17 [Descovy] Allergies Allergy/AdvReac Type Severity Reaction Status Date / Time cucumber Allergy Severe Verified 07/08/17 00:53 cucumber body wash Allergy Severe Hives/ Uncoded 11/27/16 15:26 Review of Systems ROS: all other systems reviewed are negative PMFSH History History Provided By: Patient Medical History Medical History Asthma (Acute) HIV (human immunodeficiency virus infection) (Acute) Patient denies significant medical history (Acute) Family History Family History Father Hypertension Social History Social History Smoking Status: Current some day smoker Tobacco Type: Cigarettes How Often Do You Have a Drink Containing Alcohol: Monthly or less Recent Out of Country Travel within the Last 8 Weeks: No Exam Narrative Exam Narrative: GENERAL: Well-nourished male patient, appears in respiratory distress SKIN: Focused skin assessment warm/dry. HEAD: Atraumatic. Normocephalic. EYES: Pupils equal and round. No scleral icterus. No injection or drainage. ENT: No nasal bleeding or discharge. Mucous membranes pink and moist. NECK: Trachea midline. No JVD. CARDIOVASCULAR: Regular rate and rhythm. No murmur appreciated. RESPIRATORY: Tachypneic. Accessory muscle use, diminished throughout, inspiratory expiratory wheeze audible without a stethoscope. Breath sounds equal bilaterally. GASTROINTESTINAL: Abdomen soft, non-tender, nondistended. Hepatic and splenic margins not palpable. MUSCULOSKELETAL: No obvious deformities. No clubbing. No cyanosis. No edema. NEUROLOGICAL: Awake and alert. No obvious cranial nerve deficits. Motor grossly within normal limits. Normal speech. PSYCHIATRIC: Appropriate mood and affect; insight and judgment normal. Course Initial Documented Vital Signs Temperature 98.7 F 11/29/17 12:12 Pulse Rate 79 11/29/17 12:12 Respiratory Rate 24 11/29/17 12:12 Blood Pressure 136/65 11/29/17 12:12 Pulse Oximetry 99 11/29/17 12:12 Last Documented Vital Signs Temperature 98.7 F 11/29/17 12:12 Pulse Rate 81 11/29/17 14:30 Respiratory Rate 22 11/29/17 14:30 Blood Pressure 139/80 11/29/17 12:16 Pulse Oximetry 98 11/29/17 12:33 Medical Decision Making BILL Attestation BILL supervised visit: Yes Attestation: The history, exam, and medical decision-making in the associated mid-level provider note were completed with my assistance. I reviewed and agree with the findings presented. I attest that I had a [id number] encounter with the patient on the same day, and personally performed and documented my assessment and findings in the medical record. *My assessment and Findings: 27-year-old male presents emergency department complaining of cough cold asthma symptoms in the setting of some infectious prodrome. History of HIV not on medications, unclear if he has AIDS. His white count is not significantly diminished. He still is really prominent wheezing and respiratory distress after initial treatment. Recommend admission to the evaluation. [facility] Narrative Medical decision making narrative: 27-year-old male presents emergency department for evaluation of respiratory distress. Patient has audible wheeze without a stethoscope and has diminished breath sounds throughout. He appears in respiratory distress with accessory muscle use and tachypnea. He is afebrile. Due to history of HIV, untreated, unknown CD4 count or viral status, report of subjective fever, cough and chest congestion, septic workup is initiated. 1310 patient has completed 3 DuoNeb treatments and been given IV Solu-Medrol. He continues to have significant wheezing and tachypnea. He still reports difficulty breathing 1315 I have discussed the patient with Dr. aranda. He will assume care and the patient will be transferred to his pot at this time. Medical Screen Exam Complete: Yes Emergency Medical Condition: Yes Differential Diagnosis Differential Diagnosis: Asthma exacerbation versus pneumothorax versus PE versus pneumonia versus sepsis Lab Data Lab results reviewed: Yes I reviewed the patient's lab results. Result diagrams: 11/29/17 12:40 11/29/17 12:40 Lab Results 11/29/17 11/29/17 11/29/17 Range/Units 12:40 12:40 12:40 WBC 4.4 (4.0-11.0) th/mm3 RBC 4.47 L (4.50-5.90) mil/mm3 Hgb 14.2 (13.0-17.0) gm/dL Hct 40.5 (39.0-51.0) % MCV 90.8 (80.0-100.0) fL MCH 31.9 (27.0-34.0) pg MCHC 35.1 (32.0-36.0) % RDW 13.1 (11.6-17.2) % Plt Count 265 (150-450) th/mm3 MPV 6.5 L (7.0-11.0) fL Neut % (Auto) 57.5 (16.0-70.0) % Lymph % (Auto) 31.5 (9.0-44.0) % [place] % (Auto) 6.2 (0.0-8.0) % Eos % (Auto) 4.1 H (0.0-4.0) % Baso % (Auto) 0.7 (0.0-2.0) % Neut # (Auto) 2.6 (1.8-7.7) th/mm3 Lymph # (Auto) 1.4 (1.0-4.8) th/mm3 [place] # (Auto) 0.3 (0.0-0.9) th/mm3 Eos # (Auto) 0.2 (0.0-0.4) th/mm3 Baso # (Auto) 0.0 (0.0-0.2) th/mm3 WBC Differential . Differential Comment Auto diff final D-Dimer Quant (PE/DVT) 0.76 H (0.00-0.50) mg/L FEU Sodium 140 (136-145) meq/L Potassium 3.8 (3.5-5.1) meq/L Chloride 105 (98-107) meq/L Carbon Dioxide 27.1 (21.0-32.0) meq/L Anion Gap 8 (5-15) meq/L BUN 19 H (7-18) mg/dL Creatinine 1.44 H (0.60-1.30) mg/dL Estimated GFR 71 L (>89) mL/min Random Glucose 106 (74-106) mg/dL Lactic Acid (0.4-2.0) mmol/L Calcium 8.1 L (8.5-10.1) mg/dL Total Bilirubin 0.3 (0.2-1.0) mg/dL AST 28 (15-37) U/L ALT 21 (12-78) U/L Alkaline Phosphatase 53 (45-117) U/L Total Protein 9.0 H (6.4-8.2) g/dL Albumin 3.1 L (3.4-5.0) g/dL 11/29/17 Range/Units 12:40 WBC (4.0-11.0) th/mm3 RBC (4.50-5.90) mil/mm3 Hgb (13.0-17.0) gm/dL Hct (39.0-51.0) % MCV (80.0-100.0) fL MCH (27.0-34.0) pg MCHC (32.0-36.0) % RDW (11.6-17.2) % Plt Count (150-450) th/mm3 MPV (7.0-11.0) fL Neut % (Auto) (16.0-70.0) % Lymph % (Auto) (9.0-44.0) % [place] % (Auto) (0.0-8.0) % Eos % (Auto) (0.0-4.0) % Baso % (Auto) (0.0-2.0) % Neut # (Auto) (1.8-7.7) th/mm3 Lymph # (Auto) (1.0-4.8) th/mm3 [place] # (Auto) (0.0-0.9) th/mm3 Eos # (Auto) (0.0-0.4) th/mm3 Baso # (Auto) (0.0-0.2) th/mm3 WBC Differential Differential Comment D-Dimer Quant (PE/DVT) (0.00-0.50) mg/L FEU Sodium (136-145) meq/L Potassium (3.5-5.1) meq/L Chloride (98-107) meq/L Carbon Dioxide (21.0-32.0) meq/L Anion Gap (5-15) meq/L BUN (7-18) mg/dL Creatinine (0.60-1.30) mg/dL Estimated GFR (>89) mL/min Random Glucose (74-106) mg/dL Lactic Acid 0.9 (0.4-2.0) mmol/L Calcium (8.5-10.1) mg/dL Total Bilirubin (0.2-1.0) mg/dL AST (15-37) U/L ALT (12-78) U/L Alkaline Phosphatase (45-117) U/L Total Protein (6.4-8.2) g/dL Albumin (3.4-5.0) g/dL Imaging Data Radiologist's impression: Chest X-Ray 11/29/17 12:22 CONCLUSION: No acute cardiopulmonary abnormality is identified. Discharge Plan Discharge Disposition Patient Disposition: 30 Still Patient Discharge Details Diagnosis: Respiratory distress Physicians Team ED Provider: Emory Leblanc ED Midlevel Provider: Nikki Rubio Primary Care Provider: Primary Care Suze Tsai Attending Provider: Jayme Cadena Status ED Status: Admitted Observation Patient
[2017-11-29] MEDS ORDERED: Sod Chloride 0.9% Inj 1,000 ML IV.SIG SCH (12:45)
[2017-11-29 12:55] LABS: Baso % (Auto) 0.7 % (0.0-2.0); Eos # (Auto) 0.2 th/mm3 (0.0-0.4); Eos % (Auto) 4.1 % (0.0-4.0); Hematocrit 40.5 % (39.0-51.0); Hemoglobin 14.2 gm/dL (13.0-17.0); Lymph # (Auto) 1.4 th/mm3 (1.0-4.8); Lymph % (Auto) 31.5 % (9.0-44.0); Mean Corpuscular HGB Conc 35.1 % (32.0-36.0); Mean Corpuscular Hemoglobin 31.9 pg (27.0-34.0); Mean Corpuscular Volume 90.8 fL (80.0-100.0); Mean Platelet Volume 6.5 fL (7.0-11.0); Mono # (Auto) 0.3 th/mm3 (0.0-0.9); Mono % (Auto) 6.2 % (0.0-8.0); Neut # (Auto) 2.6 th/mm3 (1.8-7.7); Neut % (Auto) 57.5 % (16.0-70.0); Platelet Count 265 th/mm3 (150-450); Red Blood Count 4.47 mil/mm3 (4.50-5.90); Red Cell Distribution Width 13.1 % (11.6-17.2); White Blood Count 4.4 th/mm3 (4.0-11.0)
[2017-11-29 13:17] LABS: Albumin 3.1 g/dL (3.4-5.0); Anion Gap 8 meq/L (5-15); Aspartate Aminotransferase 28 U/L (15-37); Blood Urea Nitrogen 19 mg/dL (7-18); Calcium 8.1 mg/dL (8.5-10.1); Carbon Dioxide 27.1 meq/L (21.0-32.0); Chloride 105 meq/L (98-107); Glomerular Filtration Rate 71 mL/min (>89); Glucose,Random 106 mg/dL (74-106); Potassium 3.8 meq/L (3.5-5.1); Sodium 140 meq/L (136-145)
[2017-11-29 13:23] LABS: Alanine Aminotransferase 21 U/L (12-78); Alkaline Phosphatase 53 U/L (45-117)
--- NOTE | 2017-11-29 15:23 | P.HPIM ---
History of Present Illness Primary Care Physician: No Primary Care Physician Chief Complaint: shortness of breath History of Present Illness: patient is a 27 y/o male with history of asthma, HIV- noncompliant with the medications who presented to ER with worsening sob. he says that he ran out of his inhalers two days ago. he started to have worsening sob at the time. he says that he had some fever and chills last night. his cough is productive of whitish/ yellowish sputum.he says that he hasn't taken ' his HIV meds' for quite a while.at the time of my evaluation he said that his sob was improving to some extent. Review of Systems All other systems reviewed negative except as stated in HPI PMFSH - History History Provided By: Patient - Medical History Medical History: Medical History (Last Updated 11/29/17 @ 15:20 by Jayme Cadena MD) Asthma (Acute) HIV (human immunodeficiency virus infection) (Acute) Patient denies significant medical history - Family History Family History: Family History (Last Updated 11/29/17 @ 15:20 by Jayme Cadena MD) Father Hypertension - Tobacco History Tobacco Use In Past 30 Days: Yes Smoking Status: Current some day smoker Tobacco Type: Cigarettes - Alcohol History How Often Do You Have a Drink Containing Alcohol: Monthly or less - Substance Use Type Marijuana Status: Active Route Used: Inhalation - Travel History Recent Travel Out of the Country Within the Last 8 Weeks: No - Immunization History Tetanus Immunization: <5 Years Medications and Allergies Active Medications: Active Medications Albuterol (Albuterol Neb (Prn)) 1.25 mg NEB Q2HR NEB PRN PRN Reason: sob Albuterol (Duoneb Neb (Sarah)) 1 ampul NEB Q4HR NEB SARAH Sodium Chloride (Ns Inj) 1,000 mls @ 0 mls/hr IV.SIG BOLUS SARAH Last Admin: 11/29/17 14:34 Dose: 999 mls/hr Methylprednisolone Sodium Succinate (Solumedrol Inj) 40 mg IV.PUSH Q8HR SARAH Allergies Allergy/AdvReac Type Severity Reaction Status Date / Time cucumber Allergy Severe Verified 07/08/17 00:53 cucumber body wash Allergy Severe Hives/ Uncoded 11/27/16 15:26 Home Medications Medication Instructions Recorded Confirmed Type albuterol sulfate [Ventolin HFA] 2 puff INHALATION Q4H PRN 11/29/17 11/29/17 History budesonide-formoterol [Symbicort] 2 puff INHALATION Q12H 11/29/17 11/29/17 History dolutegravir [Tivicay] 25 mg PO DAILY 11/29/17 11/29/17 History emtricitabine-tenofovir alafen 1 tab PO DAILY 11/29/17 11/29/17 History [Descovy] Exam Vital signs: Vital Signs 11/29/17 12:12 11/29/17 12:16 11/29/17 12:33 Temperature 98.7 F Pulse Rate 79 91 H 82 Respiratory Rate 24 29 H 28 H Blood Pressure 136/65 139/80 Pulse Oximetry 99 97 98 11/29/17 14:30 Temperature Pulse Rate 81 Respiratory Rate 22 Blood Pressure Pulse Oximetry Intake & Output 11/28/17 11/29/17 11/29/17 18:59 06:59 18:59 Weight 63.503 kg - Constitutional mild distress - Routine HEENT Exam Eye: Present: PERRL - Routine Neck Exam Present: full ROM - Routine Respiratory Exam Present: prolonged expiratory phase, wheezes - Routine Cardiovascular Exam Present: RRR - Routine Abdominal Exam Present: soft - Routine Extremities Exam Comments: no pedal edema. - Routine Neurological Exam Present: alert, oriented X3 Results - Labs CBC & Chem 7: 11/29/17 12:40 11/29/17 12:40 Labs: Short CBC 11/29/17 Range/Units 12:40 WBC 4.4 (4.0-11.0) th/mm3 Hgb 14.2 (13.0-17.0) gm/dL Hct 40.5 (39.0-51.0) % Plt Count 265 (150-450) th/mm3 BMP 11/29/17 12:40 Sodium 140 Potassium 3.8 Chloride 105 Carbon Dioxide 27.1 BUN 19 H Creatinine 1.44 H Calcium 8.1 L Liver Function 11/29/17 Range/Units 12:40 Total Bilirubin 0.3 (0.2-1.0) mg/dL AST 28 (15-37) U/L ALT 21 (12-78) U/L Alkaline Phosphatase 53 (45-117) U/L Albumin 3.1 L (3.4-5.0) g/dL - Imaging Impressions Chest X-Ray 11/29/17 12:22 CONCLUSION: No acute cardiopulmonary abnormality is identified. Caprini VTE Risk Assessment Caprini VTE Risk Assessment: No/Low Risk (score <= 1) Caprini Risk Assessment Model: Point Value = 1 Point Value = 2 Point Value = 3 Point Value = 5 Age 41-60 Minor surgery BMI > 25 kg/m2 Swollen legs Varicose veins or History of unexplained or recurrent spontaneous Oral contraceptives or hormone replacement Sepsis (< 1 month) Serious lung disease, including pneumonia (< 1 month) Abnormal pulmonary function Acute myocardial infarction Congestive heart failure (< 1 month) History of inflammatory bowel disease Medical patient at bed rest Age 61-74 Arthroscopic surgery Major open surgery (> 45 min) Laparoscopic surgery (> 45 min) Malignancy Confined to bed (> 72 hours) Immobilizing plaster cast Central venous access Age >= 75 History of VTE Family history of VTE Factor V Leiden Prothrombin [id number] Lupus anticoagulant Anticardiolipin antibodies Elevated serum homocysteine Heparin-induced thrombocytopenia Other congenital or acquired thrombophilia Stroke (< 1 month) Elective arthroplasty Hip, pelvis, or leg fracture Acute spinal cord injury (< 1 month) Prophylaxis Regimen: Total Risk Factor Score Risk Level Prophylaxis Regimen 0-1 Low Early ambulation 2 Moderate Order ONE of the following: *Sequential Compression Device (SCD) *Heparin 5000 units SQ BID 3-4 Higher Order ONE of the following medications: *Heparin 5000 units SQ TID *Enoxaparin/Lovenox 40 mg SQ daily (WT < 150 kg, CrCl > 30 mL/min) *Enoxaparin/Lovenox 30 mg SQ daily (WT < 150 kg, CrCl > 10-29 mL/min) *Enoxaparin/Lovenox 30 mg SQ BID (WT < 150 kg, CrCl > 30 mL/min) AND/OR *Sequential Compression Device (SCD) 5 or more Highest Order ONE of the following medications: *Heparin 5000 units SQ TID (Preferred with Epidurals) *Enoxaparin/Lovenox 40 mg SQ daily (WT < 150 kg, CrCl > 30 mL/min) *Enoxaparin/Lovenox 30 mg SQ daily (WT < 150 kg, CrCl > 10-29 mL/min) *Enoxaparin/Lovenox 30 mg SQ BID (WT < 150 kg, CrCl > 30 mL/min) AND *Sequential Compression Device (SCD) Assessment and Plan - Plan A/P - asthma exacerbation with history of HIV- not on anti-retroviral therapy continue with IV steroids and neb treatment ( scheduled and prn)- will empirically start on IV antibiotics and follow the cultures. keep on oxygen as needed to keep O2 sat >90%. will check CD4 count. Discussed Condition With: ER physician and the patient.
[2017-11-29] MEDS: Budesonide-Formoterol 160/4.5 MCG 6 GM Inhaler INH SCH (19:28)
[2017-11-29] MEDS: Azithromycin Inj 500 MG in Sodium Chlor 0.9% Inj 250 ML IV.SIG SCH (19:29)
[2017-11-29] MEDS: MethylPREDNISolone Sod Succinate Inj 40 MG/ML Vial IV.PUSH SCH ×3 (21:29→21:31)
[2017-11-29] MEDS ORDERED: MethylPREDNISolone Sod Succinate Inj 40 MG/ML Vial IV.PUSH SCH (22:00)
[2017-11-30] MEDS: MethylPREDNISolone Sod Succinate Inj 40 MG/ML Vial IV.PUSH SCH ×3 (05:17→21:03)
[2017-11-30] MEDS: Budesonide-Formoterol 160/4.5 MCG 6 GM Inhaler INH SCH ×2 (05:17→16:50)
[2017-11-30] MEDS ORDERED: DOLUTEGRAVIR PO SCH (14:45)
[2017-11-30] MEDS ORDERED: EMTRICITABINE TENOFOVIR ALAFEN PO SCH (14:45)
--- NOTE | 2017-11-30 14:53 | P.PNIM ---
Subjective Interval history: The patient was complaining of significant wheezing and cough. He said his cough was a dry cough. He said he is working on quitting cigarettes but he still smokes. He said that he has not taken his HIV medications in 7 or 8 months. Discussed with nursing. Physical Exam Vital signs: Vital Signs 11/29/17 16:05 11/29/17 17:55 11/29/17 19:28 Temperature 98.4 F Pulse Rate 84 78 70 Respiratory Rate 17 18 20 Blood Pressure 120/58 L Pulse Oximetry 98 98 11/29/17 20:00 11/29/17 23:34 11/30/17 00:00 Temperature 97.9 F 98.2 F Pulse Rate 107 H 76 105 H Respiratory Rate 21 18 18 Blood Pressure 151/85 H 126/59 L Pulse Oximetry 99 97 96 11/30/17 02:39 11/30/17 04:00 11/30/17 07:51 Temperature 97.8 F Pulse Rate 74 110 H 74 Respiratory Rate 18 19 18 Blood Pressure 125/57 L Pulse Oximetry 97 98 11/30/17 08:00 11/30/17 09:00 11/30/17 11:36 Temperature 98.1 F Pulse Rate 84 82 85 Respiratory Rate 18 18 Blood Pressure 151/66 H Pulse Oximetry 96 11/30/17 12:00 Temperature 98.2 F Pulse Rate 87 Respiratory Rate 18 Blood Pressure 126/60 Pulse Oximetry 95 Intake & Output 11/29/17 11/30/17 11/30/17 18:59 06:59 18:59 Intake Total 1100 / 1100 661 / 661 Balance 1100 / 1100 661 / 661 Weight 63.5 kg 63.9 kg Intake: IV 1100 / 1100 NS Inj 1,000 ML @ Wide Open IV. 1000 / 1000 SIG [facility] Rx#:[id number] Rocephin Inj 1,000 MG In NS Inj 100 / 100 100 ML @ 200 mls/hr IV.SIG Q24H [facility] Rx#:[id number] Oral 661 / 661 Other: # Voids 3 Date of Last Bowel Movement 11/29/17 11/29/17 Narrative: GENERAL: Well-nourished male patient with shortness of breath. SKIN: Focused skin assessment warm/dry. HEAD: Atraumatic. Normocephalic. EYES: Pupils equal and round. No scleral icterus. No injection or drainage. ENT: No nasal bleeding or discharge. Mucous membranes pink and moist. NECK: Trachea midline. No JVD. CARDIOVASCULAR: Regular rate and rhythm. No murmur appreciated. RESPIRATORY: Diffuse wheezing bilaterally, no crackles. GASTROINTESTINAL: Abdomen soft, non-tender, nondistended. Hepatic and splenic margins not palpable. MUSCULOSKELETAL: No obvious deformities. No clubbing. No cyanosis. No edema. NEUROLOGICAL: Awake and alert. No obvious cranial nerve deficits. Motor grossly within normal limits. Normal speech. PSYCHIATRIC: Appropriate mood and affect; insight and judgment normal. Results - Labs CBC & Chem 7: 11/29/17 12:40 11/29/17 12:40 Microbiology 11/29/17 12:40 Blood - Peripheral Aerobic Blood Culture - Preliminary No growth in 1 day 11/29/17 12:40 Blood - Peripheral Anaerobic Blood Culture - Preliminary No growth in 1 day 11/29/17 12:41 Blood - Peripheral Aerobic Blood Culture - Preliminary No growth in 1 day 11/29/17 12:41 Blood - Peripheral Anaerobic Blood Culture - Preliminary No growth in 1 day Assessment and Plan - Plan Asthma exacerbation With diffuse wheezing. He still smokes. -continue with IV steroids and neb treatments (scheduled and prn). -continue IV antibiotics and follow the cultures. -keep on oxygen as needed to keep O2 sat >90%. -add Tessalon Perles and Robitussin AC for cough. -incentive spirometry. -encourage ambulation. Nicotine abuse. The pt is still a smoker. -cessation instruction. HIV Has not taken retrovirals in 7 or 8 months. -will check CD4 count. -outpt follow-up with department of public health. Renal insufficiency Seems chronic. -avoid nephrotoxins. PPx: SCDs
[2017-11-30] MEDS: guaiFENesin/Codeine Syrup 200 MG/20 MG 10 ML UDC PO PRN (15:30)
[2017-11-30] MEDS: Benzonatate 100 MG Capsule PO PRN (15:30)
[2017-11-30] MEDS: Azithromycin Inj 500 MG in Sodium Chlor 0.9% Inj 250 ML IV.SIG SCH (15:31)
--- NOTE | 2017-11-30 21:46 | ECG ---
Date Performed: 11/29/2017 Time Performed: 13:19:47 PTAGE: 27 years EKG: Sinus rhythm NONSPECIFIC ST ELEVATION BORDERLINE ECG PREVIOUS TRACING : 03/26/2017 05.07 Since the previous tracing, no significant change noted DOCTOR: Vasiliy Silverio Interpretating Date/Time 11/30/2017 21:45:59
[2017-12-01] MEDS: Budesonide-Formoterol 160/4.5 MCG 6 GM Inhaler INH SCH ×2 (04:12→15:48)
[2017-12-01] MEDS: MethylPREDNISolone Sod Succinate Inj 40 MG/ML Vial IV.PUSH SCH ×5 (05:25→23:01)
[2017-12-01] MEDS: guaiFENesin/Codeine Syrup 200 MG/20 MG 10 ML UDC PO PRN ×2 (09:07→20:53)
[2017-12-01] MEDS: Benzonatate 100 MG Capsule PO PRN ×2 (09:07→20:53)
[2017-12-01 09:52] LABS: ABG Base Excess 1.7 mmol/L (-2-2); ABG PCO2 39 mmHg (38-42); ABG PO2 76 mmHg (61-120)
--- NOTE | 2017-12-01 09:53 | XR ---
EXAM DATE: 12/01/2017 9:34 AM EDT AGE/SEX: 27 years / Male INDICATIONS: Chest pain and short of breath. CLINICAL DATA: This is the patient's initial encounter. Patient reports that signs and symptoms have been present for 1 day and indicates a pain score of 4/10. MEDICAL/SURGICAL HISTORY: . Asthma. None. COMPARISON: [facility] [place], CHEST 1V SINGLE AP, 11/29/2017. . FINDINGS: A single AP view of the chest demonstrates the lungs to be symmetrically aerated without evidence of mass, infiltrate or effusion. There is some mild platelike atelectasis in the left lower lung. The c ardiomediastinal contours are unremarkable. Osseous structures are intact. CONCLUSION: Mild platelike atelectasis in the left lower lung. Otherwise, no other focal or acute intrathoracic d isease. Electronically signed by: Walt Orozco MD 12/01/2017 9:51 AM EDT
--- NOTE | 2017-12-01 10:19 | P.PNIM ---
Subjective Interval history: The patient complained of shortness of breath and coughing and chest pain. He believes his chest pain is from the coughing. He says he is able to eat. He feels very uncomfortable. Discussed with nursing. Physical Exam Vital signs: Vital Signs 11/30/17 11:36 11/30/17 12:00 11/30/17 15:56 Temperature 98.2 F Pulse Rate 85 87 87 Respiratory Rate 18 18 18 Blood Pressure 126/60 Pulse Oximetry 95 11/30/17 16:00 11/30/17 20:00 11/30/17 20:07 Temperature 98.7 F 98 F Pulse Rate 106 H 81 106 H Respiratory Rate 17 18 18 Blood Pressure 147/67 H 120/57 L Pulse Oximetry 96 93 L 11/30/17 23:31 12/01/17 00:00 12/01/17 03:56 Temperature 97.6 F Pulse Rate 92 H 79 70 Respiratory Rate 19 18 21 Blood Pressure 114/58 L Pulse Oximetry 95 12/01/17 03:57 12/01/17 04:00 12/01/17 07:40 Temperature 97.9 F Pulse Rate 71 87 Respiratory Rate 18 24 Blood Pressure 101/49 L Pulse Oximetry 97 98 Intake & Output 11/30/17 12/01/17 12/01/17 18:59 06:59 18:59 Intake Total 940 / 940 480 / 480 Output Total 500 / 500 425 / 425 Balance 440 / 440 55 / 55 Weight 64.2 kg Intake: IV 100 / 100 Rocephin Inj 1,000 MG In NS Inj 100 / 100 100 ML @ 200 mls/hr IV.SIG Q24H [facility] Rx#:[id number] Oral 840 / 840 480 / 480 Output: Urine 500 / 500 425 / 425 Other: # Voids 3 Date of Last Bowel Movement 11/29/17 # Bowel Movements 0 0 Narrative: GENERAL: Well-nourished male patient with shortness of breath. SKIN: Focused skin assessment warm/dry. HEAD: Atraumatic. Normocephalic. EYES: Pupils equal and round. No scleral icterus. No injection or drainage. ENT: No nasal bleeding or discharge. Mucous membranes pink and moist. NECK: Trachea midline. No JVD. CARDIOVASCULAR: Regular rate and rhythm. No murmur appreciated. RESPIRATORY: Diffuse wheezing bilaterally, no crackles. GASTROINTESTINAL: Abdomen soft, non-tender, nondistended. Hepatic and splenic margins not palpable. MUSCULOSKELETAL: No obvious deformities. No clubbing. No cyanosis. No edema. NEUROLOGICAL: Awake and alert. No obvious cranial nerve deficits. Motor grossly within normal limits. Normal speech. Results - Labs CBC & Chem 7: 11/29/17 12:40 11/29/17 12:40 Laboratory Results - last 24 hr 12/01/17 09:36 Puncture Site Right radial Patient Temperature 98.6 O2 Saturation 94 ABG pH 7.44 H ABG pCO2 39 ABG pO2 76 ABG HCO3 26 ABG O2 Content 17.3 ABG Base Excess 1.7 ABG Methemoglobin 1.3 Juma Test Present Hemoglobin 13.1 Carboxyhemoglobin 0.8 Inspired O2 21 Critical Value No Microbiology 11/29/17 12:40 Blood - Peripheral Aerobic Blood Culture - Preliminary No growth in 1 day 11/29/17 12:40 Blood - Peripheral Anaerobic Blood Culture - Preliminary No growth in 1 day 11/29/17 12:41 Blood - Peripheral Aerobic Blood Culture - Preliminary No growth in 1 day 11/29/17 12:41 Blood - Peripheral Anaerobic Blood Culture - Preliminary No growth in 1 day - Imaging Impressions Chest X-Ray 12/01/17 09:12 CONCLUSION: Mild platelike atelectasis in the left lower lung. Otherwise, no other focal or acute intrathoracic disease. Assessment and Plan - Plan Asthma exacerbation With diffuse wheezing. He still smokes. ABG 12/01 on room air unremarkable. Repeat CXR also unremarkable. -continue with IV steroids and neb treatments (scheduled and prn). Increase frequency of Solumedrol to q6h. -continue IV antibiotics and follow the cultures. -pulmonology consult requested. -keep on oxygen as needed to keep O2 sat > 90%. -added Tessalon Perles and Robitussin AC for cough. -incentive spirometry. -encourage ambulation. Chest pain S/t coughing and shortness of breath as above. -EKG and trops. -pain control as needed. -telemetry. Nicotine abuse. The pt is still a smoker. -cessation instruction. HIV Has not taken retrovirals in 7 or 8 months. -will check CD4 count. -outpt follow-up with department of public health. Renal insufficiency Seems chronic. -avoid nephrotoxins. PPx: SCDs
[2017-12-01] MEDS ORDERED: RESP: Racemic Epinephrine 2.25% 0.5 ML Neb ONE (11:21)
[2017-12-01] MEDS ORDERED: Magnesium Sulfate Inj 2 GM in Sodium Chlor 0.9% Inj 96 ML IV.SIG ONE (12:00)
[2017-12-01] MEDS: Morphine Inj 4 MG/ML Vial IV.PUSH PRN ×2 (12:57→20:53)
[2017-12-01] MEDS: Azithromycin Inj 500 MG in Sodium Chlor 0.9% Inj 250 ML IV.SIG SCH (16:38)
--- NOTE | 2017-12-01 20:23 | MB ---
cc: Rocky Hidalgo MD DATE: 12/01/2017 REASON FOR CONSULTATION: Exacerbation of bronchial asthma. HISTORY OF PRESENT ILLNESS: Mr. Oakley is a 27-year-old male with a known history of bronchial asthma, admitted with increasing shortness of breath, cough and wheezing and congestion, believes he did have a temperature elevation while at home for a couple of days. He as well had evidence of diarrhea, which was liquid and greenish in color. Denies history of hemoptysis. No fever, no chill at present. No TB. No industrial exposure. He has a history of HIV infection. PAST MEDICAL HISTORY: HIV infection. No diabetes, no hypertension, no heart disease. Bronchial asthma as mentioned above. FAMILY HISTORY: Notable for hypertension, otherwise unremarkable. SOCIAL HISTORY: Does not drink; however, he is a current smoker, about a pack a day. Does not use drugs. REVIEW OF SYSTEMS: A 12-point review of systems as per HPI and past history, otherwise negative. PHYSICAL EXAMINATION: VITAL SIGNS: Temperature 98, pulse 80, respirations 20, blood pressure 130/60, O2 saturation 99% on 2 liters oxygen nasal cannula. HEENT: Unremarkable. Eyes without icterus. NECK: Without adenopathy, thyroid enlargement. Central trachea. CHEST: Scattered wheeze bilaterally. Good air movement. CARDIAC: PMI distant. S1, S2 audible. No murmur. No rub. ABDOMEN: Lax, audible bowel sounds. PSYCHIATRIC: No clubbing, cyanosis or edema. SKIN: Normal. No lymphadenopathy. LABORATORY DATA: White count 4.4, hemoglobin 14, hematocrit 40, platelets 265,000. Sodium 140, potassium 3.8, BUN 19, creatinine 1.4. Chest x-ray without acute disease. IMPRESSION: Asthma exacerbation. PLAN: The patient will be maintained on oxygen therapy as needed, bronchodilator therapy, steroid therapy course, follow closely and depending on progress, proceed further. The patient seems gradually improving at present. I do thank you for asking me to partake in Mr. Oakley's care. Sincerely, Rocky Hidalgo MD WWW/ct , 05:06 PM , 05:15 PM
[2017-12-02 04:44] LABS: Anion Gap 5 meq/L (5-15); Blood Urea Nitrogen 16 mg/dL (7-18); Calcium 8.4 mg/dL (8.5-10.1); Carbon Dioxide 28.2 meq/L (21.0-32.0); Chloride 104 meq/L (98-107); Glomerular Filtration Rate Greater Than 89 mL/min (>89); Glucose,Random 144 mg/dL (74-106); Magnesium 2.3 mg/dL (1.5-2.5); Potassium 4.9 meq/L (3.5-5.1); Sodium 137 meq/L (136-145)
[2017-12-02] MEDS: MethylPREDNISolone Sod Succinate Inj 40 MG/ML Vial IV.PUSH SCH ×4 (06:09→21:31)
[2017-12-02] MEDS: Budesonide-Formoterol 160/4.5 MCG 6 GM Inhaler INH SCH ×2 (06:10→16:27)
[2017-12-02] MEDS: guaiFENesin/Codeine Syrup 200 MG/20 MG 10 ML UDC PO PRN ×4 (06:10→21:31)
[2017-12-02] MEDS: Benzonatate 100 MG Capsule PO PRN (06:10)
[2017-12-02] MEDS: Fluconazole 100 MG Tablet PO SCH (10:56)
[2017-12-02] MEDS: Morphine Inj 4 MG/ML Vial IV.PUSH PRN ×3 (10:58→21:44)
--- NOTE | 2017-12-02 13:40 | P.PNIM ---
Subjective Interval history: 27-year-old male in the ICU for asthma exacerbation. He has a history of HIV and has been off of his medications for 8 months. CD4 counts returned today showing a absolute CD4 count of 135 which is categorically AIDS. We had a discussion about the importance of prophylactic antibiotics and antifungal and I have agreed to start him on his anti-retroviral medications today rather than awaiting outpatient follow-up. He is still labored in his breathing. Physical Exam Vital signs: Vital Signs 12/01/17 15:28 12/01/17 16:00 12/01/17 19:44 Temperature Pulse Rate 78 86 79 Respiratory Rate 18 19 Blood Pressure Pulse Oximetry 98 97 12/01/17 20:00 12/01/17 23:00 12/01/17 23:44 Temperature 98.2 F Pulse Rate 90 71 Respiratory Rate 16 19 Blood Pressure 121/61 Pulse Oximetry 12/01/17 23:45 12/02/17 00:00 12/02/17 03:32 Temperature 98.2 F Pulse Rate 73 64 Respiratory Rate 15 17 Blood Pressure 119/63 Pulse Oximetry 99 96 98 12/02/17 04:00 12/02/17 06:46 12/02/17 08:00 Temperature 98.3 F 98.3 F Pulse Rate 66 73 73 Respiratory Rate 12 18 21 Blood Pressure 122/68 113/62 Pulse Oximetry 100 95 12/02/17 08:33 12/02/17 11:56 12/02/17 12:00 Temperature 98.3 F Pulse Rate 83 96 H 74 Respiratory Rate 22 22 16 Blood Pressure 117/59 L Pulse Oximetry 97 100 Intake & Output 12/01/17 12/02/17 12/02/17 18:59 06:59 18:59 Intake Total 700 / 700 Output Total 450 / 450 Balance 250 / 250 Intake: IV 200 / 200 Magnesium Sulfate Inj 2 GM In 100 / 100 NS Inj 96 ML @ 50 mls/hr IV.SIG ONCE ONE Rx#:[id number] Rocephin Inj 1,000 MG In NS Inj 100 / 100 100 ML @ 200 mls/hr IV.SIG Q24H [facility] Rx#:[id number] Oral 500 / 500 Output: Urine 450 / 450 Other: # Voids 1 Date of Last Bowel Movement 11/29/17 11/29/17 11/29/17 Narrative: GENERAL: AAOx3, moderately labored breathing SKIN: Warm and dry. No rashes HEAD: Atruamtic, normocephalic. EYES: No scleral icterus. No injection or drainage. ENT: Moist mucous membranes, patent nares, no erythema of oropharynx. NECK: Supple, trachea midline. No JVD or lymphadenopathy. Normal thyroid. CARDIOVASCULAR: Regular rate and rhythm. No murmurs, gallops, or rubs. RESPIRATORY: Diminished bases with scattered wheezing bilaterally. Nonproductive cough no accessory muscle use. GASTROINTESTINAL: Abdomen soft, non-tender, nondistended, normal active bowel sounds MUSCULOSKELETAL: No cyanosis, or edema. NEURO: CN II-XII grossly intact, no focal deficits, no slurring of speech Results - Labs CBC & Chem 7: 11/29/17 12:40 12/02/17 03:19 Laboratory Results - last 24 hr 11/29/17 12/01/17 12/01/17 12:40 16:03 21:25 Sodium Potassium Chloride Carbon Dioxide Anion Gap BUN Creatinine Estimated GFR Random Glucose Calcium Magnesium Troponin I Less than 0.02 L Less than 0.02 L Absolute Lymphocytes 1255 % CD3 Cells 93 H Absolute CD3 Count 1167 % CD3-/CD16+/CD56+ 5 Abs CD3-/CD16+/CD56+ 66 L % CD4 Cells 10 L Absolute CD4 Count 135 L T-Help/Suppress Ratio 0.10 L % CD8 Cells 79 H Absolute CD8 Count 1019 % CD19 Cells 1 L Absolute CD19 Count Less than 20 L 12/02/17 03:19 Sodium 137 Potassium 4.9 Chloride 104 Carbon Dioxide 28.2 Anion Gap 5 BUN 16 Creatinine 1.16 Estimated GFR Greater than 89 Random Glucose 144 H Calcium 8.4 L Magnesium 2.3 Troponin I Absolute Lymphocytes % CD3 Cells Absolute CD3 Count % CD3-/CD16+/CD56+ Abs CD3-/CD16+/CD56+ % CD4 Cells Absolute CD4 Count T-Help/Suppress Ratio % CD8 Cells Absolute CD8 Count % CD19 Cells Absolute CD19 Count Microbiology 11/29/17 12:40 Blood - Peripheral Aerobic Blood Culture - Preliminary No growth in 3 days 11/29/17 12:40 Blood - Peripheral Anaerobic Blood Culture - Preliminary No growth in 3 days 11/29/17 12:41 Blood - Peripheral Aerobic Blood Culture - Preliminary No growth in 3 days 11/29/17 12:41 Blood - Peripheral Anaerobic Blood Culture - Preliminary No growth in 3 days Assessment and Plan - Plan Asthma exacerbation Poorly responsive to standard therapy with IV steroids and nebulizers Continue Solu-Medrol every 6, IV antibiotics, oxygen, Tessalon Anaya Vance-AC, incentive spirometry Patient has AIDS so consider atypical lung infections, CD4 count 135 Bactrim added for coverage of PCP Diflucan added for coverage of coccidiomycosis HIV /AIDS Has not taken retrovirals in 7 or 8 months. Absolute CD4 count is 135 Bactrim added for empiric coverage of PCP Diflucan added for empiric coverage of coccidiomycosis Patient restarted today on his triple antiretroviral therapy He will need follow-up CD4 counts in the next month as an outpatient Nicotine abuse The pt is still a smoker. Recommended to stop DVT prophylaxis SCDs
--- NOTE | 2017-12-02 15:29 | P.PN ---
Subjective Interval history: alert sitting in bed less sob still some wheezing Physical Exam Vital signs: Vital Signs 12/01/17 15:28 12/01/17 16:00 12/01/17 19:44 Temperature Pulse Rate 78 86 79 Respiratory Rate 18 19 Blood Pressure Pulse Oximetry 98 97 12/01/17 20:00 12/01/17 23:00 12/01/17 23:44 Temperature 98.2 F Pulse Rate 90 71 Respiratory Rate 16 19 Blood Pressure 121/61 Pulse Oximetry 12/01/17 23:45 12/02/17 00:00 12/02/17 03:32 Temperature 98.2 F Pulse Rate 73 64 Respiratory Rate 15 17 Blood Pressure 119/63 Pulse Oximetry 99 96 98 12/02/17 04:00 12/02/17 06:46 12/02/17 08:00 Temperature 98.3 F 98.3 F Pulse Rate 66 73 73 Respiratory Rate 12 18 21 Blood Pressure 122/68 113/62 Pulse Oximetry 100 95 12/02/17 08:33 12/02/17 11:56 12/02/17 12:00 Temperature 98.3 F Pulse Rate 83 96 H 74 Respiratory Rate 22 22 16 Blood Pressure 117/59 L Pulse Oximetry 97 100 Intake & Output 12/01/17 12/02/17 12/02/17 18:59 06:59 18:59 Intake Total 700 / 700 Output Total 450 / 450 Balance 250 / 250 Intake: IV 200 / 200 Magnesium Sulfate Inj 2 GM In 100 / 100 NS Inj 96 ML @ 50 mls/hr IV.SIG ONCE ONE Rx#:[id number] Rocephin Inj 1,000 MG In NS Inj 100 / 100 100 ML @ 200 mls/hr IV.SIG Q24H [facility] Rx#:[id number] Oral 500 / 500 Output: Urine 450 / 450 Other: # Voids 1 Date of Last Bowel Movement 11/29/17 11/29/17 11/29/17 Narrative: GENERAL: AAOx3, moderately labored breathing SKIN: Warm and dry. No rashes HEAD: Atruamtic, normocephalic. EYES: No scleral icterus. No injection or drainage. ENT: Moist mucous membranes, patent nares, no erythema of oropharynx. NECK: Supple, trachea midline. No JVD or lymphadenopathy. Normal thyroid. CARDIOVASCULAR: Regular rate and rhythm. No murmurs, gallops, or rubs. RESPIRATORY: Diminished bases with scattered wheezing bilaterally. Nonproductive cough no accessory muscle use. GASTROINTESTINAL: Abdomen soft, non-tender, nondistended, normal active bowel sounds MUSCULOSKELETAL: No cyanosis, or edema. NEURO: CN II-XII grossly intact, no focal deficits, no slurring of speech Results - Labs CBC & Chem 7: 11/29/17 12:40 12/02/17 03:19 Laboratory Results - last 24 hr 11/29/17 12/01/17 12/01/17 12:40 16:03 21:25 Sodium Potassium Chloride Carbon Dioxide Anion Gap BUN Creatinine Estimated GFR Random Glucose Calcium Magnesium Troponin I Less than 0.02 L Less than 0.02 L Absolute Lymphocytes 1255 % CD3 Cells 93 H Absolute CD3 Count 1167 % CD3-/CD16+/CD56+ 5 Abs CD3-/CD16+/CD56+ 66 L % CD4 Cells 10 L Absolute CD4 Count 135 L T-Help/Suppress Ratio 0.10 L % CD8 Cells 79 H Absolute CD8 Count 1019 % CD19 Cells 1 L Absolute CD19 Count Less than 20 L 12/02/17 03:19 Sodium 137 Potassium 4.9 Chloride 104 Carbon Dioxide 28.2 Anion Gap 5 BUN 16 Creatinine 1.16 Estimated GFR Greater than 89 Random Glucose 144 H Calcium 8.4 L Magnesium 2.3 Troponin I Absolute Lymphocytes % CD3 Cells Absolute CD3 Count % CD3-/CD16+/CD56+ Abs CD3-/CD16+/CD56+ % CD4 Cells Absolute CD4 Count T-Help/Suppress Ratio % CD8 Cells Absolute CD8 Count % CD19 Cells Absolute CD19 Count Microbiology 11/29/17 12:40 Blood - Peripheral Aerobic Blood Culture - Preliminary No growth in 3 days 11/29/17 12:40 Blood - Peripheral Anaerobic Blood Culture - Preliminary No growth in 3 days 11/29/17 12:41 Blood - Peripheral Aerobic Blood Culture - Preliminary No growth in 3 days 11/29/17 12:41 Blood - Peripheral Anaerobic Blood Culture - Preliminary No growth in 3 days Assessment and Plan - Plan respiratory failure exacerbation asthma HIV/AIDS PLAN O2 NEEDED BRONCHODILATOR THERAPY OK FOR [facility] FLOOR
[2017-12-02] MEDS: Azithromycin Inj 500 MG in Sodium Chlor 0.9% Inj 250 ML IV.SIG SCH (17:45)
[2017-12-03] MEDS: guaiFENesin/Codeine Syrup 200 MG/20 MG 10 ML UDC PO PRN (06:22)
[2017-12-03] MEDS: Morphine Inj 4 MG/ML Vial IV.PUSH PRN ×4 (06:22→23:35)
[2017-12-03] MEDS: Budesonide-Formoterol 160/4.5 MCG 6 GM Inhaler INH SCH ×2 (06:23→19:08)
[2017-12-03] MEDS: MethylPREDNISolone Sod Succinate Inj 40 MG/ML Vial IV.PUSH SCH ×5 (06:23→23:34)
--- NOTE | 2017-12-03 06:59 | P.PN ---
Subjective Interval history: Patient seen and examined this morning, their vitals are stable and the patient is afebrile. Saturating 99% on nasal cannula. Reports he is starting to feel better. Easily becomes short of breath with exertion. 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 Has not insurance for several months since him and his partner lost their children to DCF. Per nurse issues with vascular access. Physical Exam Vital signs: Vital Signs 12/02/17 08:00 12/02/17 08:33 12/02/17 11:56 Temperature 98.3 F Pulse Rate 73 83 96 H Respiratory Rate 21 22 22 Blood Pressure 113/62 Pulse Oximetry 95 97 12/02/17 12:00 12/02/17 16:00 12/02/17 16:47 Temperature 98.3 F 98.5 F Pulse Rate 74 80 92 H Respiratory Rate 16 20 24 Blood Pressure 117/59 L 128/70 Pulse Oximetry 100 95 12/02/17 20:00 12/02/17 20:23 12/02/17 23:41 Temperature 98.2 F Pulse Rate 82 91 H Respiratory Rate 16 20 Blood Pressure 118/58 L Pulse Oximetry 96 12/03/17 00:00 12/03/17 00:22 12/03/17 04:00 Temperature 98.3 F 98.3 F Pulse Rate 96 H 72 69 Respiratory Rate 16 Blood Pressure 122/69 130/63 Pulse Oximetry 93 L 99 12/03/17 04:08 Temperature Pulse Rate 72 Respiratory Rate 16 Blood Pressure Pulse Oximetry Intake & Output 12/02/17 12/02/17 12/03/17 06:59 18:59 06:59 Intake Total 830 / 830 Output Total 500 / 500 Balance 330 / 330 Intake: IV 350 / 350 Azithromycin Inj 500 MG In NS 250 / 250 Inj 250 ML @ 250 mls/hr IV.SIG Q24H [facility] Rx#:[id number] Rocephin Inj 1,000 MG In NS Inj 100 / 100 100 ML @ 200 mls/hr IV.SIG Q24H [facility] Rx#:[id number] Oral 480 / 480 Output: Urine 500 / 500 Other: Date of Last Bowel Movement 11/29/17 12/02/17 12/02/17 # Bowel Movements 1 Narrative: GENERAL: AAOx3, SKIN: Warm and dry. No rashes HEAD: Atraumatic, normocephalic. EYES: No scleral icterus. No injection or drainage. ENT: Moist mucous membranes, patent nares, no erythema of oropharynx. NECK: Supple, trachea midline. No JVD or lymphadenopathy. Normal thyroid. CARDIOVASCULAR: Regular rate and rhythm. No murmurs, gallops, or rubs. RESPIRATORY: Diminished bases with scattered wheezing bilaterally. Nonproductive cough no accessory muscle use. GASTROINTESTINAL: Abdomen soft, non-tender, nondistended, normal active bowel sounds MUSCULOSKELETAL: No cyanosis, or edema. NEURO: CN II-XII grossly intact, no focal deficits, no slurring of speech Results - Labs CBC & Chem 7: 11/29/17 12:40 12/02/17 03:19 Microbiology 11/29/17 12:40 Blood - Peripheral Aerobic Blood Culture - Preliminary No growth in 3 days 11/29/17 12:40 Blood - Peripheral Anaerobic Blood Culture - Preliminary No growth in 3 days 11/29/17 12:41 Blood - Peripheral Aerobic Blood Culture - Preliminary No growth in 3 days 11/29/17 12:41 Blood - Peripheral Anaerobic Blood Culture - Preliminary No growth in 3 days - Imaging Chest x-ray on December 01 shows mild platelike atelectasis in left lower lung. Assessment and Plan - Plan In summary this is a 27-year-old male patient with a medical history that is significant for asthma and HIV, he had been off his antivirals for several months, who presented to the [facility] with shortness of breath. He is admitted to the ICU due to respiratory distress. Was initially improving and then [facility] was called on December 01. The patient is being treated for asthma exacerbation in addition to opportunistic infections based on his CD4 count. Asthma exacerbation Poorly responsive to standard therapy with IV steroids and nebulizers Continue Solu-Medrol every 6, IV antibiotics, oxygen, Tessalon Perles, Robitussin-AC, incentive spirometry Patient has AIDS so consider atypical lung infections, CD4 count 135 Being treated for opportunistic infections per below Also being treated for community acquired pneumonia Rocephin & Azithromycin 11/29 HIV /AIDS Has not taken retrovirals in 7 or 8 months. Absolute CD4 count is 135 Con't Bactrim for empiric coverage of PCP started 12/02 Con't Diflucan for empiric coverage of coccidiomycosis started 12/02 Patient restarted on his triple antiretroviral therapy on 12/02 He will need follow-up CD4 counts in the next month as an outpatient Blood cultures are negative to date Nicotine abuse The pt is still a smoker. Recommended to stop DVT prophylaxis SCDs Consult vascular access Discussed Condition With: Patients nurse Discharge Planning: Case management to assist with DC needs. Will need prescriptions for abx, steroids, and HIV. Will also need to make sure he has someone to follow up.
[2017-12-03] MEDS: Fluconazole 100 MG Tablet PO SCH (09:25)
--- NOTE | 2017-12-03 15:30 | P.PN ---
Subjective Interval history: alert sitting in bed less SOB Physical Exam Vital signs: Vital Signs 12/02/17 16:00 12/02/17 16:47 12/02/17 20:00 Temperature 98.5 F 98.2 F Pulse Rate 80 92 H 82 Respiratory Rate 20 24 Blood Pressure 128/70 118/58 L Pulse Oximetry 95 12/02/17 20:23 12/02/17 23:41 12/03/17 00:00 Temperature 98.3 F Pulse Rate 91 H 96 H Respiratory Rate 16 20 Blood Pressure 122/69 Pulse Oximetry 96 93 L 12/03/17 00:22 12/03/17 04:00 12/03/17 04:08 Temperature 98.3 F Pulse Rate 72 69 72 Respiratory Rate 16 16 Blood Pressure 130/63 Pulse Oximetry 99 12/03/17 06:46 12/03/17 07:57 12/03/17 08:00 Temperature 98.1 F Pulse Rate 89 82 Respiratory Rate 16 14 23 Blood Pressure 126/61 Pulse Oximetry 93 L 12/03/17 12:05 Temperature Pulse Rate 85 Respiratory Rate 17 Blood Pressure Pulse Oximetry Intake & Output 12/02/17 12/03/17 12/03/17 18:59 06:59 18:59 Intake Total 830 / 830 480 / 480 Output Total 500 / 500 1000 / 1000 Balance 330 / 330 -520 / -520 Weight 64.7 kg Intake: IV 350 / 350 Azithromycin Inj 500 MG In NS 250 / 250 Inj 250 ML @ 250 mls/hr IV.SIG Q24H ARACELY Rx#:[id number] Rocephin Inj 1,000 MG In NS Inj 100 / 100 100 ML @ 200 mls/hr IV.SIG Q24H ARACELY Rx#:[id number] Oral 480 / 480 480 / 480 Output: Urine 500 / 500 1000 / 1000 Other: # Voids 1 Date of Last Bowel Movement 12/02/17 12/02/17 12/02/17 # Bowel Movements 1 1 Narrative: GENERAL: AAOx3, SKIN: Warm and dry. No rashes HEAD: Atraumatic, normocephalic. EYES: No scleral icterus. No injection or drainage. ENT: Moist mucous membranes, patent nares, no erythema of oropharynx. NECK: Supple, trachea midline. No JVD or lymphadenopathy. Normal thyroid. CARDIOVASCULAR: Regular rate and rhythm. No murmurs, gallops, or rubs. RESPIRATORY: Diminished bases with scattered wheezing bilaterally. Nonproductive cough no accessory muscle use. GASTROINTESTINAL: Abdomen soft, non-tender, nondistended, normal active bowel sounds MUSCULOSKELETAL: No cyanosis, or edema. NEURO: CN II-XII grossly intact, no focal deficits, no slurring of speech Results - Labs CBC & Chem 7: 11/29/17 12:40 12/02/17 03:19 Microbiology 11/29/17 12:40 Blood - Peripheral Aerobic Blood Culture - Preliminary No growth in 4 days 11/29/17 12:40 Blood - Peripheral Anaerobic Blood Culture - Preliminary No growth in 4 days 11/29/17 12:41 Blood - Peripheral Aerobic Blood Culture - Preliminary No growth in 4 days 11/29/17 12:41 Blood - Peripheral Anaerobic Blood Culture - Preliminary No growth in 4 days Assessment and Plan - Plan respiratory failure exacerbation asthma HIV/AIDS PLAN O2 NEEDED BRONCHODILATOR THERAPY OK FOR [facility] FLOOR
--- NOTE | 2017-12-03 17:20 | CT ---
EXAM DATE: 12/03/2017 4:49 PM EDT AGE/SEX: 27 years / Male INDICATIONS: Shortness of breath. Evaluate for embolism. CLINICAL DATA: This is the patient's initial encounter. Patient reports that signs and symptoms have been present for 1 day and indicates a pain score of 0/10. MEDICAL/SURGICAL HISTORY: HIV. Asthma. None. RADIATION DOSE: 8.44 CTDI (mGy) COMPARISON: No prior exams available for comparison. TECHNIQUE: Volumetric scanning was performed using a multi-row detector CT scanner during bolus infu pantera of 70 ml Omnipaque 350 (iohexol) nonionic water-soluble contrast as a single exam dose. The renaldo a was post processed with a variety of visualization algorithms including full volume maximum intensi ty projection and sliding thin slab reformation. Using automated exposure control and adjustment of the mA and/or kV according to patient size, radiation dose was kept as low as reasonably achievable t o obtain optimal diagnostic quality images. DICOM format image data is available electronically for review and comparison. FINDINGS: There is no evidence of PE for technique. Bibasilar consolidation is seen may represent pneumonia. T here is no pleural effusion or pathological adenopathy. CONCLUSION: 1. Bibasilar consolidation. Electronically signed by: Nuria Stephenson MD 12/03/2017 5:18 PM EDT
[2017-12-03] MEDS: Azithromycin Inj 500 MG in Sodium Chlor 0.9% Inj 250 ML IV.SIG SCH (19:07)
[2017-12-03] MEDS: Acetaminophen 325 MG Tablet PO PRN (21:56)
[2017-12-04] MEDS: Acetaminophen 325 MG Tablet PO PRN (03:02)
[2017-12-04] MEDS: MethylPREDNISolone Sod Succinate Inj 40 MG/ML Vial IV.PUSH SCH ×4 (05:58→21:51)
[2017-12-04] MEDS: Budesonide-Formoterol 160/4.5 MCG 6 GM Inhaler INH SCH ×2 (05:59→16:58)
[2017-12-04] MEDS: Morphine Inj 4 MG/ML Vial IV.PUSH PRN (06:08)
--- NOTE | 2017-12-04 07:03 | P.PN ---
Subjective Interval history: Patient seen and examined this morning, their vitals are stable and the patient is afebrile. Saturating 91% on room air. Patient states he was very short of breath overnight, required several extra breathing treatments. Was awaken twice from his sleep due to feeling like he could not breath. Feels better this am but the evening events were very scary for him. Physical Exam Vital signs: Vital Signs 12/03/17 07:57 12/03/17 08:00 12/03/17 12:00 Temperature 98.1 F 98.3 F Pulse Rate 89 82 90 Respiratory Rate 14 23 20 Blood Pressure 126/61 152/73 H Pulse Oximetry 93 L 93 L 12/03/17 12:05 12/03/17 16:00 12/03/17 19:42 Temperature 97.9 F Pulse Rate 85 80 Respiratory Rate 17 22 Blood Pressure Pulse Oximetry 91 L 93 L 12/03/17 20:00 12/04/17 00:00 12/04/17 03:06 Temperature 98.6 F 98.4 F Pulse Rate 90 76 72 Respiratory Rate 19 22 19 Blood Pressure 129/64 122/97 H Pulse Oximetry 94 L 93 L 12/04/17 04:00 Temperature 98.4 F Pulse Rate 78 Respiratory Rate 23 Blood Pressure 105/59 L Pulse Oximetry 91 L Intake & Output 12/03/17 12/04/17 12/04/17 18:59 06:59 18:59 Intake Total 480 / 480 580 / 580 Output Total 1200 / 1200 1200 / 1200 Balance -720 / -720 -620 / -620 Weight 68.6 kg Intake: IV 100 / 100 Rocephin Inj 1,000 MG In NS Inj 100 / 100 100 ML @ 200 mls/hr IV.SIG Q24H ARACELY Rx#:[id number] Oral 480 / 480 480 / 480 Output: Urine 1200 / 1200 1200 / 1200 Other: # Voids 2 3 Date of Last Bowel Movement 12/02/17 12/02/17 # Bowel Movements 0 0 Narrative: GENERAL: AAOx3, SKIN: Warm and dry. No rashes HEAD: Atraumatic, normocephalic. EYES: No scleral icterus. No injection or drainage. ENT: Moist mucous membranes, patent nares, no erythema of oropharynx. NECK: Supple, trachea midline. No JVD or lymphadenopathy. Normal thyroid. CARDIOVASCULAR: Regular rate and rhythm. No murmurs, gallops, or rubs. RESPIRATORY: Diminished bases with scattered wheezing bilaterally. Nonproductive cough no accessory muscle use. GASTROINTESTINAL: Abdomen soft, non-tender, nondistended, normal active bowel sounds MUSCULOSKELETAL: No cyanosis, or edema. NEURO: CN II-XII grossly intact, no focal deficits, no slurring of speech Results - Labs CBC & Chem 7: 11/29/17 12:40 12/02/17 03:19 Microbiology 11/29/17 12:40 Blood - Peripheral Aerobic Blood Culture - Preliminary No growth in 4 days 11/29/17 12:40 Blood - Peripheral Anaerobic Blood Culture - Preliminary No growth in 4 days 11/29/17 12:41 Blood - Peripheral Aerobic Blood Culture - Preliminary No growth in 4 days 11/29/17 12:41 Blood - Peripheral Anaerobic Blood Culture - Preliminary No growth in 4 days - Imaging Impressions Chest CTA 12/03/17 00:00 CONCLUSION: 1. Bibasilar consolidation. Assessment and Plan - Plan In summary this is a 27-year-old male patient with a medical history that is significant for asthma and HIV, he had been off his antivirals for several months, who presented to the [facility] with shortness of breath. He is admitted to the ICU due to respiratory distress. Was initially improving and then [facility] was called on December 01. The patient is being treated for asthma exacerbation in addition to opportunistic infections based on his CD4 count. Asthma exacerbation Poorly responsive to standard therapy with IV steroids and nebulizers Continue Solu-Medrol every 6, IV antibiotics, oxygen, Tessalon Perles, Robitussin-AC, incentive spirometry Patient has AIDS so consider atypical lung infections, CD4 count 135 Being treated for opportunistic infections per below Also being treated for community acquired pneumonia Rocephin & Azithromycin 11/29 CTA negative for PE. Patient not clinically improving as expected, will consult ID for abx suggestions HIV /AIDS Has not taken retrovirals in 7 or 8 months. Absolute CD4 count is 135 Con't Bactrim for empiric coverage of PCP started 12/02 Con't Diflucan for empiric coverage of coccidiomycosis started 12/02 Patient restarted on his triple antiretroviral therapy on 12/02 He will need follow-up CD4 counts in the next month as an outpatient Blood cultures are negative to date Nicotine abuse The pt is still a smoker. Recommended to stop DVT prophylaxis SCDs Discharge Planning: Case management to assist with DC needs. Will need prescriptions for abx, steroids, and HIV. Will also need to make sure he has someone to follow up. May transfer to medical floor.
[2017-12-04] MEDS: Fluconazole 100 MG Tablet PO SCH (09:22)
--- NOTE | 2017-12-04 15:16 | P.PN ---
Subjective Interval history: alert nad Physical Exam Vital signs: Vital Signs 12/03/17 16:00 12/03/17 19:42 12/03/17 20:00 Temperature 97.9 F 98.6 F Pulse Rate 80 90 Respiratory Rate 22 19 Blood Pressure 129/64 Pulse Oximetry 91 L 93 L 94 L 12/04/17 00:00 12/04/17 03:06 12/04/17 04:00 Temperature 98.4 F 98.4 F Pulse Rate 76 72 78 Respiratory Rate 22 19 23 Blood Pressure 122/97 H 105/59 L Pulse Oximetry 93 L 91 L 12/04/17 08:00 12/04/17 08:57 12/04/17 08:58 Temperature 98.5 F Pulse Rate 73 69 Respiratory Rate 15 12 Blood Pressure 118/68 Pulse Oximetry 92 L 98 12/04/17 12:00 Temperature 98.1 F Pulse Rate 80 Respiratory Rate 14 Blood Pressure 119/61 Pulse Oximetry 91 L Intake & Output 12/03/17 12/04/17 12/04/17 18:59 06:59 18:59 Intake Total 480 / 480 580 / 580 Output Total 1200 / 1200 1200 / 1200 Balance -720 / -720 -620 / -620 Weight 68.6 kg Intake: IV 100 / 100 Rocephin Inj 1,000 MG In NS Inj 100 / 100 100 ML @ 200 mls/hr IV.SIG Q24H ARACELY Rx#:[id number] Oral 480 / 480 480 / 480 Output: Urine 1200 / 1200 1200 / 1200 Other: # Voids 2 3 Date of Last Bowel Movement 12/02/17 12/02/17 # Bowel Movements 0 0 Narrative: GENERAL: AAOx3, SKIN: Warm and dry. No rashes HEAD: Atraumatic, normocephalic. EYES: No scleral icterus. No injection or drainage. ENT: Moist mucous membranes, patent nares, no erythema of oropharynx. NECK: Supple, trachea midline. No JVD or lymphadenopathy. Normal thyroid. CARDIOVASCULAR: Regular rate and rhythm. No murmurs, gallops, or rubs. RESPIRATORY: Diminished bases with scattered wheezing bilaterally. Nonproductive cough no accessory muscle use. GASTROINTESTINAL: Abdomen soft, non-tender, nondistended, normal active bowel sounds MUSCULOSKELETAL: No cyanosis, or edema. NEURO: CN II-XII grossly intact, no focal deficits, no slurring of speech Results - Labs CBC & Chem 7: 11/29/17 12:40 12/02/17 03:19 Microbiology 11/29/17 12:40 Blood - Peripheral Aerobic Blood Culture - Final No growth in 5 days 11/29/17 12:40 Blood - Peripheral Anaerobic Blood Culture - Final No growth in 5 days 11/29/17 12:41 Blood - Peripheral Aerobic Blood Culture - Final No growth in 5 days 11/29/17 12:41 Blood - Peripheral Anaerobic Blood Culture - Final No growth in 5 days - Imaging Impressions Chest CTA 12/03/17 00:00 CONCLUSION: 1. Bibasilar consolidation. Assessment and Plan - Plan respiratory failure exacerbation asthma HIV/AIDS PLAN O2 NEEDED BRONCHODILATOR THERAPY OK FOR MED FLOOR
[2017-12-04] MEDS: Azithromycin Inj 500 MG in Sodium Chlor 0.9% Inj 250 ML IV.SIG SCH (16:06)
--- NOTE | 2017-12-04 18:41 | MB ---
cc: Marco Moore MD DATE: 12/01/2017 REQUESTING PHYSICIAN: Marlena Fernandez MD REASON FOR CONSULTATION: Antibiotic assistance. HISTORY OF PRESENT ILLNESS: This is a 27-year-old black male who presented to the emergency department for respiratory distress. The patient has a history of HIV diagnosed one year ago. He developed shortness of breath along with cough, chest congestion and subjective fever, and also diarrhea. The patient was evaluated in the emergency department and had no fever and his white blood cell count was normal. He was admitted to the hospital for further evaluation. He was put on antibiotics. He states that he feels better. He notes that he has been having shortness of breath off and on, including last night. He was given breathing treatments and feels improved. He also tells me that he had a headache on admission. He states that he tends to get very bad headaches off and on over this year. The patient's absolute CD4 count is 135. He has been followed for HIV by the [facility]. He was attempting to get an appointment with the [facility] Department, but he received Medicaid assistance and has not been seen at the Health Department. The patient tells me he had stopped his HIV medicines 6 months ago when he lost his Medicaid, and he has had difficulty in arranging for followup for the HIV. Currently, he is alert and awake and feels improved. He was started on HIV medications after this admission. Blood cultures have no growth. Chest CTA was performed yesterday evening and it shows bibasilar consolidation. PAST MEDICAL HISTORY: HIV disease, hypertension. ALLERGIES: NO KNOWN DRUG ALLERGIES. THE PATIENT IS ALLERGIC TO CUCUMBERS. MEDICATIONS: 1. Azithromycin. 2. Tessalon Perles. 3. Symbicort. 4. Ceftriaxone. 5. Tivicay. 6. Truvada. 7. Diflucan. 8. Solu-Medrol. 9. Robitussin. 10. Zofran. 11. Bactrim p.o. SOCIAL HISTORY: Positive tobacco. Reported illicit drug use. Occasional alcohol. Positive marijuana use. Denies IV drug use. FAMILY HISTORY: Significant for hypertension and diabetes in his maternal grandfather and hypertension in his father. REVIEW OF SYSTEMS: All systems have been reviewed and negative except for that mentioned in the History of Present Illness. PHYSICAL EXAMINATION: GENERAL: This is a well-developed male who is in no acute distress. He is awake and alert and oriented. VITAL SIGNS: Temperature 98.1, BP 119/61, respirations 18, heart rate 80. HEENT: Head is atraumatic. Extraocular muscles intact. Pupils reactive to light, without icterus. Oropharynx moist mucosa without lesions. NECK: Supple without adenopathy. LUNGS: Rhonchi at both bases. HEART: Regular S1, S2, without murmurs. ABDOMEN: Bowel sounds present, soft, no tenderness appreciated. RECTAL: Not performed. EXTREMITIES: No clubbing, cyanosis or edema. SKIN: No rash. NEUROLOGIC: No gross focal finding. PSYCHIATRIC: The patient is calm and cooperative. LABORATORY DATA: WBC 4.4, platelet count 265, hemoglobin 14.2, 57% neutrophils, 31% lymphocytes, 6% monocytes. Creatinine 1.16, BUN 16. Estimated GFR greater than 89. Liver function test normal. Blood culture no growth. Chest x-ray on 12/01/2017 revealed mass plate-like atelectasis at the left lower lung. Otherwise, no other focal acute intrathoracic disease. IMPRESSION: 1. Pneumonia versus bronchitis. 2. Human immunodeficiency virus disease with low CD4 count. It is unclear whether the patient may have an opportunistic infection, but it certainly does not appear to be so, based on his oxygenation status. RECOMMENDATIONS: 1. Continue azithromycin. 2. Continue ceftriaxone. 3. Continue HIV antiviral medications. 4. Schedule followup appointment with the Health Department on discharge for management of human immunodeficiency virus. 5. Obtain serum LDH level. If the LDH level is low, I think opportunistic infection is less likely, and therefore, we can taper the steroid, unless it is being given for exacerbation of asthma. Also, the Bactrim dose can be decreased if the LDH is not high. Thank you for this consultation. I will follow the patient's progress. MD RYAN Wallace/marianna , 02:23 PM , 02:35 PM
[2017-12-05] MEDS: MethylPREDNISolone Sod Succinate Inj 40 MG/ML Vial IV.PUSH SCH ×3 (05:18→21:51)
[2017-12-05] MEDS: Budesonide-Formoterol 160/4.5 MCG 6 GM Inhaler INH SCH ×2 (05:19→16:17)
--- NOTE | 2017-12-05 07:06 | P.PN ---
Subjective Interval history: Patient seen and examined this morning, their vitals are stable and the patient is afebrile. Some shortness of breath noted earlier this morning. Saturating 94% on room air. Reports his night went much better overnight. Denies currently having any SOB. Physical Exam Vital signs: Vital Signs 12/04/17 08:00 12/04/17 08:57 12/04/17 08:58 Temperature 98.5 F Pulse Rate 73 69 Respiratory Rate 15 12 Blood Pressure 118/68 Pulse Oximetry 92 L 98 12/04/17 12:00 12/04/17 16:00 12/04/17 20:00 Temperature 98.1 F 98.4 F 98.7 F Pulse Rate 80 84 86 Respiratory Rate 14 16 16 Blood Pressure 119/61 121/59 L 114/66 Pulse Oximetry 91 L 93 L 88 L 12/04/17 20:21 12/05/17 00:00 12/05/17 04:00 Temperature 98.5 F 98.9 F Pulse Rate 83 96 H 78 Respiratory Rate 20 20 20 Blood Pressure 128/58 L 122/77 Pulse Oximetry 93 L 94 L Intake & Output 12/04/17 12/05/17 12/05/17 18:59 06:59 18:59 Intake Total 900 / 900 1000 / 1000 Output Total 1175 / 1175 1000 / 1000 Balance -275 / -275 0 / 0 Weight 68.6 kg Intake: IV 100 / 100 Rocephin Inj 1,000 MG In NS Inj 100 / 100 100 ML @ 200 mls/hr IV.SIG Q24H ARACELY Rx#:[id number] Oral 800 / 800 1000 / 1000 Output: Urine 1175 / 1175 1000 / 1000 Other: # Voids 3 Date of Last Bowel Movement 12/02/17 # Bowel Movements 0 Narrative: GENERAL: AAOx3, SKIN: Warm and dry. No rashes HEAD: Atraumatic, normocephalic. EYES: No scleral icterus. No injection or drainage. ENT: Moist mucous membranes, patent nares, no erythema of oropharynx. NECK: Supple, trachea midline. No JVD or lymphadenopathy. Normal thyroid. CARDIOVASCULAR: Regular rate and rhythm. No murmurs, gallops, or rubs. RESPIRATORY: Diminished bases with scattered wheezing bilaterally. Nonproductive cough no accessory muscle use. GASTROINTESTINAL: Abdomen soft, non-tender, nondistended, normal active bowel sounds MUSCULOSKELETAL: No cyanosis, or edema. NEURO: CN II-XII grossly intact, no focal deficits, no slurring of speech Results - Labs CBC & Chem 7: 11/29/17 12:40 12/02/17 03:19 Laboratory Results - last 24 hr 12/05/17 04:01 Lactate Dehydrogenase 175 Microbiology 11/29/17 12:40 Blood - Peripheral Aerobic Blood Culture - Final No growth in 5 days 11/29/17 12:40 Blood - Peripheral Anaerobic Blood Culture - Final No growth in 5 days 11/29/17 12:41 Blood - Peripheral Aerobic Blood Culture - Final No growth in 5 days 11/29/17 12:41 Blood - Peripheral Anaerobic Blood Culture - Final No growth in 5 days Assessment and Plan - Plan In summary this is a 27-year-old male patient with a medical history that is significant for asthma and HIV, he had been off his antivirals for several months, who presented to the [facility] with shortness of breath. He is admitted to the ICU due to respiratory distress. Was initially improving and then [facility] was called on December 01. The patient is being treated for asthma exacerbation in addition to opportunistic infections based on his CD4 count. Asthma exacerbation Poorly responsive to standard therapy with IV steroids and nebulizers Continue Solu-Medrol 40 mg IV every 6--> q 8 hrs (12/05) Supplemental oxygen, Tesfantaon Anaya Vance-AC, incentive spirometry Patient has AIDS so consider atypical lung infections, CD4 count 135 Being treated for opportunistic infections per below Also being treated for community acquired pneumonia Rocephin & Azithromycin 11/29 CTA negative for PE. HIV /AIDS Has not taken retrovirals in 7 or 8 months. Absolute CD4 count is 135 Con't Bactrim for empiric coverage of PCP started 12/02 Con't Diflucan for empiric coverage of coccidiomycosis started 12/02 Patient restarted on his triple antiretroviral therapy on 12/02 He will need follow-up CD4 counts in the next month as an outpatient Blood cultures are negative to date Infectious disease consulted yesterday: Recommend to continue azithromycin, continue Rocephin, continue HIV antiviral medications, schedule appointment for health department, obtain LDH level, if LDL is low opportunistic infections less likely and therefore we can taper the steroid and Bactrim dose can be decreased as well. Nicotine abuse The pt is still a smoker. Recommended to stop DVT prophylaxis SCDs Discharge Planning: Transfer out of ICU, order placed 12/05 Patient to follow up at [facility] [phone] upon d.c
[2017-12-05] MEDS: Fluconazole 100 MG Tablet PO SCH (09:44)
--- NOTE | 2017-12-05 14:07 | P.PNID ---
Subjective Remarks: Patient reports that he feels improved. His notes that he still has some shortness of breath. Afebrile. No sputum production. LDH level is normal. 27-year-old black male who presented to the emergency department for respiratory distress. The patient has a history of HIV diagnosed one year ago. He developed shortness of breath along with cough, chest congestion and subjective fever, and also diarrhea. The patient was evaluated in the emergency department and had no fever and his white blood cell count was normal. He was admitted to the hospital for further evaluation. The patient's absolute CD4 count is 135. He has been followed for HIV by the [facility]. He was attempting to get an appointment with the Health Department, but he received Medicaid assistance and has not been seen at the Health Department. The patient tells me he had stopped his HIV medicines 6 months ago when he lost his Medicaid, and he has had difficulty in arranging for followup for the HIV. Currently, he is alert and awake and feels improved. He was started on HIV medications after this admission. Blo Past Medical History: PAST MEDICAL HISTORY: HIV disease, hypertension. Allergies/Adverse Reactions: Allergies cucumber Allergy (Severe, Verified 07/08/17 00:53) THE VEG CUCUMBER WELL CUCUMBER SOAP cucumber body wash Allergy (Severe, Uncoded 11/27/16 15:26) Hives/ shortness of breath,swelling. Objective Vital Signs 12/04/17 16:00 12/04/17 20:00 12/04/17 20:21 Temperature 98.4 F 98.7 F Pulse Rate 84 86 83 Respiratory Rate 16 16 20 Blood Pressure 121/59 L 114/66 Pulse Oximetry 93 L 88 L 12/05/17 00:00 12/05/17 04:00 12/05/17 08:48 Temperature 98.5 F 98.9 F Pulse Rate 96 H 78 83 Respiratory Rate 20 20 24 Blood Pressure 128/58 L 122/77 Pulse Oximetry 93 L 94 L Intake & Output 12/04/17 12/05/17 12/05/17 18:59 06:59 18:59 Intake Total 900 / 900 1000 / 1000 Output Total 1175 / 1175 1000 / 1000 Balance -275 / -275 0 / 0 Weight 68.6 kg Intake: IV 100 / 100 Rocephin Inj 1,000 MG In NS Inj 100 / 100 100 ML @ 200 mls/hr IV.SIG Q24H ARACELY Rx#:[id number] Oral 800 / 800 1000 / 1000 Output: Urine 1175 / 1175 1000 / 1000 Other: # Voids 3 Date of Last Bowel Movement 12/02/17 # Bowel Movements 0 11/29/17 12:40 Blood - Peripheral Aerobic Blood Culture - Final No growth in 5 days 11/29/17 12:40 Blood - Peripheral Anaerobic Blood Culture - Final No growth in 5 days 11/29/17 12:41 Blood - Peripheral Aerobic Blood Culture - Final No growth in 5 days 11/29/17 12:41 Blood - Peripheral Anaerobic Blood Culture - Final No growth in 5 days Lab - Chemistry Results 12/05/17 04:01 Lactate Dehydrogenase 175 Imaging: ITS Impressions Chest X-Ray 12/01/17 09:12 CONCLUSION: Mild platelike atelectasis in the left lower lung. Otherwise, no other focal or acute intrathoracic disease. Chest CTA 12/03/17 00:00 CONCLUSION: 1. Bibasilar consolidation. Physical Exam: PHYSICAL EXAMINATION: GENERAL: This is a well-developed male who is in no acute distress. He is awake and alert and oriented. HEENT: Head is atraumatic. Extraocular muscles intact. Pupils reactive to light, without icterus. Oropharynx moist mucosa without lesions. NECK: Supple without adenopathy. LUNGS: Rhonchi at both bases. HEART: Regular S1, S2, without murmurs. ABDOMEN: Bowel sounds present, soft, no tenderness appreciated. EXTREMITIES: No clubbing, cyanosis or edema. SKIN: No rash. NEUROLOGIC: No gross focal finding. PSYCHIATRIC: Calm and cooperative. Assessment and Plan - Plan IMPRESSION: 1. Pneumonia versus bronchitis. Probably has acute bronchitis. LDH is within normal limits. 2. Human immunodeficiency virus disease with low CD4 count. I do not think he has opportunistic pneumonia. RECOMMENDATIONS: 1. Continue azithromycin. 2. Continue ceftriaxone. 3. Continue HIV antiviral medications. 4. Change Bactrim to 1 tablet Tuesday and Tuesday. 5. Schedule followup appointment with the Health Department on discharge for management of human immunodeficiency virus. If he continues to be stable he can be switched to p.o. antibiotics.
--- NOTE | 2017-12-05 15:29 | P.PN ---
Subjective Interval history: alert nad Physical Exam Vital signs: Vital Signs 12/04/17 16:00 12/04/17 20:00 12/04/17 20:21 Temperature 98.4 F 98.7 F Pulse Rate 84 86 83 Respiratory Rate 16 16 20 Blood Pressure 121/59 L 114/66 Pulse Oximetry 93 L 88 L 12/05/17 00:00 12/05/17 04:00 12/05/17 08:48 Temperature 98.5 F 98.9 F Pulse Rate 96 H 78 83 Respiratory Rate 20 20 24 Blood Pressure 128/58 L 122/77 Pulse Oximetry 93 L 94 L Intake & Output 12/04/17 12/05/17 12/05/17 18:59 06:59 18:59 Intake Total 900 / 900 1000 / 1000 Output Total 1175 / 1175 1000 / 1000 Balance -275 / -275 0 / 0 Weight 68.6 kg Intake: IV 100 / 100 Rocephin Inj 1,000 MG In NS Inj 100 / 100 100 ML @ 200 mls/hr IV.SIG Q24H ARACELY Rx#:[id number] Oral 800 / 800 1000 / 1000 Output: Urine 1175 / 1175 1000 / 1000 Other: # Voids 3 Date of Last Bowel Movement 12/02/17 # Bowel Movements 0 Narrative: GENERAL: AAOx3, SKIN: Warm and dry. No rashes HEAD: Atraumatic, normocephalic. EYES: No scleral icterus. No injection or drainage. ENT: Moist mucous membranes, patent nares, no erythema of oropharynx. NECK: Supple, trachea midline. No JVD or lymphadenopathy. Normal thyroid. CARDIOVASCULAR: Regular rate and rhythm. No murmurs, gallops, or rubs. RESPIRATORY: Diminished bases with scattered wheezing bilaterally. Nonproductive cough no accessory muscle use. GASTROINTESTINAL: Abdomen soft, non-tender, nondistended, normal active bowel sounds MUSCULOSKELETAL: No cyanosis, or edema. NEURO: CN II-XII grossly intact, no focal deficits, no slurring of speech Results - Labs CBC & Chem 7: 11/29/17 12:40 12/02/17 03:19 Laboratory Results - last 24 hr 12/05/17 04:01 Lactate Dehydrogenase 175 Assessment and Plan - Plan respiratory failure exacerbation asthma HIV/AIDS improved PLAN O2 NEEDED BRONCHODILATOR THERAPY OK FOR [facility] FLOOR
[2017-12-05] MEDS: Azithromycin Inj 500 MG in Sodium Chlor 0.9% Inj 250 ML IV.SIG SCH (16:13)
[2017-12-05] MEDS: Acetaminophen 325 MG Tablet PO PRN (16:14)
[2017-12-06] MEDS: Morphine Inj 4 MG/ML Vial IV.PUSH PRN (02:10)
[2017-12-06] MEDS: MethylPREDNISolone Sod Succinate Inj 40 MG/ML Vial IV.PUSH SCH ×3 (05:44→21:29)
[2017-12-06] MEDS: Budesonide-Formoterol 160/4.5 MCG 6 GM Inhaler INH SCH ×2 (05:49→15:51)
[2017-12-06 07:13] LABS: Baso % (Auto) 0.2 % (0.0-2.0); Eos % (Auto) 0.1 % (0.0-4.0); Hematocrit 40.6 % (39.0-51.0); Hemoglobin 13.9 gm/dL (13.0-17.0); Lymph # (Auto) 1.1 th/mm3 (1.0-4.8); Lymph % (Auto) 10.3 % (9.0-44.0); Mean Corpuscular HGB Conc 34.3 % (32.0-36.0); Mean Corpuscular Hemoglobin 31.6 pg (27.0-34.0); Mean Corpuscular Volume 92.2 fL (80.0-100.0); Mean Platelet Volume 6.8 fL (7.0-11.0); Mono # (Auto) 0.7 th/mm3 (0.0-0.9); Mono % (Auto) 6.5 % (0.0-8.0); Neut # (Auto) 8.5 th/mm3 (1.8-7.7); Neut % (Auto) 82.9 % (16.0-70.0); Platelet Count 357 th/mm3 (150-450); Red Cell Distribution Width 13.3 % (11.6-17.2); White Blood Count 10.3 th/mm3 (4.0-11.0)
[2017-12-06 07:41] LABS: Calcium 8.2 mg/dL (8.5-10.1); Carbon Dioxide 26.6 meq/L (21.0-32.0); Potassium 5.2 meq/L (3.5-5.1)
[2017-12-06 08:30] LABS: Eosinophils 1 % (0-4); Lymphocytes 14 % (9-44); Metamyelocytes 3 % (0-1); Monocytes 5 % (0-8); Myelocytes 2 % (0-0); Tallied Nucleated RBC 5 (0-0)
[2017-12-06 08:31] LABS: Platelet Estimate Normal (Normal); Platelet Morphology Normal (Normal)
[2017-12-06] MEDS: Fluconazole 100 MG Tablet PO SCH (09:28)
--- NOTE | 2017-12-06 12:36 | P.PNIM ---
Subjective Interval history: Slow improvements through time. Patient is reporting an exacerbation of his asthma last night which made it hard to breathe. He continues to have wheezing. Currently he is on albuterol and inhaled corticosteroids. His asthma appears atypical and could be related to allergy and to chronic lung inflammation. COPD component could be present. Physical Exam Vital signs: Vital Signs 12/05/17 16:00 12/05/17 17:00 12/05/17 20:00 Temperature 97.9 F 97.8 F Pulse Rate 77 76 Respiratory Rate 16 16 18 Blood Pressure 137/78 133/61 Pulse Oximetry 97 93 L 12/05/17 22:08 12/06/17 00:00 12/06/17 04:49 Temperature 98.0 F Pulse Rate 95 H 73 77 Respiratory Rate 19 18 20 Blood Pressure 123/55 L Pulse Oximetry 94 L 12/06/17 08:00 12/06/17 11:58 12/06/17 12:00 Temperature 98.2 F 97.1 F L Pulse Rate 72 78 84 Respiratory Rate 16 18 16 Blood Pressure 130/60 135/58 L Pulse Oximetry 96 95 Intake & Output 12/05/17 12/06/17 12/06/17 18:59 06:59 18:59 Intake Total 880 / 880 580 / 580 Output Total 900 / 900 Balance -20 / -20 580 / 580 Weight 63.9 kg Intake: IV 100 / 100 Rocephin Inj 1,000 MG In NS Inj 100 / 100 100 ML @ 200 mls/hr IV.SIG Q24H ARACELY Rx#:[id number] Oral 880 / 880 480 / 480 Output: Urine 900 / 900 Other: # Voids 4 2 Date of Last Bowel Movement 12/02/17 12/02/17 Narrative: GENERAL: NAD, A&Ox3 HEAD: Normocephalic. NECK: Supple, trachea midline. No lymphadenopathy. EYES: No scleral icterus. No injection or drainage. CARDIOVASCULAR: Regular rate and rhythm without murmurs, gallops, or rubs. RESPIRATORY: Breath sounds equal bilaterally. No accessory muscle use. Wheezing bilaterally. GASTROINTESTINAL: Abdomen soft, non-tender, nondistended. MUSCULOSKELETAL: No cyanosis, or edema. SKIN: Warm and dry. NEURO: No focal neurological deficits. Results - Labs CBC & Chem 7: 12/06/17 05:53 12/06/17 05:53 Laboratory Results - last 24 hr 12/06/17 12/06/17 05:53 05:53 WBC 10.3 RBC 4.40 L Hgb 13.9 Hct 40.6 MCV 92.2 MCH 31.6 MCHC 34.3 RDW 13.3 Plt Count 357 D MPV 6.8 L Prelim Diff (Auto) Slide review pending Neut % (Auto) 82.9 H Lymph % (Auto) 10.3 [place] % (Auto) 6.5 Eos % (Auto) 0.1 Baso % (Auto) 0.2 Neut # (Auto) 8.5 H Lymph # (Auto) 1.1 [place] # (Auto) 0.7 Eos # (Auto) 0.0 Baso # (Auto) 0.0 WBC Differential Manual diff final Seg Neuts % (Manual) 75 H Lymphocytes % (Manual) 14 Monocytes % (Manual) 5 Eosinophils % (Manual) 1 Metamyelocytes % (Man) 3 H Myelocytes % (Man) 2 H Abs Neuts (Manual) 8.2 H Nucleated RBCs/100 WBC 5 H Differential Comment . Platelet Estimate Normal Platelet Morphology Normal Sodium 133 L Potassium 5.2 H Chloride 99 Carbon Dioxide 26.6 Anion Gap 7 BUN 32 H Creatinine 1.38 H Estimated GFR 74 L Random Glucose 110 H Calcium 8.2 L Assessment and Plan - Plan 27-year-old male admitted secondary to respiratory failure who has a baseline of chronic asthma recently worsened in the setting of onset of AIDS from missed antiviral treatments. Asthma exacerbation Chronic reactive airway disease Continue steroids Continue albuterol Continue inhaled corticosteroids Montelukast ordered as an additional therapy Prevent given twice daily on a trial basis as patient's respiratory status could be continued components of COPD Continue to monitor for improvement and stability of patient's respiratory status Community-acquired pneumonia Treated with Rocephin and azithromycin Improving AIDS HIV Continue Bactrim Continue Diflucan ID following Reinitiation chronic antivirals will be needed Stable situation for ability to obtain antiviral treatments as needed Nicotine abuse Patient counseled to quit DVT prophylaxis SCDs Discharge Planning: Patient to follow up at [facility] [phone] upon d.c
[2017-12-06] MEDS ORDERED: Montelukast 10 MG Tablet PO ONE (14:00)
[2017-12-06] MEDS: Azithromycin Inj 500 MG in Sodium Chlor 0.9% Inj 250 ML IV.SIG SCH (15:50)
[2017-12-06] MEDS: Tiotropium Bromide 18 MCG/ACT Inhaler INH SCH (17:54)
[2017-12-07] MEDS: MethylPREDNISolone Sod Succinate Inj 40 MG/ML Vial IV.PUSH SCH ×3 (05:50→22:25)
[2017-12-07] MEDS: Budesonide-Formoterol 160/4.5 MCG 6 GM Inhaler INH SCH ×2 (05:53→16:26)
[2017-12-07] MEDS: Tiotropium Bromide 18 MCG/ACT Inhaler INH SCH (09:06)
[2017-12-07] MEDS: Fluconazole 100 MG Tablet PO SCH (09:07)
--- NOTE | 2017-12-07 12:25 | P.PNID ---
Subjective Remarks: Patient feels okay. Reports that he still gets some shortness of breath. Afebrile. No sputum production. 27-year-old black male who presented to the emergency department for respiratory distress. The patient has a history of HIV diagnosed one year ago. He developed shortness of breath along with cough, chest congestion and subjective fever, and also diarrhea. The patient was evaluated in the emergency department and had no fever and his white blood cell count was normal. He was admitted to the hospital for further evaluation. The patient's absolute CD4 count is 135. He has been followed for HIV by the [facility]. He was attempting to get an appointment with the [facility], but he received Medicaid assistance and has not been seen at the [facility]. The patient tells me he had stopped his HIV medicines 6 months ago when he lost his Medicaid, and he has had difficulty in arranging for followup for the HIV. Currently, he is alert and awake and feels improved. He was started on HIV medications after this admission. Blo Past Medical History: PAST MEDICAL HISTORY: HIV disease, hypertension. Allergies/Adverse Reactions: Allergies cucumber Allergy (Severe, Verified 07/08/17 00:53) THE VEG CUCUMBER WELL CUCUMBER SOAP cucumber body wash Allergy (Severe, Uncoded 11/27/16 15:26) Hives/ shortness of breath,swelling. Objective Vital Signs 12/06/17 16:00 12/06/17 20:00 12/07/17 00:00 Temperature 98.1 F 98.1 F 97.8 F Pulse Rate 65 75 78 Respiratory Rate 16 18 18 Blood Pressure 138/61 129/65 141/67 H Pulse Oximetry 97 93 L 93 L 12/07/17 05:09 12/07/17 08:00 Temperature 97.5 F L Pulse Rate 69 86 Respiratory Rate 18 16 Blood Pressure 113/61 Pulse Oximetry 96 Intake & Output 12/06/17 12/07/17 12/07/17 18:59 06:59 18:59 Intake Total 1350 / 1350 Balance 1350 / 1350 Weight 65.6 kg Intake: IV 350 / 350 Azithromycin Inj 500 MG In NS 250 / 250 Inj 250 ML @ 250 mls/hr IV.SIG Q24H ARACELY Rx#:[id number] Rocephin Inj 1,000 MG In NS Inj 100 / 100 100 ML @ 200 mls/hr IV.SIG Q24H ARACELY Rx#:[id number] Oral 1000 / 1000 Other: # Voids 3 3 Date of Last Bowel Movement 12/02/17 # Bowel Movements 0 11/29/17 12:40 Blood - Peripheral Aerobic Blood Culture - Final No growth in 5 days 11/29/17 12:40 Blood - Peripheral Anaerobic Blood Culture - Final No growth in 5 days 11/29/17 12:41 Blood - Peripheral Aerobic Blood Culture - Final No growth in 5 days 11/29/17 12:41 Blood - Peripheral Anaerobic Blood Culture - Final No growth in 5 days Lab - Hematology Results 12/06/17 05:53 WBC 10.3 RBC 4.40 L Hgb 13.9 Hct 40.6 MCV 92.2 MCH 31.6 MCHC 34.3 RDW 13.3 Plt Count 357 D MPV 6.8 L Prelim Diff (Auto) Slide review pending Neut % (Auto) 82.9 H Lymph % (Auto) 10.3 [place] % (Auto) 6.5 Eos % (Auto) 0.1 Baso % (Auto) 0.2 Neut # (Auto) 8.5 H Lymph # (Auto) 1.1 [place] # (Auto) 0.7 Eos # (Auto) 0.0 Baso # (Auto) 0.0 WBC Differential Manual diff final Seg Neuts % (Manual) 75 H Lymphocytes % (Manual) 14 Monocytes % (Manual) 5 Eosinophils % (Manual) 1 Metamyelocytes % (Man) 3 H Myelocytes % (Man) 2 H Abs Neuts (Manual) 8.2 H Nucleated RBCs/100 WBC 5 H Differential Comment . Platelet Estimate Normal Platelet Morphology Normal Lab - Chemistry Results 12/06/17 05:53 Sodium 133 L Potassium 5.2 H Chloride 99 Carbon Dioxide 26.6 Anion Gap 7 BUN 32 H Creatinine 1.38 H Estimated GFR 74 L Random Glucose 110 H Calcium 8.2 L Imaging: ITS Impressions Chest X-Ray 12/01/17 09:12 CONCLUSION: Mild platelike atelectasis in the left lower lung. Otherwise, no other focal or acute intrathoracic disease. Chest CTA 12/03/17 00:00 CONCLUSION: 1. Bibasilar consolidation. Physical Exam: PHYSICAL EXAMINATION: GENERAL: No acute distress He is awake and alert and oriented. HEENT: Head is atraumatic. Extraocular muscles intact. Pupils reactive to light, without icterus. Oropharynx moist mucosa without lesions. NECK: Supple without adenopathy. LUNGS: Scattered rhonchi. HEART: Regular S1, S2, without murmurs. ABDOMEN: Bowel sounds present, soft, no tenderness appreciated. EXTREMITIES: No clubbing, cyanosis or edema. SKIN: No rash. NEUROLOGIC: No gross focal finding. PSYCHIATRIC: Calm and cooperative. Assessment and Plan - Plan IMPRESSION: 1. Pneumonia versus bronchitis. 2. Human immunodeficiency virus disease with low CD4 count. Stable. RECOMMENDATIONS: 1. Continue azithromycin. 2. Continue ceftriaxone. 3. Continue HIV antiviral medications. 4. Continue the Bactrim Tuesday and Tuesday. 5. Schedule followup appointment with the [facility] on discharge for management of human immunodeficiency virus. Okay to stop the IV antibiotics. I will sign off now.
[2017-12-07] MEDS: Azithromycin Inj 500 MG in Sodium Chlor 0.9% Inj 250 ML IV.SIG SCH (16:25)
--- NOTE | 2017-12-07 17:29 | P.PNIM ---
Subjective Interval history: Patient will have improved from colostomy. However, he does not feel yet stable for discharge home and he appears exacerbation. No new complaints. Physical Exam Vital signs: Vital Signs 12/06/17 20:00 12/07/17 00:00 12/07/17 05:09 Temperature 98.1 F 97.8 F Pulse Rate 75 78 69 Respiratory Rate 18 18 18 Blood Pressure 129/65 141/67 H Pulse Oximetry 93 L 93 L 12/07/17 08:00 12/07/17 12:00 Temperature 97.5 F L 97.2 F L Pulse Rate 86 79 Respiratory Rate 16 16 Blood Pressure 113/61 144/56 H Pulse Oximetry 96 95 Intake & Output 12/06/17 12/07/17 12/07/17 18:59 06:59 18:59 Intake Total 1350 / 1350 Balance 1350 / 1350 Weight 65.6 kg Intake: IV 350 / 350 Azithromycin Inj 500 MG In NS 250 / 250 Inj 250 ML @ 250 mls/hr IV.SIG Q24H ARACELY Rx#:[id number] Rocephin Inj 1,000 MG In NS Inj 100 / 100 100 ML @ 200 mls/hr IV.SIG Q24H ARACELY Rx#:[id number] Oral 1000 / 1000 Other: # Voids 3 3 Date of Last Bowel Movement 12/02/17 # Bowel Movements 0 Narrative: GENERAL: NAD, A&Ox3 HEAD: Normocephalic. NECK: Supple, trachea midline. No lymphadenopathy. EYES: No scleral icterus. No injection or drainage. CARDIOVASCULAR: Regular rate and rhythm without murmurs, gallops, or rubs. RESPIRATORY: Breath sounds equal bilaterally. No accessory muscle use. Wheezing bilaterally. GASTROINTESTINAL: Abdomen soft, non-tender, nondistended. MUSCULOSKELETAL: No cyanosis, or edema. SKIN: Warm and dry. NEURO: No focal neurological deficits. Results - Labs CBC & Chem 7: 12/06/17 05:53 12/06/17 05:53 Assessment and Plan - Plan 27-year-old male admitted secondary to respiratory failure who has a baseline of chronic asthma recently worsened in the setting of onset of AIDS from missed antiviral treatments. Continue monitoring for further improvement. Asthma exacerbation Chronic reactive airway disease HIV-associated Obstructive Lung Disease Continue albuterol Continue inhaled corticosteroids Montelukast continued Spiriva continued Community-acquired pneumonia Treated with Rocephin and azithromycin Improving AIDS HIV Continue Bactrim Continue Diflucan ID following Reinitiation chronic antivirals will be needed Stable situation for ability to obtain antiviral treatments as needed Nicotine abuse Patient counseled to quit DVT prophylaxis SCDs Discharge Planning: Patient to follow up at [facility] [phone] upon d.c
--- NOTE | 2017-12-07 18:06 | P.PN ---
Subjective Interval history: alert ambulating no sob Physical Exam Vital signs: Vital Signs 12/06/17 20:00 12/07/17 00:00 12/07/17 05:09 Temperature 98.1 F 97.8 F Pulse Rate 75 78 69 Respiratory Rate 18 18 18 Blood Pressure 129/65 141/67 H Pulse Oximetry 93 L 93 L 12/07/17 08:00 12/07/17 12:00 Temperature 97.5 F L 97.2 F L Pulse Rate 86 79 Respiratory Rate 16 16 Blood Pressure 113/61 144/56 H Pulse Oximetry 96 95 Intake & Output 12/06/17 12/07/17 12/07/17 18:59 06:59 18:59 Intake Total 1350 / 1350 Balance 1350 / 1350 Weight 65.6 kg Intake: IV 350 / 350 Azithromycin Inj 500 MG In NS 250 / 250 Inj 250 ML @ 250 mls/hr IV.SIG Q24H ARACELY Rx#:[id number] Rocephin Inj 1,000 MG In NS Inj 100 / 100 100 ML @ 200 mls/hr IV.SIG Q24H ARACELY Rx#:[id number] Oral 1000 / 1000 Other: # Voids 3 3 Date of Last Bowel Movement 12/02/17 # Bowel Movements 0 Narrative: GENERAL: NAD, A&Ox3 HEAD: Normocephalic. NECK: Supple, trachea midline. No lymphadenopathy. EYES: No scleral icterus. No injection or drainage. CARDIOVASCULAR: Regular rate and rhythm without murmurs, gallops, or rubs. RESPIRATORY: Breath sounds equal bilaterally. No accessory muscle use. Wheezing bilaterally. GASTROINTESTINAL: Abdomen soft, non-tender, nondistended. MUSCULOSKELETAL: No cyanosis, or edema. SKIN: Warm and dry. NEURO: No focal neurological deficits. Results - Labs CBC & Chem 7: 12/06/17 05:53 12/06/17 05:53 Assessment and Plan - Plan respiratory failure exacerbation asthma, much better HIV/AIDS improved PLAN O2 NEEDED BRONCHODILATOR THERAPY OK FOR [facility] FLOOR
[2017-12-07] MEDS ORDERED: Montelukast 10 MG Tablet PO SCH (21:00)
[2017-12-07] MEDS: Morphine Inj 4 MG/ML Vial IV.PUSH PRN (22:25)
[2017-12-08] MEDS: MethylPREDNISolone Sod Succinate Inj 40 MG/ML Vial IV.PUSH SCH (05:38)
[2017-12-08] MEDS: Budesonide-Formoterol 160/4.5 MCG 6 GM Inhaler INH SCH (05:39)
[2017-12-08 07:25] LABS: Baso % (Auto) 0.4 % (0.0-2.0); Eos % (Auto) 0.1 % (0.0-4.0); Hematocrit 39.5 % (39.0-51.0); Hemoglobin 13.1 gm/dL (13.0-17.0); Lymph # (Auto) 1.1 th/mm3 (1.0-4.8); Lymph % (Auto) 10.1 % (9.0-44.0); Mean Corpuscular HGB Conc 33.3 % (32.0-36.0); Mean Corpuscular Hemoglobin 30.9 pg (27.0-34.0); Mean Corpuscular Volume 92.8 fL (80.0-100.0); Mean Platelet Volume 6.6 fL (7.0-11.0); Mono # (Auto) 0.7 th/mm3 (0.0-0.9); Mono % (Auto) 6.4 % (0.0-8.0); Neut # (Auto) 9.4 th/mm3 (1.8-7.7); Platelet Count 304 th/mm3 (150-450); Red Blood Count 4.26 mil/mm3 (4.50-5.90); Red Cell Distribution Width 13.1 % (11.6-17.2); White Blood Count 11.3 th/mm3 (4.0-11.0)
[2017-12-08 07:57] LABS: Alanine Aminotransferase 28 U/L (12-78); Albumin 2.7 g/dL (3.4-5.0); Anion Gap 9 meq/L (5-15); Aspartate Aminotransferase 13 U/L (15-37); Blood Urea Nitrogen 28 mg/dL (7-18); Calcium 8.1 mg/dL (8.5-10.1); Carbon Dioxide 26.4 meq/L (21.0-32.0); Chloride 100 meq/L (98-107); Glomerular Filtration Rate 75 mL/min (>89); Glucose,Random 137 mg/dL (74-106); Sodium 135 meq/L (136-145)
[2017-12-08 07:59] LABS: Alkaline Phosphatase 50 U/L (45-117)
[2017-12-08 08:39] LABS: Lymphocytes 6 % (9-44); Monocytes 3 % (0-8); Myelocytes 4 % (0-0); Platelet Estimate Normal (Normal); Platelet Morphology Normal (Normal); RBC Morphology Normal (Normal); Tallied Nucleated RBC 1 (0-0)
[2017-12-08] MEDS ORDERED: predniSONE 20 MG Tablet PO SCH (09:15)
--- NOTE | 2017-12-08 09:16 | P.PN ---
Subjective Interval history: ALERT NO SOB Physical Exam Vital signs: Vital Signs 12/07/17 12:00 12/07/17 16:00 12/07/17 20:00 Temperature 97.2 F L 98.8 F 97.8 F Pulse Rate 79 81 89 Respiratory Rate 16 17 18 Blood Pressure 144/56 H 141/73 H 132/67 Pulse Oximetry 95 97 92 L 12/08/17 00:00 Temperature 97.6 F Pulse Rate 74 Respiratory Rate 18 Blood Pressure 132/77 Pulse Oximetry 95 Intake & Output 12/07/17 12/08/17 12/08/17 18:59 06:59 18:59 Intake Total 1650 / 1650 Balance 1650 / 1650 Weight 65.9 kg Intake: IV 350 / 350 Azithromycin Inj 500 MG In NS 250 / 250 Inj 250 ML @ 250 mls/hr IV.SIG Q24H ARACELY Rx#:[id number] Rocephin Inj 1,000 MG In NS Inj 100 / 100 100 ML @ 200 mls/hr IV.SIG Q24H ARACELY Rx#:[id number] Oral 1300 / 1300 Other: # Voids 3 2 # Bowel Movements 1 Narrative: GENERAL: NAD, A&Ox3 HEAD: Normocephalic. NECK: Supple, trachea midline. No lymphadenopathy. EYES: No scleral icterus. No injection or drainage. CARDIOVASCULAR: Regular rate and rhythm without murmurs, gallops, or rubs. RESPIRATORY: Breath sounds equal bilaterally. No accessory muscle use. Wheezing bilaterally. GASTROINTESTINAL: Abdomen soft, non-tender, nondistended. MUSCULOSKELETAL: No cyanosis, or edema. SKIN: Warm and dry. NEURO: No focal neurological deficits. Results - Labs CBC & Chem 7: 12/08/17 06:45 12/08/17 06:45 Laboratory Results - last 24 hr 12/08/17 12/08/17 06:45 06:45 WBC 11.3 H RBC 4.26 L Hgb 13.1 Hct 39.5 MCV 92.8 MCH 30.9 MCHC 33.3 RDW 13.1 Plt Count 304 MPV 6.6 L Prelim Diff (Auto) Slide review pending Neut % (Auto) 83.0 H Lymph % (Auto) 10.1 [place] % (Auto) 6.4 Eos % (Auto) 0.1 Baso % (Auto) 0.4 Neut # (Auto) 9.4 H Lymph # (Auto) 1.1 [place] # (Auto) 0.7 Eos # (Auto) 0.0 Baso # (Auto) 0.0 WBC Differential Manual diff final Seg Neuts % (Manual) 86 H Band Neuts % (Manual) 1 Lymphocytes % (Manual) 6 L Monocytes % (Manual) 3 Myelocytes % (Man) 4 H Abs Neuts (Manual) 10.3 H Nucleated RBCs/100 WBC 1 H Differential Comment . Platelet Estimate Normal Platelet Morphology Normal RBC Morphology Normal Sodium 135 L Potassium 5.0 Chloride 100 Carbon Dioxide 26.4 Anion Gap 9 BUN 28 H Creatinine 1.37 H Estimated GFR 75 L Random Glucose 137 H Calcium 8.1 L Total Bilirubin 0.2 AST 13 L ALT 28 Alkaline Phosphatase 50 Total Protein 7.0 Albumin 2.7 L Assessment and Plan - Plan respiratory failure exacerbation asthma, much better HIV/AIDS improved PLAN O2 NEEDED BRONCHODILATOR THERAPY F/U CXRAY
[2017-12-08] MEDS: Tiotropium Bromide 18 MCG/ACT Inhaler INH SCH (09:44)
[2017-12-08] MEDS: Fluconazole 100 MG Tablet PO SCH (10:08)
--- NOTE | 2017-12-08 10:43 | XR ---
EXAM DATE: 12/08/2017 10:14 AM EDT AGE/SEX: 27 years / Male INDICATIONS: Short of breath, evaluate COPD CLINICAL DATA: This is the patient's subsequent encounter. Patient reports that signs and symptoms h ave been present for 2 weeks and indicates a pain score of 0/10. MEDICAL/SURGICAL HISTORY: Asthma. None. COMPARISON: [facility] – [place], CHEST 1V SINGLE AP, 12/01/2017. . FINDINGS: A single AP view of the chest demonstrates the lungs to be symmetrically aerated without evidence of mass, infiltrate or effusion. The cardiomediastinal contours are unremarkable. Osseous structures a re intact. CONCLUSION: No acute cardiopulmonary disease. Electronically signed by: Rajan Nogueira MD 12/08/2017 10:42 AM EDT
--- NOTE | 2017-12-08 12:14 | P.DS ---
Date of admission: 12/01/17 11:23 Primary care physician: No Primary Care Physician Brief History from admission: patient is a 27 y/o male with history of asthma, HIV- noncompliant with the medications who presented to ER with worsening sob. he says that he ran out of his inhalers two days ago. he started to have worsening sob at the time. he says that he had some fever and chills last night. his cough is productive of whitish/ yellowish sputum.he says that he hasn't taken ' his HIV meds' for quite a while.at the time of my evaluation he said that his sob was improving to some extent. DS: Medications - Discharge Medications Prescriptions: fluconazole 100 mg PO DAILY #30 tab prednisone 20 mg PO DAILY #4 tab sulfamethoxazole-trimethoprim 1 tab PO MOWEFR #14 tab tiotropium bromide [Spiriva with HandiHaler] 18 mcg INH DAILY #1 inh DS: Summary Hospital Course: 27-year-old male admitted secondary to respiratory failure who has a baseline of chronic asthma recently worsened in the setting of onset of AIDS from missed antiviral treatments. Asthma exacerbation. Improved Chronic reactive airway disease HIV-associated Obstructive Lung Disease Continue albuterol Continue inhaled corticosteroids and short course p.o. steroid Montelukast continued Spiriva continued Community-acquired pneumonia Treated with Rocephin and azithromycin Improved. Repeat chest x-ray in 6 weeks Mild leukocytosis from steroids. Clinically looks well AIDS HIV Continue Bactrim Continue Diflucan ID following Reinitiation chronic antivirals will be needed Nicotine abuse Patient counseled to quit DVT prophylaxis SCDs - Time Spent with Patient Total time spent providing and/or coordinating discharge services: Greater than 30 minutes Exam Vital signs: Vital Signs 12/07/17 16:00 12/07/17 20:00 12/08/17 00:00 Temperature 98.8 F 97.8 F 97.6 F Pulse Rate 81 89 74 Respiratory Rate 17 18 18 Blood Pressure 141/73 H 132/67 132/77 Pulse Oximetry 97 92 L 95 Pulse Oximetry [Exertion on Room Air] Pulse Oximetry [Resting on Room Air] 12/08/17 10:16 12/08/17 10:17 Temperature Pulse Rate 91 H Respiratory Rate 16 Blood Pressure Pulse Oximetry Pulse Oximetry [Exertion on Room Air] 95 Pulse Oximetry [Resting on Room Air] 98 Intake & Output 12/07/17 12/08/17 12/08/17 18:59 06:59 18:59 Intake Total 1650 / 1650 Balance 1650 / 1650 Weight 65.9 kg Intake: IV 350 / 350 Azithromycin Inj 500 MG In NS 250 / 250 Inj 250 ML @ 250 mls/hr IV.SIG Q24H ARACELY Rx#:[id number] Rocephin Inj 1,000 MG In NS Inj 100 / 100 100 ML @ 200 mls/hr IV.SIG Q24H ARACELY Rx#:[id number] Oral 1300 / 1300 Other: # Voids 3 2 # Bowel Movements 1 Narrative: GENERAL: Well-developed, well-nourished in no distress on room air SKIN: Warm and dry. CARDIOVASCULAR: Regular rate and rhythm. RESPIRATORY: No accessory muscle use. Clear to auscultation. Breath sounds equal bilaterally. GASTROINTESTINAL: Abdomen soft, non-tender, nondistended. MUSCULOSKELETAL: Extremities without clubbing, cyanosis, or edema. No obvious deformities. NEUROLOGICAL: Awake and alert. No obvious cranial nerve deficits. Motor grossly within normal limits. Five out of 5 muscle strength in the arms and legs. Normal speech. PSYCHIATRIC: Appropriate mood and affect; insight and judgment normal. Results Procedures completed during hospitalization: none Labs on day of discharge: Labs from last 24 hours 12/08/17 12/08/17 06:45 06:45 WBC 11.3 H RBC 4.26 L Hgb 13.1 Hct 39.5 MCV 92.8 MCH 30.9 MCHC 33.3 RDW 13.1 Plt Count 304 MPV 6.6 L Prelim Diff (Auto) Slide review pending Neut % (Auto) 83.0 H Lymph % (Auto) 10.1 [place] % (Auto) 6.4 Eos % (Auto) 0.1 Baso % (Auto) 0.4 Neut # (Auto) 9.4 H Lymph # (Auto) 1.1 [place] # (Auto) 0.7 Eos # (Auto) 0.0 Baso # (Auto) 0.0 WBC Differential Manual diff final Seg Neuts % (Manual) 86 H Band Neuts % (Manual) 1 Lymphocytes % (Manual) 6 L Monocytes % (Manual) 3 Myelocytes % (Man) 4 H Abs Neuts (Manual) 10.3 H Nucleated RBCs/100 WBC 1 H Differential Comment . Platelet Estimate Normal Platelet Morphology Normal RBC Morphology Normal Sodium 135 L Potassium 5.0 Chloride 100 Carbon Dioxide 26.4 Anion Gap 9 BUN 28 H Creatinine 1.37 H Estimated GFR 75 L Random Glucose 137 H Calcium 8.1 L Total Bilirubin 0.2 AST 13 L ALT 28 Alkaline Phosphatase 50 Total Protein 7.0 Albumin 2.7 L - Impressions ITS Impressions Chest CTA 12/03/17 00:00 CONCLUSION: 1. Bibasilar consolidation. Chest X-Ray 12/08/17 09:16 CONCLUSION: No acute cardiopulmonary disease. Discharge Plan - Discharge Disposition Patient Disposition: Discharge Home - Discharge Condition Condition: Stable - Discharge Order Discharge Orders: Discharge Order (Routine); Ordered 12/08/17 Ordered By: Javi Virgen - Physicians Team Primary Care Provider: Primary Care Suze Tsai Attending Provider: Javi Virgen Other Providers: Rocky Hidalgo MD ; Marco Moore MD
[2017-12-08 14:01] VITALS: BP 120/61; PULSE 81; RESP 18; TEMP 97.6; O2SAT 95
== END 2017-12-08 14:00 | disposition home or self-care (01) ==
LOC: NEPB 12:06 → NEDA 12:06 → N04 18:02 → N03 12-01 11:19 → N07 12-05 19:12
PROVIDERS: ADMIT Internal Medicine; ATTEND Internal Medicine

== ENCOUNTER 2018-01-19 12:16 | Inpatient (IN) ==
[2018-01-19] MEDS ORDERED: MethylPREDNISolone Sod Succinate Inj 125 MG/2 ML Vial IV.PUSH ONE (12:54)
[2018-01-19] MEDS ORDERED: Magnesium Sulfate Inj 2 GM in Sodium Chlor 0.9% Inj 96 ML IV.SIG ONE (13:35)
--- NOTE | 2018-01-19 13:53 | XR ---
EXAM DATE: 01/19/2018 1:35 PM EDT AGE/SEX: 27 years / Male INDICATIONS: Wheezing, cough, chest pain CLINICAL DATA: This is the patient's initial encounter. Patient reports that signs and symptoms have been present for 1 day and indicates a pain score of 8/10. MEDICAL/SURGICAL HISTORY: Asthma. None. [place] [facility] [place]08/2017. . FINDINGS: A single AP view of the chest demonstrates the lungs to be symmetrically aerated without evidence of mass, infiltrate or effusion. The cardiomediastinal contours are unremarkable. Osseous structures a re intact. CONCLUSION: 1. No acute cardiopulmonary disease. Electronically signed by: Edvin Morris MD 01/19/2018 1:51 PM EDT
[2018-01-19 14:20] LABS: Baso % (Auto) 0.6 % (0.0-2.0); Eos # (Auto) 0.2 th/mm3 (0.0-0.4); Eos % (Auto) 8.3 % (0.0-4.0); Hematocrit 40.8 % (39.0-51.0); Hemoglobin 13.6 gm/dL (13.0-17.0); Lymph # (Auto) 1.1 th/mm3 (1.0-4.8); Lymph % (Auto) 39.9 % (9.0-44.0); Mean Corpuscular HGB Conc 33.4 % (32.0-36.0); Mean Corpuscular Hemoglobin 31.8 pg (27.0-34.0); Mean Corpuscular Volume 95.4 fL (80.0-100.0); Mean Platelet Volume 7.3 fL (7.0-11.0); Mono # (Auto) 0.3 th/mm3 (0.0-0.9); Mono % (Auto) 10.6 % (0.0-8.0); Neut # (Auto) 1.1 th/mm3 (1.8-7.7); Neut % (Auto) 40.6 % (16.0-70.0); Platelet Count 186 th/mm3 (150-450); Red Blood Count 4.27 mil/mm3 (4.50-5.90); Red Cell Distribution Width 14.2 % (11.6-17.2); White Blood Count 2.8 th/mm3 (4.0-11.0)
[2018-01-19 14:42] LABS: Calcium 8.3 mg/dL (8.5-10.1); Carbon Dioxide 25.8 meq/L (21.0-32.0); Potassium 4.6 meq/L (3.5-5.1)
--- NOTE | 2018-01-19 14:45 | ED ---
HPI General Chief Complaint: Respiratory Symptoms Stated Complaint: Breathing Complaint Time Seen by Provider: 01/19/18 12:54 Source: patient Mode of arrival: ambulatory Limitations: no limitations History of Present Illness MD complaint: Reports "asthma attack" Onset (ago): hour(s) (Last night) Severity: severe and similar to prior Context: Reports ran out of meds (States that he ran out of his medicines last night) Associated symptoms: Reports dry cough Related Data Home Medications Medication Instructions Recorded Confirmed albuterol sulfate [Ventolin HFA] 2 puff INHALATION Q4H PRN 11/29/17 01/19/18 budesonide-formoterol [Symbicort] 2 puff INHALATION Q12H 11/29/17 01/19/18 emtricitabine-tenofovir alafen 1 tab PO DAILY 11/29/17 01/19/18 [Descovy] Previous Rx's Medication Instructions Recorded dolutegravir [Tivicay] 50 mg PO DAILY #0 tab 12/08/17 tiotropium bromide [Spiriva with 18 mcg INH DAILY #1 inh 12/08/17 HandiHaler] Allergies Allergy/AdvReac Type Severity Reaction Status Date / Time cucumber Allergy Severe Hives Verified 01/19/18 13:25 cucumber body wash Allergy Severe Hives/ Uncoded 01/19/18 13:25 Review of Systems ROS: all other systems reviewed are negative [facility] Medical History Medical History Asthma (Acute) HIV (human immunodeficiency virus infection) (Acute) Patient denies significant medical history (Acute) Family History Family History Father Hypertension Social History Social History Substance History: Active Abuse Second Hand Smoke Exposure: Yes Smoking Status: Never smoker Tobacco Type: Cigarettes How Often Do You Have a Drink Containing Alcohol: Never Recent Travel in [facility] within the Last 8 Weeks: No Substance Abuse Detail Marijuana: Route Used Substance Abuse: Inhalation Immunization History Tetanus Immunization: Unsure Exam Const General: cooperative, healthy appearing, well developed and well groomed Orientation: alert, awake and oriented x3 HENMT Head: normal to inspection, normocephalic and atraumatic Eyes Alignment and Position: alignment normal Conjunctivae: conjunctivae normal Sclera: sclerae normal EOM: EOM intact bilaterally Neck Neck: normal visual inspection and full ROM Chest Chest: abnormal inspection of the chest Resp Effort & Inspection: audible wheezes, labored, respiratory distress, retractions and tachypneic Auscultation: wheezes Cardio Rate: regular rate Rhythm: regular rhythm GI Inspection: normal to inspection Palpation: soft Back/Spine/Pelvis Cervical Spine: cervical ROM normal Thoracic/Lumbar Spine: thoraco-lumbar ROM normal Skin General: no rashes or lesions noted and turgor normal Neuro General: alert, awake, oriented x3, moves all extremities and CN's II-XI intact bilaterally Extrem General: normal to inspection and full ROM Psych Appearance: grossly normal Mental Status: mental status grossly normal Speech and Movement: speech and movement normal Mood: congruent mood Affect: normal affect Attitude: cooperative Thought Process: normal Thought Content: normal Judgment: judgment good Course Hospital Course: This patient has been rechecked about every 15 minutes. He looks more comfortable. He continues to have diffuse audible expiratory wheezing. His sats on BiPAP are 99-100%. Consultations Consultation #1: Dr. Carreon will admit the patient to the intensive care unit Time: 14:54 Initial Documented Vital Signs Temperature 98.3 F 01/19/18 12:40 Pulse Rate 85 01/19/18 12:40 Respiratory Rate 25 H 01/19/18 12:40 Blood Pressure 131/75 01/19/18 12:40 Pulse Oximetry 96 01/19/18 12:40 Last Documented Vital Signs Temperature 98.3 F 01/19/18 12:40 Pulse Rate 73 01/19/18 14:48 Respiratory Rate 16 01/19/18 14:48 Blood Pressure 127/71 01/19/18 13:07 Pulse Oximetry 100 01/19/18 14:48 Critical Care Time Critical Care Time: Yes Total Critical Care Time: 45 Attestation: Time to perform other separately billable procedures was not included in the critical care time. My time did not include minutes spent treating any other patients simultaneously or on activities that did not directly contribute to the patient's treatment. The services I provided to this patient were to treat and/or prevent clinically significant deterioration due to respiratory distress, status asthmaticus I provided critical care services requiring my management, as noted below: Chart data review, documentation time, medication orders and management, vital sign assessments/reviewing monitor data, ordering and reviewing lab tests, ordering and interpreting/reviewing x-rays and diagnostic studies, care of the patient and discussion of the patient with the admitting physicians Medical Decision Making MDM Narrative Medical decision making narrative: This patient presents with audible wheezing. He has a history of asthma. He ran out of his rescue inhaler last night. In addition to asthma, he has a history of AIDS. He was recently hospitalized with an atypical pneumonia and asthma exacerbation. The patient was treated in the emergency department initially with 3 duo nebs and Solu-Medrol. He had virtually no improvement in his symptoms without treatment. IM epinephrine, 3 repeat duo nebs, IV magnesium and BiPAP were then ordered. He does look better following these treatments. However, he still has significant wheezing with poor air movement. Therefore, I have asked for admission to the intensive care unit. Medical Screen Exam Complete: Yes Emergency Medical Condition: Yes Differential Diagnosis Differential Diagnosis: Differential diagnosis of dyspnea includes but is not limited to congestive heart failure, pneumonia, wheezing, pneumothorax, pulmonary embolism Medical Records Medical records reviewed: Yes I reviewed the patient's medical records. Patient was admitted in December for similar complaints. He is HIV positive and had infiltrates on his chest x-ray at that time. He had also been noncompliant with his medications at that time. Lab Data Result diagrams: 01/19/18 13:45 01/19/18 13:45 Lab Results 01/19/18 01/19/18 01/19/18 Range/Units 13:45 13:45 13:49 WBC 2.8 L (4.0-11.0) th/mm3 RBC 4.27 L (4.50-5.90) mil/mm3 Hgb 13.6 (13.0-17.0) gm/dL Hct 40.8 (39.0-51.0) % MCV 95.4 (80.0-100.0) fL MCH 31.8 (27.0-34.0) pg MCHC 33.4 (32.0-36.0) % RDW 14.2 (11.6-17.2) % Plt Count 186 (150-450) th/mm3 MPV 7.3 (7.0-11.0) fL Neut % (Auto) 40.6 (16.0-70.0) % Lymph % (Auto) 39.9 (9.0-44.0) % [place] % (Auto) 10.6 H (0.0-8.0) % Eos % (Auto) 8.3 H (0.0-4.0) % Baso % (Auto) 0.6 (0.0-2.0) % Neut # (Auto) 1.1 L (1.8-7.7) th/mm3 Lymph # (Auto) 1.1 (1.0-4.8) th/mm3 [place] # (Auto) 0.3 (0.0-0.9) th/mm3 Eos # (Auto) 0.2 (0.0-0.4) th/mm3 Baso # (Auto) 0.0 (0.0-0.2) th/mm3 WBC Differential . Differential Comment Auto diff final Puncture Site Right radial Patient Temperature 98.6 O2 Saturation 92 (90-100) % ABG pH 7.43 H (7.380-7.420) ABG pCO2 37 L (38-42) mmHg ABG pO2 67 (61-120) mmHg ABG HCO3 24 (22-26) mmol/L ABG O2 Content 17.8 (12.0-20.0) Vol % ABG Base Excess 0.2 (-2-2) mmol/L ABG Methemoglobin 0.7 (0-2) % Juma Test Present Hemoglobin 13.8 (12.0-16.0) G/DL Carboxyhemoglobin 2.0 (0-4) % Inspired O2 21 % Critical Value No Sodium 139 (136-145) meq/L Potassium 4.6 (3.5-5.1) meq/L Chloride 111 H (98-107) meq/L Carbon Dioxide 25.8 (21.0-32.0) meq/L Anion Gap 2 L (5-15) meq/L BUN 17 (7-18) mg/dL Creatinine 1.36 H (0.60-1.30) mg/dL Estimated GFR 76 L (>89) mL/min Random Glucose 78 (74-106) mg/dL Calcium 8.3 L (8.5-10.1) mg/dL Imaging Data Radiologist's impression: Chest X-Ray 01/19/18 13:35 CONCLUSION: 1. No acute cardiopulmonary disease. Discharge Plan Discharge Disposition Patient Disposition: 30 Still Patient Discharge Details Diagnosis: Asthma with status asthmaticus, HIV (human immunodeficiency virus infection) Physicians Team ED Provider: Liliana Stephens Rxs /Orders / Referrals /Forms Prescriptions: No Action albuterol sulfate [Ventolin HFA] 90 mcg/actuation Hfa Aerosol Inhaler 2 puff INHALATION Q4H PRN (Reason: Shortness Of Breath) RF: 0 budesonide-formoterol [Symbicort] 160-4.5 mcg/actuation Hfa Aerosol Inhaler 2 puff INHALATION Q12H RF: 0 emtricitabine-tenofovir alafen [Descovy] 200-25 mg Tablet 1 tab PO DAILY RF: 0 tiotropium bromide [Spiriva with HandiHaler] 18 mcg Capsule, W/Inhalation Device 18 mcg INH DAILY Qty: 1 RF: 0 dolutegravir [Tivicay] 25 mg Tablet 50 mg PO DAILY Qty: 0 RF: 0 Discharge Interventions Interventions: Vital Signs Last Done: 01/19/18 12:40 Status ED Status: With Doctor
[2018-01-19 14:51] LABS: ABG Base Excess 0.2 mmol/L (-2-2); ABG PCO2 37 mmHg (38-42); ABG PO2 67 mmHg (61-120)
[2018-01-19] MEDS ORDERED: Sodium Phosphate Inj 30 MMOL in Sodium Chlor 0.9% Inj 250 ML IV.SIG PRN (14:54)
[2018-01-19] MEDS ORDERED: Magnesium Sulfate Inj 2 GM in Sodium Chlor 0.9% Inj 96 ML IV.SIG PRN (14:54)
[2018-01-19] MEDS ORDERED: Potassium Chlor 20 mEq Premix 20 MEQ/100 ML PIGGYBACK IV.SIG PRN ×2 (14:54)
[2018-01-19] MEDS ORDERED: Potassium Chloride 25 MEQ Effervescent Tablet PO PRN (14:54)
[2018-01-19] MEDS ORDERED: Acetaminophen 325 MG Tablet PO PRN (14:54)
[2018-01-19] MEDS ORDERED: Potassium Phosphate 500 MG Soluble Tablet PO PRN (14:54)
[2018-01-19] MEDS ORDERED: Magnesium Oxide 400 MG Tablet PO PRN (14:54)
[2018-01-19] MEDS ORDERED: Magnesium Sulfate Inj 4 GM in Sodium Chlor 0.9% Inj 92 ML IV.SIG PRN (14:54)
[2018-01-19] MEDS ORDERED: Potassium Chlor 40 mEq Premix 40 MEQ/100 ML PIGGYBACK IV.SIG PRN ×2 (14:54)
[2018-01-19] MEDS ORDERED: Bisacodyl 10 MG Supp RECTAL PRN (14:54)
[2018-01-19] MEDS ORDERED: Potassium Phosphate Inj 30 MMOL in Sodium Chlor 0.9% Inj 250 ML IV.SIG PRN (14:54)
--- NOTE | 2018-01-19 15:13 | P.HPCC ---
History of Present Illness Service: Critical Care Medicine Chief Complaint: shortness of breath History of Present Illness: 27yM with clinical AIDS with CD4 count less than 200 on multiple prior hospital admissions, most recently 11/2017 who also has a history of asthma who presents in status asthmaticus with severe respiratory distress and audible wheezing. Has had 3 days of worsening fever, chills, night sweats and green sputum with productive cough. has also had ~10lb unintentional weight loss, unclear time frame. has not been on PCP prophylaxis or HAART for months, due to insurance issues. also has not had any asthma medications. remainder of ROS negative. Inpatient Certification: I certify that the inpatient services were ordered in accordance with Medicare regulations governing the order. This includes certification that hospital inpatient services are reasonable and necessary and in the case of services not specified as inpatient-only under 42 CFR 419.22(n), that they are appropriately provided as inpatient services in accordance to with the 2-midnight benchmark under 43 CFR 412.3(e) Estimated Total Length of Stay (Days): 5 Plans for Post Hospital Care: Not yet determined Review of Systems All other systems reviewed negative except as stated in HPI PMFSH - History History Provided By: Patient, Medical Record - Medical History Medical History: Medical History (Last Reviewed 01/19/18 @ 15:09 by Pool Carreon MD) Asthma (Acute) HIV (human immunodeficiency virus infection) (Acute) Patient denies significant medical history - Family History Family History: Family History (Last Reviewed 01/19/18 @ 15:09 by Pool Carreon MD) Father Hypertension - Social History I have reviewed the patient's Social History: Yes - Tobacco History Second Hand Smoke Exposure: Yes Smoking Status: Never smoker Tobacco Type: Cigarettes - Alcohol History How Often Do You Have a Drink Containing Alcohol: Never - Substance Use History Substance History: Active Abuse - Substance Use Type Marijuana Route Used: Inhalation - Travel History Recent Travel in the [place] Within the Last 8 Weeks: No - Immunization History Tetanus Immunization: Unsure Medications and Allergies Active Medications: Active Medications Acetaminophen (Tylenol) 650 mg PO Q6H PRN PRN Reason: TEMPERATURE > 101 F Albuterol (Duoneb Neb (Prn)) 1 ampul NEB Q2HR NEB PRN PRN Reason: WHEEZING Albuterol (Duoneb Neb (Sarah)) 1 ampul NEB Q4HR NEB SARAH Bisacodyl (Dulcolax Supp) 10 mg RECTAL DAILY PRN PRN Reason: if no BM in last 24h Chlorhexidine Gluconate (Chlorhexidine 2% Cloth) 3 pack TOPICAL DAILY@0400 SARAH Stop: 01/25/18 03:59 Chlorhexidine Gluconate (Chlorhexidine 2% Cloth) 3 pack TOPICAL DAILY@0400 PRN PRN Reason: Extra cloth needed Stop: 01/25/18 03:59 Enoxaparin Sodium (Lovenox Inj) 40 mg SQ DAILY SARAH Famotidine (Pepcid) 20 mg PO BID SARAH Magnesium Sulfate 2 gm/ Sodium (Chloride) 100 mls @ 50 mls/hr IV.SIG ONCE ONE Stop: 01/19/18 15:34 Lactated Ringer's (Lr 1000 Ml Inj) 1,000 mls @ 84 mls/hr IV.CONT .[id number] SARAH Magnesium Sulfate 4 gm/ Sodium (Chloride) 100 mls @ 50 mls/hr IV.SIG UNSCH PRN PRN Reason: For Magnesium 0.9 - 1.1 mg/dL Magnesium Sulfate 2 gm/ Sodium (Chloride) 100 mls @ 50 mls/hr IV.SIG UNSCH PRN PRN Reason: For Magnesium 1.2 - 1.6 mg/dL Potassium Chloride (Kcl 40 Meq Premix Inj) 40 meq in 100 mls @ 25 mls/hr IV.SIG Q2H PRN PRN Reason: For Potassium 2.8 - 3.2 mEq/L Potassium Chloride (Kcl 20 Meq Premix Inj) 20 meq in 100 mls @ 50 mls/hr IV.SIG Q2H PRN PRN Reason: For Potassium 3.3 - 3.5 mEq/L Potassium Chloride (Kcl 40 Meq Premix Inj) 40 meq in 100 mls @ 25 mls/hr IV.SIG UNSCH PRN PRN Reason: For Potassium 3.3 - 3.5 mEq/L Potassium Chloride (Kcl 20 Meq Premix Inj) 20 meq in 100 mls @ 50 mls/hr IV.SIG Q2H PRN PRN Reason: For Potassium 2.8 - 3.2 mEq/L Potassium Phosphate 30 mmol/ (Sodium Chloride) 260 mls @ 42 mls/hr IV.SIG UNSCH PRN PRN Reason: SEE LABEL COMMENTS Sodium Phosphate 30 mmol/ (Sodium Chloride) 260 mls @ 42 mls/hr IV.SIG UNSCH PRN PRN Reason: For Phosphorus < 2.5 mg/dL Lactulose (Lactulose Liq) 30 ml PO BID SARAH Magnesium Oxide (Mag-Ox) 800 mg PO UNSCH PRN PRN Reason: For Magnesium 1.2 - 1.6 mg/dL Methylprednisolone Sodium Succinate (Solumedrol Inj) 60 mg IV.PUSH Q6HR SARAH Ondansetron HCl (Zofran Inj) 4 mg IV.PUSH Q6H PRN PRN Reason: NAUSEA OR VOMITING Polyethylene Glycol (Miralax) 17 gm PO BID SARAH Potassium Bicarb/Potassium Chloride (K-Lyte Cl Eff) 50 meq PO UNSCH PRN PRN Reason: For Potassium 3.3 - 3.5 mEq/L Potassium Phosphate (K-Phos Original) 2,000 mg PO Q4H PRN PRN Reason: Phosphorus Less Than 2.5 mg/dL Potassium Phosphate (K-Phos Original) 2,000 mg PO UNSCH PRN PRN Reason: SEE LABEL COMMENTS Senna/Docusate Sodium (Viridiana-Colace) 1 tab PO BID SARAH Sodium Chloride (Ns Flush) 2 ml IV.FLUSH PRN PRN PRN Reason: FLUSH AFTER USING IV ACCESS Sodium Chloride (Ns Flush) 2 ml IV.FLUSH PRN PRN PRN Reason: FLUSH AFTER USING IV ACCESS Sodium Chloride (Ns Flush) 2 ml IV.FLUSH UNSCH PRN PRN Reason: FLUSH AFTER USING IV ACCESS Trimethoprim/Sulfamethoxazole (Bactrim Ds) 2 tab PO Q12HR [facility] Allergies Allergy/AdvReac Type Severity Reaction Status Date / Time cucumber Allergy Severe Hives Verified 01/19/18 13:25 cucumber body wash Allergy Severe Hives/ Uncoded 01/19/18 13:25 Home Medications Medication Instructions Recorded Confirmed Type albuterol sulfate [Ventolin HFA] 2 puff INHALATION Q4H PRN 11/29/17 01/19/18 History budesonide-formoterol [Symbicort] 2 puff INHALATION Q12H 11/29/17 01/19/18 History emtricitabine-tenofovir alafen 1 tab PO DAILY 11/29/17 01/19/18 History [Descovy] Results - Labs CBC & Chem 7: 01/19/18 13:45 01/19/18 13:45 Labs: Short CBC 01/19/18 Range/Units 13:45 WBC 2.8 L (4.0-11.0) th/mm3 Hgb 13.6 (13.0-17.0) gm/dL Hct 40.8 (39.0-51.0) % Plt Count 186 (150-450) th/mm3 BMP 01/19/18 13:45 Sodium 139 Potassium 4.6 Chloride 111 H Carbon Dioxide 25.8 BUN 17 Creatinine 1.36 H Calcium 8.3 L - Imaging Impressions Chest X-Ray 01/19/18 13:35 CONCLUSION: 1. No acute cardiopulmonary disease. Exam Vital signs: Vital Signs 01/19/18 12:40 01/19/18 13:02 01/19/18 13:07 Temperature 36.8 C Pulse Rate 85 76 71 Respiratory Rate 25 H 22 32 H Blood Pressure 131/75 127/71 Pulse Oximetry 96 100 01/19/18 14:00 01/19/18 14:48 Temperature Pulse Rate 73 Respiratory Rate 16 Blood Pressure Pulse Oximetry 100 100 Intake & Output 01/18/18 01/19/18 01/19/18 18:59 06:59 18:59 Weight 61.235 kg Narrative: GENERAL: young male, lying in bed, cachectic, in respiratory distress. HEENT: Normocephalic. Atraumatic. Pupils equal, round, reactive, conjugate. Mucous membranes are moist NECK: Trachea is midline. There is no JVD. CHEST: tachypneic. BiPAP in place. using accessory muscles. CARDIOVASCULAR: normal rate, regular rhythm. sinus. ABDOMEN: Soft, nontender, nondistended. No guarding. MUSCULOSKELETAL: Pulses 2+. No peripheral edema. NEUROLOGICAL: RASS 0. follows commands in all 4 extremities. no focal deficits. Septic Shock Reassessment Septic shock perfusion: reassessment completed Caprini VTE Risk Assessment Caprini VTE Risk Assessment: Moderate/High Risk (score >= 2) Caprini Risk Assessment Model: Point Value = 1 Point Value = 2 Point Value = 3 Point Value = 5 Age 41-60 Minor surgery BMI > 25 kg/m2 Swollen legs Varicose veins or History of unexplained or recurrent spontaneous Oral contraceptives or hormone replacement Sepsis (< 1 month) Serious lung disease, including pneumonia (< 1 month) Abnormal pulmonary function Acute myocardial infarction Congestive heart failure (< 1 month) History of inflammatory bowel disease Medical patient at bed rest Age 61-74 Arthroscopic surgery Major open surgery (> 45 min) Laparoscopic surgery (> 45 min) Malignancy Confined to bed (> 72 hours) Immobilizing plaster cast Central venous access Age >= 75 History of VTE Family history of VTE Factor V Leiden Prothrombin [id number] Lupus anticoagulant Anticardiolipin antibodies Elevated serum homocysteine Heparin-induced thrombocytopenia Other congenital or acquired thrombophilia Stroke (< 1 month) Elective arthroplasty Hip, pelvis, or leg fracture Acute spinal cord injury (< 1 month) Prophylaxis Regimen: Total Risk Factor Score Risk Level Prophylaxis Regimen 0-1 Low Early ambulation 2 Moderate Order ONE of the following: *Sequential Compression Device (SCD) *Heparin 5000 units SQ BID 3-4 Higher Order ONE of the following medications: *Heparin 5000 units SQ TID *Enoxaparin/Lovenox 40 mg SQ daily (WT < 150 kg, CrCl > 30 mL/min) *Enoxaparin/Lovenox 30 mg SQ daily (WT < 150 kg, CrCl > 10-29 mL/min) *Enoxaparin/Lovenox 30 mg SQ BID (WT < 150 kg, CrCl > 30 mL/min) AND/OR *Sequential Compression Device (SCD) 5 or more Highest Order ONE of the following medications: *Heparin 5000 units SQ TID (Preferred with Epidurals) *Enoxaparin/Lovenox 40 mg SQ daily (WT < 150 kg, CrCl > 30 mL/min) *Enoxaparin/Lovenox 30 mg SQ daily (WT < 150 kg, CrCl > 10-29 mL/min) *Enoxaparin/Lovenox 30 mg SQ BID (WT < 150 kg, CrCl > 30 mL/min) AND *Sequential Compression Device (SCD) Assessment and Plan - Assessment and Plan Plan: Assessment: 27yM with HIV and clinical AIDS based on multiple recent CD4 count less than 200, who presents with acute hypoxic and hypercarbic respiratory failure and status asthmaticus. given clinical history, will need to cover empirically for immunocompromised pathogens until they can be ruled out. will consult ID to assist with the work-up and management. Will also obtain CT chest to eval for early infiltrates not visualized on CXR. Critically ill with respiratory failure in an immunocompromised state. Status Asthmaticus Acute hypoxic and hypercarbic Respiratory Failure HIV+ Clinical AIDS, recent CD4 count < 200 11/2017 Acute Leukopenia Plan: admit to ICU continue BiPAP CT chest iv steroids scheduled nebs cover with Bactrim PO, Rocephin, Azithromycin iv Consult ID to assist with work-up sputum culture, u/a with reflex culture, blood cultures urine histo, legionella, pneumococcal antigens LR mivf Lovenox SCDs Pepcid advance diet as tolerated
[2018-01-19] MEDS ORDERED: Morphine Inj 4 MG/ML Vial IV.PUSH ONE (15:18)
[2018-01-19] MEDS: Enoxaparin Inj 40 MG/0.4 ML Syringe SQ SCH (16:28)
[2018-01-19] MEDS: Azithromycin Inj 500 MG in Sodium Chlor 0.9% Inj 250 ML IV.SIG SCH (16:29)
[2018-01-19] MEDS: MethylPREDNISolone Sod Succinate Inj 125 MG/2 ML Vial IV.PUSH SCH ×2 (17:03→23:13)
--- NOTE | 2018-01-19 17:35 | P.PNADD ---
Addendum to Inpatient Note Additional information: pt seen around 1700, chart reviewed full note to follow HIV, non compliant PNA Meropenem+ vanco+ azitro + bactrim CT miguel RN
--- NOTE | 2018-01-19 17:35 | P.CONID ---
History of Present Illness Service: ID Consult date: 01/19/18 Requesting Physician: Pool Carreon Reason for Consult: clinical AIDS status asthmaticus Primary Care Provider: UNKNOWN Chief Complaint: shortness of breath History of Present Illness: 27 yo male with advance d AIDS, HIV dz, non compliance (stes finacial barrier to compliance) was seen last month for PNA by Dr Quispe. He ws Rx with IV abx and discharged on oral abx He presened with SOB, wheezinfg and hypoxia He was diagnosed with status asthmaticus and put on BIPAP admitted to ICU No secretions to expectorate + infiltrate present Neutropenia of 1100 Legionella/pneumococcus/ influenza negative pt is afebrile pt was started on CAP coverga and bactrim Review of Systems All other systems reviewed negative except as stated in HPI PMFSH - History History Provided By: Patient, Medical Record - Medical History Medical History: Medical History (Last Reviewed 01/20/18 @ 00:33 by Gay Mak MD) Asthma (Acute) HIV (human immunodeficiency virus infection) (Acute) Patient denies significant medical history - Family History Family History: Family History (Last Reviewed 01/20/18 @ 00:33 by Gay Mak MD) Father Hypertension - Tobacco History Second Hand Smoke Exposure: Yes Smoking Status: Never smoker Tobacco Type: Cigarettes - Alcohol History How Often Do You Have a Drink Containing Alcohol: Never - Substance Use History Substance History: Active Abuse - Substance Use Type Marijuana Route Used: Inhalation - Travel History Recent Travel in the [facility] Within the Last 8 Weeks: No - Immunization History Tetanus Immunization: Unsure Medications and Allergies Active Medications: Active Medications Acetaminophen (Tylenol) 650 mg PO Q6H PRN PRN Reason: TEMPERATURE > 101 F Albuterol (Duoneb Neb (Prn)) 1 ampul NEB Q2HR NEB PRN PRN Reason: WHEEZING Albuterol (Duoneb Neb (Sarah)) 1 ampul NEB Q4HR NEB SARAH Last Admin: 01/19/18 16:20 Dose: 1 ampul Bisacodyl (Dulcolax Supp) 10 mg RECTAL DAILY PRN PRN Reason: if no BM in last 24h Chlorhexidine Gluconate (Chlorhexidine 2% Cloth) 3 pack TOPICAL DAILY@0400 SARAH Stop: 01/25/18 03:59 Chlorhexidine Gluconate (Chlorhexidine 2% Cloth) 3 pack TOPICAL DAILY@0400 PRN PRN Reason: Extra cloth needed Stop: 01/25/18 03:59 Enoxaparin Sodium (Lovenox Inj) 40 mg SQ DAILY [facility] Last Admin: 01/19/18 16:28 Dose: 40 mg Famotidine (Pepcid) 20 mg PO BID [facility] Lactated Ringer's (Lr 1000 Ml Inj) 1,000 mls @ 84 mls/hr IV.CONT .[id number] [facility] Last Admin: 01/19/18 15:27 Dose: 84 mls/hr Magnesium Sulfate 4 gm/ Sodium (Chloride) 100 mls @ 50 mls/hr IV.SIG UNSCH PRN PRN Reason: For Magnesium 0.9 - 1.1 mg/dL Magnesium Sulfate 2 gm/ Sodium (Chloride) 100 mls @ 50 mls/hr IV.SIG UNSCH PRN PRN Reason: For Magnesium 1.2 - 1.6 mg/dL Potassium Chloride (Kcl 40 Meq Premix Inj) 40 meq in 100 mls @ 25 mls/hr IV.SIG Q2H PRN PRN Reason: For Potassium 2.8 - 3.2 mEq/L Potassium Chloride (Kcl 20 Meq Premix Inj) 20 meq in 100 mls @ 50 mls/hr IV.SIG Q2H PRN PRN Reason: For Potassium 3.3 - 3.5 mEq/L Potassium Chloride (Kcl 40 Meq Premix Inj) 40 meq in 100 mls @ 25 mls/hr IV.SIG UNSCH PRN PRN Reason: For Potassium 3.3 - 3.5 mEq/L Potassium Chloride (Kcl 20 Meq Premix Inj) 20 meq in 100 mls @ 50 mls/hr IV.SIG Q2H PRN PRN Reason: For Potassium 2.8 - 3.2 mEq/L Potassium Phosphate 30 mmol/ (Sodium Chloride) 260 mls @ 42 mls/hr IV.SIG UNSCH PRN PRN Reason: SEE LABEL COMMENTS Sodium Phosphate 30 mmol/ (Sodium Chloride) 260 mls @ 42 mls/hr IV.SIG UNSCH PRN PRN Reason: For Phosphorus < 2.5 mg/dL Azithromycin 500 mg/ Sodium (Chloride) 250 mls @ 250 mls/hr IV.SIG Q24H [facility] Last Admin: 01/19/18 16:29 Dose: 250 mls/hr Ceftriaxone Sodium 1,000 mg/ (Sodium Chloride) 100 mls @ 200 mls/hr IV.SIG Q24H [facility] Last Infusion: 01/19/18 16:14 Dose: Infused Lactulose (Lactulose Liq) 30 ml PO BID SARAH Magnesium Oxide (Mag-Ox) 800 mg PO UNSCH PRN PRN Reason: For Magnesium 1.2 - 1.6 mg/dL Methylprednisolone Sodium Succinate (Solumedrol Inj) 60 mg IV.PUSH Q6HR [facility] Last Admin: 01/19/18 17:03 Dose: 60 mg Ondansetron HCl (Zofran Inj) 4 mg IV.PUSH Q6H PRN PRN Reason: NAUSEA OR VOMITING Last Admin: 01/19/18 16:27 Dose: 4 mg Polyethylene Glycol (Miralax) 17 gm PO BID [facility] Potassium Bicarb/Potassium Chloride (K-Lyte Cl Eff) 50 meq PO UNSCH PRN PRN Reason: For Potassium 3.3 - 3.5 mEq/L Potassium Phosphate (K-Phos Original) 2,000 mg PO Q4H PRN PRN Reason: Phosphorus Less Than 2.5 mg/dL Potassium Phosphate (K-Phos Original) 2,000 mg PO UNSCH PRN PRN Reason: SEE LABEL COMMENTS Senna/Docusate Sodium (Viridiana-Colace) 1 tab PO BID [facility] Sodium Chloride (Ns Flush) 2 ml IV.FLUSH UNSCH PRN PRN Reason: FLUSH AFTER USING IV ACCESS Sodium Chloride (Ns Flush) 2 ml IV.FLUSH BID [facility] Trimethoprim/Sulfamethoxazole (Bactrim Ds) 2 tab PO Q12HR [facility] Allergies Allergy/AdvReac Type Severity Reaction Status Date / Time cucumber Allergy Severe Hives Verified 01/19/18 13:25 cucumber body wash Allergy Severe Hives/ Uncoded 01/19/18 13:25 Home Medications Medication Instructions Recorded Confirmed Type albuterol sulfate [Ventolin HFA] 2 puff INHALATION Q4H PRN 11/29/17 01/19/18 History budesonide-formoterol [Symbicort] 2 puff INHALATION Q12H 11/29/17 01/19/18 History emtricitabine-tenofovir alafen 1 tab PO DAILY 11/29/17 01/19/18 History [Descovy] Exam Vital signs: Vital Signs 01/19/18 12:40 01/19/18 13:02 01/19/18 13:07 Temperature 98.3 F Pulse Rate 85 76 71 Respiratory Rate 25 H 22 32 H Blood Pressure 131/75 127/71 Pulse Oximetry 96 100 01/19/18 14:00 01/19/18 14:48 01/19/18 15:53 Temperature 97.9 F Pulse Rate 73 82 Respiratory Rate 16 29 H Blood Pressure 127/77 Pulse Oximetry 100 100 01/19/18 16:00 01/19/18 16:18 01/19/18 17:00 Temperature Pulse Rate 74 Respiratory Rate 13 Blood Pressure 123/68 118/62 Pulse Oximetry 100 100 100 Intake & Output 01/18/18 01/19/18 01/19/18 18:59 06:59 18:59 Intake Total 100 / 100 Balance 100 / 100 Weight 61.235 kg Intake: IV 100 / 100 Rocephin Inj 1,000 MG In NS Inj 100 / 100 100 ML @ 200 mls/hr IV.SIG Q24H [facility] Rx#:[id number] - Constitutional moderate distress (resp), average body habitus - Routine HEENT Exam Head: Present: normocephalic, atraumatic Eye: Present: EOMI, PERRL. Absent: conjunctival icterus, scleral injection ENT: Present: mucous membranes moist, oropharynx clear - Routine Neck Exam Present: supple, full ROM. Absent: JVD, lymphadenopathy - Routine Respiratory Exam Present: accessory muscle use, decreased breath sounds, prolonged expiratory phase, respiratory distress, wheezes, diminished air movement. Absent: rhonchi , crackles - Routine Cardiovascular Exam Present: S1, S2, tachycardia. Absent: murmur, gallop, rubs - Routine Abdominal Exam Present: soft, normoactive bowel sounds. Absent: tenderness, distended, organomegaly, mass - Routine Extremities Exam Present: normal capillary refill. Absent: cyanosis, clubbing, edema - Routine Skin Exam Present: dry, warm. Absent: rash - Routine Neurological Exam Present: alert, oriented X3, CN II-XII intact, moving all extremities, vision grossly intact, hearing grossly intact - Routine Psychiatric Exam Present: unable to assess (distressed) Results - Labs CBC & Chem 7: 01/19/18 13:45 01/19/18 13:45 Labs: Laboratory Results - last 24 hr 01/19/18 01/19/18 01/19/18 13:45 13:45 13:49 WBC 2.8 L RBC 4.27 L Hgb 13.6 Hct 40.8 MCV 95.4 MCH 31.8 MCHC 33.4 RDW 14.2 Plt Count 186 MPV 7.3 Neut % (Auto) 40.6 Lymph % (Auto) 39.9 Day % (Auto) 10.6 H Eos % (Auto) 8.3 H Baso % (Auto) 0.6 Neut # (Auto) 1.1 L Lymph # (Auto) 1.1 Day # (Auto) 0.3 Eos # (Auto) 0.2 Baso # (Auto) 0.0 WBC Differential . Differential Comment Auto diff final Puncture Site Right radial Patient Temperature 98.6 O2 Saturation 92 ABG pH 7.43 H ABG pCO2 37 L ABG pO2 67 ABG HCO3 24 ABG O2 Content 17.8 ABG Base Excess 0.2 ABG Methemoglobin 0.7 Juma Test Present Hemoglobin 13.8 Carboxyhemoglobin 2.0 Inspired O2 21 Critical Value No Sodium 139 Potassium 4.6 Chloride 111 H Carbon Dioxide 25.8 Anion Gap 2 L BUN 17 Creatinine 1.36 H Estimated GFR 76 L Random Glucose 78 Calcium 8.3 L - Imaging Impressions Chest X-Ray 01/19/18 13:35 CONCLUSION: 1. No acute cardiopulmonary disease. Assessment and Plan - Plan PNA AiDS, advanced Recent hospitalisation Infiltrated i [place] location - neg CXR, CT later tonite showed . Patchy basilar airspace disease slightly increased from December 12 most characteristic of a mild bronchopneumonia. No significant effusion. Mild cardiomegaly will switch abx to meropenm, vancomycin, azithromycin to cover also for HCA PNA Increase Bactrim to 2 DS tid Sputum for routine, AFB fungal case was miguel Vaughan RN@ b/s
[2018-01-19] MEDS ORDERED: Vancomycin Consult Pharmacy OTHER PRN (17:44)
[2018-01-19 18:29] LABS: Bacteria,Urine Occasional /hpf; Bilirubin,Urine Negative (Negative); Clarity,Urine Clear (Clear); Color,Urine Yellow (Yellw/Straw); Glucose,Urine (UA) Negative (Negative); Leukocyte Esterase,Urine Negative (Negative); Mucus,Urine Few /lpf (Occasional); Nitrite,Urine Negative (Negative); Specific Gravity,Urine 1.025 (1.002-1.035); Urobilinogen,Urine 4 or Greater mg/dL (Less than 2)
[2018-01-19] MEDS ORDERED: Vancomycin Inj 1,000 MG in Sodium Chlor 0.9% Inj 250 ML IV.SIG ONE (18:39)
--- NOTE | 2018-01-19 20:20 | CT ---
EXAM DATE: 01/19/2018 3:15 PM EDT AGE/SEX: 27 years / Male INDICATIONS: Cough respiratory failure CLINICAL DATA: This is the patient's initial encounter. Patient reports that signs and symptoms have been present for 1 day and indicates a pain score of 0/10. MEDICAL/SURGICAL HISTORY: Asthma. HIV. None. RADIATION DOSE: 9.02 CTDI (mGy) [place] [facility] [place]. . TECHNIQUE: Multiple contiguous axial images were obtained through the chest without contrast. Image s were obtained in suspended respiration using multiple row detector helical technique. Using automa emilio exposure control and adjustment of the mA and/or kV according to patient size, radiation dose was kept as low as reasonably achievable to obtain optimal diagnostic quality images. DICOM format imag e data is available electronically for review and comparison. FINDINGS: Comparison is December 12, 2017. There is a slight increase in patchy airspace consolidation in both lower lobes posteriorly compared with December 12. Primary differential diagnosis is mild bronchopn eumonia. There is no hilar, mediastinal or axillary adenopathy. No significant pleural or pericardial effusion . No acute bony abnormalities. CONCLUSION: 1. Patchy basilar airspace disease slightly increased from December 12 most characteristic of a mil d bronchopneumonia. No significant effusion. Mild cardiomegaly. Electronically signed by: Abner Lala MD 01/19/2018 8:19 PM EDT
[2018-01-19] MEDS: Meropenem Inj 2,000 MG in Sodium Chlor 0.9% Inj 100 ML IV.SIG SCH (20:41)
[2018-01-19] MEDS: Famotidine 20 MG Tablet PO SCH (20:45)
[2018-01-19] MEDS: Sodium Chloride 0.9% 2 ML Flush BID IV.FLUSH SCH (20:46)
[2018-01-19] MEDS: Senna/Docusate Sodium 8.6/50 MG Tablet PO SCH (21:04)
[2018-01-19] MEDS: Polyethylene Glycol 3350 17 GM Packet PO SCH (21:04)
[2018-01-20] MEDS: Meropenem Inj 2,000 MG in Sodium Chlor 0.9% Inj 100 ML IV.SIG SCH ×3 (03:46→21:27)
[2018-01-20] MEDS ORDERED: Chlorhexidine Gluconate 2% 1 Pack (2 Cloths) TOPICAL PRN (04:00)
[2018-01-20] MEDS: MethylPREDNISolone Sod Succinate Inj 125 MG/2 ML Vial IV.PUSH SCH ×4 (05:58→23:52)
[2018-01-20] MEDS: Chlorhexidine Gluconate 2% 1 Pack (2 Cloths) TOPICAL SCH (06:05)
[2018-01-20 06:31] LABS: Baso % (Auto) 0.2 % (0.0-2.0); Eos % (Auto) 0.1 % (0.0-4.0); Hematocrit 39.5 % (39.0-51.0); Hemoglobin 13.1 gm/dL (13.0-17.0); Lymph # (Auto) 0.8 th/mm3 (1.0-4.8); Mean Corpuscular HGB Conc 33.2 % (32.0-36.0); Mean Corpuscular Hemoglobin 31.7 pg (27.0-34.0); Mean Corpuscular Volume 95.6 fL (80.0-100.0); Mean Platelet Volume 7.2 fL (7.0-11.0); Mono # (Auto) 0.1 th/mm3 (0.0-0.9); Mono % (Auto) 2.4 % (0.0-8.0); Neut # (Auto) 3.5 th/mm3 (1.8-7.7); Neut % (Auto) 79.3 % (16.0-70.0); Platelet Count 188 th/mm3 (150-450); Red Blood Count 4.14 mil/mm3 (4.50-5.90); White Blood Count 4.4 th/mm3 (4.0-11.0)
[2018-01-20 07:08] LABS: Calcium 8.4 mg/dL (8.5-10.1); Carbon Dioxide 23.4 meq/L (21.0-32.0); Magnesium 2.3 mg/dL (1.5-2.5); Phosphorus 1.4 mg/dL (2.5-4.9); Potassium 3.9 meq/L (3.5-5.1)
[2018-01-20] MEDS: Enoxaparin Inj 40 MG/0.4 ML Syringe SQ SCH (08:41)
[2018-01-20] MEDS: Senna/Docusate Sodium 8.6/50 MG Tablet PO SCH ×2 (08:41→21:16)
[2018-01-20] MEDS: Polyethylene Glycol 3350 17 GM Packet PO SCH ×2 (08:42→21:16)
[2018-01-20] MEDS: Sodium Chloride 0.9% 2 ML Flush BID IV.FLUSH SCH ×2 (08:42→21:29)
[2018-01-20] MEDS: Famotidine 20 MG Tablet PO SCH ×2 (08:42→21:29)
--- NOTE | 2018-01-20 08:59 | P.PNCC ---
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 Has had 3 days of worsening fever, chills, night sweats and green sputum with productive cough. has also had ~10lb unintentional weight loss, unclear time frame. has not been on PCP prophylaxis or HAART for months, due to insurance issues. also has not had any asthma medications. remainder of ROS negative. subjective: 01/20: respiratory function is improving. still with significant expiratory wheezing. intermittently on BiPAP and NC. wbc improving. Cr still elevated. LDH elevated. CT chest with bilateral infiltrates: would be concerned for PCP. still unable to provide sputum sample. At this point with ongoing bronchospasm, risk of bronch or intubation for sputum sample far outweighs benefit. If patients bronchospasm improves/resolves (or if he progresses to complete respiratory failure requiring intubation), will proceed with bronch at that time. Objective Vital Signs / I&O: Vital Signs 01/19/18 12:40 01/19/18 13:02 01/19/18 13:07 Temperature 36.8 C Pulse Rate 85 76 71 Respiratory Rate 25 H 22 32 H Blood Pressure 131/75 127/71 Pulse Oximetry 96 100 01/19/18 14:00 01/19/18 14:48 01/19/18 15:53 Temperature 36.6 C Pulse Rate 73 82 Respiratory Rate 16 29 H Blood Pressure 127/77 Pulse Oximetry 100 100 01/19/18 16:00 01/19/18 16:18 01/19/18 17:00 Temperature Pulse Rate 74 Respiratory Rate 13 Blood Pressure 123/68 118/62 Pulse Oximetry 100 100 100 01/19/18 18:00 01/19/18 19:24 01/19/18 19:46 Temperature Pulse Rate 73 71 74 Respiratory Rate 13 16 22 Blood Pressure 113/55 L 115/65 Pulse Oximetry 100 100 100 01/19/18 20:00 01/19/18 20:09 01/19/18 20:17 Temperature Pulse Rate 71 70 73 Respiratory Rate 14 18 19 Blood Pressure 110/71 119/65 Pulse Oximetry 100 100 100 01/19/18 21:00 01/19/18 21:01 01/19/18 22:00 Temperature Pulse Rate 73 74 87 Respiratory Rate 31 H 22 23 Blood Pressure 118/90 116/68 Pulse Oximetry 99 100 100 01/19/18 22:46 01/19/18 22:53 01/19/18 23:00 Temperature Pulse Rate 86 75 Respiratory Rate 20 21 Blood Pressure 104/56 L Pulse Oximetry 100 100 01/20/18 00:00 01/20/18 00:07 01/20/18 01:00 Temperature 36.6 C Pulse Rate 83 68 Respiratory Rate 16 17 14 Blood Pressure 104/55 L 105/59 L Pulse Oximetry 98 100 01/20/18 02:00 01/20/18 03:00 01/20/18 03:42 Temperature Pulse Rate 68 70 76 Respiratory Rate 14 19 22 Blood Pressure 110/63 127/71 Pulse Oximetry 98 100 01/20/18 04:00 01/20/18 05:00 01/20/18 05:03 Temperature Pulse Rate 84 76 Respiratory Rate 19 18 Blood Pressure 136/64 120/63 Pulse Oximetry 98 99 100 01/20/18 05:05 01/20/18 06:00 01/20/18 07:23 Temperature Pulse Rate 71 80 Respiratory Rate 19 20 Blood Pressure 131/70 Pulse Oximetry 100 100 98 Intake & Output 01/19/18 01/20/18 01/20/18 18:59 06:59 18:59 Intake Total 450 / 450 2150 / 2150 Output Total 150 / 150 450 / 450 Balance 300 / 300 1700 / 1700 Weight 64.5 kg 65 kg Intake: IV 450 / 450 1450 / 1450 LR 1000 mL Inj 1,000 ML @ 84 1000 / 1000 mls/hr IV.CONT .[id number] [facility] Rx# :[id number] Azithromycin Inj 500 MG In NS 250 / 250 Inj 250 ML @ 250 mls/hr IV.SIG Q24H [facility] Rx#:[id number] Magnesium Sulfate Inj 2 GM In 100 / 100 NS Inj 96 ML @ 50 mls/hr IV.SIG ONCE ONE Rx#:[id number] Merrem Inj 2,000 MG In NS Inj 200 / 200 100 ML @ 200 mls/hr IV.SIG Q8H [facility] Rx#:[id number] Vancomycin Inj 1,000 MG In NS 250 / 250 Inj 250 ML @ 250 mls/hr IV.SIG ONCE ONE Rx#:[id number] Rocephin Inj 1,000 MG In NS Inj 100 / 100 100 ML @ 200 mls/hr IV.SIG Q24H [facility] Rx#:[id number] Oral 700 / 700 Output: Urine 150 / 150 450 / 450 Other: Weight On Admission 64.5 kg Result Diagrams: 01/20/18 04:34 01/20/18 04:34 Objective Remarks: GENERAL: young male, sitting in bed, cachectic, no acute distress. HEENT: Normocephalic. Atraumatic. Pupils equal, round, reactive, conjugate. Mucous membranes are moist NECK: Trachea is midline. There is no JVD. CHEST: unlabored this morning. on nc o2. BiPAP at bedside. still with significant bilateral expiratory wheezing. CARDIOVASCULAR: normal rate, regular rhythm. sinus. ABDOMEN: Soft, nontender, nondistended. No guarding. MUSCULOSKELETAL: Pulses 2+. No peripheral edema. NEUROLOGICAL: RASS 0. follows commands in all 4 extremities. no focal deficits. Assessment and Plan - Assessment and Plan Plan: Assessment: 27yM with HIV and clinical AIDS based on multiple recent CD4 count less than 200, who presents with acute hypoxic and hypercarbic respiratory failure and status asthmaticus. Continue broad spectrum antibiotics and prn BiPAP. Needs to remain in ICU. Will watch for at least another 24h to ensure he continues to clinically improve. Status Asthmaticus Acute hypoxic and hypercarbic Respiratory Failure HIV+ Clinical AIDS, recent CD4 count < 200 11/2017 Acute Leukopenia Bilateral pulmonary infiltrates Plan: remain in ICU continue prn BiPAP CT chest 01/19: bilateral infiltrates LDH elevated- concern for PCP iv steroids scheduled nebs Bactrim PO Meropenem Vancomycin Azithromycin f/u cultures sputum culture if able to produce hold on bronch for now. ID following: Dr. Mak urine histo pending urine legionella, pneumococcal antigens: negative. LR mivf Lovenox SCDs Pepcid advance diet as tolerated
[2018-01-20] MEDS: Vancomycin Inj 1,250 MG in Sodium Chlor 0.9% Inj 250 ML IV.SIG SCH (12:18)
--- NOTE | 2018-01-20 15:03 | P.PNID ---
Subjective Remarks: pt is doing better back and forth between bypap and mask not expectorating afebrile Antibiotics: azithro rick vanco TS Allergies/Adverse Reactions: Allergies cucumber Allergy (Severe, Verified 01/19/18 13:25) Hives THE VEG CUCUMBER WELL CUCUMBER SOAP cucumber body wash Allergy (Severe, Uncoded 01/19/18 13:25) Hives/ shortness of breath,swelling. Objective Vital Signs 01/19/18 14:48 01/19/18 15:53 01/19/18 16:00 Temperature 97.9 F Pulse Rate 73 82 Respiratory Rate 16 29 H Blood Pressure 127/77 123/68 Pulse Oximetry 100 100 01/19/18 16:18 01/19/18 17:00 01/19/18 18:00 Temperature Pulse Rate 74 73 Respiratory Rate 13 13 Blood Pressure 118/62 113/55 L Pulse Oximetry 100 100 100 01/19/18 19:24 01/19/18 19:46 01/19/18 20:00 Temperature Pulse Rate 71 74 71 Respiratory Rate 16 22 14 Blood Pressure 115/65 Pulse Oximetry 100 100 100 01/19/18 20:09 01/19/18 20:17 01/19/18 21:00 Temperature Pulse Rate 70 73 73 Respiratory Rate 18 19 31 H Blood Pressure 110/71 119/65 Pulse Oximetry 100 100 99 01/19/18 21:01 01/19/18 22:00 01/19/18 22:46 Temperature Pulse Rate 74 87 Respiratory Rate 22 23 Blood Pressure 118/90 116/68 Pulse Oximetry 100 100 100 01/19/18 22:53 01/19/18 23:00 01/20/18 00:00 Temperature 97.8 F Pulse Rate 86 75 83 Respiratory Rate 20 21 16 Blood Pressure 104/56 L 104/55 L Pulse Oximetry 100 98 01/20/18 00:07 01/20/18 01:00 01/20/18 02:00 Temperature Pulse Rate 68 68 Respiratory Rate 17 14 14 Blood Pressure 105/59 L 110/63 Pulse Oximetry 100 98 01/20/18 03:00 01/20/18 03:42 01/20/18 04:00 Temperature Pulse Rate 70 76 84 Respiratory Rate 19 22 19 Blood Pressure 127/71 136/64 Pulse Oximetry 100 98 01/20/18 05:00 01/20/18 05:03 01/20/18 05:05 Temperature Pulse Rate 76 Respiratory Rate 18 Blood Pressure 120/63 Pulse Oximetry 99 100 100 01/20/18 06:00 01/20/18 07:23 01/20/18 11:19 Temperature Pulse Rate 71 80 73 Respiratory Rate 19 20 16 Blood Pressure 131/70 Pulse Oximetry 100 98 Intake & Output 01/19/18 01/20/18 01/20/18 18:59 06:59 18:59 Intake Total 450 / 450 2150 / 2150 362.5 / 362.5 Output Total 150 / 150 450 / 450 Balance 300 / 300 1700 / 1700 362.5 / 362.5 Weight 64.5 kg 65 kg Intake: IV 450 / 450 1450 / 1450 362.5 / 362.5 LR 1000 mL Inj 1,000 ML @ 84 1000 / 1000 0 / 0 mls/hr IV.CONT .[id number] [facility] Rx# :[id number] Azithromycin Inj 500 MG In NS 250 / 250 Inj 250 ML @ 250 mls/hr IV.SIG Q24H [facility] Rx#:[id number] Magnesium Sulfate Inj 2 GM In 100 / 100 NS Inj 96 ML @ 50 mls/hr IV.SIG ONCE ONE Rx#:[id number] Merrem Inj 2,000 MG In NS Inj 200 / 200 100 / 100 100 ML @ 200 mls/hr IV.SIG Q8H [facility] Rx#:[id number] Vancomycin Inj 1,000 MG In NS 250 / 250 Inj 250 ML @ 250 mls/hr IV.SIG ONCE ONE Rx#:[id number] Vancomycin Inj 1,250 MG In NS 262.5 / 262.5 Inj 250 ML @ 250 mls/hr IV.SIG Q18H [facility] Rx#:[id number] Rocephin Inj 1,000 MG In NS Inj 100 / 100 100 ML @ 200 mls/hr IV.SIG Q24H [facility] Rx#:[id number] Oral 700 / 700 Output: Urine 150 / 150 450 / 450 Other: Weight On Admission 64.5 kg 01/19/18 14:35 Blood - Peripheral Aerobic Blood Culture - Preliminary No growth in 1 day 01/19/18 14:35 Blood - Peripheral Anaerobic Blood Culture - Preliminary No growth in 1 day 01/19/18 15:00 Blood - Peripheral Aerobic Blood Culture - Preliminary No growth in 1 day 01/19/18 15:00 Blood - Peripheral Anaerobic Blood Culture - Preliminary No growth in 1 day 01/19/18 16:45 Urine - Clean Catch Urine Streptococcus pneumoniae Antigen ( M - Final Presumptive negative for streptococcus pneumoniae antigen, suggesting no current or recent infection. Infection due to Streptococcus pneumoniae cannot be ruled out since the antigen present in the sample may be below the detection limit of the test. 01/19/18 16:45 Urine - Clean Catch Urine Legionella Antigen - Final Presumptive negative for Legionella pneumophila serogroup 1 antigen in urine, suggesting no recent or recurrent infection. Infection due to Legionella cannot be ruled out since other serogroups and species may cause disease, antigen may not be present in urine in early infection, and the level of antigen present in the urine may be below the detection limit of the test. 01/19/18 16:45 Nasal Wash Influenza Types A,B Antigen - Final Negative for FLU A and B antigen Infection due to influenza A or B cannot be ruled out since the antigen present in the sample may be below the detection limit of the test. Lab - Hematology Results 01/19/18 01/20/18 13:45 04:34 WBC 2.8 L 4.4 D RBC 4.27 L 4.14 L Hgb 13.6 13.1 Hct 40.8 39.5 MCV 95.4 95.6 MCH 31.8 31.7 MCHC 33.4 33.2 RDW 14.2 14.0 Plt Count 186 188 MPV 7.3 7.2 Neut % (Auto) 40.6 79.3 H Lymph % (Auto) 39.9 18.0 Hamilton % (Auto) 10.6 H 2.4 Eos % (Auto) 8.3 H 0.1 Baso % (Auto) 0.6 0.2 Neut # (Auto) 1.1 L 3.5 Lymph # (Auto) 1.1 0.8 L [place] # (Auto) 0.3 0.1 Eos # (Auto) 0.2 0.0 Baso # (Auto) 0.0 0.0 WBC Differential . . Differential Comment Auto diff final Auto diff final Lab - Chemistry Results 01/19/18 01/19/18 01/20/18 13:45 13:45 04:34 Sodium 139 138 Potassium 4.6 3.9 Chloride 111 H 106 Carbon Dioxide 25.8 23.4 Anion Gap 2 L 9 BUN 17 21 H Creatinine 1.36 H 1.45 H Estimated GFR 76 L 70 L Random Glucose 78 151 H Calcium 8.3 L 8.4 L Phosphorus 1.4 L Magnesium 2.3 Lactate Dehydrogenase 380 H Imaging: ITS Impressions Chest X-Ray 01/19/18 13:35 CONCLUSION: 1. No acute cardiopulmonary disease. Chest CT 01/19/18 15:07 CONCLUSION: 1. Patchy basilar airspace disease slightly increased from December 12 most characteristic of a mild bronchopneumonia. No significant effusion. Mild cardiomegaly. Physical Exam: GENERAL: NAD On face mask SKIN: Warm and dry. no rash HEAD: Atraumatic. Normocephalic. EYES: Pupils equal and round. No scleral icterus. No injection or drainage. ENT: No nasal bleeding or discharge. Mucous membranes pink and moist. NECK: Trachea midline. No JVD. CARDIOVASCULAR: Regular rate and rhythm. RESPIRATORY: No accessory muscle use. Diffuse wheezing to auscultation. Breath sounds equal bilaterally. GASTROINTESTINAL: Abdomen soft, non-tender, nondistended. Hepatic and splenic margins not palpable. MUSCULOSKELETAL: Extremities without clubbing, cyanosis, or edema. No obvious deformities. NEUROLOGICAL: Awake and alert. No obvious cranial nerve deficits. Motor grossly within normal limits. Five out of 5 muscle strength in the arms and legs. Normal speech. PSYCHIATRIC: Appropriate mood and affect; Assessment and Plan - Plan PNA HIV dz, non compliant 2/2 lack of insuranmce now he has medicaid AiDS, advanced Recent hospitalisation Infiltrates in [place] location - neg CXR, CT later tonite showed . Patchy basilar airspace disease slightly increased from December 12 most characteristic of a mild bronchopneumonia. No significant effusion. Mild cardiomegaly Status asthmaticus cont meropenm, vancomycin, azithromycin to cover also for [facility] PNA cont Bactrim to 2 DS tid Sputum for routine, AFB fungal
[2018-01-20] MEDS: Azithromycin Inj 500 MG in Sodium Chlor 0.9% Inj 250 ML IV.SIG SCH (15:46)
--- NOTE | 2018-01-20 17:30 | ECG ---
Date Performed: 01/19/2018 Time Performed: 15:02:34 PTAGE: 27 years EKG: Sinus rhythm POSSIBLE RIGHT VENTRICULAR CONDUCTION DELAY ST ELEVATION, PROBABLY EARLY REPOLARIZATION Compared to previous tracing, the ST changes of early repolarization are more prominent, otherwise no significant change BORDERLINE ECG NO PREVIOUS TRACING DOCTOR: Ralph Hernandez Interpretating Date/Time 01/20/2018 17:28:46
[2018-01-21] MEDS: Vancomycin Inj 1,250 MG in Sodium Chlor 0.9% Inj 250 ML IV.SIG SCH ×2 (04:48→21:10)
[2018-01-21] MEDS: Chlorhexidine Gluconate 2% 1 Pack (2 Cloths) TOPICAL SCH (04:48)
[2018-01-21] MEDS: Meropenem Inj 2,000 MG in Sodium Chlor 0.9% Inj 100 ML IV.SIG SCH ×3 (04:48→20:47)
[2018-01-21] MEDS: MethylPREDNISolone Sod Succinate Inj 125 MG/2 ML Vial IV.PUSH SCH ×4 (07:34→23:36)
[2018-01-21] MEDS: Enoxaparin Inj 40 MG/0.4 ML Syringe SQ SCH (08:43)
[2018-01-21] MEDS: Sodium Chloride 0.9% 2 ML Flush BID IV.FLUSH SCH ×2 (08:44→20:48)
[2018-01-21] MEDS: Potassium Phosphate 500 MG Soluble Tablet PO PRN ×2 (08:44→13:24)
[2018-01-21] MEDS: Famotidine 20 MG Tablet PO SCH ×2 (08:44→20:48)
--- NOTE | 2018-01-21 09:36 | P.PNCC ---
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 Has had 3 days of worsening fever, chills, night sweats and green sputum with productive cough. has also had ~10lb unintentional weight loss, unclear time frame. has not been on PCP prophylaxis or HAART for months, due to insurance issues. also has not had any asthma medications. remainder of ROS negative. subjective: 01/20: respiratory function is improving. still with significant expiratory wheezing. intermittently on BiPAP and NC. wbc improving. Cr still elevated. LDH elevated. CT chest with bilateral infiltrates: would be concerned for PCP. still unable to provide sputum sample. At this point with ongoing bronchospasm, risk of bronch or intubation for sputum sample far outweighs benefit. If patients bronchospasm improves/resolves (or if he progresses to complete respiratory failure requiring intubation), will proceed with bronch at that time. 01/21: On room air this morning. Continues to have some wheezing. Objective Vital Signs / I&O: Vital Signs 01/20/18 10:00 01/20/18 11:00 01/20/18 11:19 Temperature Pulse Rate 91 H 85 73 Respiratory Rate 16 20 16 Blood Pressure 121/60 137/76 Pulse Oximetry 97 99 01/20/18 12:00 01/20/18 13:00 01/20/18 14:00 Temperature 98.6 F Pulse Rate 83 88 89 Respiratory Rate 19 17 Blood Pressure 131/64 122/58 L Pulse Oximetry 97 96 01/20/18 14:52 01/20/18 16:00 01/20/18 18:00 Temperature 98.5 F Pulse Rate 78 107 H 94 H Respiratory Rate 18 27 H Blood Pressure 137/73 Pulse Oximetry 97 01/20/18 19:00 01/20/18 20:00 01/20/18 20:31 Temperature Pulse Rate 82 95 H 86 Respiratory Rate 18 33 H 20 Blood Pressure 112/59 L 119/71 Pulse Oximetry 97 96 01/20/18 21:00 01/20/18 22:00 01/20/18 23:00 Temperature Pulse Rate 114 H 106 H 91 H Respiratory Rate 22 24 18 Blood Pressure 122/66 123/60 123/59 L Pulse Oximetry 98 93 L 94 L 01/20/18 23:36 01/20/18 23:51 01/21/18 00:00 Temperature 98.2 F Pulse Rate 99 H 94 H Respiratory Rate 18 23 24 Blood Pressure 122/59 L Pulse Oximetry 99 01/21/18 01:00 01/21/18 02:00 01/21/18 03:00 Temperature Pulse Rate 90 82 85 Respiratory Rate 18 21 19 Blood Pressure 123/64 121/67 119/61 Pulse Oximetry 100 100 100 01/21/18 04:00 01/21/18 06:00 01/21/18 08:22 Temperature Pulse Rate 78 66 75 Respiratory Rate 20 16 Blood Pressure 126/58 L Pulse Oximetry 97 Intake & Output 01/20/18 01/21/18 01/21/18 18:59 06:59 18:59 Intake Total 1492.5 / 1492.5 1700 / 1700 100 / 100 Output Total 750 / 750 900 / 900 400 / 400 Balance 742.5 / 742.5 800 / 800 -300 / -300 Weight 4.082 kg Intake: IV 612.5 / 612.5 1100 / 1100 100 / 100 LR 1000 mL Inj 1,000 ML @ 84 0 / 0 1000 / 1000 mls/hr IV.CONT .[id number] [facility] Rx# :[id number] Azithromycin Inj 500 MG In NS 250 / 250 Inj 250 ML @ 250 mls/hr IV.SIG Q24H [facility] Rx#:[id number] Merrem Inj 2,000 MG In NS Inj 100 / 100 100 / 100 100 / 100 100 ML @ 200 mls/hr IV.SIG Q8H [facility] Rx#:[id number] Vancomycin Inj 1,250 MG In NS 262.5 / 262.5 Inj 250 ML @ 250 mls/hr IV.SIG Q18H [facility] Rx#:[id number] Oral 880 / 880 600 / 600 Output: Urine 750 / 750 900 / 900 400 / 400 Other: Date of Last Bowel Movement 01/20/18 01/20/18 # Bowel Movements 1 Result Diagrams: 01/20/18 04:34 01/20/18 04:34 Objective Remarks: GENERAL: young male, sitting in bed, cachectic, no acute distress. HEENT: Normocephalic. Atraumatic. Pupils equal, round, reactive, conjugate. Mucous membranes are moist NECK: Trachea is midline. There is no JVD. CHEST: unlabored this morning. on room air. BiPAP at bedside. Expiratory wheeze noted CARDIOVASCULAR: normal rate, regular rhythm. sinus. ABDOMEN: Soft, nontender, nondistended. No guarding. MUSCULOSKELETAL: Pulses 2+. No peripheral edema. NEUROLOGICAL: RASS 0. follows commands in all 4 extremities. no focal deficits. Assessment and Plan - Assessment and Plan Plan: Assessment: 27yM with HIV and clinical AIDS based on multiple recent CD4 count less than 200, who presents with acute hypoxic and hypercarbic respiratory failure and status asthmaticus, bilateral infiltrates Status Asthmaticus Acute hypoxic and hypercarbic Respiratory Failure HIV+ Clinical AIDS, recent CD4 count < 200 11/2017 Acute Leukopenia Pneumonia - bilateral pulmonary infiltrates Plan: Transfer out of ICU. Currently on room air. CT chest 01/19: bilateral infiltrates LDH elevated- concern for PCP iv steroids scheduled nebs Bactrim PO Meropenem Vancomycin Azithromycin f/u cultures sputum culture if able to produce Pulmonary consult to evaluate for bronchoscopy for further evaluation ID following: Dr. Mak urine histo pending urine legionella, pneumococcal antigens: negative. LR mivf Lovenox SCDs Pepcid advance diet as tolerated. Consult and transfer to hospitalist service for further medical management, critical care will be signing off, please reconsult if needed.
--- NOTE | 2018-01-21 13:37 | P.PNID ---
Subjective Remarks: pt is doing much better On RA not expectorating afebrile Antibiotics: diogenesithro rick kario TS Allergies/Adverse Reactions: Allergies cucumber Allergy (Severe, Verified 01/19/18 13:25) Hives THE VEG CUCUMBER WELL CUCUMBER SOAP cucumber body wash Allergy (Severe, Uncoded 01/19/18 13:25) Hives/ shortness of breath,swelling. Objective Vital Signs 01/20/18 14:00 01/20/18 14:52 01/20/18 16:00 Temperature 98.5 F Pulse Rate 89 78 107 H Respiratory Rate 18 27 H Blood Pressure 137/73 Pulse Oximetry 97 01/20/18 18:00 01/20/18 19:00 01/20/18 20:00 Temperature Pulse Rate 94 H 82 95 H Respiratory Rate 18 33 H Blood Pressure 112/59 L 119/71 Pulse Oximetry 97 96 01/20/18 20:31 01/20/18 21:00 01/20/18 22:00 Temperature Pulse Rate 86 114 H 106 H Respiratory Rate 20 22 24 Blood Pressure 122/66 123/60 Pulse Oximetry 98 93 L 01/20/18 23:00 01/20/18 23:36 01/20/18 23:51 Temperature Pulse Rate 91 H 99 H Respiratory Rate 18 18 23 Blood Pressure 123/59 L Pulse Oximetry 94 L 01/21/18 00:00 01/21/18 01:00 01/21/18 02:00 Temperature 98.2 F Pulse Rate 94 H 90 82 Respiratory Rate 24 18 21 Blood Pressure 122/59 L 123/64 121/67 Pulse Oximetry 99 100 100 01/21/18 03:00 01/21/18 04:00 01/21/18 06:00 Temperature Pulse Rate 85 78 66 Respiratory Rate 19 20 Blood Pressure 119/61 126/58 L Pulse Oximetry 100 97 01/21/18 08:00 01/21/18 08:22 01/21/18 12:34 Temperature Pulse Rate 75 76 Respiratory Rate 16 21 Blood Pressure Pulse Oximetry 98 Intake & Output 01/20/18 01/21/18 01/21/18 18:59 06:59 18:59 Intake Total 1492.5 / 1492.5 1700 / 1700 100 / 100 Output Total 750 / 750 900 / 900 400 / 400 Balance 742.5 / 742.5 800 / 800 -300 / -300 Weight 4.082 kg Intake: IV 612.5 / 612.5 1100 / 1100 100 / 100 LR 1000 mL Inj 1,000 ML @ 84 0 / 0 1000 / 1000 mls/hr IV.CONT .[id number] [facility] Rx# :[id number] Azithromycin Inj 500 MG In NS 250 / 250 Inj 250 ML @ 250 mls/hr IV.SIG Q24H [facility] Rx#:[id number] Merrem Inj 2,000 MG In NS Inj 100 / 100 100 / 100 100 / 100 100 ML @ 200 mls/hr IV.SIG Q8H [facility] Rx#:[id number] Vancomycin Inj 1,250 MG In NS 262.5 / 262.5 Inj 250 ML @ 250 mls/hr IV.SIG Q18H [facility] Rx#:[id number] Oral 880 / 880 600 / 600 Output: Urine 750 / 750 900 / 900 400 / 400 Other: Date of Last Bowel Movement 01/20/18 01/20/18 01/21/18 # Bowel Movements 1 01/19/18 14:35 Blood - Peripheral Aerobic Blood Culture - Preliminary No growth in 2 days 01/19/18 14:35 Blood - Peripheral Anaerobic Blood Culture - Preliminary No growth in 2 days 01/19/18 15:00 Blood - Peripheral Aerobic Blood Culture - Preliminary No growth in 2 days 01/19/18 15:00 Blood - Peripheral Anaerobic Blood Culture - Preliminary No growth in 2 days 01/20/18 15:00 Sputum - Oral Tracheal Aspirate Gram Stain - Final 01/20/18 15:00 Sputum - Oral Tracheal Aspirate Sputum Culture - Pending 01/19/18 16:45 Urine - Clean Catch Urine Streptococcus pneumoniae Antigen ( M - Final Presumptive negative for streptococcus pneumoniae antigen, suggesting no current or recent infection. Infection due to Streptococcus pneumoniae cannot be ruled out since the antigen present in the sample may be below the detection limit of the test. 01/19/18 16:45 Urine - Clean Catch Urine Legionella Antigen - Final Presumptive negative for Legionella pneumophila serogroup 1 antigen in urine, suggesting no recent or recurrent infection. Infection due to Legionella cannot be ruled out since other serogroups and species may cause disease, antigen may not be present in urine in early infection, and the level of antigen present in the urine may be below the detection limit of the test. 01/19/18 16:45 Nasal Wash Influenza Types A,B Antigen - Final Negative for FLU A and B antigen Infection due to influenza A or B cannot be ruled out since the antigen present in the sample may be below the detection limit of the test. Lab - Hematology Results 01/19/18 01/20/18 13:45 04:34 WBC 2.8 L 4.4 D RBC 4.27 L 4.14 L Hgb 13.6 13.1 Hct 40.8 39.5 MCV 95.4 95.6 MCH 31.8 31.7 MCHC 33.4 33.2 RDW 14.2 14.0 Plt Count 186 188 MPV 7.3 7.2 Neut % (Auto) 40.6 79.3 H Lymph % (Auto) 39.9 18.0 [place] % (Auto) 10.6 H 2.4 Eos % (Auto) 8.3 H 0.1 Baso % (Auto) 0.6 0.2 Neut # (Auto) 1.1 L 3.5 Lymph # (Auto) 1.1 0.8 L [place] # (Auto) 0.3 0.1 Eos # (Auto) 0.2 0.0 Baso # (Auto) 0.0 0.0 WBC Differential . . Differential Comment Auto diff final Auto diff final Lab - Chemistry Results 01/19/18 01/19/18 01/20/18 13:45 13:45 04:34 Sodium 139 138 Potassium 4.6 3.9 Chloride 111 H 106 Carbon Dioxide 25.8 23.4 Anion Gap 2 L 9 BUN 17 21 H Creatinine 1.36 H 1.45 H Estimated GFR 76 L 70 L Random Glucose 78 151 H Calcium 8.3 L 8.4 L Phosphorus 1.4 L Magnesium 2.3 Lactate Dehydrogenase 380 H Imaging: ITS Impressions Chest X-Ray 01/19/18 13:35 CONCLUSION: 1. No acute cardiopulmonary disease. Chest CT 01/19/18 15:07 CONCLUSION: 1. Patchy basilar airspace disease slightly increased from December 12 most characteristic of a mild bronchopneumonia. No significant effusion. Mild cardiomegaly. Physical Exam: GENERAL: NAD On RA SKIN: Warm and dry. no rash HEAD: Atraumatic. Normocephalic. EYES: Pupils equal and round. No scleral icterus. No injection or drainage. ENT: No nasal bleeding or discharge. Mucous membranes pink and moist. NECK: Trachea midline. No JVD. CARDIOVASCULAR: Regular rate and rhythm. RESPIRATORY: No accessory muscle use. Cont to have diffuse wheezing to auscultation. Good air movement GASTROINTESTINAL: Abdomen soft, non-tender, nondistended. MUSCULOSKELETAL: Extremities without clubbing, cyanosis, or edema. NEUROLOGICAL: Awake and alert. No obvious cranial nerve deficits. Motor grossly within normal limits. Five out of 5 muscle strength in the arms and legs. Normal speech. PSYCHIATRIC: Appropriate mood and affect; Assessment and Plan - Plan PNA HIV dz, non compliant 2/2 lack of insuranmce now he has medicaid AiDS, advanced Recent hospitalisation Infiltrates in [place] location - neg CXR, CT later tonite showed . Patchy basilar airspace disease slightly increased from December 12 most characteristic of a mild bronchopneumonia. No significant effusion. Mild cardiomegaly Status asthmaticus - resolved resp status cont meropenm, vancomycin, azithromycin to cover also for [facility] PNA cont Bactrim to 2 DS tid Sputum for routine, AFB fungal sputum for PCP
[2018-01-21 15:52] LABS: Baso % (Auto) 0.2 % (0.0-2.0); Hemoglobin 12.4 gm/dL (13.0-17.0); Lymph # (Auto) 0.8 th/mm3 (1.0-4.8); Lymph % (Auto) 5.9 % (9.0-44.0); Mean Corpuscular HGB Conc 33.6 % (32.0-36.0); Mean Corpuscular Volume 95.2 fL (80.0-100.0); Mean Platelet Volume 7.1 fL (7.0-11.0); Mono # (Auto) 0.3 th/mm3 (0.0-0.9); Mono % (Auto) 2.1 % (0.0-8.0); Neut # (Auto) 11.9 th/mm3 (1.8-7.7); Neut % (Auto) 91.8 % (16.0-70.0); Platelet Count 214 th/mm3 (150-450); Red Blood Count 3.89 mil/mm3 (4.50-5.90); White Blood Count 12.9 th/mm3 (4.0-11.0)
[2018-01-21 16:21] LABS: Calcium 8.1 mg/dL (8.5-10.1); Carbon Dioxide 23.6 meq/L (21.0-32.0); Magnesium 2.2 mg/dL (1.5-2.5); Phosphorus 2.6 mg/dL (2.5-4.9); Potassium 3.6 meq/L (3.5-5.1)
[2018-01-21] MEDS: Senna/Docusate Sodium 8.6/50 MG Tablet PO SCH ×2 (16:21→20:47)
[2018-01-21] MEDS: Polyethylene Glycol 3350 17 GM Packet PO SCH ×2 (16:21→20:48)
[2018-01-21] MEDS: Azithromycin Inj 500 MG in Sodium Chlor 0.9% Inj 250 ML IV.SIG SCH (16:22)
--- NOTE | 2018-01-21 17:45 | MB ---
cc: Rocky Hidalgo MD DATE: 01/21/2018 REASON FOR CONSULTATION: Pneumonia. HISTORY OF PRESENT ILLNESS: Mr. Oakley is a 26-year-old male with a known history of AIDS, noncompliant with therapy. The patient previously hospitalized with pneumonia, admitted with increasing shortness of breath, wheezing, exacerbation of bronchial asthma, placed on BiPAP therapy because of his significant hypoxemia. A chest x-ray with evidence of pneumonia by CT scan: His chest x-ray was negative; however, the CT scan revealed increased infiltrate at the bases. The patient presently in no acute distress. Denies history of fever, chills, hemoptysis. No TB, no industrial exposure. PAST MEDICAL HISTORY: AIDS, bronchial asthma per his record. FAMILY HISTORY: Noncontributory. Positive for hypertension. SOCIAL HISTORY: Does not smoke, does not drink. No TB, no industrial exposure. Smokes marijuana. MEDICATIONS: Include: 1. DuoNeb via nebulizer. 2. Zithromax. 3. Enoxaparin prophylaxis. 4. Pepcid. 5. Trimethoprim sulfa. 6. Vancomycin. ALLERGIES: CUCUMBER. REVIEW OF SYSTEMS: A 12-point review of systems as per HPI and past history, otherwise negative. PHYSICAL EXAMINATION: VITAL SIGNS: Pulse 74, respirations 16, blood pressure 120/70, oxygen saturation 98% on oxygen therapy. HEENT: Unremarkable. Eyes without icterus. NECK: Without adenopathy, thyroid enlargement. Central trachea. CHEST: Few scattered rhonchi at bases. CARDIAC: PMI not appreciated. S1, S2 audible. No murmur. No rub. ABDOMEN: Lax, audible bowel sounds. PSYCHIATRIC: No clubbing, cyanosis or edema. SKIN: Normal. No lymphadenopathy. LABORATORY DATA: White count 2.8, hemoglobin 13, hematocrit 40, platelets 186,000. Sodium 139, potassium 4.6, BUN 17, creatinine 1.3. CT chest increased bibasilar infiltrates. IMPRESSION: 1. Bibasilar pneumonia. 2. Acquired immunodeficiency syndrome. 3. Bronchial asthma. PLAN: The patient to continue bronchodilator therapy for underlying bronchial asthma. Antibiotic therapy will be continued. ID is following and antibiotic therapy has been adjusted. We will follow his course along with you. Continue his oxygen therapy. A bronchoscopic examination will be undertaken should the need arise. I do thank you for asking me to partake in Mr. Oakley's care. Rocky Hidalgo MD WWW/ct , 03:06 PM , 03:14 PM
[2018-01-21] MEDS ORDERED: Pharmacy Ordered Lab Info OTHER ONE (21:45)
[2018-01-22] MEDS: Chlorhexidine Gluconate 2% 1 Pack (2 Cloths) TOPICAL SCH (03:33)
[2018-01-22] MEDS: Meropenem Inj 2,000 MG in Sodium Chlor 0.9% Inj 100 ML IV.SIG SCH ×3 (03:34→21:14)
[2018-01-22] MEDS: Vancomycin Inj 1,000 MG in Sodium Chlor 0.9% Inj 250 ML IV.SIG SCH ×3 (05:15→21:13)
[2018-01-22] MEDS: MethylPREDNISolone Sod Succinate Inj 125 MG/2 ML Vial IV.PUSH SCH ×2 (05:16→11:30)
[2018-01-22] MEDS: Polyethylene Glycol 3350 17 GM Packet PO SCH (08:46)
[2018-01-22] MEDS: Senna/Docusate Sodium 8.6/50 MG Tablet PO SCH (08:47)
[2018-01-22] MEDS: Enoxaparin Inj 40 MG/0.4 ML Syringe SQ SCH (08:53)
[2018-01-22] MEDS: Sodium Chloride 0.9% 2 ML Flush BID IV.FLUSH SCH ×2 (08:54→21:12)
[2018-01-22] MEDS: Famotidine 20 MG Tablet PO SCH ×2 (08:54→21:12)
--- NOTE | 2018-01-22 13:16 | P.PN ---
Subjective Interval history: patient feeling much better minimal cough- dry- no sputum up and ambulating denies any diarrhea good po no difficulty swallowing Physical Exam Vital signs: Vital Signs 01/21/18 14:00 01/21/18 14:26 01/21/18 15:00 Temperature Pulse Rate 78 78 87 Respiratory Rate 18 16 Blood Pressure 117/57 L 123/68 Pulse Oximetry 100 100 01/21/18 15:58 01/21/18 16:00 01/21/18 18:00 Temperature 98.1 F 98.5 F Pulse Rate 76 80 74 Respiratory Rate 21 15 18 Blood Pressure 131/61 121/58 L Pulse Oximetry 100 95 01/21/18 20:00 01/21/18 20:04 01/21/18 22:49 Temperature 97.6 F Pulse Rate 97 H 75 Respiratory Rate 20 18 16 Blood Pressure 130/61 Pulse Oximetry 95 01/21/18 23:56 01/22/18 00:00 01/22/18 04:00 Temperature 97.9 F 97.7 F Pulse Rate 78 77 78 Respiratory Rate 17 16 14 Blood Pressure 126/58 L 123/61 Pulse Oximetry 95 94 L 01/22/18 04:32 01/22/18 07:04 01/22/18 08:00 Temperature 98.1 F Pulse Rate 77 78 94 H Respiratory Rate 16 14 20 Blood Pressure 127/60 Pulse Oximetry 95 01/22/18 12:00 Temperature Pulse Rate 92 H Respiratory Rate Blood Pressure Pulse Oximetry Intake & Output 01/21/18 01/22/18 01/22/18 18:59 06:59 18:59 Intake Total 100 / 100 1442.5 / 1442.5 100 / 100 Output Total 400 / 400 250 / 250 Balance -300 / -300 1192.5 / 1192.5 100 / 100 Weight 67.1 kg 67 kg Intake: IV 100 / 100 962.5 / 962.5 100 / 100 Azithromycin Inj 500 MG In NS 250 / 250 Inj 250 ML @ 250 mls/hr IV.SIG Q24H [facility] Rx#:[id number] Merrem Inj 2,000 MG In NS Inj 100 / 100 200 / 200 100 / 100 100 ML @ 200 mls/hr IV.SIG Q8H [facility] Rx#:[id number] Vancomycin Inj 1,000 MG In NS 250 / 250 Inj 250 ML @ 250 mls/hr IV.SIG Q8H [facility] Rx#:[id number] Vancomycin Inj 1,250 MG In NS 262.5 / 262.5 Inj 250 ML @ 250 mls/hr IV.SIG Q18H [facility] Rx#:[id number] Oral 480 / 480 Output: Urine 400 / 400 250 / 250 Other: Date of Last Bowel Movement 01/21/18 Narrative: GENERAL:awake osvaldo lert, laying flat in bed- no distress HEENT: Normocephalic. Atraumatic. Pupils equal, round, reactive, conjugate. tongue- large amount of tongue thrush NECK: Trachea is midline. There is no JVD. CHEST: no rales, no retractions, NO RALES, NO WHEEZES CARDIOVASCULAR: normal rate, regular rhythm. sinus. ABDOMEN: Soft, nontender, nondistended. No guarding. MUSCULOSKELETAL: Pulses 2+. No peripheral edema. NEUROLOGICAL: RASS 0. follows commands in all 4 extremities. no focal deficits. Results - Labs CBC & Chem 7: 01/21/18 15:35 01/22/18 14:29 Laboratory Results - last 24 hr 01/21/18 01/21/18 01/21/18 15:35 15:35 21:00 WBC 12.9 H RBC 3.89 L Hgb 12.4 L Hct 37.0 L MCV 95.2 MCH 32.0 MCHC 33.6 RDW 14.0 Plt Count 214 MPV 7.1 Prelim Diff (Auto) Slide review pending Neut % (Auto) 91.8 H Lymph % (Auto) 5.9 L [place] % (Auto) 2.1 Eos % (Auto) 0.0 Baso % (Auto) 0.2 Neut # (Auto) 11.9 H Lymph # (Auto) 0.8 L [place] # (Auto) 0.3 Eos # (Auto) 0.0 Baso # (Auto) 0.0 WBC Differential . Diff Scan Auto diff confirmed Differential Comment . Sodium 138 Potassium 3.6 Chloride 106 Carbon Dioxide 23.6 Anion Gap 8 BUN 16 Creatinine 1.35 H Estimated GFR 76 L Random Glucose 148 H Calcium 8.1 L Phosphorus 2.6 D Magnesium 2.2 Vancomycin Trough 4.7 L Microbiology 01/19/18 14:35 Blood - Peripheral Aerobic Blood Culture - Preliminary No growth in 3 days 01/19/18 14:35 Blood - Peripheral Anaerobic Blood Culture - Preliminary No growth in 3 days 01/19/18 15:00 Blood - Peripheral Aerobic Blood Culture - Preliminary No growth in 3 days 01/19/18 15:00 Blood - Peripheral Anaerobic Blood Culture - Preliminary No growth in 3 days 01/20/18 15:00 Sputum - Oral Tracheal Aspirate Gram Stain - Final 01/20/18 15:00 Sputum - Oral Tracheal Aspirate Sputum Culture - Final Heavy growth normal respiratory mari Assessment and Plan - Plan 27yM with HIV and clinical AIDS based on multiple recent CD4 count less than 200 , who presents with acute hypoxic and hypercarbic respiratory failure and status asthmaticus, bilateral infiltrates Acute hypoxic and hypercarbic Respiratory Failure- clinically improved Status Asthmaticus- improved -0xygen prm - lungs exam- - IMPROVED - Decrease Solumedrol to 40 mg q 8- d/w nurse- refused to take it make him "nauseous"- change to po Prednisone - duonebs q 6 - Pulmonary ff - bronchoscopy if needed HIV+ Clinical AIDS, recent CD4 count < 200 11/2017 Acute Leukopenia Pneumonia - bilateral pulmonary infiltrates -ID FF. LDH elevated, CT with bilateral infiltrates , CD4 ct pending -On meropenem, Vancomycin IV Zitrhomax and Bactrim = f/u cultures - Pulmonary consult to evaluate for bronchoscopy for further evaluation - ff renal functions CKI - reviewed old labs- creatinine near baseline - gentle fluids - ff renal functions on Bactrim/Vancomycin Oral thrush - nystatin S/S qid Lovenox SCDs Pepcid encourage ambulation
[2018-01-22] MEDS ORDERED: MethylPREDNISolone Sod Succinate Inj 40 MG/ML Vial IV.PUSH SCH (14:00)
[2018-01-22] MEDS: Sod Chloride 0.9% Inj 1,000 ML IV.CONT SCH (14:43)
[2018-01-22 15:39] LABS: Calcium 8.2 mg/dL (8.5-10.1); Carbon Dioxide 26.9 meq/L (21.0-32.0); Magnesium 2.2 mg/dL (1.5-2.5); Phosphorus 2.6 mg/dL (2.5-4.9); Potassium 3.6 meq/L (3.5-5.1)
--- NOTE | 2018-01-22 16:22 | P.PN ---
Subjective Interval history: ALERT LESS SOB LESS WHEEZE Physical Exam Vital signs: Vital Signs 01/21/18 18:00 01/21/18 20:00 01/21/18 20:04 Temperature 98.5 F 97.6 F Pulse Rate 74 97 H 75 Respiratory Rate 18 20 18 Blood Pressure 121/58 L 130/61 Pulse Oximetry 95 95 01/21/18 22:49 01/21/18 23:56 01/22/18 00:00 Temperature 97.9 F Pulse Rate 78 77 Respiratory Rate 16 17 16 Blood Pressure 126/58 L Pulse Oximetry 95 01/22/18 04:00 01/22/18 04:32 01/22/18 07:04 Temperature 97.7 F Pulse Rate 78 77 78 Respiratory Rate 14 16 14 Blood Pressure 123/61 Pulse Oximetry 94 L 01/22/18 08:00 01/22/18 12:00 01/22/18 15:31 Temperature 98.1 F Pulse Rate 94 H 92 H Respiratory Rate 20 18 Blood Pressure 127/60 Pulse Oximetry 95 Intake & Output 01/21/18 01/22/18 01/22/18 18:59 06:59 18:59 Intake Total 100 / 100 1442.5 / 1442.5 350 / 350 Output Total 400 / 400 250 / 250 Balance -300 / -300 1192.5 / 1192.5 350 / 350 Weight 67.1 kg 67 kg Intake: IV 100 / 100 962.5 / 962.5 350 / 350 Azithromycin Inj 500 MG In NS 250 / 250 Inj 250 ML @ 250 mls/hr IV.SIG Q24H [facility] Rx#:[id number] Merrem Inj 2,000 MG In NS Inj 100 / 100 200 / 200 100 / 100 100 ML @ 200 mls/hr IV.SIG Q8H [facility]ELY Rx#:[id number] Vancomycin Inj 1,000 MG In NS 250 / 250 250 / 250 Inj 250 ML @ 250 mls/hr IV.SIG Q8H [facility]ELY Rx#:[id number] Vancomycin Inj 1,250 MG In NS 262.5 / 262.5 Inj 250 ML @ 250 mls/hr IV.SIG Q18H [facility]ELY Rx#:[id number] Oral 480 / 480 Output: Urine 400 / 400 250 / 250 Other: Date of Last Bowel Movement 01/21/18 Narrative: GENERAL:awake osvaldo lert, laying flat in bed- no distress HEENT: Normocephalic. Atraumatic. Pupils equal, round, reactive, conjugate. tongue- large amount of tongue thrush NECK: Trachea is midline. There is no JVD. CHEST: no rales, no retractions, NO RALES, NO WHEEZES CARDIOVASCULAR: normal rate, regular rhythm. sinus. ABDOMEN: Soft, nontender, nondistended. No guarding. MUSCULOSKELETAL: Pulses 2+. No peripheral edema. NEUROLOGICAL: RASS 0. follows commands in all 4 extremities. no focal deficits. Results - Labs CBC & Chem 7: 01/21/18 15:35 01/22/18 14:29 Laboratory Results - last 24 hr 01/21/18 01/21/18 01/22/18 15:35 21:00 14:29 CBC w Diff Cancelled WBC Cancelled Corrected WBC Cancelled RBC Cancelled Hgb Cancelled Hct Cancelled MCV Cancelled MCH Cancelled MCHC Cancelled RDW Cancelled Plt Count Cancelled MPV Cancelled Prelim Diff (Auto) Cancelled Immature Gran % (Auto) Cancelled Neut % (Auto) Cancelled Lymph % (Auto) Cancelled [place] % (Auto) Cancelled Eos % (Auto) Cancelled Baso % (Auto) Cancelled Immature Gran # (Auto) Cancelled Neut # (Auto) Cancelled Lymph # (Auto) Cancelled [place] # (Auto) Cancelled Eos # (Auto) Cancelled Baso # (Auto) Cancelled WBC Differential Cancelled Diff Scan Cancelled Total Counted Cancelled Seg Neuts % (Manual) Cancelled Band Neuts % (Manual) Cancelled Lymphocytes % (Manual) Cancelled Atypical Lymphs % (Man) Cancelled Monocytes % (Manual) Cancelled Eosinophils % (Manual) Cancelled Basophils % (Manual) Cancelled Metamyelocytes % (Man) Cancelled Myelocytes % (Man) Cancelled Promyelocytes % (Man) Cancelled Blast Cells % (Manual) Cancelled Plasma Cell % (Manual) Cancelled Other Cells % Cancelled Abs Neuts (Manual) Cancelled Nucleated RBCs Cancelled Nucleated RBCs/100 WBC Cancelled Differential Comment Cancelled Hypersegmented Neuts Cancelled Smudge Cells Cancelled Toxic Granulation Cancelled Toxic Vacuolation Cancelled Dohle Bodies Cancelled Platelet Estimate Cancelled Platelet Morphology Cancelled RBC Morphology Cancelled Dimorphic RBCs Cancelled Polychromasia Cancelled Basophilic Stippling Cancelled Spherocytes Cancelled Pappenheimer Bodies Cancelled Sickle Cells Cancelled Target Cells Cancelled Tear Drop Cells Cancelled Ovalocytes Cancelled Stomatocytes Cancelled Helmet Cells Cancelled Mg-[place] Bodies Cancelled [place] Cells Cancelled Acanthocytes (Spur) Cancelled Rouleaux Cancelled Keratocytes Cancelled Hematology Comments Cancelled Sodium 138 Potassium 3.6 Chloride 106 Carbon Dioxide 23.6 Anion Gap 8 BUN 16 Creatinine 1.35 H Estimated GFR 76 L Random Glucose 148 H Calcium 8.1 L Phosphorus 2.6 D Magnesium 2.2 Vancomycin Trough 4.7 L 01/22/18 14:29 CBC w Diff WBC Corrected WBC RBC Hgb Hct MCV MCH MCHC RDW Plt Count MPV Prelim Diff (Auto) Immature Gran % (Auto) Neut % (Auto) Lymph % (Auto) [place] % (Auto) Eos % (Auto) Baso % (Auto) Immature Gran # (Auto) Neut # (Auto) Lymph # (Auto) [place] # (Auto) Eos # (Auto) Baso # (Auto) WBC Differential Diff Scan Total Counted Seg Neuts % (Manual) Band Neuts % (Manual) Lymphocytes % (Manual) Atypical Lymphs % (Man) Monocytes % (Manual) Eosinophils % (Manual) Basophils % (Manual) Metamyelocytes % (Man) Myelocytes % (Man) Promyelocytes % (Man) Blast Cells % (Manual) Plasma Cell % (Manual) Other Cells % Abs Neuts (Manual) Nucleated RBCs Nucleated RBCs/100 WBC Differential Comment Hypersegmented Neuts Smudge Cells Toxic Granulation Toxic Vacuolation Dohle Bodies Platelet Estimate Platelet Morphology RBC Morphology Dimorphic RBCs Polychromasia Basophilic Stippling Spherocytes Pappenheimer Bodies Sickle Cells Target Cells Tear Drop Cells Ovalocytes Stomatocytes Helmet Cells Mg-[place] Bodies Valer[place] Cells Acanthocytes (Spur) Rouleaux Keratocytes Hematology Comments Sodium 139 Potassium 3.6 Chloride 105 Carbon Dioxide 26.9 Anion Gap 7 BUN 15 Creatinine 1.27 Estimated GFR 82 L Random Glucose 129 H Calcium 8.2 L Phosphorus 2.6 Magnesium 2.2 Vancomycin Trough Microbiology 01/19/18 14:35 Blood - Peripheral Aerobic Blood Culture - Preliminary No growth in 3 days 01/19/18 14:35 Blood - Peripheral Anaerobic Blood Culture - Preliminary No growth in 3 days 01/19/18 15:00 Blood - Peripheral Aerobic Blood Culture - Preliminary No growth in 3 days 01/19/18 15:00 Blood - Peripheral Anaerobic Blood Culture - Preliminary No growth in 3 days 01/20/18 15:00 Sputum - Oral Tracheal Aspirate Gram Stain - Final 01/20/18 15:00 Sputum - Oral Tracheal Aspirate Sputum Culture - Final Heavy growth normal respiratory mari Assessment and Plan - Plan ASTHMA EXACERBATION PNA + HIV PLAN O2 NEEDED BRONCHODILATOR THERAPY TAPER STEROIDS INCREASE ACTIVITY F/U CXRAY AM BRONCHOSCOPY IF NEEDED
[2018-01-22] MEDS: Nystatin Liq 500,000 UNIT/5 ML UDC SWISH-SWAL SCH ×2 (17:35→21:12)
[2018-01-22] MEDS: Azithromycin Inj 500 MG in Sodium Chlor 0.9% Inj 250 ML IV.SIG SCH (17:35)
[2018-01-22] MEDS: predniSONE 10 MG Tablet PO SCH (17:35)
[2018-01-22] MEDS ORDERED: Pharmacy Ordered Lab Info OTHER ONE (21:45)
[2018-01-23] MEDS: Sod Chloride 0.9% Inj 1,000 ML IV.CONT SCH ×2 (00:58→16:54)
[2018-01-23] MEDS: Chlorhexidine Gluconate 2% 1 Pack (2 Cloths) TOPICAL SCH (03:01)
[2018-01-23] MEDS: Meropenem Inj 2,000 MG in Sodium Chlor 0.9% Inj 100 ML IV.SIG SCH ×3 (03:39→20:49)
[2018-01-23 04:37] LABS: Alanine Aminotransferase 27 U/L (12-78); Alkaline Phosphatase 40 U/L (45-117); Anion Gap 4 meq/L (5-15); Aspartate Aminotransferase 30 U/L (15-37); Blood Urea Nitrogen 13 mg/dL (7-18); Calcium 8.4 mg/dL (8.5-10.1); Carbon Dioxide 28.2 meq/L (21.0-32.0); Chloride 104 meq/L (98-107); Glomerular Filtration Rate 80 mL/min (>89); Glucose,Random 85 mg/dL (74-106); Potassium 4.5 meq/L (3.5-5.1); Sodium 136 meq/L (136-145); Total Protein 7.6 g/dL (6.4-8.2)
[2018-01-23] MEDS: Vancomycin Inj 1,000 MG in Sodium Chlor 0.9% Inj 250 ML IV.SIG SCH ×3 (05:41→22:27)
[2018-01-23] MEDS: predniSONE 10 MG Tablet PO SCH (05:41)
[2018-01-23 06:05] LABS: Baso % (Auto) 0.1 % (0.0-2.0); Eos % (Auto) 0.1 % (0.0-4.0); Hematocrit 37.5 % (39.0-51.0); Lymph # (Auto) 0.7 th/mm3 (1.0-4.8); Lymph % (Auto) 15.1 % (9.0-44.0); Mean Corpuscular HGB Conc 34.8 % (32.0-36.0); Mean Corpuscular Hemoglobin 32.5 pg (27.0-34.0); Mean Corpuscular Volume 93.3 fL (80.0-100.0); Mean Platelet Volume 6.8 fL (7.0-11.0); Mono # (Auto) 0.4 th/mm3 (0.0-0.9); Mono % (Auto) 8.8 % (0.0-8.0); Neut # (Auto) 3.4 th/mm3 (1.8-7.7); Neut % (Auto) 75.9 % (16.0-70.0); Platelet Count 234 th/mm3 (150-450); Red Blood Count 4.02 mil/mm3 (4.50-5.90); Red Cell Distribution Width 13.7 % (11.6-17.2); White Blood Count 4.5 th/mm3 (4.0-11.0)
[2018-01-23] MEDS: Sodium Chloride 0.9% 2 ML Flush BID IV.FLUSH SCH ×2 (09:26→21:37)
[2018-01-23] MEDS: Nystatin Liq 500,000 UNIT/5 ML UDC SWISH-SWAL SCH ×4 (09:26→21:37)
[2018-01-23] MEDS: Enoxaparin Inj 40 MG/0.4 ML Syringe SQ SCH (09:26)
[2018-01-23] MEDS: Famotidine 20 MG Tablet PO SCH (09:27)
[2018-01-23 09:39] LABS: Lymphocytes 15 % (9-44); Monocytes 11 % (0-8); Myelocytes 1 % (0-0); Platelet Estimate Normal (Normal); Platelet Morphology Normal (Normal); RBC Morphology Normal (Normal); Tallied Nucleated RBC 1 (0-0)
--- NOTE | 2018-01-23 12:05 | P.PN ---
Subjective Interval history: feeling better good po no diarrhea minimal cough complains of reflux sensation Physical Exam Vital signs: Vital Signs 01/22/18 15:31 01/22/18 16:00 01/22/18 16:36 Temperature 97.8 F Pulse Rate 76 74 Respiratory Rate 18 20 16 Blood Pressure 116/56 L Pulse Oximetry 95 01/22/18 20:00 01/23/18 00:00 01/23/18 04:00 Temperature 97.4 F L 97.8 F 98.2 F Pulse Rate 92 H 88 68 Respiratory Rate 20 18 18 Blood Pressure 126/63 118/68 112/74 Pulse Oximetry 95 95 95 01/23/18 08:00 Temperature 97.9 F Pulse Rate 71 Respiratory Rate 15 Blood Pressure 143/85 H Pulse Oximetry 99 Intake & Output 01/22/18 01/23/18 01/23/18 18:59 06:59 18:59 Intake Total 1320 / 1320 1880 / 1880 Output Total 600 / 600 1800 / 1800 Balance 720 / 720 80 / 80 Weight 66.7 kg Intake: IV 600 / 600 1400 / 1400 NS Inj 1,000 ML @ 84 mls/hr IV. 1400 / 1400 CONT .[id number] [facility] Rx#:[id number] Azithromycin Inj 500 MG In NS 250 / 250 Inj 250 ML @ 250 mls/hr IV.SIG Q24H [facility] Rx#:[id number] Merrem Inj 2,000 MG In NS Inj 100 / 100 100 ML @ 200 mls/hr IV.SIG Q8H [facility] Rx#:[id number] Vancomycin Inj 1,000 MG In NS 250 / 250 Inj 250 ML @ 250 mls/hr IV.SIG Q8H [facility] Rx#:[id number] Oral 720 / 720 480 / 480 Output: Urine 600 / 600 1800 / 1800 Narrative: GENERAL:awake osvaldo lert, laying flat in bed- no distress HEENT: Normocephalic. Atraumatic. Pupils equal, round, reactive, conjugate. tongue- large amount of tongue thrush NECK: Trachea is midline. There is no JVD. CHEST: no rales, no retractions,no wheezes, occasional rhonchi anteriorly CARDIOVASCULAR: normal rate, regular rhythm. sinus. ABDOMEN: Soft, nontender, nondistended. No guarding. MUSCULOSKELETAL: Pulses 2+. No peripheral edema. NEUROLOGICAL: RASS 0. follows commands in all 4 extremities. no focal deficits. Results - Labs CBC & Chem 7: 01/23/18 05:29 01/23/18 03:18 Laboratory Results - last 24 hr 01/19/18 01/22/18 01/22/18 13:45 14:29 14:29 CBC w Diff Cancelled WBC Cancelled Corrected WBC Cancelled RBC Cancelled Hgb Cancelled Hct Cancelled MCV Cancelled MCH Cancelled MCHC Cancelled RDW Cancelled Plt Count Cancelled MPV Cancelled Prelim Diff (Auto) Cancelled Immature Gran % (Auto) Cancelled Neut % (Auto) Cancelled Lymph % (Auto) Cancelled [place] % (Auto) Cancelled Eos % (Auto) Cancelled Baso % (Auto) Cancelled Immature Gran # (Auto) Cancelled Neut # (Auto) Cancelled Lymph # (Auto) Cancelled [place] # (Auto) Cancelled Eos # (Auto) Cancelled Baso # (Auto) Cancelled WBC Differential Cancelled Diff Scan Cancelled Total Counted Cancelled Seg Neuts % (Manual) Cancelled Band Neuts % (Manual) Cancelled Lymphocytes % (Manual) Cancelled Atypical Lymphs % (Man) Cancelled Monocytes % (Manual) Cancelled Eosinophils % (Manual) Cancelled Basophils % (Manual) Cancelled Metamyelocytes % (Man) Cancelled Myelocytes % (Man) Cancelled Promyelocytes % (Man) Cancelled Blast Cells % (Manual) Cancelled Plasma Cell % (Manual) Cancelled Other Cells % Cancelled Abs Neuts (Manual) Cancelled Nucleated RBCs Cancelled Nucleated RBCs/100 WBC Cancelled Differential Comment Cancelled Hypersegmented Neuts Cancelled Smudge Cells Cancelled Toxic Granulation Cancelled Toxic Vacuolation Cancelled Dohle Bodies Cancelled Platelet Estimate Cancelled Platelet Morphology Cancelled RBC Morphology Cancelled Dimorphic RBCs Cancelled Polychromasia Cancelled Basophilic Stippling Cancelled Spherocytes Cancelled Pappenheimer Bodies Cancelled Sickle Cells Cancelled Target Cells Cancelled Tear Drop Cells Cancelled Ovalocytes Cancelled Stomatocytes Cancelled Helmet Cells Cancelled Mg-[place] Common Bodies Cancelled [place] Cells Cancelled Acanthocytes (Spur) Cancelled Rouleaux Cancelled Keratocytes Cancelled Hematology Comments Cancelled Sodium 139 Potassium 3.6 Chloride 105 Carbon Dioxide 26.9 Anion Gap 7 BUN 15 Creatinine 1.27 Estimated GFR 82 L Random Glucose 129 H Calcium 8.2 L Phosphorus 2.6 Magnesium 2.2 Total Bilirubin AST ALT Alkaline Phosphatase Total Protein Albumin Absolute Lymphocytes 1178 % CD3 Cells 90 H Absolute CD3 Count 1059 % CD3-/CD16+/CD56+ 6 Abs CD3-/CD16+/CD56+ 74 % CD4 Cells 11 L Absolute CD4 Count 126 L T-Help/Suppress Ratio 0.10 L % CD8 Cells 77 H Absolute CD8 Count 891 % CD19 Cells 3 L Absolute CD19 Count 34 L 01/23/18 01/23/18 03:18 05:29 CBC w Diff WBC 4.5 Corrected WBC RBC 4.02 L Hgb 13.0 Hct 37.5 L MCV 93.3 MCH 32.5 MCHC 34.8 RDW 13.7 Plt Count 234 MPV 6.8 L Prelim Diff (Auto) Slide review pending Immature Gran % (Auto) Neut % (Auto) 75.9 H Lymph % (Auto) 15.1 [place] % (Auto) 8.8 H Eos % (Auto) 0.1 Baso % (Auto) 0.1 Immature Gran # (Auto) Neut # (Auto) 3.4 Lymph # (Auto) 0.7 L [place] # (Auto) 0.4 Eos # (Auto) 0.0 Baso # (Auto) 0.0 WBC Differential Manual diff final Diff Scan Total Counted Seg Neuts % (Manual) 73 H Band Neuts % (Manual) Lymphocytes % (Manual) 15 Atypical Lymphs % (Man) Monocytes % (Manual) 11 H Eosinophils % (Manual) Basophils % (Manual) Metamyelocytes % (Man) Myelocytes % (Man) 1 H Promyelocytes % (Man) Blast Cells % (Manual) Plasma Cell % (Manual) Other Cells % Abs Neuts (Manual) 3.3 Nucleated RBCs Nucleated RBCs/100 WBC 1 H Differential Comment . Hypersegmented Neuts Smudge Cells Toxic Granulation Toxic Vacuolation Dohle Bodies Platelet Estimate Normal Platelet Morphology Normal RBC Morphology Normal Dimorphic RBCs Polychromasia Basophilic Stippling Spherocytes Pappenheimer Bodies Sickle Cells Target Cells Tear Drop Cells Ovalocytes Stomatocytes Helmet Cells Mg-[place] Common Bodies [place] Cells Acanthocytes (Spur) Rouleaux Keratocytes Hematology Comments Sodium 136 Potassium 4.5 D Chloride 104 Carbon Dioxide 28.2 Anion Gap 4 L BUN 13 Creatinine 1.30 Estimated GFR 80 L Random Glucose 85 Calcium 8.4 L Phosphorus Magnesium Total Bilirubin 0.3 AST 30 ALT 27 Alkaline Phosphatase 40 L Total Protein 7.6 Albumin 3.0 L Absolute Lymphocytes % CD3 Cells Absolute CD3 Count % CD3-/CD16+/CD56+ Abs CD3-/CD16+/CD56+ % CD4 Cells Absolute CD4 Count T-Help/Suppress Ratio % CD8 Cells Absolute CD8 Count % CD19 Cells Absolute CD19 Count Microbiology 01/19/18 14:35 Blood - Peripheral Aerobic Blood Culture - Preliminary No growth in 4 days 01/19/18 14:35 Blood - Peripheral Anaerobic Blood Culture - Preliminary No growth in 4 days 01/19/18 15:00 Blood - Peripheral Aerobic Blood Culture - Preliminary No growth in 4 days 01/19/18 15:00 Blood - Peripheral Anaerobic Blood Culture - Preliminary No growth in 4 days 01/20/18 15:00 Sputum - Oral Tracheal Aspirate Gram Stain - Final 01/20/18 15:00 Sputum - Oral Tracheal Aspirate Sputum Culture - Final Heavy growth normal respiratory mari Assessment and Plan - Plan 27yM with HIV and clinical AIDS based on multiple recent CD4 count less than 200 , who presents with acute hypoxic and hypercarbic respiratory failure and status asthmaticus, bilateral infiltrates Acute hypoxic and hypercarbic Respiratory Failure- clinically improved Status Asthmaticus- improved -0xygen prm - lungs exam- - IMPROVED - Decrease Solumedrol to 40 mg q 8- d/w nurse- refused to take it make him "nauseous"- changed to po Prednisone - duonebs q 6 - Pulmonary ff - bronchoscopy if needed HIV+ Clinical AIDS, recent CD4 count < 200 11/2017 Acute Leukopenia Pneumonia - bilateral pulmonary infiltrates -ID FF. LDH elevated, CT with bilateral infiltrates , CD4 ct pending -On meropenem, Vancomycin IV Zitrhomax and Bactrim = f/u cultures - Pulmonary consult to evaluate for bronchoscopy for further evaluation - ff renal functions CKI - reviewed old labs- creatinine near baseline - gentle fluids - ff renal functions on Bactrim/Vancomycin Oral thrush - nystatin S/S qid - add diflucan to regimen today 10.22 GERD- on pepcid bid DC change to po Protonix Lovenox SCDs encourage ambulation
[2018-01-23] MEDS: Fluconazole 100 MG Tablet PO SCH (15:01)
[2018-01-23 16:56] LABS: Histoplasma Antigen Result Negative (Negative); Histoplasma Antigen Value 0 ng/mL
--- NOTE | 2018-01-23 17:03 | P.PN ---
Subjective Interval history: alert no sob at rest Physical Exam Vital signs: Vital Signs 01/22/18 20:00 01/23/18 00:00 01/23/18 04:00 Temperature 97.4 F L 97.8 F 98.2 F Pulse Rate 92 H 88 68 Respiratory Rate 20 18 18 Blood Pressure 126/63 118/68 112/74 Pulse Oximetry 95 95 95 01/23/18 08:00 01/23/18 12:00 01/23/18 16:00 Temperature 97.9 F 97.8 F 97.0 F L Pulse Rate 98 H 98 H 94 H Respiratory Rate 15 16 16 Blood Pressure 143/85 H 124/84 118/79 Pulse Oximetry 99 96 96 Intake & Output 01/22/18 01/23/18 01/23/18 18:59 06:59 18:59 Intake Total 1320 / 1320 1880 / 1880 700 / 700 Output Total 600 / 600 1800 / 1800 Balance 720 / 720 80 / 80 700 / 700 Weight 66.7 kg Intake: IV 600 / 600 1400 / 1400 700 / 700 NS Inj 1,000 ML @ 84 mls/hr IV. 1400 / 1400 600 / 600 CONT .[id number] [facility] Rx#:[id number] Azithromycin Inj 500 MG In NS 250 / 250 Inj 250 ML @ 250 mls/hr IV.SIG Q24H [facility] Rx#:[id number] Merrem Inj 2,000 MG In NS Inj 100 / 100 100 / 100 100 ML @ 200 mls/hr IV.SIG Q8H [facility] Rx#:[id number] Vancomycin Inj 1,000 MG In NS 250 / 250 Inj 250 ML @ 250 mls/hr IV.SIG Q8H [facility] Rx#:[id number] Oral 720 / 720 480 / 480 Output: Urine 600 / 600 1800 / 1800 Narrative: GENERAL:awake osvaldo lert, laying flat in bed- no distress HEENT: Normocephalic. Atraumatic. Pupils equal, round, reactive, conjugate. tongue- large amount of tongue thrush NECK: Trachea is midline. There is no JVD. CHEST: no rales, no retractions,no wheezes, occasional rhonchi anteriorly CARDIOVASCULAR: normal rate, regular rhythm. sinus. ABDOMEN: Soft, nontender, nondistended. No guarding. MUSCULOSKELETAL: Pulses 2+. No peripheral edema. NEUROLOGICAL: RASS 0. follows commands in all 4 extremities. no focal deficits. Results - Labs CBC & Chem 7: 01/23/18 05:29 01/23/18 03:18 Laboratory Results - last 24 hr 01/19/18 01/19/18 01/23/18 13:45 16:45 03:18 WBC RBC Hgb Hct MCV MCH MCHC RDW Plt Count MPV Prelim Diff (Auto) Neut % (Auto) Lymph % (Auto) [place] % (Auto) Eos % (Auto) Baso % (Auto) Neut # (Auto) Lymph # (Auto) [place] # (Auto) Eos # (Auto) Baso # (Auto) WBC Differential Seg Neuts % (Manual) Lymphocytes % (Manual) Monocytes % (Manual) Myelocytes % (Man) Abs Neuts (Manual) Nucleated RBCs/100 WBC Differential Comment Platelet Estimate Platelet Morphology RBC Morphology Sodium 136 Potassium 4.5 D Chloride 104 Carbon Dioxide 28.2 Anion Gap 4 L BUN 13 Creatinine 1.30 Estimated GFR 80 L Random Glucose 85 Calcium 8.4 L Total Bilirubin 0.3 AST 30 ALT 27 Alkaline Phosphatase 40 L Total Protein 7.6 Albumin 3.0 L Random Vancomycin Absolute Lymphocytes 1178 % CD3 Cells 90 H Absolute CD3 Count 1059 % CD3-/CD16+/CD56+ 6 Abs CD3-/CD16+/CD56+ 74 % CD4 Cells 11 L Absolute CD4 Count 126 L T-Help/Suppress Ratio 0.10 L % CD8 Cells 77 H Absolute CD8 Count 891 % CD19 Cells 3 L Absolute CD19 Count 34 L Urine Histoplasma Ag 0 U Histoplasma Ag Detec Negative 01/23/18 01/23/18 03:18 05:29 WBC 4.5 RBC 4.02 L Hgb 13.0 Hct 37.5 L MCV 93.3 MCH 32.5 MCHC 34.8 RDW 13.7 Plt Count 234 MPV 6.8 L Prelim Diff (Auto) Slide review pending Neut % (Auto) 75.9 H Lymph % (Auto) 15.1 [place] % (Auto) 8.8 H Eos % (Auto) 0.1 Baso % (Auto) 0.1 Neut # (Auto) 3.4 Lymph # (Auto) 0.[address] [place] # (Auto) 0.4 Eos # (Auto) 0.0 Baso # (Auto) 0.0 WBC Differential Manual diff final Seg Neuts % (Manual) 73 H Lymphocytes % (Manual) 15 Monocytes % (Manual) 11 H Myelocytes % (Man) 1 H Abs Neuts (Manual) 3.3 Nucleated RBCs/100 WBC 1 H Differential Comment . Platelet Estimate Normal Platelet Morphology Normal RBC Morphology Normal Sodium Potassium Chloride Carbon Dioxide Anion Gap BUN Creatinine Estimated GFR Random Glucose Calcium Total Bilirubin AST ALT Alkaline Phosphatase Total Protein Albumin Random Vancomycin 8.1 Absolute Lymphocytes % CD3 Cells Absolute CD3 Count % CD3-/CD16+/CD56+ Abs CD3-/CD16+/CD56+ % CD4 Cells Absolute CD4 Count T-Help/Suppress Ratio % CD8 Cells Absolute CD8 Count % CD19 Cells Absolute CD19 Count Urine Histoplasma Ag U Histoplasma Ag Detec Microbiology 01/19/18 14:35 Blood - Peripheral Aerobic Blood Culture - Preliminary No growth in 4 days 01/19/18 14:35 Blood - Peripheral Anaerobic Blood Culture - Preliminary No growth in 4 days 01/19/18 15:00 Blood - Peripheral Aerobic Blood Culture - Preliminary No growth in 4 days 01/19/18 15:00 Blood - Peripheral Anaerobic Blood Culture - Preliminary No growth in 4 days Assessment and Plan - Plan ASTHMA EXACERBATION, improving PNA + HIV PLAN O2 NEEDED BRONCHODILATOR THERAPY TAPER STEROIDS INCREASE ACTIVITY bronCHOSCOPY IF NEEDED
--- NOTE | 2018-01-23 17:34 | XR ---
EXAM DATE: 01/23/2018 5:04 PM EDT AGE/SEX: 27 years / Male INDICATIONS: Short of breath CLINICAL DATA: This is the patient's subsequent encounter. Patient reports that signs and symptoms h ave been present for 4 - 6 days and indicates a pain score of 0/10. MEDICAL/SURGICAL HISTORY: Chronic obstructive pulmonary disease. Asthma. None. [place] [facility] [place]. . FINDINGS: There is mild basilar airspace disease, right greater than left. No effusion. No pneumothorax. Heart size normal. CONCLUSION: Electronically signed by: Abner Lala MD 01/23/2018 5:33 PM EDT
[2018-01-23] MEDS: Azithromycin Inj 500 MG in Sodium Chlor 0.9% Inj 250 ML IV.SIG SCH (18:47)
[2018-01-23] MEDS: predniSONE 20 MG Tablet PO SCH ×2 (18:52→20:49)
[2018-01-24] MEDS: Chlorhexidine Gluconate 2% 1 Pack (2 Cloths) TOPICAL SCH (04:09)
[2018-01-24] MEDS: Meropenem Inj 2,000 MG in Sodium Chlor 0.9% Inj 100 ML IV.SIG SCH ×3 (04:09→20:18)
[2018-01-24] MEDS: Sod Chloride 0.9% Inj 1,000 ML IV.CONT SCH ×2 (04:18→14:32)
[2018-01-24] MEDS: Vancomycin Inj 1,000 MG in Sodium Chlor 0.9% Inj 250 ML IV.SIG SCH ×4 (06:34→22:05)
[2018-01-24] MEDS: Enoxaparin Inj 40 MG/0.4 ML Syringe SQ SCH (09:10)
[2018-01-24] MEDS: Fluconazole 100 MG Tablet PO SCH (09:10)
[2018-01-24] MEDS: predniSONE 20 MG Tablet PO SCH ×2 (09:10→20:18)
[2018-01-24] MEDS: Nystatin Liq 500,000 UNIT/5 ML UDC SWISH-SWAL SCH ×4 (09:10→20:19)
[2018-01-24] MEDS: Sodium Chloride 0.9% 2 ML Flush BID IV.FLUSH SCH ×2 (09:11→20:19)
[2018-01-24] MEDS ORDERED: Sodium Chloride 0.9% 2 ML Flush PRN IV.FLUSH (09:37)
--- NOTE | 2018-01-24 09:48 | P.PN ---
Subjective Interval history: up and ambulating cough much improved- not really bringing up any phlegm good po Physical Exam Vital signs: Vital Signs 01/23/18 12:00 01/23/18 16:00 01/23/18 20:00 Temperature 97.8 F 97.0 F L 97.4 F L Pulse Rate 98 H 94 H 85 Respiratory Rate 16 16 18 Blood Pressure 124/84 118/79 117/61 Pulse Oximetry 96 96 97 01/24/18 00:00 01/24/18 04:00 01/24/18 08:00 Temperature 97.0 F L 97.0 F L 97.6 F Pulse Rate 86 67 66 Respiratory Rate 18 17 16 Blood Pressure 108/59 L 113/61 128/78 Pulse Oximetry 96 98 96 Intake & Output 01/23/18 01/24/18 01/24/18 18:59 06:59 18:59 Intake Total 1430 / 1430 2200 / 2200 250 / 250 Output Total 900 / 900 1600 / 1600 Balance 530 / 530 600 / 600 250 / 250 Weight 65.5 kg Intake: IV 950 / 950 1700 / 1700 250 / 250 NS Inj 1,000 ML @ 84 mls/hr IV. 600 / 600 1000 / 1000 CONT .[id number] [facility]ACELY Rx#:[id number] Azithromycin Inj 500 MG In NS 250 / 250 Inj 250 ML @ 250 mls/hr IV.SIG Q24H ARACELY Rx#:[id number] Merrem Inj 2,000 MG In NS Inj 100 / 100 200 / 200 100 ML @ 200 mls/hr IV.SIG Q8H ARACELY Rx#:[id number] Vancomycin Inj 1,000 MG In NS 250 / 250 250 / 250 250 / 250 Inj 250 ML @ 250 mls/hr IV.SIG Q8H ARACELY Rx#:[id number] Oral 480 / 480 500 / 500 Output: Urine 900 / 900 1600 / 1600 Other: Date of Last Bowel Movement 01/23/18 01/23/18 # Bowel Movements 2 Narrative: GENERAL:awake osvaldo lert, laying flat in bed- no distress HEENT: Normocephalic. Atraumatic. Pupils equal, round, reactive, conjugate. tongue- large amount of tongue thrush- thrush- less compared to yesterda- mid portion of tongue- you can see the mucosa now NECK: Trachea is midline. There is no JVD. CHEST: no rales, no retractions,no wheezes, occasional rhonchi anteriorly CARDIOVASCULAR: normal rate, regular rhythm. sinus. ABDOMEN: Soft, nontender, nondistended. No guarding. MUSCULOSKELETAL: Pulses 2+. No peripheral edema. NEUROLOGICAL: RASS 0. follows commands in all 4 extremities. no focal deficits. Results - Labs CBC & Chem 7: 01/23/18 05:29 01/23/18 03:18 Laboratory Results - last 24 hr 01/19/18 01/23/18 16:45 03:18 Random Vancomycin 8.1 Urine Histoplasma Ag 0 U Histoplasma Ag Detec Negative Microbiology 01/19/18 14:35 Blood - Peripheral Aerobic Blood Culture - Preliminary No growth in 4 days 01/19/18 14:35 Blood - Peripheral Anaerobic Blood Culture - Preliminary No growth in 4 days 01/19/18 15:00 Blood - Peripheral Aerobic Blood Culture - Preliminary No growth in 4 days 01/19/18 15:00 Blood - Peripheral Anaerobic Blood Culture - Preliminary No growth in 4 days - Imaging Impressions Chest X-Ray 01/23/18 17:04 CONCLUSION: Assessment and Plan - Plan 27yM with HIV and clinical AIDS based on multiple recent CD4 count less than 200 , who presents with acute hypoxic and hypercarbic respiratory failure and status asthmaticus, bilateral infiltrates Acute hypoxic and hypercarbic Respiratory Failure- clinically improved- good sats Status Asthmaticus- improved -0xygen prm - lungs exam- - IMPROVED - Decrease Solumedrol to 40 mg q 8- d/w nurse- refused to take it make him "nauseous"- - changed to po Prednisone 01/23 - duonebs q 6 - Pulmonary ff - bronchoscopy if needed - start home symbicort HIV+ Clinical AIDS, recent CD4 count < 200 11/2017 Acute Leukopenia Pneumonia - bilateral pulmonary infiltrates -ID FF. LDH elevated, CT with bilateral infiltrates , CD4 ct pending -On meropenem, Vancomycin IV Zitrhomax and Bactrim = f/u cultures - Pulmonary consult to evaluate for bronchoscopy for further evaluation - ff renal functions CKI - reviewed old labs- creatinine near baseline - gentle fluids- good po, voiding - ff renal functions on Bactrim/Vancomycin - BMP in am Oral thrush- improving - nystatin S/S qid - added diflucan to regimen 01.23 GERD- po Protonix Lovenox SCDs encourage ambulation
--- NOTE | 2018-01-24 11:10 | P.PN ---
Subjective Interval history: no SOB at rest Physical Exam Vital signs: Vital Signs 01/23/18 12:00 01/23/18 16:00 01/23/18 20:00 Temperature 97.8 F 97.0 F L 97.4 F L Pulse Rate 98 H 94 H 85 Respiratory Rate 16 16 18 Blood Pressure 124/84 118/79 117/61 Pulse Oximetry 96 96 97 01/24/18 00:00 01/24/18 04:00 01/24/18 08:00 Temperature 97.0 F L 97.0 F L 97.6 F Pulse Rate 86 67 66 Respiratory Rate 18 17 16 Blood Pressure 108/59 L 113/61 128/78 Pulse Oximetry 96 98 96 Intake & Output 01/23/18 01/24/18 01/24/18 18:59 06:59 18:59 Intake Total 1430 / 1430 2200 / 2200 250 / 250 Output Total 900 / 900 1600 / 1600 Balance 530 / 530 600 / 600 250 / 250 Weight 65.5 kg Intake: IV 950 / 950 1700 / 1700 250 / 250 NS Inj 1,000 ML @ 84 mls/hr IV. 600 / 600 1000 / 1000 CONT .[id number] ARACELY Rx#:[id number] Azithromycin Inj 500 MG In NS 250 / 250 Inj 250 ML @ 250 mls/hr IV.SIG Q24H ARACELY Rx#:[id number] Merrem Inj 2,000 MG In NS Inj 100 / 100 200 / 200 100 ML @ 200 mls/hr IV.SIG Q8H ARACELY Rx#:[id number] Vancomycin Inj 1,000 MG In NS 250 / 250 250 / 250 250 / 250 Inj 250 ML @ 250 mls/hr IV.SIG Q8H ARACELY Rx#:[id number] Oral 480 / 480 500 / 500 Output: Urine 900 / 900 1600 / 1600 Other: Date of Last Bowel Movement 01/23/18 01/23/18 # Bowel Movements 2 Narrative: GENERAL:awake osvaldo lert, laying flat in bed- no distress HEENT: Normocephalic. Atraumatic. Pupils equal, round, reactive, conjugate. tongue- large amount of tongue thrush- thrush- less compared to yesterda- mid portion of tongue- you can see the mucosa now NECK: Trachea is midline. There is no JVD. CHEST: no rales, no retractions,no wheezes, occasional rhonchi anteriorly CARDIOVASCULAR: normal rate, regular rhythm. sinus. ABDOMEN: Soft, nontender, nondistended. No guarding. MUSCULOSKELETAL: Pulses 2+. No peripheral edema. NEUROLOGICAL: RASS 0. follows commands in all 4 extremities. no focal deficits. Results - Labs CBC & Chem 7: 01/23/18 05:29 01/23/18 03:18 Laboratory Results - last 24 hr 01/19/18 01/23/18 16:45 03:18 Random Vancomycin 8.1 Urine Histoplasma Ag 0 U Histoplasma Ag Detec Negative Microbiology 01/19/18 14:35 Blood - Peripheral Aerobic Blood Culture - Final No growth in 5 days 01/19/18 14:35 Blood - Peripheral Anaerobic Blood Culture - Final No growth in 5 days 01/19/18 15:00 Blood - Peripheral Aerobic Blood Culture - Final No growth in 5 days 01/19/18 15:00 Blood - Peripheral Anaerobic Blood Culture - Final No growth in 5 days - Imaging Impressions Chest X-Ray 01/23/18 17:04 CONCLUSION: Assessment and Plan - Plan ASTHMA EXACERBATION, improving PNA + HIV PLAN O2 NEEDED BRONCHODILATOR THERAPY TAPER STEROIDS INCREASE ACTIVITY F/U CXRAY
[2018-01-24] MEDS ORDERED: Pharmacy Ordered Lab Info OTHER ONE (13:45)
[2018-01-24] MEDS: Budesonide-Formoterol 160/4.5 MCG 6 GM Inhaler INH SCH ×2 (14:09→22:08)
--- NOTE | 2018-01-24 16:08 | ECHRPT ---
Indication: CARDIOMYOPATHY CONCLUSIONS Normal left ventricular size. Wall thickness is normal. The left ventricular systolic function is no rmal with an estimated ejection fraction in the range of 55-60%. No regional wall motion abnormalities are present. No significant valvular abnormalities are noted. BP: / HR: Rhythm: Sinus MEASUREMENTS (Male / Female) Normal Values Technical Quality:Fair 2D ECHO LV Diastolic Diameter PLAX 4.4 cm 4.2 - 5.9 / 3.9 - 5.3 cm LV Systolic Diameter PLAX 3.0 cm IVS Diastolic Thickness 0.9 cm 0.6 - 1.0 / 0.6 - 0.9 cm LVPW Diastolic Thickness 0.9 cm 0.6 - 1.0 / 0.6 - 0.9 cm LV Relative Wall Thickness 0.4 RV Internal Dim ED PLAX 2.5 cm LVOT Diameter 2.0 cm Aortic Root Diameter 3.0 cm LA Systolic Diameter LX 2.2 cm 3.0 - 4.0 / 2.7 - 3.8 cm M-MODE AV Cusp Separation MM 1.5 cm DOPPLER AV Peak Velocity 113.0 cm/s AV Peak Gradient 5.1 mmHg AV Mean Gradient 2.0 mmHg AV Velocity Time Integral 17.6 cm LVOT Peak Velocity 73.7 cm/s LVOT Peak Gradient 2.2 mmHg LVOT Velocity Time Integral 11.4 cm AV Area Cont Eq vti 2.0 cm AV Area Cont Eq pk 2.0 cm Mitral E Point Velocity 74.0 cm/s Mitral A Point Velocity 53.3 cm/s Mitral E to A Ratio 1.4 LV E' Lateral Velocity 10.5 cm/s Mitral E to LV E' Lateral Ratio 7.0 LV E' Septal Velocity 8.7 cm/s Mitral E to LV E' Septal Ratio 8.5 TR Peak Velocity 141.0 cm/s TR Peak Gradient 8.0 mmHg PV Peak Velocity 62.4 cm/s PV Peak Gradient 1.6 mmHg FINDINGS LEFT VENTRICLE Normal left ventricular size. Wall thickness is normal. The left ventricular systolic function is no rmal with an estimated ejection fraction in the range of 55-60%. No regional wall motion abnormalities are present. RIGHT VENTRICLE Normal right ventricular size and systolic function. LEFT ATRIUM The left atrial size is normal. RIGHT ATRIUM The right atrial size is normal. ATRIAL SEPTUM The interatrial septum not well visualized. AORTA The aortic root and proximal ascending aorta are not well visualized. MITRAL VALVE Structurally normal mitral valve. No mitral valve stenosis or regurgitation. AORTIC VALVE Trileaflet aortic valve. No aortic valve stenosis or regurgitation. TRICUSPID VALVE There is trace tricuspid valve regurgitation. PULMONARY VALVE No pulmonary valve regurgitation or stenosis. VESSELS The inferior vena cava is normal in size. PERICARDIUM No pericardial effusion. Adolfo Tarango MD (Electronically Signed) Final Date:24 January 2018 16:07
[2018-01-24] MEDS: Azithromycin Inj 500 MG in Sodium Chlor 0.9% Inj 250 ML IV.SIG SCH (17:03)
[2018-01-25] MEDS: Meropenem Inj 2,000 MG in Sodium Chlor 0.9% Inj 100 ML IV.SIG SCH ×3 (03:45→21:24)
[2018-01-25] MEDS: Sod Chloride 0.9% Inj 1,000 ML IV.CONT SCH ×2 (03:47→12:58)
[2018-01-25] MEDS ORDERED: Pharmacy Ordered Lab Info OTHER ONE (05:45)
[2018-01-25] MEDS: Vancomycin Inj 1,000 MG in Sodium Chlor 0.9% Inj 250 ML IV.SIG SCH (05:48)
[2018-01-25 06:51] LABS: Calcium 8.5 mg/dL (8.5-10.1); Carbon Dioxide 24.8 meq/L (21.0-32.0)
[2018-01-25 06:56] LABS: Potassium 4.3 meq/L (3.5-5.1)
[2018-01-25] MEDS: Enoxaparin Inj 40 MG/0.4 ML Syringe SQ SCH (09:26)
[2018-01-25] MEDS: Nystatin Liq 500,000 UNIT/5 ML UDC SWISH-SWAL SCH ×4 (09:26→21:25)
[2018-01-25] MEDS: predniSONE 20 MG Tablet PO SCH ×2 (09:26→21:25)
[2018-01-25] MEDS: Fluconazole 100 MG Tablet PO SCH (09:26)
[2018-01-25] MEDS: Budesonide-Formoterol 160/4.5 MCG 6 GM Inhaler INH SCH ×2 (09:27→21:24)
[2018-01-25] MEDS: Sodium Chloride 0.9% 2 ML Flush BID IV.FLUSH SCH ×2 (09:30→21:25)
--- NOTE | 2018-01-25 15:44 | P.PN ---
Subjective Interval history: alert nad wants to go home Physical Exam Vital signs: Vital Signs 01/24/18 16:00 01/24/18 20:00 01/24/18 20:39 Temperature 97.9 F 96.7 F L Pulse Rate 66 77 70 Respiratory Rate 16 18 14 Blood Pressure 129/78 158/84 H Pulse Oximetry 95 99 01/25/18 00:00 01/25/18 03:57 01/25/18 04:00 Temperature 97.9 F 97.7 F Pulse Rate 78 87 61 Respiratory Rate 18 20 18 Blood Pressure 119/80 131/82 Pulse Oximetry 96 98 01/25/18 08:00 01/25/18 09:00 01/25/18 12:00 Temperature 98.1 F 98.1 F Pulse Rate 69 88 90 Respiratory Rate 19 12 19 Blood Pressure 132/62 127/64 Pulse Oximetry 97 97 Intake & Output 01/24/18 01/25/18 01/25/18 18:59 06:59 18:59 Intake Total 1320 / 1320 700 / 700 Output Total 800 / 800 850 / 850 Balance 520 / 520 -150 / -150 Weight 65.3 kg Intake: IV 600 / 600 700 / 700 Azithromycin Inj 500 MG In NS 250 / 250 Inj 250 ML @ 250 mls/hr IV.SIG Q24H ARACELY Rx#:[id number] Merrem Inj 2,000 MG In NS Inj 100 / 100 200 / 200 100 ML @ 200 mls/hr IV.SIG Q8H ARACELY Rx#:[id number] Vancomycin Inj 1,000 MG In NS 250 / 250 500 / 500 Inj 250 ML @ 250 mls/hr IV.SIG Q8H ARACELY Rx#:[id number] Oral 720 / 720 Output: Urine 800 / 800 850 / 850 Other: # Voids 2 Date of Last Bowel Movement 01/24/18 01/24/18 # Bowel Movements 1 Narrative: GENERAL:awake osvaldo lert, laying flat in bed- no distress HEENT: Normocephalic. Atraumatic. Pupils equal, round, reactive, conjugate. tongue- large amount of tongue thrush- thrush- less compared to yesterda- mid portion of tongue- you can see the mucosa now NECK: Trachea is midline. There is no JVD. CHEST: no rales, no retractions,no wheezes, occasional rhonchi anteriorly CARDIOVASCULAR: normal rate, regular rhythm. sinus. ABDOMEN: Soft, nontender, nondistended. No guarding. MUSCULOSKELETAL: Pulses 2+. No peripheral edema. NEUROLOGICAL: RASS 0. follows commands in all 4 extremities. no focal deficits. Results - Labs CBC & Chem 7: 01/23/18 05:29 01/25/18 05:45 Laboratory Results - last 24 hr 01/25/18 01/25/18 05:45 05:45 Sodium 138 Potassium 4.3 Chloride 106 Carbon Dioxide 24.8 Anion Gap 7 BUN 17 Creatinine 1.27 Estimated GFR 82 L Random Glucose 139 H Calcium 8.5 Vancomycin Trough 13.8 H Assessment and Plan - Plan ASTHMA EXACERBATION, improving PNA + HIV PLAN O2 NEEDED BRONCHODILATOR THERAPY TAPER STEROIDS INCREASE ACTIVITY OK FOR d/c F/U OFFICE 1 WEEK
[2018-01-25] MEDS: Azithromycin Inj 500 MG in Sodium Chlor 0.9% Inj 250 ML IV.SIG SCH (15:54)
[2018-01-25] MEDS: Vancomycin Inj 1,250 MG in Sodium Chlor 0.9% Inj 250 ML IV.SIG SCH (18:12)
--- NOTE | 2018-01-25 18:39 | P.DS ---
Date of admission: 01/19/18 15:36 Primary care physician: UNKNOWN Brief History from admission: 27yM with clinical AIDS with CD4 count less than 200 on multiple prior hospital admissions, most recently 11/2017 who also has a history of asthma who presents in status asthmaticus with severe respiratory distress and audible wheezing. Has had 3 days of worsening fever, chills, night sweats and green sputum with productive cough. has also had ~10lb unintentional weight loss, unclear time frame. has not been on PCP prophylaxis or HAART for months, due to insurance issues. also has not had any asthma medications. remainder of ROS negative. DS: Medications - Discharge Medications Prescriptions: nystatin 5 ml SWISH-SWAL QID #1 bottle prednisone 1 package PO PER PKG DIR #1 ea sulfamethoxazole-trimethoprim [Bactrim DS] 1 tab PO DAILY 30 Days #30 tab DS: Summary Hospital Course: Patient was admitted to the ICU, started on antibiotics. Infectious disease was consulted and helped comanage antibiotics. Patient sputum culture was negative. Pulmonology also follow the patient. Eventually patient's respiratory status had stabilized. Was transferred to the [facility] floor where he did very well. Was saturating on room air with no further shortness of breath. Patient has met maximal benefit from hospitalization is clinically stable for discharge. - Time Spent with Patient Total time spent providing and/or coordinating discharge services: Less than 30 minutes - Quality: VTE Deep Vein Thrombosis/Pulmonary Embolism Present on Admission: No Exam Vital signs: Vital Signs 01/24/18 20:00 01/24/18 20:39 01/25/18 00:00 Temperature 96.7 F L 97.9 F Pulse Rate 77 70 78 Respiratory Rate 18 14 18 Blood Pressure 158/84 H 119/80 Pulse Oximetry 99 96 01/25/18 03:57 01/25/18 04:00 01/25/18 08:00 Temperature 97.7 F 98.1 F Pulse Rate 87 61 69 Respiratory Rate 20 18 19 Blood Pressure 131/82 132/62 Pulse Oximetry 98 97 01/25/18 09:00 01/25/18 12:00 01/25/18 15:00 Temperature 98.1 F Pulse Rate 88 90 82 Respiratory Rate 12 19 14 Blood Pressure 127/64 Pulse Oximetry 97 01/25/18 16:00 01/25/18 16:20 Temperature 97.1 F L Pulse Rate 84 95 H Respiratory Rate 24 Blood Pressure 126/59 L Pulse Oximetry 97 Intake & Output 01/24/18 01/25/18 01/25/18 18:59 06:59 18:59 Intake Total 1320 / 1320 700 / 700 100 / 100 Output Total 800 / 800 850 / 850 Balance 520 / 520 -150 / -150 100 / 100 Weight 65.3 kg Intake: IV 600 / 600 700 / 700 100 / 100 Azithromycin Inj 500 MG In NS 250 / 250 Inj 250 ML @ 250 mls/hr IV.SIG Q24H ARACELY Rx#:[id number] Merrem Inj 2,000 MG In NS Inj 100 / 100 200 / 200 100 / 100 100 ML @ 200 mls/hr IV.SIG Q8H ARACELY Rx#:[id number] Vancomycin Inj 1,000 MG In NS 250 / 250 500 / 500 Inj 250 ML @ 250 mls/hr IV.SIG Q8H ARACELY Rx#:[id number] Oral 720 / 720 Output: Urine 800 / 800 850 / 850 Other: # Voids 2 7 Date of Last Bowel Movement 01/24/18 01/24/18 # Bowel Movements 1 1 Narrative: Clear lungs bilaterally, unlabored breathing Awake alert, no acute distress Results Procedures completed during hospitalization: . Labs on day of discharge: Labs from last 24 hours 01/25/18 01/25/18 05:45 05:45 Sodium 138 Potassium 4.3 Chloride 106 Carbon Dioxide 24.8 Anion Gap 7 BUN 17 Creatinine 1.27 Estimated GFR 82 L Random Glucose 139 H Calcium 8.5 Vancomycin Trough 13.8 H - Impressions ITS Impressions Chest CT 01/19/18 15:07 CONCLUSION: 1. Patchy basilar airspace disease slightly increased from December 12 most characteristic of a mild bronchopneumonia. No significant effusion. Mild cardiomegaly. Chest X-Ray 01/23/18 17:04 CONCLUSION: Discharge Plan - Discharge Disposition Patient Disposition: Discharge Home - Discharge Condition Condition: Stable - Discharge Order Discharge Orders: Discharge Order (Routine); Ordered 01/26/18 Ordered By: Dangelo Eisenberg - Physicians Team Primary Care Provider: UNKNOWN, Attending Provider: Dangelo Eisenberg Other Providers: Gay Mak MD ; Rocky Hidalgo MD
--- NOTE | 2018-01-25 18:52 | P.PNID ---
Subjective Remarks: feeling well On RA not expectorating afebrile Antibiotics: david guaman TS Allergies/Adverse Reactions: Allergies cucumber Allergy (Severe, Verified 01/19/18 13:25) Hives THE VEG CUCUMBER WELL CUCUMBER SOAP cucumber body wash Allergy (Severe, Uncoded 01/19/18 13:25) Hives/ shortness of breath,swelling. Objective Vital Signs 01/24/18 20:00 01/24/18 20:39 01/25/18 00:00 Temperature 96.7 F L 97.9 F Pulse Rate 77 70 78 Respiratory Rate 18 14 18 Blood Pressure 158/84 H 119/80 Pulse Oximetry 99 96 01/25/18 03:57 01/25/18 04:00 01/25/18 08:00 Temperature 97.7 F 98.1 F Pulse Rate 87 61 69 Respiratory Rate 20 18 19 Blood Pressure 131/82 132/62 Pulse Oximetry 98 97 01/25/18 09:00 01/25/18 12:00 01/25/18 15:00 Temperature 98.1 F Pulse Rate 88 90 82 Respiratory Rate 12 19 14 Blood Pressure 127/64 Pulse Oximetry 97 01/25/18 16:00 01/25/18 16:20 Temperature 97.1 F L Pulse Rate 84 95 H Respiratory Rate 24 Blood Pressure 126/59 L Pulse Oximetry 97 Intake & Output 01/24/18 01/25/18 01/25/18 18:59 06:59 18:59 Intake Total 1320 / 1320 700 / 700 100 / 100 Output Total 800 / 800 850 / 850 Balance 520 / 520 -150 / -150 100 / 100 Weight 65.3 kg Intake: IV 600 / 600 700 / 700 100 / 100 Azithromycin Inj 500 MG In NS 250 / 250 Inj 250 ML @ 250 mls/hr IV.SIG Q24H ARACELY Rx#:[id number] Merrem Inj 2,000 MG In NS Inj 100 / 100 200 / 200 100 / 100 100 ML @ 200 mls/hr IV.SIG Q8H ARACELY Rx#:[id number] Vancomycin Inj 1,000 MG In NS 250 / 250 500 / 500 Inj 250 ML @ 250 mls/hr IV.SIG Q8H ARACELY Rx#:[id number] Oral 720 / 720 Output: Urine 800 / 800 850 / 850 Other: # Voids 2 7 Date of Last Bowel Movement 01/24/18 01/24/18 # Bowel Movements 1 1 01/19/18 14:35 Blood - Peripheral Aerobic Blood Culture - Final No growth in 5 days 01/19/18 14:35 Blood - Peripheral Anaerobic Blood Culture - Final No growth in 5 days 01/19/18 15:00 Blood - Peripheral Aerobic Blood Culture - Final No growth in 5 days 01/19/18 15:00 Blood - Peripheral Anaerobic Blood Culture - Final No growth in 5 days Lab - Chemistry Results 01/25/18 05:45 Sodium 138 Potassium 4.3 Chloride 106 Carbon Dioxide 24.8 Anion Gap 7 BUN 17 Creatinine 1.27 Estimated GFR 82 L Random Glucose 139 H Calcium 8.5 Imaging: ITS Impressions Chest CT 01/19/18 15:07 CONCLUSION: 1. Patchy basilar airspace disease slightly increased from December 12 most characteristic of a mild bronchopneumonia. No significant effusion. Mild cardiomegaly. Chest X-Ray 01/23/18 17:04 CONCLUSION: Physical Exam: GENERAL: NAD On RA SKIN: Warm and dry. no rash HEAD: Atraumatic. Normocephalic. EYES: Pupils equal and round. No scleral icterus. No injection or drainage. ENT: No nasal bleeding or discharge. Mucous membranes pink and moist. NECK: Trachea midline. No JVD. CARDIOVASCULAR: Regular rate and rhythm. RESPIRATORY: No accessory muscle use. No wheezing to auscultation. Good air movement GASTROINTESTINAL: Abdomen soft, non-tender, nondistended. MUSCULOSKELETAL: Extremities without clubbing, cyanosis, or edema. NEUROLOGICAL: Awake and alert. No obvious cranial nerve deficits. Motor grossly within normal limits. Five out of 5 muscle strength in the arms and legs. Normal speech. PSYCHIATRIC: Appropriate mood and affect; Assessment and Plan - Plan PNA HIV dz, non compliant 2/2 lack of insuranmce now he has medicaid AiDS, advanced Recent hospitalisation Infiltrates in [place] location - neg CXR, CT later tonite showed . Patchy basilar airspace disease slightly increased from December 12 most characteristic of a mild bronchopneumonia. No significant effusion. Mild cardiomegaly Status asthmaticus - resolved resp status nl dc meropenm, vancomycin, cont azithromycin HCA PNA cont Bactrim to DS daily for PCP profilaxis fu with Dr Yancey in the office within 1 week repeat CXR within [address] Naye rivera RN
[2018-01-26] MEDS: Sod Chloride 0.9% Inj 1,000 ML IV.CONT SCH (02:18)
[2018-01-26] MEDS: Meropenem Inj 2,000 MG in Sodium Chlor 0.9% Inj 100 ML IV.SIG SCH (04:06)
[2018-01-26] MEDS: Vancomycin Inj 1,250 MG in Sodium Chlor 0.9% Inj 250 ML IV.SIG SCH (07:14)
[2018-01-26 08:43] VITALS: BP 137/65; TEMP 98.2; O2SAT 99
[2018-01-26] MEDS: Fluconazole 100 MG Tablet PO SCH (08:47)
[2018-01-26] MEDS: Nystatin Liq 500,000 UNIT/5 ML UDC SWISH-SWAL SCH (08:47)
[2018-01-26] MEDS: predniSONE 20 MG Tablet PO SCH (08:47)
[2018-01-26] MEDS: Enoxaparin Inj 40 MG/0.4 ML Syringe SQ SCH (08:47)
[2018-01-26] MEDS: Budesonide-Formoterol 160/4.5 MCG 6 GM Inhaler INH SCH (09:00)
[2018-01-26 10:01] VITALS: PULSE 73; RESP 16
[2018-01-26] MEDS: Sodium Chloride 0.9% 2 ML Flush BID IV.FLUSH SCH (10:14)
--- NOTE | 2018-01-26 15:38 | P.PN ---
Subjective Interval history: Nursing denies any deterioration since last night. Patient himself denies any new complaints. Denies any shortness of breath. Physical Exam Vital signs: Vital Signs 01/25/18 16:00 01/25/18 16:20 01/25/18 19:15 Temperature 97.1 F L Pulse Rate 84 95 H 76 Respiratory Rate 24 16 Blood Pressure 126/59 L Pulse Oximetry 97 97 01/25/18 20:00 01/25/18 20:05 01/26/18 00:00 Temperature 97.0 F L 97.9 F Pulse Rate 87 89 65 Respiratory Rate 18 18 Blood Pressure 149/77 H 127/61 Pulse Oximetry 95 98 01/26/18 04:00 01/26/18 05:42 01/26/18 08:00 Temperature 97.4 F L 98.2 F Pulse Rate 69 84 74 Respiratory Rate 18 20 20 Blood Pressure 137/76 137/65 Pulse Oximetry 97 99 01/26/18 10:00 Temperature Pulse Rate 73 Respiratory Rate 16 Blood Pressure Pulse Oximetry Intake & Output 01/25/18 01/26/18 01/26/18 18:59 06:59 18:59 Intake Total 350 / 350 1062.5 / 1062.5 262.5 / 262.5 Output Total 1150 / 1150 Balance 350 / 350 -87.5 / -87.5 262.5 / 262.5 Weight 66.3 kg Intake: IV 350 / 350 1062.5 / 1062.5 262.5 / 262.5 NS Inj 1,000 ML @ 84 mls/hr IV. 600 / 600 CONT .[id number] ARACELY Rx#:[id number] Azithromycin Inj 500 MG In NS 250 / 250 Inj 250 ML @ 250 mls/hr IV.SIG Q24H ARACELY Rx#:[id number] Merrem Inj 2,000 MG In NS Inj 100 / 100 200 / 200 100 ML @ 200 mls/hr IV.SIG Q8H ARACELY Rx#:[id number] Vancomycin Inj 1,250 MG In NS 262.5 / 262.5 262.5 / 262.5 Inj 250 ML @ 250 mls/hr IV.SIG Q12H ARACELY Rx#:[id number] Output: Urine 1150 / 1150 Other: # Voids 7 Date of Last Bowel Movement 01/25/18 # Bowel Movements 1 Narrative: Heart sounds regular rate rhythm, no murmurs Clear lungs bilaterally, unlabored breathing Awake alert, no acute distress On room air Results - Labs CBC & Chem 7: 01/23/18 05:29 01/25/18 05:45 Assessment and Plan - Plan 27yM with HIV and clinical AIDS based on multiple recent CD4 count less than 200 , who presents with acute hypoxic and hypercarbic respiratory failure and status asthmaticus, bilateral infiltrates. Was initially admitted to ICU, transferred out to [facility] floor and has been doing well. Acute hypoxic and hypercarbic Respiratory Failure- -Resolving well. Duo nebs, prednisone, Symbicort HIV+ Clinical AIDS, recent CD4 count < 200 11/2017 Acute Leukopenia Pneumonia - bilateral pulmonary infiltrates -ID FF. LDH elevated, CT with bilateral infiltrates , CD4 ct pending -On meropenem, Vancomycin IV Zitrhomax and Bactrim -> anticipate infectious disease streamline this within the next 24 hours. - Pulmonary following. CKI - near resolution. Oral thrush- improving - nystatin S/S qid - diflucan GERD- po Protonix
== END 2018-01-26 10:57 | disposition home or self-care (01) ==
LOC: NEPD 12:16 → NEDA 15:36 → HIMC 16:01 → N04 01-21 18:57
PROVIDERS: ADMIT Hospitalist; ATTEND Hospitalist

== ENCOUNTER 2018-02-27 11:47 | Inpatient (IN) ==
[2018-02-27] MEDS ORDERED: MethylPREDNISolone Sod Succinate Inj 125 MG/2 ML Vial IV.PUSH ONE (12:39)
--- NOTE | 2018-02-27 12:44 | ED ---
HPI General Chief Complaint: Respiratory Symptoms Stated Complaint: Breathing Complaint Time Seen by Provider: 02/27/18 12:34 History of Present Illness HPI Narrative: This is a 27-year-old HIV-positive asthmatic who has been out of his medications for a while. He has had 1 week of solid wheezing and dyspnea. He also reports that he had a temp of 101 oral thermometer reading yesterday. He has had some runny nose and congestion and symptoms are severe. Duration 1 week. There is been gradual worsening. Symptoms have no alleviating factors. No exacerbating factors. Related Data Home Medications Medication Instructions Recorded Confirmed albuterol sulfate [Ventolin HFA] 2 puff INHALATION Q4H PRN 11/29/17 02/27/18 budesonide-formoterol [Symbicort] 2 puff INHALATION Q12H 11/29/17 02/27/18 emtricitabine-tenofovir alafen 1 tab PO DAILY 11/29/17 02/27/18 [Descovy] Previous Rx's Medication Instructions Recorded dolutegravir [Tivicay] 50 mg PO DAILY #0 tab 12/08/17 tiotropium bromide [Spiriva with 18 mcg INH DAILY #1 inh 12/08/17 HandiHaler] albuterol sulfate 2 inh INHALATION Q4-6H PRN #18 g 02/08/18 Allergies Allergy/AdvReac Type Severity Reaction Status Date / Time cucumber Allergy Severe Hives Verified 02/08/18 14:49 cucumber body wash Allergy Severe Hives/ Uncoded 02/08/18 14:49 Review of Systems ROS: all other systems reviewed are negative PMFSH Medical History Medical History Asthma (Acute) HIV (human immunodeficiency virus infection) (Acute) Social History Social History Substance History: Active Abuse Second Hand Smoke Exposure: No Smoking Status: Current some day smoker Tobacco Type: Cigarettes How Often Do You Have a Drink Containing Alcohol: Monthly or less Recent Travel in [facility] within the Last 8 Weeks: No Recent Out of Country Travel within the Last 8 Weeks: No Exam Narrative Exam Narrative: GENERAL: Well-nourished, well-developed patient in prominent respiratory distress. SKIN: Focused skin assessment reveals no rash and nodules. Skin is Warm and dry. HEAD: Atraumatic. Normocephalic. EYES: Pupils equal and round. No scleral icterus. No injection or drainage. ENT: No nasal bleeding or discharge. Mucous membranes pink and moist. NECK: Trachea midline. No JVD. CARDIOVASCULAR: Regular rate and rhythm. No murmur appreciated. RESPIRATORY: Positive accessory muscle use. Diffuse expiratory wheezing throughout. Breath sounds equal bilaterally. GASTROINTESTINAL: Abdomen soft, non-tender, nondistended. Hepatic and splenic margins not palpable. MUSCULOSKELETAL: No obvious deformities. No clubbing. No cyanosis. No edema. NEUROLOGICAL: Awake and alert. No obvious cranial nerve deficits. Motor grossly within normal limits. Normal speech. PSYCHIATRIC: Appropriate mood and affect; insight and judgment poor given his noncompliance and smoking. Course Initial Documented Vital Signs Temperature 98.4 F 02/27/18 12:03 Pulse Rate 80 02/27/18 12:03 Respiratory Rate 16 02/27/18 12:03 Blood Pressure 144/77 H 02/27/18 12:03 Pulse Oximetry 100 02/27/18 12:03 Last Documented Vital Signs Temperature 98.4 F 02/27/18 12:03 Pulse Rate 78 02/27/18 14:05 Respiratory Rate 28 H 02/27/18 14:05 Blood Pressure 122/73 02/27/18 13:10 Pulse Oximetry 98 02/27/18 13:10 Critical Care Time Critical Care Time: Yes Total Critical Care Time: 36 Attestation: Aggregate critical care time was 36 minutes. Time to perform other separately billable procedures was not included in the critical care time. My time did not include minutes spent treating any other patients simultaneously or on activities that did not directly contribute to the patient's treatment. The services I provided to this patient were to treat and/or prevent clinically significant deterioration that could result in: Hypoxic respiratory failure, cardiopulmonary arrest, loss of airway I provided critical care services requiring my management, as noted below: Chart data review, documentation time, medication orders and management, vital sign assessments/reviewing monitor data, ordering and reviewing lab tests, ordering and interpreting/reviewing x-rays and diagnostic studies, care of the patient and discussion of the patient with the admitting physicians. Medical Decision Making MDM Narrative Medical decision making narrative: 27-year-old male in severe respiratory distress likely from asthma exacerbation and is critically ill on arrival. Also immunocompromised with reported fever so will require additional workup for that. Current temperature is normal however. IV placed and labs sent. Blood culture sent. I gave him a series of 3 nebulizer treatments and IV Solu-Medrol. Placed on oxygen. Patient continued to wheeze and I gave him a fourth nebulizer treatment. He seemed to have a bit of stridor as well and I gave him Soft tissue neck x-ray is negative. Chest x-ray shows a bit of atelectasis. He does not look septic or toxic but still having dyspnea and wheezing. He has had very severe attacks recently [place] [facility] [place] admission at this point to the hospitalist to have spoken with. Medical Screen Exam Complete: Yes Emergency Medical Condition: Yes Differential Diagnosis Differential Diagnosis: Asthma, respiratory failure, pneumonia Medical Records Medical records reviewed: Yes I reviewed the patient's medical records. Lab Data Lab results reviewed: Yes I reviewed the patient's lab results. Result diagrams: 02/27/18 12:45 02/27/18 12:45 Lab Results 02/27/18 02/27/18 Range/Units 12:45 12:45 WBC 2.4 L (4.0-11.0) th/mm3 RBC 4.20 L (4.50-5.90) mil/mm3 Hgb 13.6 (13.0-17.0) gm/dL Hct 39.9 (39.0-51.0) % MCV 95.0 (80.0-100.0) fL MCH 32.5 (27.0-34.0) pg MCHC 34.2 (32.0-36.0) % RDW 13.8 (11.6-17.2) % Plt Count 220 (150-450) th/mm3 MPV 6.7 L (7.0-11.0) fL Prelim Diff (Auto) Slide review pending Neut % (Auto) 34.6 (16.0-70.0) % Lymph % (Auto) 48.2 H (9.0-44.0) % Jefferson % (Auto) 13.9 H (0.0-8.0) % Eos % (Auto) 2.8 (0.0-4.0) % Baso % (Auto) 0.5 (0.0-2.0) % Neut # (Auto) 0.8 L (1.8-7.7) th/mm3 Lymph # (Auto) 1.1 (1.0-4.8) th/mm3 Jefferson # (Auto) 0.3 (0.0-0.9) th/mm3 Eos # (Auto) 0.1 (0.0-0.4) th/mm3 Baso # (Auto) 0.0 (0.0-0.2) th/mm3 WBC Differential Manual diff final Seg Neuts % (Manual) 43 (16-70) % Lymphocytes % (Manual) 44 (9-44) % Monocytes % (Manual) 12 H (0-8) % Eosinophils % (Manual) 1 (0-4) % Abs Neuts (Manual) 1.0 L (1.8-7.7) th/mm3 Differential Comment . Platelet Estimate Normal (Normal) Platelet Morphology Normal (Normal) Sodium 138 (136-145) meq/L Potassium 4.1 (3.5-5.1) meq/L Chloride 106 (98-107) meq/L Carbon Dioxide 28.4 (21.0-32.0) meq/L Anion Gap 4 L (5-15) meq/L BUN 18 (7-18) mg/dL Creatinine 1.30 (0.60-1.30) mg/dL Estimated GFR 80 L (>89) mL/min Random Glucose 73 L (74-106) mg/dL Calcium 8.7 (8.5-10.1) mg/dL Total Bilirubin 0.2 (0.2-1.0) mg/dL AST 21 (15-37) U/L ALT 17 (12-78) U/L Alkaline Phosphatase 53 (45-117) U/L Total Protein 8.4 H (6.4-8.2) g/dL Albumin 3.4 (3.4-5.0) g/dL Imaging Data Attestation: I personally reviewed and interpreted this imaging study as follows : Radiologist's impression: Chest X-Ray 02/27/18 12:39 CONCLUSION: Right basilar infiltrate or atelectasis. Soft Tissue Neck X-Ray 02/27/18 14:00 CONCLUSION: Negative examination. Discharge Plan Discharge Disposition Patient Disposition: 30 Still Patient Discharge Details Diagnosis: Status asthmaticus, non-allergic Physicians Team ED Provider: Jaya Kim Primary Care Provider: Primary Care Physici,Suze Rxs /Orders / Referrals /Forms Prescriptions: No Action albuterol sulfate [Ventolin HFA] 90 mcg/actuation Hfa Aerosol Inhaler 2 puff INHALATION Q4H PRN (Reason: Shortness Of Breath) RF: 0 budesonide-formoterol [Symbicort] 160-4.5 mcg/actuation Hfa Aerosol Inhaler 2 puff INHALATION Q12H RF: 0 emtricitabine-tenofovir alafen [Descovy] 200-25 mg Tablet 1 tab PO DAILY RF: 0 tiotropium bromide [Spiriva with HandiHaler] 18 mcg Capsule, W/Inhalation Device 18 mcg INH DAILY Qty: 1 RF: 0 dolutegravir [Tivicay] 25 mg Tablet 50 mg PO DAILY Qty: 0 RF: 0 albuterol sulfate 90 mcg/actuation HFA aerosol inhaler 2 inh INHALATION Q4-6H PRN (Reason: shortness of breath or wheezing) Qty: 18 RF: 0 Discharge Interventions Interventions: Vital Signs Last Done: 02/27/18 13:10 Status ED Status: With Doctor
[2018-02-27 13:00] LABS: Baso % (Auto) 0.5 % (0.0-2.0); Eos # (Auto) 0.1 th/mm3 (0.0-0.4); Eos % (Auto) 2.8 % (0.0-4.0); Hematocrit 39.9 % (39.0-51.0); Hemoglobin 13.6 gm/dL (13.0-17.0); Lymph # (Auto) 1.1 th/mm3 (1.0-4.8); Lymph % (Auto) 48.2 % (9.0-44.0); Mean Corpuscular HGB Conc 34.2 % (32.0-36.0); Mean Corpuscular Hemoglobin 32.5 pg (27.0-34.0); Mean Platelet Volume 6.7 fL (7.0-11.0); Mono # (Auto) 0.3 th/mm3 (0.0-0.9); Mono % (Auto) 13.9 % (0.0-8.0); Neut # (Auto) 0.8 th/mm3 (1.8-7.7); Neut % (Auto) 34.6 % (16.0-70.0); Platelet Count 220 th/mm3 (150-450); Red Cell Distribution Width 13.8 % (11.6-17.2); White Blood Count 2.4 th/mm3 (4.0-11.0)
--- NOTE | 2018-02-27 13:24 | XR ---
EXAM DATE: 02/27/2018 1:16 PM EST AGE/SEX: 27 years / Male INDICATIONS: Very short of breath and wheezing today, fever CLINICAL DATA: This is the patient's initial encounter. Patient reports that signs and symptoms have been present for 1 day and indicates a pain score of 0/10. MEDICAL/SURGICAL HISTORY: Asthma. Chronic obstructive pulmonary disease. None. COMPARISON: [facility], CHEST 1V SINGLE AP, 01/23/2018. . FINDINGS: The heart is normal in size. The mediastinal contours are within normal limits. The examination demon strates subtle increased density at the right lung base suggesting a right basilar infiltrate or atel ectasis. The remainder of the lungs are clear. The osseous structures are intact. CONCLUSION: Right basilar infiltrate or atelectasis. Electronically signed by: Aden Ferguson MD 02/27/2018 1:23 PM EST
[2018-02-27 13:26] LABS: Alanine Aminotransferase 17 U/L (12-78); Albumin 3.4 g/dL (3.4-5.0); Anion Gap 4 meq/L (5-15); Aspartate Aminotransferase 21 U/L (15-37); Blood Urea Nitrogen 18 mg/dL (7-18); Calcium 8.7 mg/dL (8.5-10.1); Carbon Dioxide 28.4 meq/L (21.0-32.0); Chloride 106 meq/L (98-107); Glomerular Filtration Rate 80 mL/min (>89); Glucose,Random 73 mg/dL (74-106); Potassium 4.1 meq/L (3.5-5.1); Sodium 138 meq/L (136-145)
[2018-02-27 13:28] LABS: Alkaline Phosphatase 53 U/L (45-117); Total Protein 8.4 g/dL (6.4-8.2)
[2018-02-27 13:38] LABS: Eosinophils 1 % (0-4); Lymphocytes 44 % (9-44); Monocytes 12 % (0-8)
[2018-02-27 13:39] LABS: Platelet Estimate Normal (Normal); Platelet Morphology Normal (Normal)
[2018-02-27] MEDS ORDERED: RESP: Racemic Epinephrine 2.25% 0.5 ML Neb ONE (14:00)
[2018-02-27] MEDS ORDERED: RESP: Racemic Epinephrine 2.25% 0.5 ML Neb NEB ONE (14:00)
--- NOTE | 2018-02-27 15:24 | XR ---
EXAM DATE: 02/27/2018 3:13 PM EST AGE/SEX: 27 years / Male INDICATIONS: Evaluate for stridor CLINICAL DATA: This is the patient's initial encounter. Patient reports that signs and symptoms have been present for 1 day and indicates a pain score of 0/10. MEDICAL/SURGICAL HISTORY: . Asthma. Chronic obstructive pulmonary disease None. COMPARISON: [facility] [place], [facility], 05/29/2016. . FINDINGS: Two-view examination of the soft tissues of the neck demonstrates the hypopharyngeal airway to have a grossly normal configuration. The trachea is midline. No radiopaque foreign bodies are seen. CONCLUSION: Negative examination. Electronically signed by: Carlyle Ziegler MD 02/27/2018 3:23 PM EST
[2018-02-27] MEDS ORDERED: Bisacodyl 10 MG Supp RECTAL PRN (16:21)
[2018-02-27] MEDS ORDERED: Acetaminophen 325 MG Tablet PO PRN (16:21)
[2018-02-27] MEDS ORDERED: Benzonatate 100 MG Capsule PO PRN (17:07)
[2018-02-27] MEDS ORDERED: DOLUTEGRAVIR 50 MG PO SCH (17:15)
[2018-02-27] MEDS ORDERED: EMTRICITABINE TENOFOVIR ALAFEN PO SCH (17:15)
[2018-02-27] MEDS: Heparin - SQ 10,000 UNITS/ML Vial SQ SCH (17:27)
[2018-02-27] MEDS: MethylPREDNISolone Sod Succinate Inj 40 MG/ML Vial IV.PUSH SCH (17:28)
[2018-02-27] MEDS ORDERED: Azithromycin Inj 500 MG in Sodium Chlor 0.9% Inj 250 ML IV.SIG SCH (18:00)
[2018-02-27] MEDS: Tiotropium Bromide 18 MCG/ACT Inhaler INH SCH (18:00)
[2018-02-27] MEDS: Nystatin Liq 500,000 UNIT/5 ML UDC SWISH-SWAL SCH ×2 (18:00→21:22)
--- NOTE | 2018-02-27 20:43 | P.HPIM ---
History of Present Illness Primary Care Physician: No Primary Care Physician Chief Complaint: sob History of Present Illness: 27-year-old gentleman who has frequent hospital admissions and presented with worsening shortness of breath. He has poorly controlled asthma, states he has been out of his inhalers other than his emergency inhalers. He has had worsening shortness of breath and wheeze for 3 days, associated with productive cough of greenish sputum. He also has been having some fevers at home, as well as diarrhea with greenish stools for 3 weeks. He was recently treated in the emergency room on 02/08 for similar symptoms, given Symbicort, Spiriva, and prednisone Dosepak. He has since run out of Symbicort and Spiriva, which he states has helped him in the past. 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 He is HIV positive with reported CD4 count less than 200 and history of noncompliance with antiretrovirals, although he states he is taking them now. Last hospitalization was ICU 01/26/2018 for status asthmaticus. Review of Systems He complains of fever, diarrhea for 3 weeks, and genital rash, Otherwise negative for significant contributory symptoms for 10 organ systems reviewed [facility] Medical History Medical History Asthma (Acute) HIV (human immunodeficiency virus infection) (Acute) Social History Social History Substance History: No History of Abuse Second Hand Smoke Exposure: Yes Smoking Status: Current some day smoker Tobacco Type: Cigarettes How Often Do You Have a Drink Containing Alcohol: Monthly or less Recent Travel in [facility] within the Last 8 Weeks: No Recent Out of Country Travel within the Last 8 Weeks: No Immunization History Tetanus Immunization: <5 Years Medications and Allergies Allergies Allergy/AdvReac Type Severity Reaction Status Date / Time cucumber Allergy Severe Hives Verified 02/08/18 14:49 cucumber body wash Allergy Severe Hives/ Uncoded 02/08/18 14:49 Home Medications Medication Instructions Recorded Confirmed Type albuterol sulfate [Ventolin HFA] 2 puff INHALATION Q4H PRN 11/29/17 02/27/18 History budesonide-formoterol [Symbicort] 2 puff INHALATION Q12H 08/28/18 11/26/18 History emtricitabine-tenofovir alafen 1 tab PO DAILY 11/29/17 02/27/18 History [Descovy] Active Medications: Active Medications Acetaminophen (Tylenol) 650 mg PO Q4H PRN PRN Reason: Temp > 100.4 Al Hydroxide/Mg Hydroxide (Milk Of Magnesia Liq) 30 ml PO Q12H PRN PRN Reason: Mild Constipation Albuterol (Duoneb Neb (Prn)) 1 ampul NEB Q4HR NEB PRN PRN Reason: SHORTNESS OF BREATH Albuterol (Duoneb Neb (Sarah)) 1 ampul NEB Q4HR NEB SARAH Last Admin: 02/27/18 20:11 Dose: 1 ampul Benzonatate (Tessalon Perles) 200 mg PO Q8H PRN PRN Reason: COUGH Bisacodyl (Dulcolax Supp) 10 mg RECTAL DAILY PRN PRN Reason: SEVERE CONSITIPATION Budesonide (Pulmicort Respule Neb) 0.25 mg NEB Q12HR NEB SARAH Last Admin: 02/27/18 20:11 Dose: 0.25 mg Heparin Sodium (Porcine) (Heparin Inj) 5,000 units SQ Q12H [facility] Last Admin: 02/27/18 17:27 Dose: 5,000 units Azithromycin 500 mg/ Sodium (Chloride) 250 mls @ 250 mls/hr IV.SIG Q24H [facility] Last Infusion: 02/27/18 18:35 Dose: Infused Lactulose (Lactulose Liq) 30 ml PO DAILY PRN PRN Reason: SEVERE CONSITIPATION Methylprednisolone Sodium Succinate (Solumedrol Inj) 40 mg IV.PUSH Q6H [facility] Last Admin: 02/27/18 17:28 Dose: 40 mg Non-Formulary Medication (Dolutegravir [Tivicay]) 50 mg PO DAILY [facility] Last Admin: 02/27/18 18:39 Dose: 50 mg Non-Formulary Medication (Emtricitabine-Tenofovir Alafen [Descovy]) 1 tab PO DAILY [facility] Last Admin: 02/27/18 18:39 Dose: 1 tab Nystatin (Mycostatin Liq) 5 ml SWISH-SWAL QID [facility] Last Admin: 02/27/18 18:00 Dose: 5 ml Ondansetron HCl (Zofran Inj) 4 mg IV.PUSH Q6H PRN PRN Reason: NAUSEA OR VOMITING Last Admin: 02/27/18 17:28 Dose: 4 mg Senna/Docusate Sodium (Viridiana-Colace) 1 tab PO BID [facility] Sennosides (Senokot) 17.2 mg PO Q12H PRN PRN Reason: Moderate Constipation Sodium Chloride (Ns Flush) 2 ml IV.FLUSH BID [facility] Sodium Chloride (Ns Flush) 2 ml IV.FLUSH PRN PRN PRN Reason: FLUSH AFTER USING IV ACCESS Tiotropium [place] (Spiriva 18 Mcg Inh) 18 mcg INH DAILY [facility] Last Admin: 02/27/18 18:00 Dose: 18 mcg Physical Exam Vital signs: Last Vital Signs Temp 98.7 F 02/27/18 18:00 Pulse 92 H 02/27/18 20:12 Resp 20 02/27/18 20:12 BP 123/76 02/27/18 18:00 Pulse Ox 97 02/27/18 18:00 Intake & Output 02/25/18 02/26/18 02/27/18 02/28/18 06:59 06:59 06:59 06:59 Intake Total 250 / 250 Balance 250 / 250 Weight 63.503 kg Narrative: Well-developed well-nourished pleasant 27-year-old -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 Awake alert oriented articulate no acute distress HEENT normocephalic atraumatic pupils equal reactive sclerae anicteric or mucosa is moist posterior pharynx clear Neck supple no JVD trachea midline thyroid smooth not enlarged Anterior chest wall without mass or tenderness to palpation Heart S1-S2 regular without significant murmur gallops or clicks Lungs significant inspiratory expiratory diffuse wheeze with occasional loose rhonchi, diminished expansion bilateral symmetric, no dullness to percussion Abdomen soft nondistended positive bowel sounds no guarding rebound rigidity no mass, no tenderness Lymph nodes no inguinal axillary cervical adenopathy appreciated normal phallus with posterior papular rash with punctate ulceration without significant drainage or erythema Extremities no clubbing cyanosis no edema peripheral pulses palpable +2, no calf tenderness Neurologic cranial nerves II through XII grossly intact strength is 5 out of 5 symmetric without clonus or rigidity Skin exam is warm and dry with good turgor no other rashes or sores noted Results Labs CBC & Chem 7: 02/27/18 12:45 02/27/18 12:45 Imaging Impressions Chest X-Ray 02/27/18 12:39 CONCLUSION: Right basilar infiltrate or atelectasis. Soft Tissue Neck X-Ray 02/27/18 14:00 CONCLUSION: Negative examination. Caprini VTE Risk Assessment Caprini VTE Risk Assessment: Moderate/High Risk (score >= 2) Caprini Risk Assessment Model: Point Value = 1 Point Value = 2 Point Value = 3 Point Value = 5 Age 41-60 Minor surgery BMI > 25 kg/m2 Swollen legs Varicose veins or History of unexplained or recurrent spontaneous Oral contraceptives or hormone replacement Sepsis (< 1 month) Serious lung disease, including pneumonia (< 1 month) Abnormal pulmonary function Acute myocardial infarction Congestive heart failure (< 1 month) History of inflammatory bowel disease Medical patient at bed rest Age 61-74 Arthroscopic surgery Major open surgery (> 45 min) Laparoscopic surgery (> 45 min) Malignancy Confined to bed (> 72 hours) Immobilizing plaster cast Central venous access Age >= 75 History of VTE Family history of VTE Factor V Leiden Prothrombin [id number] Lupus anticoagulant Anticardiolipin antibodies Elevated serum homocysteine Heparin-induced thrombocytopenia Other congenital or acquired thrombophilia Stroke (< 1 month) Elective arthroplasty Hip, pelvis, or leg fracture Acute spinal cord injury (< 1 month) Prophylaxis Regimen: Total Risk Factor Score Risk Level Prophylaxis Regimen 0-1 Low Early ambulation 2 Moderate Order ONE of the following: *Sequential Compression Device (SCD) *Heparin 5000 units SQ BID 3-4 Higher Order ONE of the following medications: *Heparin 5000 units SQ TID *Enoxaparin/Lovenox 40 mg SQ daily (WT < 150 kg, CrCl > 30 mL/min) *Enoxaparin/Lovenox 30 mg SQ daily (WT < 150 kg, CrCl > 10-29 mL/min) *Enoxaparin/Lovenox 30 mg SQ BID (WT < 150 kg, CrCl > 30 mL/min) AND/OR *Sequential Compression Device (SCD) 5 or more Highest Order ONE of the following medications: *Heparin 5000 units SQ TID (Preferred with Epidurals) *Enoxaparin/Lovenox 40 mg SQ daily (WT < 150 kg, CrCl > 30 mL/min) *Enoxaparin/Lovenox 30 mg SQ daily (WT < 150 kg, CrCl > 10-29 mL/min) *Enoxaparin/Lovenox 30 mg SQ BID (WT < 150 kg, CrCl > 30 mL/min) AND *Sequential Compression Device (SCD) Assessment and Plan Plan ACUTE EXACERBATION OF ASTHMA -severe persistent Asthma, uncontrolled - iv steroids, nebs, symbicort when stable PNA/HCA w r basilar infiltrate- culture sputum, add vanco, cefepime, cont zmax HIV+ W AIDS - bactrim for pcp prophylaxis, ID consult 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
[2018-02-27] MEDS ORDERED: Vancomycin Consult Pharmacy OTHER PRN (20:49)
[2018-02-27] MEDS: Senna/Docusate Sodium 8.6/50 MG Tablet PO SCH (21:22)
[2018-02-27] MEDS ORDERED: Vancomycin Inj 1,000 MG in Sodium Chlor 0.9% Inj 250 ML IV.SIG SCH (22:00)
[2018-02-27 22:13] LABS: Bilirubin,Urine Negative (Negative); Clarity,Urine Clear (Clear); Color,Urine Yellow (Yellw/Straw); Glucose,Urine (UA) 500 or Greater mg/dL (Negative); Leukocyte Esterase,Urine Negative (Negative); Mucus,Urine Few /lpf (Occasional); Nitrite,Urine Negative (Negative); Specific Gravity,Urine 1.014 (1.002-1.035); Squamous Epithelial Cell,Urine <1 /hpf (0-5)
[2018-02-28] MEDS: MethylPREDNISolone Sod Succinate Inj 40 MG/ML Vial IV.PUSH SCH ×4 (00:45→17:24)
[2018-02-28] MEDS: Heparin - SQ 10,000 UNITS/ML Vial SQ SCH ×2 (04:59→17:25)
[2018-02-28] MEDS: Senna/Docusate Sodium 8.6/50 MG Tablet PO SCH ×2 (08:27→22:32)
[2018-02-28] MEDS: Nystatin Liq 500,000 UNIT/5 ML UDC SWISH-SWAL SCH ×4 (08:27→22:32)
[2018-02-28] MEDS: Tiotropium Bromide 18 MCG/ACT Inhaler INH SCH (08:27)
[2018-02-28] MEDS: DESCOVY PO SCH (08:28)
--- NOTE | 2018-02-28 11:59 | P.PNIM ---
Subjective Interval history: Cough remains, respiratory status is not yet to baseline, wheezing is still prominent, intermittent need for oxygen. Patient says he started on antivirals as an outpatient but has been having difficulty continuing this is a steady treatment. He is encouraged to place obtaining his antivirals as a priority. Physical Exam Vital signs: Vital Signs 02/27/18 12:03 02/27/18 12:38 02/27/18 12:48 Temperature 98.4 F Pulse Rate 80 72 78 Respiratory Rate 16 28 H 28 H Blood Pressure 144/77 H Pulse Oximetry 100 02/27/18 13:00 02/27/18 13:10 02/27/18 13:41 Temperature Pulse Rate 81 80 81 Respiratory Rate 28 H 30 H 28 H Blood Pressure 122/73 Pulse Oximetry 98 02/27/18 14:05 02/27/18 16:00 02/27/18 18:00 Temperature 98.7 F Pulse Rate 78 87 92 H Respiratory Rate 28 H 24 20 Blood Pressure 123/76 Pulse Oximetry 98 97 02/27/18 20:00 02/27/18 20:12 02/27/18 22:31 Temperature 97.8 F Pulse Rate 90 92 H Respiratory Rate 20 20 Blood Pressure 116/66 Pulse Oximetry 94 L 97 02/28/18 01:01 02/28/18 03:42 02/28/18 04:00 Temperature 98.2 F Pulse Rate 69 69 93 H Respiratory Rate 18 18 20 Blood Pressure 140/75 Pulse Oximetry 98 02/28/18 08:00 02/28/18 08:08 02/28/18 11:19 Temperature 98.0 F 98.0 F Pulse Rate 72 75 87 Respiratory Rate 20 22 18 Blood Pressure 125/64 120/61 Pulse Oximetry 98 100 96 Intake & Output 02/27/18 02/28/18 02/28/18 18:59 06:59 18:59 Intake Total 250 / 250 350 / 350 100 / 100 Balance 250 / 250 350 / 350 100 / 100 Weight 63.503 kg 63.503 kg Intake: IV 250 / 250 350 / 350 100 / 100 Azithromycin Inj 500 MG In NS 250 / 250 Inj 250 ML @ 250 mls/hr IV.SIG Q24H [facility] Rx#:[id number] Maxipime Inj 1,000 MG In NS Inj 100 / 100 100 / 100 100 ML @ 200 mls/hr IV.SIG Q12H [facility] Rx#:[id number] Vancomycin Inj 1,000 MG In NS 250 / 250 Inj 250 ML @ 250 mls/hr IV.SIG Q18H [facility] Rx#:[id number] Other: Date of Last Bowel Movement 02/25/18 Weight On Admission 63.503 kg Narrative: GENERAL: NAD, A&Ox3 HEAD: Normocephalic. NECK: Supple, trachea midline. No lymphadenopathy. EYES: No scleral icterus. No injection or drainage. CARDIOVASCULAR: Regular rate and rhythm without murmurs, gallops, or rubs. RESPIRATORY: Breath sounds equal bilaterally. No accessory muscle use. Bilateral wheezing, rhonchi, crackles at bases. Poor excursion. GASTROINTESTINAL: Abdomen soft, non-tender, nondistended. MUSCULOSKELETAL: No cyanosis, or edema. SKIN: Warm and dry. NEURO: No focal neurological deficits. Results - Labs CBC & Chem 7: 02/27/18 12:45 02/27/18 12:45 Laboratory Results - last 24 hr 02/27/18 02/27/18 02/27/18 12:45 12:45 21:50 WBC 2.4 L RBC 4.20 L Hgb 13.6 Hct 39.9 MCV 95.0 MCH 32.5 MCHC 34.2 RDW 13.8 Plt Count 220 MPV 6.7 L Prelim Diff (Auto) Slide review pending Neut % (Auto) 34.6 Lymph % (Auto) 48.2 H Banks % (Auto) 13.9 H Eos % (Auto) 2.8 Baso % (Auto) 0.5 Neut # (Auto) 0.8 L Lymph # (Auto) 1.1 Banks # (Auto) 0.3 Eos # (Auto) 0.1 Baso # (Auto) 0.0 WBC Differential Manual diff final Seg Neuts % (Manual) 43 Lymphocytes % (Manual) 44 Monocytes % (Manual) 12 H Eosinophils % (Manual) 1 Abs Neuts (Manual) 1.0 L Differential Comment . Platelet Estimate Normal Platelet Morphology Normal Sodium 138 Potassium 4.1 Chloride 106 Carbon Dioxide 28.4 Anion Gap 4 L BUN 18 Creatinine 1.30 Estimated GFR 80 L Random Glucose 73 L Calcium 8.7 Total Bilirubin 0.2 AST 21 ALT 17 Alkaline Phosphatase 53 Total Protein 8.4 H Albumin 3.4 Urine Color Yellow Urine Clarity Clear Urine pH 6.0 Ur Specific Egnar 1.014 Urine Protein Negative Urine Glucose (UA) 500 or greater Urine Ketones Negative Urine Occult Blood Small H Urine Nitrate Negative Urine Bilirubin Negative Urine Urobilinogen Less than 2 Ur Leukocyte Esterase Negative Urine RBC 1 Urine WBC Less than 1 Ur Squamous Epith Cells <1 Urine Mucus Few H Micro UA Comment Culture not ind Ur Microscopic Review Not Reportable Urine Culture Comments Culture not ind Microbiology 02/27/18 12:45 Blood - Peripheral Aerobic Blood Culture - Preliminary No growth in 1 day 02/27/18 12:45 Blood - Peripheral Anaerobic Blood Culture - Preliminary No growth in 1 day 02/27/18 14:00 Nasal Wash Influenza Types A,B Antigen - Final Negative for FLU A and B antigen Infection due to influenza A or B cannot be ruled out since the antigen present in the sample may be below the detection limit of the test. - Imaging Impressions Chest X-Ray 02/27/18 12:39 CONCLUSION: Right basilar infiltrate or atelectasis. Soft Tissue Neck X-Ray 02/27/18 14:00 CONCLUSION: Negative examination. Assessment and Plan - Plan 27-year-old male with AIDS admitted secondary to asthma exacerbation and pneumonia Acute asthma exacerbation Not yet improved Continue IV steroids Continue nebulized treatments Continue Pulmicort Community-acquired pneumonia Immunocompromised AIDS, HIV Vancomycin Cefepime Azithromycin ID following Bactrim Nicotine dependence NicoDerm Patient counseled to quit Genital rash Swab screening for HSV ID following Oral thrush Nystatin continue Monitor for improvement DVT prophylaxis SCDs
--- NOTE | 2018-02-28 14:48 | P.CONID ---
History of Present Illness Service: ID Consult date: 02/28/18 Requesting Physician: Tosin Ortiz Reason for Consult: hiv diarrhea bronchitis Primary Care Provider: No Primary Care Physician Chief Complaint: sob History of Present Illness: 27 yo HIV + male with poor adherenece to HAART Rx (told me he ran out of his HIV medx 1 week ago) last CD4 count 126 On tivicay/descovy presents with 2 days of febrile illness, cough, non productive, wheezing and difficulty breathing + pleuritic type chest pain pt is neutropenic, ANC 800 he is unable to expectorate a good specimen, blood clx neg 04/04 flu test neg CXR negative He was diagnosed with asthma attack and starte on sterroids Pt is afebrile Review of Systems All other systems reviewed negative except as stated in HPI PMFSH - History History Provided By: Patient - Medical History Medical History: Medical History (Last Reviewed 02/28/18 @ 14:38 by Gay Mak MD) Asthma (Acute) HIV (human immunodeficiency virus infection) (Acute) - Family History Family History: Family History (Last Reviewed 02/28/18 @ 14:38 by Gay Mak MD) Father Hypertension - Social History I have reviewed the patient's Social History: Yes - Tobacco History Second Hand Smoke Exposure: Yes Tobacco Use In Past 30 Days: Yes Smoking Status: Current some day smoker Tobacco Type: Cigarettes - Alcohol History How Often Do You Have a Drink Containing Alcohol: Monthly or less - Substance Use History Substance History: No History of Abuse - Travel History Recent Travel in the [place] Within the Last 8 Weeks: No Recent Travel Out of the Country Within the Last 8 Weeks: No - Immunization History Tetanus Immunization: <5 Years Medications and Allergies Active Medications: Active Medications Acetaminophen (Tylenol) 650 mg PO Q4H PRN PRN Reason: Temp > 100.4 Last Admin: 02/28/18 08:36 Dose: 650 mg Al Hydroxide/Mg Hydroxide (Milk Of Magnesia Liq) 30 ml PO Q12H PRN PRN Reason: Mild Constipation Albuterol (Duoneb Neb (Prn)) 1 ampul NEB Q4HR NEB PRN PRN Reason: SHORTNESS OF BREATH Albuterol (Duoneb Neb (Sarah)) 1 ampul NEB Q4HR NEB SARAH Last Admin: 02/28/18 11:58 Dose: 1 ampul Benzonatate (Tessalon Perles) 200 mg PO Q8H PRN PRN Reason: COUGH Bisacodyl (Dulcolax Supp) 10 mg RECTAL DAILY PRN PRN Reason: SEVERE CONSITIPATION Budesonide (Pulmicort Respule Neb) 0.25 mg NEB Q12HR NEB [facility] Last Admin: 02/28/18 08:07 Dose: 0.25 mg Dolutegravir Sodium (Tivicay) 50 mg PO DAILY [facility] Last Admin: 02/28/18 13:00 Dose: 50 mg Heparin Sodium (Porcine) (Heparin Inj) 5,000 units SQ Q12H [facility] Last Admin: 02/28/18 04:59 Dose: 5,000 units Azithromycin 500 mg/ Sodium (Chloride) 250 mls @ 250 mls/hr IV.SIG Q24H [facility] Last Infusion: 02/27/18 18:35 Dose: Infused Cefepime HCl 1,000 mg/ Sodium (Chloride) 100 mls @ 200 mls/hr IV.SIG Q12H [facility] Last Infusion: 02/28/18 09:00 Dose: Infused Vancomycin HCl 1,000 mg/ (Sodium Chloride) 250 mls @ 250 mls/hr IV.SIG Q18H [facility] Last Infusion: 02/27/18 23:45 Dose: Infused Lactulose (Lactulose Liq) 30 ml PO DAILY PRN PRN Reason: SEVERE CONSITIPATION Methylprednisolone Sodium Succinate (Solumedrol Inj) 40 mg IV.PUSH Q6H [facility] Last Admin: 02/28/18 11:47 Dose: 40 mg Miscellaneous Information ([facility] Ordered Lab Info) 0 each OTHER ONCE ONE Stop: 03/02/18 03:46 Nicotine (Habitrol 7 Mg Patch.24 Hr) 1 patch T-DERMAL DAILY [facility] Last Admin: 02/28/18 09:22 Dose: 1 patch Nf:Descovy 1 tab PO DAILY [facility] Last Admin: 02/28/18 08:28 Dose: 1 tab Nystatin (Mycostatin Liq) 5 ml SWISH-SWAL QID [facility] Last Admin: 02/28/18 08:27 Dose: 5 ml Ondansetron HCl (Zofran Inj) 4 mg IV.PUSH Q6H PRN PRN Reason: NAUSEA OR VOMITING Last Admin: 02/28/18 13:00 Dose: 4 mg Patch Removal (Remove Old Patch) 0 each T-DERMAL DAILY [facility] Last Admin: 02/28/18 11:13 Dose: Not Given Pharmacy Profile Note (Vancomycin Consult Pharmacy) 1 each OTHER UNSCH PRN PRN Reason: Pharmacy to dose Senna/Docusate Sodium (Viridiana-Colace) 1 tab PO BID [facility] Last Admin: 02/28/18 08:27 Dose: 1 tab Sennosides (Senokot) 17.2 mg PO Q12H PRN PRN Reason: Moderate Constipation Sodium Chloride (Ns Flush) 2 ml IV.FLUSH BID [facility] Last Admin: 02/28/18 08:28 Dose: 2 ml Sodium Chloride (Ns Flush) 2 ml IV.FLUSH PRN PRN PRN Reason: FLUSH AFTER USING IV ACCESS Tiotropium [place] (Spiriva 18 Mcg Inh) 18 mcg INH DAILY [facility] Last Admin: 02/28/18 08:27 Dose: 18 mcg Allergies Allergy/AdvReac Type Severity Reaction Status Date / Time cucumber Allergy Severe Hives Verified 02/08/18 14:49 cucumber body wash Allergy Severe Hives/ Uncoded 02/08/18 14:49 Home Medications Medication Instructions Recorded Confirmed Type emtricitabine-tenofovir alafen 1 tab PO DAILY 11/29/17 02/27/18 History [Descovy] Exam Vital signs: Vital Signs 02/27/18 16:00 02/27/18 18:00 02/27/18 20:00 Temperature 98.7 F 97.8 F Pulse Rate 87 92 H 90 Respiratory Rate 24 20 20 Blood Pressure 123/76 116/66 Pulse Oximetry 98 97 94 L 02/27/18 20:12 02/27/18 22:31 02/28/18 01:01 Temperature Pulse Rate 92 H 69 Respiratory Rate 20 18 Blood Pressure Pulse Oximetry 97 02/28/18 03:42 02/28/18 04:00 02/28/18 08:00 Temperature 98.2 F 98.0 F Pulse Rate 69 93 H 72 Respiratory Rate 18 20 20 Blood Pressure 140/75 125/64 Pulse Oximetry 98 98 02/28/18 08:08 02/28/18 11:19 02/28/18 11:59 Temperature 98.0 F Pulse Rate 75 87 90 Respiratory Rate 22 18 17 Blood Pressure 120/61 Pulse Oximetry 100 96 Intake & Output 02/27/18 02/28/18 02/28/18 18:59 06:59 18:59 Intake Total 250 / 250 350 / 350 100 / 100 Balance 250 / 250 350 / 350 100 / 100 Weight 63.503 kg 63.503 kg Intake: IV 250 / 250 350 / 350 100 / 100 Azithromycin Inj 500 MG In NS 250 / 250 Inj 250 ML @ 250 mls/hr IV.SIG Q24H [facility] Rx#:[id number] Maxipime Inj 1,000 MG In NS Inj 100 / 100 100 / 100 100 ML @ 200 mls/hr IV.SIG Q12H [facility] Rx#:[id number] Vancomycin Inj 1,000 MG In NS 250 / 250 Inj 250 ML @ 250 mls/hr IV.SIG Q18H [facility] Rx#:[id number] Other: Date of Last Bowel Movement 02/25/18 Weight On Admission 63.503 kg - Constitutional no acute distress, average body habitus - Routine HEENT Exam Head: Present: normocephalic, atraumatic Eye: Present: EOMI, PERRL ENT: Present: mucous membranes moist, dentition normal - Routine Neck Exam Present: supple. Absent: lymphadenopathy - Routine Respiratory Exam Present: wheezes. Absent: accessory muscle use, respiratory distress - Routine Cardiovascular Exam Present: RRR, S1, S2. Absent: murmur, gallop, rubs - Routine Abdominal Exam Present: soft, normoactive bowel sounds. Absent: tenderness, distended, organomegaly, mass - Routine Exam Penile: Present: lesions (cw healing herpetic lesions on shaft), vesicles, ulceration - Routine Extremities Exam Present: full ROM. Absent: cyanosis, clubbing, edema - Routine Skin Exam Present: intact, dry. Absent: rash - Routine Neurological Exam Present: alert, oriented X3, CN II-XII intact. Absent: sensory deficit, motor deficit - Routine Psychiatric Exam Present: normal affect, cooperative Results - Labs CBC & Chem 7: 02/27/18 12:45 02/27/18 12:45 Labs: Laboratory Results - last 24 hr 02/27/18 21:50 Urine Color Yellow Urine Clarity Clear Urine pH 6.0 Ur Specific [place] 1.014 Urine Protein Negative Urine Glucose (UA) 500 or greater Urine Ketones Negative Urine Occult Blood Small H Urine Nitrate Negative Urine Bilirubin Negative Urine Urobilinogen Less than 2 Ur Leukocyte Esterase Negative Urine RBC 1 Urine WBC Less than 1 Ur Squamous Epith Cells <1 Urine Mucus Few H Micro UA Comment Culture not ind Ur Microscopic Review Not Reportable Urine Culture Comments Culture not ind - Imaging Impressions Soft Tissue Neck X-Ray 02/27/18 14:00 CONCLUSION: Negative examination. Assessment and Plan - Plan HIV/AIDS Suboptimal compliance Neutropenia Asthma attack Doubt PNA Genital herpes - pt reports h/o genital herpes with frequent recurrences Diarrhea - resolved dc abx fu CBC CD4, VL will involve director of consulting services if persistent neutropenia valtrex
[2018-02-28] MEDS: valACYclovir 500 MG Tab PO SCH (22:32)
[2018-03-01] MEDS: MethylPREDNISolone Sod Succinate Inj 40 MG/ML Vial IV.PUSH SCH ×4 (01:17→17:54)
[2018-03-01] MEDS: Heparin - SQ 10,000 UNITS/ML Vial SQ SCH ×2 (05:32→16:48)
[2018-03-01 06:58] LABS: Baso % (Auto) 0.4 % (0.0-2.0); Eos % (Auto) 0.1 % (0.0-4.0); Hematocrit 38.4 % (39.0-51.0); Lymph # (Auto) 0.8 th/mm3 (1.0-4.8); Lymph % (Auto) 12.7 % (9.0-44.0); Mean Corpuscular HGB Conc 33.9 % (32.0-36.0); Mean Corpuscular Hemoglobin 32.1 pg (27.0-34.0); Mean Corpuscular Volume 94.7 fL (80.0-100.0); Mean Platelet Volume 6.9 fL (7.0-11.0); Mono # (Auto) 0.1 th/mm3 (0.0-0.9); Mono % (Auto) 2.3 % (0.0-8.0); Neut # (Auto) 5.1 th/mm3 (1.8-7.7); Neut % (Auto) 84.5 % (16.0-70.0); Platelet Count 223 th/mm3 (150-450); Red Blood Count 4.05 mil/mm3 (4.50-5.90); Red Cell Distribution Width 13.7 % (11.6-17.2)
[2018-03-01 07:21] LABS: Albumin 3.1 g/dL (3.4-5.0); Anion Gap 8 meq/L (5-15); Aspartate Aminotransferase 17 U/L (15-37); Blood Urea Nitrogen 13 mg/dL (7-18); Calcium 8.7 mg/dL (8.5-10.1); Carbon Dioxide 23.6 meq/L (21.0-32.0); Chloride 107 meq/L (98-107); Glomerular Filtration Rate 82 mL/min (>89); Glucose,Random 110 mg/dL (74-106); Potassium 4.4 meq/L (3.5-5.1); Sodium 139 meq/L (136-145)
[2018-03-01 07:23] LABS: Alanine Aminotransferase 18 U/L (12-78)
[2018-03-01 07:24] LABS: Alkaline Phosphatase 46 U/L (45-117); Total Protein 7.8 g/dL (6.4-8.2)
[2018-03-01] MEDS: DESCOVY PO SCH (09:12)
[2018-03-01] MEDS: valACYclovir 500 MG Tab PO SCH ×2 (09:12→21:21)
[2018-03-01] MEDS: Nystatin Liq 500,000 UNIT/5 ML UDC SWISH-SWAL SCH ×4 (09:12→21:21)
[2018-03-01] MEDS: Senna/Docusate Sodium 8.6/50 MG Tablet PO SCH ×2 (09:12→21:21)
[2018-03-01] MEDS: Tiotropium Bromide 18 MCG/ACT Inhaler INH SCH (09:13)
--- NOTE | 2018-03-01 11:22 | P.PNIM ---
Subjective Interval history: Patient's wheezing has not yet improved. No acute concerns for pneumonia from ID, antibiotics have been discontinued. No new complaints from patient. Physical Exam Vital signs: Vital Signs 02/28/18 11:59 02/28/18 15:24 02/28/18 16:51 Temperature 98.2 F Pulse Rate 90 84 88 Respiratory Rate 17 16 20 Blood Pressure 122/66 Pulse Oximetry 96 02/28/18 19:47 02/28/18 20:00 02/28/18 23:19 Temperature 98.6 F Pulse Rate 82 90 88 Respiratory Rate 16 16 16 Blood Pressure 133/62 Pulse Oximetry 97 94 L 03/01/18 00:00 03/01/18 03:56 03/01/18 04:00 Temperature 97.6 F 97.8 F Pulse Rate 79 80 62 Respiratory Rate 16 16 16 Blood Pressure 135/66 136/77 Pulse Oximetry 95 96 03/01/18 07:41 03/01/18 08:44 03/01/18 11:12 Temperature 98.4 F Pulse Rate 71 73 70 Respiratory Rate 16 15 15 Blood Pressure 132/68 Pulse Oximetry 96 99 Intake & Output 02/28/18 03/01/18 03/01/18 18:59 06:59 18:59 Intake Total 100 / 100 Balance 100 / 100 Intake: IV 100 / 100 Maxipime Inj 1,000 MG In NS Inj 100 / 100 100 ML @ 200 mls/hr IV.SIG Q12H [facility] Rx#:[id number] Other: Date of Last Bowel Movement 02/25/18 02/25/18 Narrative: GENERAL: NAD, A&Ox3 HEAD: Normocephalic. NECK: Supple, trachea midline. No lymphadenopathy. EYES: No scleral icterus. No injection or drainage. CARDIOVASCULAR: Regular rate and rhythm without murmurs, gallops, or rubs. RESPIRATORY: Breath sounds equal bilaterally. No accessory muscle use. Bilateral wheezing, rhonchi, crackles at bases. Poor excursion. GASTROINTESTINAL: Abdomen soft, non-tender, nondistended. MUSCULOSKELETAL: No cyanosis, or edema. SKIN: Warm and dry. NEURO: No focal neurological deficits. Results - Labs CBC & Chem 7: 03/01/18 06:23 03/01/18 06:23 Laboratory Results - last 24 hr 03/01/18 03/01/18 06:23 06:23 WBC 6.0 RBC 4.05 L Hgb 13.0 Hct 38.4 L MCV 94.7 MCH 32.1 MCHC 33.9 RDW 13.7 Plt Count 223 MPV 6.9 L Neut % (Auto) 84.5 H Lymph % (Auto) 12.7 Grand % (Auto) 2.3 Eos % (Auto) 0.1 Baso % (Auto) 0.4 Neut # (Auto) 5.1 Lymph # (Auto) 0.8 L Grand # (Auto) 0.1 Eos # (Auto) 0.0 Baso # (Auto) 0.0 WBC Differential . Differential Comment Auto diff final Sodium 139 Potassium 4.4 Chloride 107 Carbon Dioxide 23.6 Anion Gap 8 BUN 13 Creatinine 1.27 Estimated GFR 82 L Random Glucose 110 H Calcium 8.7 Total Bilirubin Less than 0.1 L AST 17 ALT 18 Alkaline Phosphatase 46 Total Protein 7.8 D Albumin 3.1 L Microbiology 02/27/18 12:45 Blood - Peripheral Aerobic Blood Culture - Preliminary No growth in 2 days 02/27/18 12:45 Blood - Peripheral Anaerobic Blood Culture - Preliminary No growth in 2 days Assessment and Plan - Plan 27-year-old male with AIDS admitted secondary to asthma exacerbation and pneumonia Continue steroids and nebulized treatments. Monitor for improvement in respiratory status prior to discharge. Patient still has significant wheezing and no tolerance of exertion. Acute asthma exacerbation Not yet improved Continue IV steroids Continue nebulized treatments Continue Pulmicort Community-acquired pneumonia Immunocompromised AIDS, HIV ID following Bactrim Nicotine dependence NicoDerm Patient counseled to quit Genital rash Swab screening for HSV ID following Oral thrush Nystatin continue Monitor for improvement DVT prophylaxis SCDs
[2018-03-02] MEDS: MethylPREDNISolone Sod Succinate Inj 40 MG/ML Vial IV.PUSH SCH ×4 (01:14→17:08)
[2018-03-02] MEDS ORDERED: Pharmacy Ordered Lab Info OTHER ONE (03:45)
[2018-03-02] MEDS: Heparin - SQ 10,000 UNITS/ML Vial SQ SCH ×2 (05:12→17:09)
[2018-03-02] MEDS: DESCOVY PO SCH (08:08)
[2018-03-02] MEDS: Nystatin Liq 500,000 UNIT/5 ML UDC SWISH-SWAL SCH ×4 (08:09→21:04)
[2018-03-02] MEDS: Tiotropium Bromide 18 MCG/ACT Inhaler INH SCH (08:10)
[2018-03-02] MEDS: Senna/Docusate Sodium 8.6/50 MG Tablet PO SCH ×2 (08:11→21:05)
--- NOTE | 2018-03-02 08:53 | P.PN ---
Subjective Interval history: Follow-up visit for asthma exacerbation in a patient with a history of AIDS. Patient seen and examined eating up in bed right after receiving breathing treatment. Patient continues to endorse shortness of breath and audible wheezing noted. He also reports ongoing dry cough, states he last saw Dr. Hidalgo in the hospital as well as when he left. He denies any fevers, chills, nausea, vomiting or diarrhea. Physical Exam Vital signs: Vital Signs 03/01/18 09:10 03/01/18 11:12 03/01/18 12:00 Temperature Pulse Rate 70 Respiratory Rate 15 Blood Pressure Pulse Oximetry 99 96 03/01/18 12:14 03/01/18 15:24 03/01/18 16:00 Temperature 98.5 F Pulse Rate 110 H 109 H 87 Respiratory Rate 20 15 16 Blood Pressure 108/51 L 125/66 Pulse Oximetry 96 99 98 03/01/18 19:29 03/01/18 20:00 03/01/18 23:06 Temperature 98.5 F Pulse Rate 85 96 H 92 H Respiratory Rate 24 17 24 Blood Pressure 140/62 Pulse Oximetry 100 96 03/01/18 23:51 03/02/18 03:17 03/02/18 04:00 Temperature 97.9 F 97.9 F Pulse Rate 80 80 76 Respiratory Rate 17 18 19 Blood Pressure 129/68 139/74 Pulse Oximetry 99 99 03/02/18 08:35 Temperature Pulse Rate 84 Respiratory Rate 22 Blood Pressure Pulse Oximetry 98 Intake & Output 03/01/18 03/02/18 03/02/18 18:59 06:59 18:59 Intake Total 450 / 450 Balance 450 / 450 Weight 53.3 kg Intake: Oral 450 / 450 Other: # Voids 1 Date of Last Bowel Movement 03/01/18 Narrative: GENERAL: NAD, A&Ox3 HEAD: Normocephalic. NECK: Supple, trachea midline. No lymphadenopathy. EYES: No scleral icterus. No injection or drainage. CARDIOVASCULAR: Regular rate and rhythm without murmurs, gallops, or rubs. RESPIRATORY: Breath sounds with inspiratory wheezes. No accessory muscle use. No crackles at bases. GASTROINTESTINAL: Abdomen soft, non-tender, nondistended. MUSCULOSKELETAL: No cyanosis, or edema. SKIN: Warm and dry. NEURO: No focal neurological deficits. Results - Labs CBC & Chem 7: 03/01/18 06:23 03/01/18 06:23 Microbiology 02/27/18 12:45 Blood - Peripheral Aerobic Blood Culture - Preliminary No growth in 2 days 02/27/18 12:45 Blood - Peripheral Anaerobic Blood Culture - Preliminary No growth in 2 days Assessment and Plan - Plan 27-year-old male with AIDS admitted secondary to asthma exacerbation and pneumonia Acute asthma exacerbation Not yet improved Continue IV steroids Continue nebulized treatments Continue Pulmicort Consult pulmonary services for further recommendations, appreciate assistance. Community-acquired pneumonia Immunocompromised AIDS, HIV ID following Antibiotics discontinued, follow clinically. Nicotine dependence Fely Reiterated cessation Genital rash Swab screening for HSV ID following Oral thrush Nystatin continue Monitor for improvement DVT prophylaxissubcu heparin Discussed Condition With: Discussed with patient and nursing staff
[2018-03-02] MEDS: valACYclovir 500 MG Tab PO SCH ×2 (11:06→21:05)
[2018-03-03] MEDS: MethylPREDNISolone Sod Succinate Inj 40 MG/ML Vial IV.PUSH SCH ×4 (01:01→17:56)
[2018-03-03] MEDS: Heparin - SQ 10,000 UNITS/ML Vial SQ SCH ×2 (04:27→17:56)
[2018-03-03] MEDS: Nystatin Liq 500,000 UNIT/5 ML UDC SWISH-SWAL SCH ×4 (09:35→22:42)
[2018-03-03] MEDS: valACYclovir 500 MG Tab PO SCH ×2 (09:36→22:43)
[2018-03-03] MEDS: DESCOVY PO SCH (09:36)
[2018-03-03] MEDS ORDERED: Ketorolac Inj 30 MG/ML (IVP) Vial IV.PUSH PRN (09:46)
[2018-03-03] MEDS: Tiotropium Bromide 18 MCG/ACT Inhaler INH SCH (09:49)
[2018-03-03] MEDS: Senna/Docusate Sodium 8.6/50 MG Tablet PO SCH ×2 (09:49→22:43)
--- NOTE | 2018-03-03 10:16 | MB ---
cc: Rocky Hidalgo MD DATE: 03/03/2018 REASON FOR CONSULTATION: Exacerbation of bronchial asthma. HISTORY OF PRESENT ILLNESS: The patient is a 27-year-old male with known history of bronchial asthma and positive for HIV. The patient is admitted with increasing shortness of breath, increasing chest wheeze, which he believes has gotten worse since he ran out of his inhalers and since then it has become progressively worse. He has Symbicort and Spiriva and p.r.n. albuterol, which he uses at home normally. Denies history of fever or chills. No hemoptysis. No TB, no industrial exposure. PAST MEDICAL HISTORY: Bronchial asthma, HIV infection, genital herpes. SOCIAL HISTORY: Does not smoke, does not drink. No TB; no industrial exposure. MEDICATIONS: Kindly review MAR for same. ALLERGIES: CUCUMBER. FAMILY HISTORY: Noncontributory. REVIEW OF SYSTEMS: A 12-point review of systems as per HPI and past history, otherwise negative. PHYSICAL EXAMINATION: VITAL SIGNS: Temperature 98, pulse 90, respirations 20, blood pressure 120/70, oxygen saturation 95% room air. HEENT: Unremarkable. Eyes without icterus. NECK: No adenopathy. No thyroid enlargement. Central trachea. CHEST: Few scattered wheezes bilaterally. CARDIAC: PMI distant. S1, S2 audible. No murmur. No rub. ABDOMEN: Lax, normal bowel sounds. EXTREMITIES: No clubbing, cyanosis or edema. LABORATORY DATA: White count 2.7, hemoglobin 13, hematocrit 39, platelets 220,000. Sodium 138, potassium 4.1, BUN 18, creatinine 1.3. IMAGING: Chest x-ray: Right basilar atelectasis, question infiltrate. IMPRESSION: 1. Exacerbation of bronchial asthma. 2. Human immunodeficiency virus positive. 3. Atelectasis, infiltrate right lung base. PLAN: The patient seems improving at present. Would continue his bronchodilator therapy. He is followed by infectious disease as well. We will obtain a followup chest x-ray, will re-prescribe his medication when he goes home and I have clearly explained to him that he needs to use his medication on a regular basis while at home to avoid a repeat hospitalization. I do thank you for asking me to partake in Mr. Oakley's care. MD Rajiv Hilliard , 08:57 AM , 09:06 AM
--- NOTE | 2018-03-03 13:37 | P.PN ---
Subjective Interval history: Follow-up visit for asthma exacerbation. Patient seen and examined sitting up in bed in no acute distress. He reports that he continues to have shortness of breath with exertion and feels tired and as if he is "running a marathon". He continues to have intermittent nonproductive cough. Patient with complaints of rib pain with coughing as well as indigestion denies any fevers, chills, nausea , vomiting or diarrhea. Physical Exam Vital signs: Vital Signs 03/02/18 16:00 03/02/18 16:07 03/02/18 20:00 Temperature 98.4 F 97.8 F Pulse Rate 94 H 79 81 Respiratory Rate 17 18 18 Blood Pressure 152/77 H 136/69 Pulse Oximetry 96 97 03/02/18 20:12 03/02/18 23:44 03/03/18 00:00 Temperature 98.6 F Pulse Rate 77 79 102 H Respiratory Rate 16 16 18 Blood Pressure 135/72 Pulse Oximetry 96 98 03/03/18 03:27 03/03/18 03:45 03/03/18 08:00 Temperature 98.1 F 97.8 F Pulse Rate 78 95 H 82 Respiratory Rate 16 18 16 Blood Pressure 150/66 H 135/65 Pulse Oximetry 97 100 03/03/18 09:14 03/03/18 12:00 Temperature 98.5 F Pulse Rate 80 109 H Respiratory Rate 16 16 Blood Pressure 125/58 L Pulse Oximetry 98 98 Intake & Output 03/02/18 03/03/18 03/03/18 18:59 06:59 18:59 Intake Total 840 / 840 120 / 120 Output Total 800 / 800 200 / 200 Balance 40 / 40 -80 / -80 Weight 54.1 kg Intake: Oral 840 / 840 120 / 120 Output: Urine 800 / 800 200 / 200 Other: Date of Last Bowel Movement 03/02/18 03/02/18 03/02/18 # Bowel Movements 0 Narrative: GENERAL: NAD, A&Ox3 HEAD: Normocephalic. NECK: Supple, trachea midline. No lymphadenopathy. EYES: No scleral icterus. No injection or drainage. CARDIOVASCULAR: Regular rate and rhythm without murmurs, gallops, or rubs. RESPIRATORY: Breath sounds with inspiratory and expiratory wheezing throughout. No accessory muscle use. No crackles at bases. GASTROINTESTINAL: Abdomen soft, non-tender, nondistended. MUSCULOSKELETAL: No cyanosis, or edema. SKIN: Warm and dry. NEURO: No focal neurological deficits. Results - Labs CBC & Chem 7: 03/01/18 06:23 03/01/18 06:23 Laboratory Results - last 24 hr 02/28/18 19:28 Absolute Lymphocytes 826 L % CD3 Cells 88 H Absolute CD3 Count 723 L % CD3-/CD16+/CD56+ 8 Abs CD3-/CD16+/CD56+ 65 L % CD4 Cells 9 L Absolute CD4 Count 71 L T-Help/Suppress Ratio 0.10 L % CD8 Cells 77 H Absolute CD8 Count 619 % CD19 Cells 4 L Absolute CD19 Count 34 L Microbiology 02/27/18 12:45 Blood - Peripheral Aerobic Blood Culture - Preliminary No growth in 4 days 02/27/18 12:45 Blood - Peripheral Anaerobic Blood Culture - Preliminary No growth in 4 days Assessment and Plan - Plan 27-year-old male with AIDS admitted secondary to asthma exacerbation and pneumonia Acute asthma exacerbation Not yet improved, continues to have SOB with exertion Continue IV steroids Continue nebulized treatments Continue Pulmicort Pulmonary following, appreciate assistance. As needed Toradol for costochondritis likely due to coughing. Community-acquired pneumonia Immunocompromised AIDS, HIV ID following Antibiotics discontinued, follow clinically. Nicotine dependence Fely Reiterated cessation Genital rash Swab screening for HSV ID following Oral thrush Nystatin continue Monitor for improvement DVT prophylaxis/ GIsubcu heparin/ Pepcid Discussed Condition With: Patient and director trust Planning: DC home when Asthma exacerbation improved or resolved.
[2018-03-03] MEDS: Famotidine 20 MG Tablet PO SCH (22:42)
[2018-03-04] MEDS: MethylPREDNISolone Sod Succinate Inj 40 MG/ML Vial IV.PUSH SCH ×2 (00:10→05:26)
[2018-03-04] MEDS: Heparin - SQ 10,000 UNITS/ML Vial SQ SCH ×2 (05:26→17:36)
--- NOTE | 2018-03-04 05:31 | XR ---
EXAM DATE: 03/04/2018 5:12 AM EST AGE/SEX: 27 years / Male INDICATIONS: COPD CLINICAL DATA: This is the patient's subsequent encounter. Patient reports that signs and symptoms h ave been present for 4 - 6 days and indicates a pain score of 6/10. MEDICAL/SURGICAL HISTORY: Chronic obstructive pulmonary disease. None. COMPARISON: [facility] – [place], CHEST 1V SINGLE AP, 02/27/2018. . FINDINGS: Portable AP view of the chest demonstrates a normal-sized cardiac silhouette. No effusion, consolidat ion, or pneumothorax is identified. The opacity previously described at the right lung base is no maureen marie visualized. The bones and soft tissues demonstrate no acute finding. CONCLUSION: No acute cardiopulmonary abnormality is identified. Electronically signed by: Carlyle Yan MD 03/04/2018 5:29 AM EST
[2018-03-04] MEDS: Famotidine 20 MG Tablet PO SCH ×2 (09:56→21:34)
[2018-03-04] MEDS: DESCOVY PO SCH (09:56)
[2018-03-04] MEDS: Senna/Docusate Sodium 8.6/50 MG Tablet PO SCH ×2 (09:56→21:34)
[2018-03-04] MEDS: valACYclovir 500 MG Tab PO SCH ×2 (09:56→21:34)
[2018-03-04] MEDS: Nystatin Liq 500,000 UNIT/5 ML UDC SWISH-SWAL SCH ×4 (09:56→21:34)
--- NOTE | 2018-03-04 09:59 | P.PN ---
Subjective Interval history: Follow-up visit for asthma exacerbation on AIDS patient. Patient seen and examined sitting up in bed in no acute distress. He reports that he will try to ambulate today in the [place]. Intermittent coughing with some shortness of breath although does report this has improved somewhat. Patient voices concerns over home situation as he is living across the [address] from his father and knows that the environment in which he is staying is not safe given his medical condition and asthma. Patient also reports that he works in [employer] with his father and understands that this may trigger asthma flareups. Extensive conversation regarding modifications as well as the importance of keeping up with his medications and regular pulmonary follow-up. Physical Exam Vital signs: Vital Signs 03/03/18 12:00 03/03/18 16:10 03/03/18 18:34 Temperature 98.5 F 98.2 F Pulse Rate 109 H 76 98 H Respiratory Rate 16 18 16 Blood Pressure 125/58 L 140/71 Pulse Oximetry 98 98 96 03/03/18 19:40 03/03/18 20:29 03/03/18 22:50 Temperature 97.8 F Pulse Rate 89 98 H Respiratory Rate 18 16 20 Blood Pressure 123/59 L Pulse Oximetry 95 03/04/18 00:00 03/04/18 02:30 03/04/18 07:00 Temperature 97.7 F Pulse Rate 80 84 Respiratory Rate 20 17 12 Blood Pressure 129/64 Pulse Oximetry 97 03/04/18 08:58 Temperature Pulse Rate Respiratory Rate Blood Pressure Pulse Oximetry 97 Intake & Output 03/03/18 03/04/18 03/04/18 18:59 06:59 18:59 Intake Total 450 / 450 Balance 450 / 450 Weight 54.2 kg Intake: Oral 450 / 450 Other: # Voids 4 Date of Last Bowel Movement 03/02/18 03/03/18 # Bowel Movements 0 Narrative: GENERAL: NAD, A&Ox3 HEAD: Normocephalic. NECK: Supple, trachea midline. No lymphadenopathy. EYES: No scleral icterus. No injection or drainage. CARDIOVASCULAR: Regular rate and rhythm without murmurs, gallops, or rubs. RESPIRATORY: Breath sounds with inspiratory and expiratory wheezing throughout, improved. No accessory muscle use. No crackles at bases. GASTROINTESTINAL: Abdomen soft, non-tender, nondistended. MUSCULOSKELETAL: No cyanosis, or edema. SKIN: Warm and dry. NEURO: No focal neurological deficits. Results - Labs CBC & Chem 7: 03/01/18 06:23 03/01/18 06:23 Laboratory Results - last 24 hr 02/28/18 19:28 HIV RNA copies/mL Ultra 71477.0 H HIV RNA logcopies/mL Ult 4.98 H Microbiology 02/27/18 12:45 Blood - Peripheral Aerobic Blood Culture - Preliminary No growth in 4 days 02/27/18 12:45 Blood - Peripheral Anaerobic Blood Culture - Preliminary No growth in 4 days - Imaging Impressions Chest X-Ray 03/04/18 09:02 CONCLUSION: No acute cardiopulmonary abnormality is identified. Assessment and Plan - Plan 27-year-old male with AIDS admitted secondary to asthma exacerbation and pneumonia Acute asthma exacerbation Somewhat improved Continue IV steroids, weaning, transition to orals tomorrow. Continue nebulized treatments Symbicort Pulmonary following, appreciate assistance. As needed Toradol for costochondritis likely due to coughing. Community-acquired pneumonia Immunocompromised AIDS, HIV ID following Antibiotics discontinued, follow clinically. Nicotine dependence Fely Reiterated cessation Oral thrush Nystatin continue Monitor for improvement DVT prophylaxis/ GIsubcu heparin/ Pepcid Discussed Condition With: Patient and designer writer Planning: Likely DC tomorrow as long as stable overnight.
--- NOTE | 2018-03-04 12:46 | P.PNPL ---
Subjective Interval history: Patient is lying in be din NAD. Afebrile. Physical Exam Vital signs: Vital Signs 03/03/18 16:10 03/03/18 18:34 03/03/18 19:40 Temperature 98.2 F 97.8 F Pulse Rate 76 98 H 89 Respiratory Rate 18 16 18 Blood Pressure 140/71 123/59 L Pulse Oximetry 98 96 95 03/03/18 20:29 03/03/18 22:50 03/04/18 00:00 Temperature 97.7 F Pulse Rate 98 H 80 Respiratory Rate 16 20 20 Blood Pressure 129/64 Pulse Oximetry 97 03/04/18 02:30 03/04/18 07:00 03/04/18 08:00 Temperature 97.5 F L Pulse Rate 84 78 Respiratory Rate 17 12 12 Blood Pressure 144/80 H Pulse Oximetry 98 03/04/18 08:58 Temperature Pulse Rate Respiratory Rate Blood Pressure Pulse Oximetry 97 Intake & Output 03/03/18 03/04/18 03/04/18 18:59 06:59 18:59 Intake Total 450 / 450 Balance 450 / 450 Weight 54.2 kg Intake: Oral 450 / 450 Other: # Voids 4 Date of Last Bowel Movement 03/02/18 03/03/18 03/03/18 # Bowel Movements 0 - Constitutional no acute distress - Routine HEENT Exam Head: Present: normocephalic, atraumatic Eye: Present: EOMI, PERRL, normal accommodation ENT: Present: mucous membranes moist - Routine Neck Exam Present: supple, full ROM, trachea midline - Routine Respiratory Exam Present: wheezes - Routine Cardiovascular Exam Present: RRR, S1, S2 - Routine Abdominal Exam Present: soft, normoactive bowel sounds - Routine Extremities Exam Present: full ROM, pulses intact - Routine Skin Exam Present: intact, dry - Routine Neurological Exam Present: alert, oriented X3, CN II-XII intact Assessment and Plan - Plan 1) Bronchial Asthma exacerbation 2)AIDS-CD4: 71 3)Tobacco use Plan Oxygen PRN keep sats >92% Bronchodilators ( DuoNeb, Pulmicort) Continue Solumederol 40mg IV Q12 CXR: No acute disease Off abx, ID is following. Monitor for signs of infections ( Fever, WBC) GI/DVT prophylaxis Continue treatment plan
[2018-03-04] MEDS ORDERED: Montelukast 10 MG Tablet PO SCH (21:00)
[2018-03-04] MEDS ORDERED: MethylPREDNISolone Sod Succinate Inj 40 MG/ML Vial IV.PUSH SCH (21:00)
[2018-03-04] MEDS ORDERED: Budesonide-Formoterol 160/4.5 MCG 6 GM Inhaler INH SCH (21:00)
[2018-03-05] MEDS: Heparin - SQ 10,000 UNITS/ML Vial SQ SCH (06:07)
--- NOTE | 2018-03-05 08:17 | P.PNPL ---
Subjective Interval history: Patient is lying in bed in NAD. Afebrile. On room air oxygen when seen. Physical Exam Vital signs: Vital Signs 03/04/18 08:58 03/04/18 12:00 03/04/18 16:00 Temperature 97.8 F 98.0 F Pulse Rate 88 84 Respiratory Rate 13 13 Blood Pressure 124/69 148/83 H Pulse Oximetry 97 97 99 03/04/18 16:10 03/04/18 20:00 03/05/18 00:00 Temperature 98.5 F 97.5 F L Pulse Rate 82 86 85 Respiratory Rate 14 20 20 Blood Pressure 118/56 L 131/58 L Pulse Oximetry 96 97 Intake & Output 03/04/18 03/05/18 03/05/18 18:59 06:59 18:59 Intake Total 480 / 480 480 / 480 Balance 480 / 480 480 / 480 Weight 65 kg Intake: Oral 480 / 480 480 / 480 Other: # Voids 3 3 Date of Last Bowel Movement 03/03/18 03/03/18 # Bowel Movements 3 1 - Constitutional no acute distress - Routine HEENT Exam Head: Present: normocephalic, atraumatic Eye: Present: EOMI, PERRL, normal accommodation, conjunctivae pink ENT: Present: mucous membranes moist - Routine Neck Exam Present: supple, full ROM, trachea midline - Routine Respiratory Exam Present: CTA bilaterally - Routine Cardiovascular Exam Present: RRR, S1, S2 - Routine Abdominal Exam Present: soft, normoactive bowel sounds - Routine Extremities Exam Present: full ROM, pulses intact - Routine Skin Exam Present: intact, dry - Routine Neurological Exam Present: alert, oriented X3, CN II-XII intact - Routine Psychiatric Exam Present: normal affect Assessment and Plan - Plan 1) Bronchial Asthma exacerbation 2)AIDS-CD4: 71 3)Tobacco use Plan Oxygen PRN keep sats >92% Bronchodilators ( DuoNeb, Pulmicort), Singular 10mg qhs Continue Steroids-switched to Prednisone 20mg daily CXR 03/04: No acute disease Off abx, ID is following. Monitor for signs of infections ( Fever, WBC) GI/DVT prophylaxis Continue treatment plan
[2018-03-05] MEDS ORDERED: predniSONE 20 MG Tablet PO SCH (09:00)
--- NOTE | 2018-03-05 09:39 | P.DS ---
Date of admission: 02/28/18 11:52 Primary care physician: No Primary Care Physician Brief History from admission: 27-year-old gentleman who has frequent hospital admissions and presented with worsening shortness of breath. He has poorly controlled asthma, states he has been out of his inhalers other than his emergency inhalers. He has had worsening shortness of breath and wheeze for 3 days, associated with productive cough of greenish sputum. He also has been having some fevers at home, as well as diarrhea with greenish stools for 3 weeks. He was recently treated in the emergency room on 02/08 for similar symptoms, given Symbicort, Spiriva, and prednisone Dosepak. He has since run out of Symbicort and Spiriva, which he states has helped him in the past. 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 He is HIV positive with reported CD4 count less than 200 and history of noncompliance with antiretrovirals, although he states he is taking them now. Last hospitalization was ICU 01/26/2018 for status asthmaticus. DS: Medications - Discharge Medications Prescriptions: albuterol sulfate [Ventolin HFA] 2 puff INHALATION Q4H PRN #1 inhaler PRN Reason: Shortness Of Breath budesonide-formoterol [Symbicort] 2 puff INHALATION Q12H #1 inhaler ipratropium-albuterol 1 amp NEB Q4HR NEB PRN #1 box PRN Reason: Shortness Of Breath montelukast 10 mg PO HS #30 tab prednisone See Taper PO UD #10 tab valacyclovir [Valtrex] 1,000 mg PO Q12HR #120 tab DS: Summary Hospital Course: 27-year-old male with history of AIDS hospitalized due to asthma exacerbation. Patient was seen and evaluated by infectious disease for possible pneumonia, initially he was started on IV antibiotics however these were discontinued. Patient remained afebrile with no leukocytosis, blood cultures with no growth. Patient was treated with inhalers including short-acting/long-acting bronchodilators and inhaled corticosteroids. Patient was also treated with IV Solu-Medrol and pulmonary services was consulted for further evaluation. Patient required oxygen for several days during his hospitalization. He is seen and examined this morning sitting up in bed in no acute distress, not requiring oxygen. Patient reports that he was able to ambulate around the [place] yesterday with minimal shortness of breath. Reports relief with nebulizer treatments. Denies any fevers, chills, nausea, vomiting or diarrhea. Extensive discussion with patient regarding importance of medication compliance. Also discussed the importance of following up with pulmonary services within a week after his discharge, verbalized understanding. Smoking cessation once again reiterated. Patient will be provided with prescription for his medications as well as tapered dose of steroids, has met maximum benefits of hospitalization. Discharge home today, patient is agreeable. - Time Spent with Patient Total time spent providing and/or coordinating discharge services: Less than 30 minutes - Quality: VTE Deep Vein Thrombosis/Pulmonary Embolism Present on Admission: No Exam Vital signs: Vital Signs 03/04/18 12:00 03/04/18 16:00 03/04/18 16:10 Temperature 97.8 F 98.0 F Pulse Rate 88 84 82 Respiratory Rate 13 13 14 Blood Pressure 124/69 148/83 H Pulse Oximetry 97 99 03/04/18 20:00 03/05/18 00:00 03/05/18 08:49 Temperature 98.5 F 97.5 F L Pulse Rate 86 85 88 Respiratory Rate 20 20 16 Blood Pressure 118/56 L 131/58 L Pulse Oximetry 96 97 98 Intake & Output 03/04/18 03/05/18 03/05/18 18:59 06:59 18:59 Intake Total 480 / 480 480 / 480 Balance 480 / 480 480 / 480 Weight 65 kg Intake: Oral 480 / 480 480 / 480 Other: # Voids 3 3 Date of Last Bowel Movement 03/03/18 03/03/18 # Bowel Movements 3 1 Narrative: GENERAL: NAD, A&Ox3 HEAD: Normocephalic. NECK: Supple, trachea midline. No lymphadenopathy. EYES: No scleral icterus. No injection or drainage. CARDIOVASCULAR: Regular rate and rhythm without murmurs, gallops, or rubs. RESPIRATORY: Scant inspiratory and expiratory wheezing throughout, improved. No accessory muscle use. No crackles or rhonchi. GASTROINTESTINAL: Abdomen soft, non-tender, nondistended. MUSCULOSKELETAL: No cyanosis, or edema. SKIN: Warm and dry. NEURO: No focal neurological deficits. Results Procedures completed during hospitalization: None - Impressions ITS Impressions Soft Tissue Neck X-Ray 02/27/18 14:00 CONCLUSION: Negative examination. Chest X-Ray 03/04/18 09:02 CONCLUSION: No acute cardiopulmonary abnormality is identified. Discharge Plan - Discharge Disposition Patient Disposition: 01 Discharge Home - Discharge Condition Condition: Good - Discharge Order Discharge Orders: Discharge Order (Routine); Ordered 03/05/18 Ordered By: Balta Mcgarry - Physicians Team Primary Care Provider: Primary Care Suze Tsai Attending Provider: Javi Virgen Other Providers: Gay Mak MD ; Rocky Hidalgo MD
[2018-03-05] MEDS: DESCOVY PO SCH (09:54)
[2018-03-05] MEDS: Nystatin Liq 500,000 UNIT/5 ML UDC SWISH-SWAL SCH (09:54)
[2018-03-05] MEDS: valACYclovir 500 MG Tab PO SCH (09:54)
[2018-03-05] MEDS: Senna/Docusate Sodium 8.6/50 MG Tablet PO SCH (09:54)
[2018-03-05] MEDS: Famotidine 20 MG Tablet PO SCH (09:54)
== END 2018-03-05 10:42 | disposition home or self-care (01) ==
LOC: NEDA 11:47 → NEPD 11:47 → NEDA 17:08 → NEPFCDU 17:15 → N06 03-02 04:29
PROVIDERS: ADMIT Internal Medicine; ATTEND Internal Medicine

== ENCOUNTER 2018-05-19 14:20 | Inpatient (IN) ==
[2018-05-19] MEDS ORDERED: MethylPREDNISolone Sod Succinate Inj 40 MG/ML Vial IM ONE (15:08)
--- NOTE | 2018-05-19 15:12 | ED ---
HPI General Chief complaint: Respiratory Symptoms Stated complaint: respiratory Time Seen by Provider: 05/19/18 15:04 History of Present Illness HPI narrative: This patient complains of shortness of breath and wheezing and congestion. He has been coughing. He says he took his temperature at home is 101 degrees. He is not having chest pain or presyncopal symptoms. He has long- standing history of asthma that requires hospitalization sometimes. Duration 3 days. He has been using a nebulizer at home which helps temporarily. No exacerbating factors. The nebulizer temporarily helps. Related Data Home Medications Medication Instructions Recorded Confirmed emtricitabine-tenofovir alafen 1 tab PO DAILY 11/29/17 05/19/18 [Descovy] Previous Rx's Medication Instructions Recorded dolutegravir [Tivicay] 50 mg PO DAILY #0 tab 12/08/17 albuterol sulfate [Ventolin HFA] 2 puff INHALATION Q4H PRN #1 02/28/18 inhaler budesonide-formoterol [Symbicort] 2 puff INHALATION Q12H #1 inhaler 02/28/18 ipratropium-albuterol 1 amp NEB Q4HR NEB PRN #1 box 03/05/18 montelukast 10 mg PO HS #30 tab 03/05/18 sulfamethoxazole-trimethoprim 1 tab PO EVERY OTHER DAY 30 Days 05/07/18 #15 tab Allergies Allergy/AdvReac Type Severity Reaction Status Date / Time cucumber Allergy Severe Hives Verified 05/19/18 15:27 cucumber body wash Allergy Severe Hives/ Uncoded 04/30/18 21:39 [facility] Medical History Medical History Asthma (Acute) AIDS (Acute) Gonorrhea (Acute) Pneumonia (Acute) Surgical History Surgical History No history of previous surgery (Acute) Family History Family History Father Hypertension Social History Social History Substance History: Active Abuse Second Hand Smoke Exposure: No Smoking Status: Current every day smoker Tobacco Type: Cigarettes Cigarettes Per Day: 6 Smoking End Date: quite 2-3 weeks ago. How Often Do You Have a Drink Containing Alcohol: Never Recent Travel in [place] within the Last 8 Weeks: No Recent Out of Country Travel within the Last 8 Weeks: No Exam Narrative Exam Narrative: GENERAL: Well-nourished, well-developed patient with active wheezing . SKIN: Focused skin assessment reveals no rash and nodules. Skin is Warm and dry. HEAD: Atraumatic. Normocephalic. EYES: Pupils equal and round. No scleral icterus. No injection or drainage. ENT: No nasal bleeding or discharge. Mucous membranes pink and moist. NECK: Trachea midline. No JVD. CARDIOVASCULAR: Regular rate and rhythm. No murmur appreciated. RESPIRATORY: No accessory muscle use. Diffuse expiratory wheezing without crackles. Breath sounds equal bilaterally. GASTROINTESTINAL: Abdomen soft, non-tender, nondistended. Hepatic and splenic margins not palpable. MUSCULOSKELETAL: No obvious deformities. No clubbing. No cyanosis. No edema. NEUROLOGICAL: Awake and alert. No obvious cranial nerve deficits. Motor grossly within normal limits. Normal speech. PSYCHIATRIC: Appropriate mood and affect; insight and judgment normal. Course Initial Documented Vital Signs Temperature 98.7 F 05/19/18 14:30 Pulse Rate 88 05/19/18 14:30 Respiratory Rate 25 H 05/19/18 14:30 Blood Pressure 129/75 05/19/18 14:30 Pulse Oximetry 96 05/19/18 14:30 Last Documented Vital Signs Temperature 98.7 F 05/19/18 14:30 Pulse Rate 88 05/19/18 15:23 Respiratory Rate 24 05/19/18 15:23 Blood Pressure 129/75 05/19/18 14:30 Pulse Oximetry 96 05/19/18 14:30 Medical Decision Making [facility] Narrative Medical decision making narrative: This is a 28-year-old male with advanced asthma who unfortunately continues to smoke. He is having active wheezing now. I have ordered a set of 3 nebulizer treatments as well as chest x-ray and a Solu -Medrol injection. After 3 nebulizer treatments the patient is no better. He is wheezy short of breath and will need observation for acute exacerbation of asthma. I have ordered IV placement and lab studies. I placed a call to the hospital physician to discuss. Medical Screen Exam Complete: Yes Emergency Medical Condition: Yes Discharge Plan Discharge Disposition Patient Disposition: ED Admit(ED Internal Use Only) Discharge Details Diagnosis: Asthma exacerbation Physicians Team ED Provider: Jaya Kim Primary Care Provider: UNKNOWN, Rxs /Orders / Referrals /Forms Prescriptions: No Action albuterol sulfate [Ventolin HFA] 90 mcg/actuation Hfa Aerosol Inhaler 2 puff INHALATION Q4H PRN (Reason: Shortness Of Breath) Qty: 1 RF: 23 budesonide-formoterol [Symbicort] 160-4.5 mcg/actuation Hfa Aerosol Inhaler 2 puff INHALATION Q12H Qty: 1 RF: 11 ipratropium-albuterol 0.5 mg-3 mg(2.5 mg base)/3 mL Solution For Nebulization 1 amp NEB Q4HR NEB PRN (Reason: Shortness Of Breath) Qty: 1 RF: 0 montelukast 10 mg Tablet 10 mg PO HS Qty: 30 RF: 0 emtricitabine-tenofovir alafen [Descovy] 200-25 mg Tablet 1 tab PO DAILY RF: 0 dolutegravir [Tivicay] 25 mg Tablet 50 mg PO DAILY Qty: 0 RF: 0 sulfamethoxazole-trimethoprim 800-160 mg Tablet 1 tab PO EVERY OTHER DAY 30 Days Qty: 15 RF: 0 Discharge Interventions Interventions: Vital Signs Last Done: 05/19/18 14:30 Status ED Status: Admitted Observation Patient
--- NOTE | 2018-05-19 16:35 | XR ---
EXAM DATE: 05/19/2018 4:31 PM EST AGE/SEX: 28 years / Male INDICATIONS: Cough. Wheezing. Weakness. CLINICAL DATA: This is the patient's initial encounter. Patient reports that signs and symptoms have been present for 2 days and indicates a pain score of 8/10. MEDICAL/SURGICAL HISTORY: None. None. [place] [facility] [place]. . FINDINGS: The lungs are clear without infiltrate, nodule, or mass. There is no appreciable pleural e ffusion for technique. Heart and mediastinum are unremarkable. CONCLUSION: No acute cardiopulmonary disease. Electronically signed by: Nuria Stephenson MD Board Certified Radiologist 05/19/2018 4:34 PM EST
[2018-05-19] MEDS ORDERED: Acetaminophen 325 MG Tablet PO PRN (16:54)
[2018-05-19 17:16] LABS: Baso % (Auto) 1.1 % (0.0-2.0); Eos # (Auto) 0.4 th/mm3 (0.0-0.4); Eos % (Auto) 9.5 % (0.0-4.0); Hematocrit 42.4 % (39.0-51.0); Hemoglobin 14.5 gm/dL (13.0-17.0); Lymph # (Auto) 1.9 th/mm3 (1.0-4.8); Lymph % (Auto) 51.9 % (9.0-44.0); Mean Corpuscular HGB Conc 34.2 % (32.0-36.0); Mean Corpuscular Hemoglobin 32.3 pg (27.0-34.0); Mean Corpuscular Volume 94.6 fL (80.0-100.0); Mean Platelet Volume 6.5 fL (7.0-11.0); Mono # (Auto) 0.3 th/mm3 (0.0-0.9); Mono % (Auto) 6.9 % (0.0-8.0); Neut # (Auto) 1.2 th/mm3 (1.8-7.7); Neut % (Auto) 30.6 % (16.0-70.0); Platelet Count 212 th/mm3 (150-450); Red Blood Count 4.48 mil/mm3 (4.50-5.90); Red Cell Distribution Width 14.7 % (11.6-17.2); White Blood Count 3.8 th/mm3 (4.0-11.0)
[2018-05-19 17:46] LABS: Calcium 8.4 mg/dL (8.5-10.1); Carbon Dioxide 26.7 meq/L (21.0-32.0)
--- NOTE | 2018-05-19 18:29 | P.HPIM ---
History of Present Illness Primary Care Physician: UNKNOWN History of Present Illness: 28-year-old male with a history of asthma and AIDS, presents to the ER with an asthma exacerbation has lasted for 2 days. He states that he has been having low-grade fevers and night sweats at home. He is on an empiric prophylactic doses of Bactrim, Diflucan, doxycycline, but none of these seem to stave off his exacerbation which seems to be related to upper respiratory infection. He was hospitalized 1 month ago and his CD4 count from May 01 shows count of 40 which is below 200 qualifying him for AIDS status. He has been slow to respond to treatments in the ER with Solu-Medrol and duo nebs. I am increasing his therapy to scheduled duo nebs, Solu-Medrol continued , inhaled budesonide. I am also adding empiric coverage with IV Zosyn and continuing Bactrim p.o. and Diflucan. He was unaware that he had AIDS but did only start his to antiretroviral medicines approximately 1 month ago when he was told his CD4 count was very low. He has some mild diarrhea, otherwise denies any nausea or vomiting. He has no urinary symptoms. He has no cardiac symptoms per Review of Systems Review of Systems: all other systems reviewed are negative [facility] Medical History Medical History Asthma (Acute) AIDS (Acute) Gonorrhea (Acute) Pneumonia (Acute) Surgical History Surgical History No history of previous surgery (Acute) Family History Family History Father Hypertension Social History Social History Substance History: Active Abuse Second Hand Smoke Exposure: Yes Smoking Status: Current some day smoker Tobacco Type: Cigarettes Cigarettes Per Day: 6 Smoking End Date: quite 2-3 weeks ago. How Often Do You Have a Drink Containing Alcohol: 2 to 4 times a month Recent Travel in [facility] [place] within the Last 8 Weeks: No Recent Out of Country Travel within the Last 8 Weeks: No Substance Abuse Detail Marijuana: Substance Use Status: Active Route Used Substance Abuse: Inhalation Substance Frequency: 6x per day Reason for Use: Feels Good Immunization History Tetanus Immunization: Unsure Medications and Allergies Allergies Allergy/AdvReac Type Severity Reaction Status Date / Time cucumber Allergy Severe Hives Verified 05/19/18 15:27 cucumber body wash Allergy Severe Hives/ Uncoded 04/30/18 21:39 Home Medications Medication Instructions Recorded Confirmed Type emtricitabine-tenofovir alafen 1 tab PO DAILY 11/29/17 05/19/18 History [Descovy] doxycycline hyclate 100 mg PO BID 05/19/18 05/19/18 History metronidazole 500 mg PO BID 05/19/18 05/19/18 History valacyclovir 500 mg PO Q12H 05/19/18 05/19/18 History Active Medications: Active Medications Acetaminophen (Tylenol) 650 mg PO Q4H PRN PRN Reason: Temp > 100.4 Al Hydroxide/Mg Hydroxide (Milk Of Hector Koenig) 30 ml PO Q12H PRN PRN Reason: Mild Constipation Albuterol (Duoneb Neb (Sarah)) 1 ampul NEB Q4HR NEB SARAH Budesonide (Pulmocort Respule Neb) 0.5 mg NEB Q12HR NEB SARAH Piperacillin/Tazobactam/Dextrose (Zosyn 3.375 Gm Premix) 3.375 gm in 50 mls @ 100 mls/hr IV.SIG Q8H SARAH Melatonin (Melatonin) 5 mg PO HS [facility] Methylprednisolone Sodium Succinate (Solumedrol Inj) 60 mg IV.PUSH Q12HR SARAH Metronidazole (Flagyl) 500 mg PO BID SARAH Montelukast Sodium (Singulair) 10 mg PO HS [facility] Non-Formulary Medication (Dolutegravir [Tivicay]) 50 mg PO DAILY [facility] Non-Formulary Medication (Emtricitabine-Tenofovir Alafen [Descovy]) 1 tab PO DAILY [facility] Ondansetron HCl (Zofran Inj) 4 mg IV.PUSH Q6H PRN PRN Reason: NAUSEA OR VOMITING Sodium Chloride (Ns Flush) 2 ml IV.FLUSH BID [facility] Sodium Chloride (Ns Flush) 2 ml IV.FLUSH PRN PRN PRN Reason: FLUSH AFTER USING IV ACCESS Trimethoprim/Sulfamethoxazole (Bactrim Ds) 1 tab PO Q12HR SARAH Valacyclovir HCl (Valtrex) 500 mg PO Q12H SARAH Physical Exam Vital signs: Vital Signs 05/19/18 14:30 05/19/18 15:23 05/19/18 16:55 Temperature 98.7 F Pulse Rate 88 88 94 H Respiratory Rate 25 H 24 24 Blood Pressure 129/75 132/76 Pulse Oximetry 96 96 Intake & Output 05/18/18 05/19/18 05/19/18 18:59 06:59 18:59 Weight 145 kg Narrative: GENERAL: AAOx3, no acute distress, adequate nutrition SKIN: Warm and dry, no rashes. HEAD: Atraumatic. Normocephalic. EYES: Pupils equal, round, reactive to light. No scleral icterus. No injection or drainage. ENT: No nasal bleeding or discharge. Moist mucous membranes. Nonerythematous oropharynx. NECK: Trachea midline. No JVD. Thyroid size within normal limits. CARDIOVASCULAR: Regular rate and rhythm. No murmur, no gallops, no rubs. RESPIRATORY: Wheezing and rales throughout with diminished bilateral bases GASTROINTESTINAL: Abdomen soft, non-tender, nondistended, normal active bowel sounds. Hepatic and splenic margins not palpable. MUSCULOSKELETAL: Extremities without clubbing or cyanosis. No obvious deformities. No edema. NEUROLOGICAL: Awake and alert. No obvious cranial nerve deficits. Motor grossly within normal limits. No focal deficits. Five out of 5 muscle strength in the arms and legs. Normal speech. PSYCHIATRIC: Appropriate mood and affect; insight and judgment normal. Results Labs CBC & Chem 7: 05/19/18 16:49 05/19/18 16:49 Imaging Impressions Chest X-Ray 05/19/18 15:08 CONCLUSION: No acute cardiopulmonary disease. Caprini VTE Risk Assessment Caprini VTE Risk Assessment: Moderate/High Risk (score >= 2) Caprini Risk Assessment Model: Point Value = 1 Point Value = 2 Point Value = 3 Point Value = 5 Age 41-60 Minor surgery BMI > 25 kg/m2 Swollen legs Varicose veins or History of unexplained or recurrent spontaneous Oral contraceptives or hormone replacement Sepsis (< 1 month) Serious lung disease, including pneumonia (< 1 month) Abnormal pulmonary function Acute myocardial infarction Congestive heart failure (< 1 month) History of inflammatory bowel disease Medical patient at bed rest Age 61-74 Arthroscopic surgery Major open surgery (> 45 min) Laparoscopic surgery (> 45 min) Malignancy Confined to bed (> 72 hours) Immobilizing plaster cast Central venous access Age >= 75 History of VTE Family history of VTE Factor V Leiden Prothrombin [id number] Lupus anticoagulant Anticardiolipin antibodies Elevated serum homocysteine Heparin-induced thrombocytopenia Other congenital or acquired thrombophilia Stroke (< 1 month) Elective arthroplasty Hip, pelvis, or leg fracture Acute spinal cord injury (< 1 month) Prophylaxis Regimen: Total Risk Factor Score Risk Level Prophylaxis Regimen 0-1 Low Early ambulation 2 Moderate Order ONE of the following: *Sequential Compression Device (SCD) *Heparin 5000 units SQ BID 3-4 Higher Order ONE of the following medications: *Heparin 5000 units SQ TID *Enoxaparin/Lovenox 40 mg SQ daily (WT < 150 kg, CrCl > 30 mL/min) *Enoxaparin/Lovenox 30 mg SQ daily (WT < 150 kg, CrCl > 10-29 mL/min) *Enoxaparin/Lovenox 30 mg SQ BID (WT < 150 kg, CrCl > 30 mL/min) AND/OR *Sequential Compression Device (SCD) 5 or more Highest Order ONE of the following medications: *Heparin 5000 units SQ TID (Preferred with Epidurals) *Enoxaparin/Lovenox 40 mg SQ daily (WT < 150 kg, CrCl > 30 mL/min) *Enoxaparin/Lovenox 30 mg SQ daily (WT < 150 kg, CrCl > 10-29 mL/min) *Enoxaparin/Lovenox 30 mg SQ BID (WT < 150 kg, CrCl > 30 mL/min) AND *Sequential Compression Device (SCD) Assessment and Plan Plan Acute asthma exacerbation Patient is too short of breath to go home, saturating 96% on room air at rest, however unable to tolerate activity Continue with Solu-Medrol, scheduled duo nebs, budesonide added Follow clinically Bronchitis Complicated by CD4 count of 40 Empiric coverage with Zosyn, continuing Bactrim, Diflucan AIDS Continue home dose antiretrovirals Recommend outpatient follow-up for CD4 count after 2 more months of therapy h/o herpes Continue Valtrex DVT prophylaxis SCDs H&P: Quality VTE Deep Vein Thrombosis/Pulmonary Embolism Present on Admission: No
[2018-05-19] MEDS: Piperacil/Tazo 3.375 GM Premix 3.375 GM/50 ML PIGGYBACK IV.SIG SCH (19:39)
[2018-05-19] MEDS: MethylPREDNISolone Sod Succinate Inj 125 MG/2 ML Vial IV.PUSH SCH (21:40)
[2018-05-19] MEDS: metroNIDAZOLE 500 MG Tablet PO SCH (21:41)
[2018-05-19] MEDS: Melatonin 5 MG Tablet PO SCH (21:41)
[2018-05-19] MEDS: valACYclovir 500 MG Tab PO SCH (21:41)
[2018-05-19] MEDS: Montelukast 10 MG Tablet PO SCH (21:42)
[2018-05-20] MEDS: Piperacil/Tazo 3.375 GM Premix 3.375 GM/50 ML PIGGYBACK IV.SIG SCH ×3 (03:20→18:56)
[2018-05-20 07:56] LABS: Calcium 8.9 mg/dL (8.5-10.1); Carbon Dioxide 24.4 meq/L (21.0-32.0); Potassium 4.2 meq/L (3.5-5.1)
[2018-05-20] MEDS ORDERED: EMTRICITABINE TENOFOVIR ALAFEN PO SCH (09:00)
[2018-05-20] MEDS: valACYclovir 500 MG Tab PO SCH ×2 (10:20→21:45)
[2018-05-20] MEDS: metroNIDAZOLE 500 MG Tablet PO SCH ×2 (10:20→21:45)
[2018-05-20] MEDS: MethylPREDNISolone Sod Succinate Inj 125 MG/2 ML Vial IV.PUSH SCH ×2 (10:20→21:46)
--- NOTE | 2018-05-20 11:19 | P.PNIM ---
Subjective Interval history: Patient is approximately 30% better compared to yesterday's admission. He is not better as quickly as he had hoped. He states that the cough has become worse now that he can take deeper breaths. He did have a episode of chills overnight but there was no documented fever per Physical Exam Vital signs: Vital Signs 05/19/18 14:30 05/19/18 15:23 05/19/18 16:55 Temperature 98.7 F Pulse Rate 88 88 94 H Respiratory Rate 25 H 24 24 Blood Pressure 129/75 132/76 Pulse Oximetry 96 96 05/19/18 19:54 05/19/18 20:00 05/19/18 23:31 Temperature 98.2 F 98 F Pulse Rate 71 103 H 88 Respiratory Rate 16 16 20 Blood Pressure 109/58 L 117/56 L Pulse Oximetry 98 96 05/19/18 23:56 05/20/18 03:36 05/20/18 07:15 Temperature 98.1 F Pulse Rate 66 94 H 94 H Respiratory Rate 18 20 20 Blood Pressure 136/70 Pulse Oximetry 97 05/20/18 08:00 Temperature 98.1 F Pulse Rate 91 H Respiratory Rate 16 Blood Pressure 120/71 Pulse Oximetry 98 Intake & Output 05/19/18 05/20/18 05/20/18 18:59 06:59 18:59 Intake Total 100 / 100 50 / 50 Balance 100 / 100 50 / 50 Weight 145 kg Intake: IV 100 / 100 50 / 50 Zosyn 3.375 GM Premix 3.375 gm 100 / 100 50 / 50 In 50 ml @ 100 mls/hr IV.SIG Q8H [facility] Rx#:[id number] Other: # Voids 2 Date of Last Bowel Movement 05/18/18 05/18/18 Weight On Admission 145 kg Narrative: GENERAL: AAOx3, no acute distress, adequate nutrition SKIN: Warm and dry, no rashes. HEAD: Atraumatic. Normocephalic. EYES: Pupils equal, round, reactive to light. No scleral icterus. No injection or drainage. ENT: No nasal bleeding or discharge. Moist mucous membranes. Nonerythematous oropharynx. NECK: Trachea midline. No JVD. Thyroid size within normal limits. CARDIOVASCULAR: Regular rate and rhythm. No murmur, no gallops, no rubs. RESPIRATORY: Improved aeration, scattered wheezing throughout with rales in bases GASTROINTESTINAL: Abdomen soft, non-tender, nondistended, normal active bowel sounds. Hepatic and splenic margins not palpable. MUSCULOSKELETAL: Extremities without clubbing or cyanosis. No obvious deformities. No edema. NEUROLOGICAL: Awake and alert. No obvious cranial nerve deficits. Motor grossly within normal limits. No focal deficits. Five out of 5 muscle strength in the arms and legs. Normal speech. PSYCHIATRIC: Appropriate mood and affect; insight and judgment normal. Results Labs CBC & Chem 7: 05/19/18 16:49 05/20/18 06:47 Labs: Microbiology 05/19/18 16:49 Blood - Peripheral Aerobic Blood Culture - Preliminary No growth in 1 day 05/19/18 16:49 Blood - Peripheral Anaerobic Blood Culture - Preliminary No growth in 1 day 05/19/18 16:42 Blood - Peripheral Aerobic Blood Culture - Preliminary No growth in 1 day 05/19/18 16:42 Blood - Peripheral Anaerobic Blood Culture - Preliminary No growth in 1 day Imaging Imaging: Impressions Chest X-Ray 05/19/18 15:08 CONCLUSION: No acute cardiopulmonary disease. Assessment and Plan Plan Acute asthma exacerbation Oxygenation is stable at 97% on room air, aeration is improving, cough is worsening Continue with Solu-Medrol, scheduled duo nebs, budesonide Approximately 30% improved compared to admission Bronchitis Complicated by CD4 count of 40 Empiric coverage with Zosyn, continuing Bactrim, Diflucan Infectious disease consulted to assist with antibiotic selections AIDS Continue home dose antiretrovirals Recommend outpatient follow-up for CD4 count after 2 more months of therapy h/o herpes Continue Valtrex DVT prophylaxis SCDs Discharge planning Slowly improving from asthma exacerbation, 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
[2018-05-20] MEDS: Loratadine 10 MG Tablet PO SCH (14:16)
--- NOTE | 2018-05-20 19:24 | P.CONID ---
History of Present Illness Service: ID Consult date: 05/20/18 Requesting Physician: Gray Shaw Reason for Consult: HIV AIDS Primary Care Provider: UNKNOWN History of Present Illness: Pt is known to me 28 yo male with advanced AIDS, HIV dz, non compliant CD4 40 as of 2-3 wks ago also has asmthma presented with SOB, wheezing Low grade fever and URI smx with few days prior On admission moderate neutropenia (1200 ANC) flu negative blood clx negative CXR negative Review of Systems All other systems reviewed negative except as stated in HPI PMFSH - History History Provided By: Patient - Medical History Medical History: Medical History (Last Reviewed 05/21/18 @ 08:16 by Gay Mak MD) Asthma (Acute) AIDS Gonorrhea Pneumonia - Surgical History Surgical History: Surgical History (Last Reviewed 05/21/18 @ 08:16 by Gay Mak MD) No history of previous surgery - Family History Family History: Family History (Last Reviewed 05/21/18 @ 08:16 by Gay Mak MD) Father Hypertension - Social History I have reviewed the patient's Social History: Yes - Tobacco History Second Hand Smoke Exposure: Yes Tobacco Use In Past 30 Days: Yes (2-3 cigarettes every other day.) Smoking Status: Current some day smoker Tobacco Type: Cigarettes Cigarettes Per Day: 6 Smoking End Date: quite 2-3 weeks ago. - Alcohol History How Often Do You Have a Drink Containing Alcohol: 2 to 4 times a month - Substance Use History Substance History: Active Abuse - Substance Use Type Marijuana Status: Active Route Used: Inhalation Frequency: 6x per day Reason for Use: Feels Good - Travel History Recent Travel in the [place] Within the Last 8 Weeks: No Recent Travel Out of the Country Within the Last 8 Weeks: No - Immunization History Tetanus Immunization: Unsure Medications and Allergies Active Medications: Active Medications Acetaminophen (Tylenol) 650 mg PO Q4H PRN PRN Reason: Temp > 100.4 Al Hydroxide/Mg Hydroxide (Milk Of Magnesia Liq) 30 ml PO Q12H PRN PRN Reason: Mild Constipation Albuterol (Duoneb Neb (Sarah)) 1 ampul NEB Q4HR NEB SARAH Last Admin: 05/20/18 19:13 Dose: 1 ampul Budesonide (Pulmocort Respule Neb) 0.5 mg NEB Q12HR NEB SARAH Last Admin: 05/20/18 19:13 Dose: 0.5 mg Dolutegravir Sodium (Tivicay) 50 mg PO DAILY [facility] Last Admin: 05/20/18 10:20 Dose: 50 mg Emtricitabine/Tenofovir (Truvada 200/300 Mg) 1 tab PO DAILY [facility] Last Admin: 05/20/18 10:20 Dose: 1 tab Guaifenesin/Codeine Phosphate (Robitussin Ac Liq) 10 ml PO Q4H PRN PRN Reason: COUGH Piperacillin/Tazobactam/Dextrose (Zosyn 3.375 Gm Premix) 3.375 gm in 50 mls @ 100 mls/hr IV.SIG Q8H [facility] Last Admin: 05/20/18 18:56 Dose: 100 mls/hr Loratadine (Claritin) 10 mg PO DAILY [facility] Last Admin: 05/20/18 14:16 Dose: 10 mg Melatonin (Melatonin) [address] [facility] Last Admin: 05/19/18 21:41 Dose: 5 mg Methylprednisolone Sodium Succinate (Solumedrol Inj) 60 mg IV.PUSH Q12HR [facility] Last Admin: 05/20/18 10:20 Dose: 60 mg Metronidazole (Flagyl) 500 mg PO BID [facility] Last Admin: 05/20/18 10:20 Dose: 500 mg Montelukast Sodium (Singulair) [address] [facility] Last Admin: 05/19/18 21:42 Dose: 10 mg Ondansetron HCl (Zofran Inj) 4 mg IV.PUSH Q6H PRN PRN Reason: NAUSEA OR VOMITING Sodium Chloride (Ns Flush) 2 ml IV.FLUSH BID [facility] Last Admin: 05/20/18 10:21 Dose: 2 ml Sodium Chloride (Ns Flush) 2 ml IV.FLUSH PRN PRN PRN Reason: FLUSH AFTER USING IV ACCESS Trimethoprim/Sulfamethoxazole (Bactrim Ds) 1 tab PO Q12HR [facility] Last Admin: 05/20/18 10:20 Dose: 1 tab Valacyclovir HCl (Valtrex) 500 mg PO Q12H [facility] Last Admin: 05/20/18 10:20 Dose: 500 mg Allergies Allergy/AdvReac Type Severity Reaction Status Date / Time cucumber Allergy Severe Hives Verified 05/19/18 15:27 cucumber body wash Allergy Severe Hives/ Uncoded 04/30/18 21:39 Home Medications Medication Instructions Recorded Confirmed Type emtricitabine-tenofovir alafen 1 tab PO DAILY 11/29/17 05/19/18 History [Descovy] doxycycline hyclate 100 mg PO BID 05/19/18 05/19/18 History metronidazole 500 mg PO BID 05/19/18 05/19/18 History valacyclovir 500 mg PO Q12H 05/19/18 05/19/18 History Exam Vital signs: Vital Signs 05/19/18 19:54 05/19/18 20:00 05/19/18 23:31 Temperature 98.2 F 98 F Pulse Rate 71 103 H 88 Respiratory Rate 16 16 20 Blood Pressure 109/58 L 117/56 L Pulse Oximetry 98 96 05/19/18 23:56 05/20/18 03:36 05/20/18 07:15 Temperature 98.1 F Pulse Rate 66 94 H 94 H Respiratory Rate 18 20 20 Blood Pressure 136/70 Pulse Oximetry 97 05/20/18 08:00 05/20/18 11:25 05/20/18 12:00 Temperature 98.1 F 98.1 F Pulse Rate 91 H 91 H 114 H Respiratory Rate 16 18 16 Blood Pressure 120/71 134/63 Pulse Oximetry 98 98 05/20/18 15:30 05/20/18 15:51 Temperature 98.7 F Pulse Rate 114 H 109 H Respiratory Rate 18 16 Blood Pressure 134/61 Pulse Oximetry 97 Intake & Output 05/20/18 05/20/18 05/21/18 06:59 18:59 06:59 Intake Total 100 / 100 50 / 50 Balance 100 / 100 50 / 50 Intake: IV 100 / 100 50 / 50 Zosyn 3.375 GM Premix 3.375 gm 100 / 100 50 / 50 In 50 ml @ 100 mls/hr IV.SIG Q8H [facility] Rx#:[id number] Other: # Voids 2 Date of Last Bowel Movement 05/18/18 Weight On Admission 145 kg - Constitutional no acute distress, average body habitus - Routine HEENT Exam Head: Present: normocephalic, atraumatic Eye: Present: EOMI, PERRL ENT: Present: mucous membranes moist, oropharynx clear - Routine Neck Exam Present: supple. Absent: lymphadenopathy - Routine Chest/Breast/Axilla Exam Axillae: Absent: lymphadenopathy - Routine Respiratory Exam Present: prolonged expiratory phase, wheezes (extensive) - Routine Cardiovascular Exam Present: RRR, S1, S2. Absent: murmur, gallop, rubs - Routine Abdominal Exam Present: soft, normoactive bowel sounds - Routine Extremities Exam Absent: cyanosis, clubbing, edema - Routine Skin Exam Present: intact. Absent: cyanosis, jaundice, rash - Routine Neurological Exam Present: alert, oriented X3, CN II-XII intact. Absent: sensory deficit, motor deficit - Routine Psychiatric Exam Present: normal affect, cooperative Results - Labs CBC & Chem 7: 05/19/18 16:49 05/20/18 06:47 Labs: Laboratory Results - last 24 hr 05/20/18 06:47 Sodium 138 Potassium 4.2 Chloride 107 Carbon Dioxide 24.4 Anion Gap 7 BUN 20 H Creatinine 1.27 Estimated GFR 81 L Random Glucose 113 H Calcium 8.9 Assessment and Plan - Plan HIV AIDS Non compliant Asthma exacertbation CT with non specific chnages, atelectactasis but also possible infiltrate PCP cont zithro cont bactrim, zosyn for now Rx asthma sputum clx cytology for PCP resp panel Pt counseled on need of HAART and HIV fu - he shows understanding
--- NOTE | 2018-05-20 21:02 | CT ---
EXAM DATE: 05/20/2018 8:50 PM EST AGE/SEX: 28 years / Male INDICATIONS: Shortness of breath; pleural effusion. CLINICAL DATA: This is the patient's initial encounter. Patient reports that signs and symptoms have been present for 1 day and indicates a pain score of 3/10. MEDICAL/SURGICAL HISTORY: HIV. Asthma. None. RADIATION DOSE: 6.66 CTDI (mGy) COMPARISON: [facility] [place], CT CHEST W/O CONTRAST, 01/19/2018. . TECHNIQUE: Multiple contiguous axial images were obtained through the chest without contrast. Image s were obtained in suspended respiration using multiple row detector helical technique. Using automa emilio exposure control and adjustment of the mA and/or kV according to patient size, radiation dose was kept as low as reasonably achievable to obtain optimal diagnostic quality images. DICOM format imag e data is available electronically for review and comparison. FINDINGS: There is subsegmental opacity at the lung bases, mostly linear and more characteristic of atelectasis and scarring. Previous airspace disease at the bases is improved slightly. No new infiltrate or effu pantera. No pneumothorax. There is no adenopathy. No acute bony abnormality. CONCLUSION: 1. Subsegmental airspace disease in the lower lobes most characteristic of atelectasis. There is imp rovement from previous exam of January 2018. Electronically signed by: Abner Lala MD Board Certified Radiologist 05/20/2018 9:01 PM EST
[2018-05-20] MEDS: Melatonin 5 MG Tablet PO SCH (21:45)
[2018-05-20] MEDS: Montelukast 10 MG Tablet PO SCH (21:45)
[2018-05-20] MEDS: guaiFENesin/Codeine Syrup 200 MG/20 MG 10 ML UDC PO PRN (21:58)
[2018-05-21] MEDS: Piperacil/Tazo 3.375 GM Premix 3.375 GM/50 ML PIGGYBACK IV.SIG SCH ×3 (03:33→18:55)
[2018-05-21] MEDS: MethylPREDNISolone Sod Succinate Inj 125 MG/2 ML Vial IV.PUSH SCH ×2 (09:48→20:45)
[2018-05-21] MEDS: Loratadine 10 MG Tablet PO SCH (09:49)
[2018-05-21] MEDS: metroNIDAZOLE 500 MG Tablet PO SCH ×2 (09:49→20:45)
[2018-05-21] MEDS: valACYclovir 500 MG Tab PO SCH ×2 (09:49→21:36)
--- NOTE | 2018-05-21 12:19 | P.PNIM ---
Subjective Interval history: Patient reports he is feeling lightly better today, breathing a little easier, he still coughing a lot but is able to cough up some phlegm thanks to Robitussin. Physical Exam Vital signs: Vital Signs 05/20/18 15:30 05/20/18 15:51 05/20/18 19:15 Temperature 98.7 F Pulse Rate 114 H 109 H 91 H Respiratory Rate 18 16 18 Blood Pressure 134/61 Pulse Oximetry 97 05/20/18 19:33 05/20/18 23:12 05/21/18 00:00 Temperature 98.2 F 98.0 F Pulse Rate 102 H 97 H 101 H Respiratory Rate 20 18 12 Blood Pressure 124/68 128/65 Pulse Oximetry 95 93 L 05/21/18 03:34 05/21/18 04:00 05/21/18 07:10 Temperature 97.9 F Pulse Rate 94 H 100 H 100 H Respiratory Rate 18 20 22 Blood Pressure 132/71 Pulse Oximetry 98 05/21/18 07:35 05/21/18 12:03 Temperature Pulse Rate 98 H 98 H Respiratory Rate 20 22 Blood Pressure 136/60 Pulse Oximetry 94 L Intake & Output 05/20/18 05/21/18 05/21/18 18:59 06:59 18:59 Intake Total 50 / 50 1835 / 1835 50 / 50 Balance 50 / 50 1835 / 1835 50 / 50 Intake: IV 50 / 50 100 / 100 50 / 50 Zosyn 3.375 GM Premix 3.375 gm 50 / 50 100 / 100 50 / 50 In 50 ml @ 100 mls/hr IV.SIG Q8H [facility] Rx#:[id number] Oral 1735 / 1735 Other: # Voids 5 Date of Last Bowel Movement 05/18/18 Narrative: GENERAL: AAOx3, no acute distress, adequate nutrition SKIN: Warm and dry, no rashes. HEAD: Atraumatic. Normocephalic. EYES: Pupils equal, round, reactive to light. No scleral icterus. No injection or drainage. ENT: No nasal bleeding or discharge. Moist mucous membranes. Nonerythematous oropharynx. NECK: Trachea midline. No JVD. Thyroid size within normal limits. CARDIOVASCULAR: Regular rate and rhythm. No murmur, no gallops, no rubs. RESPIRATORY: Improved aeration, scattered wheezing throughout with rales in bases GASTROINTESTINAL: Abdomen soft, non-tender, nondistended, normal active bowel sounds. Hepatic and splenic margins not palpable. MUSCULOSKELETAL: Extremities without clubbing or cyanosis. No obvious deformities. No edema. NEUROLOGICAL: Awake and alert. No obvious cranial nerve deficits. Motor grossly within normal limits. No focal deficits. Five out of 5 muscle strength in the arms and legs. Normal speech. PSYCHIATRIC: Appropriate mood and affect; insight and judgment normal. Results Labs CBC & Chem 7: 05/19/18 16:49 05/20/18 06:47 Labs: Microbiology 05/19/18 16:49 Blood - Peripheral Aerobic Blood Culture - Preliminary No growth in 2 days 05/19/18 16:49 Blood - Peripheral Anaerobic Blood Culture - Preliminary No growth in 2 days 05/19/18 16:42 Blood - Peripheral Aerobic Blood Culture - Preliminary No growth in 2 days 05/19/18 16:42 Blood - Peripheral Anaerobic Blood Culture - Preliminary No growth in 2 days 05/20/18 19:00 Nasal Wash Influenza Types A,B Antigen - Final Negative for FLU A and B antigen Infection due to influenza A or B cannot be ruled out since the antigen present in the sample may be below the detection limit of the test. Imaging Imaging: Impressions Chest CT 05/20/18 19:24 CONCLUSION: 1. Subsegmental airspace disease in the lower lobes most characteristic of atelectasis. There is improvement from previous exam of January 2018. Assessment and Plan Plan Acute asthma exacerbation Oxygenation is stable upper 90s on room air, aeration is improving Continue with Solu-Medrol, scheduled duo nebs, budesonide Approximately 60% improved compared to admission Bronchitis vs. pneumonia Complicated by CD4 count of 40 CT chest shows bibasilar atelectasis (subclinical infiltrates possible due to poor immune response and AIDS) Empiric coverage with Zosyn, continuing Bactrim, Diflucan Zithromax added to cover for pertussis and other atypicals Appreciate infectious disease consult AIDS Continue home dose antiretrovirals Recommend outpatient follow-up for CD4 count after 2 more months of therapy h/o herpes Continue Valtrex DVT prophylaxis SCDs Discharge planning Slowly improving, will change to full admit He would likely be ready for discharge in approximately 1-2 more days Progress Note: Quality VTE Deep Vein Thrombosis/Pulmonary Embolism Present on Admission: No
[2018-05-21] MEDS: Azithromycin 250 MG Tablet PO SCH (13:59)
[2018-05-21] MEDS: Pantoprazole Sodium 20 MG DR Tablet PO SCH (16:16)
[2018-05-21] MEDS: Montelukast 10 MG Tablet PO SCH (20:45)
[2018-05-21] MEDS: guaiFENesin/Codeine Syrup 200 MG/20 MG 10 ML UDC PO PRN (20:45)
[2018-05-21] MEDS: Melatonin 5 MG Tablet PO SCH (21:36)
[2018-05-22] MEDS: Piperacil/Tazo 3.375 GM Premix 3.375 GM/50 ML PIGGYBACK IV.SIG SCH ×3 (03:28→18:16)
[2018-05-22] MEDS: guaiFENesin/Codeine Syrup 200 MG/20 MG 10 ML UDC PO PRN ×5 (04:06→21:47)
[2018-05-22] MEDS: Loratadine 10 MG Tablet PO SCH (09:14)
[2018-05-22] MEDS: Azithromycin 250 MG Tablet PO SCH (09:14)
[2018-05-22] MEDS: Pantoprazole Sodium 20 MG DR Tablet PO SCH (09:14)
[2018-05-22] MEDS: metroNIDAZOLE 500 MG Tablet PO SCH ×2 (09:14→21:26)
[2018-05-22] MEDS: valACYclovir 500 MG Tab PO SCH ×2 (09:15→21:26)
--- NOTE | 2018-05-22 11:39 | P.PNIM ---
Subjective Interval history: 28yo aam admitte w exacerbation asthma and pna pt seen and examined still significant bronchospasm and tight respirations Physical Exam Vital signs: Vital Signs 05/21/18 12:03 05/21/18 12:10 05/21/18 15:31 Temperature 98.0 F Pulse Rate 98 H 90 90 Respiratory Rate 22 18 20 Blood Pressure 120/56 L Pulse Oximetry 94 L 05/21/18 15:45 05/21/18 19:15 05/21/18 20:10 Temperature 98.2 F 97.9 F Pulse Rate 97 H 99 H 91 H Respiratory Rate 20 18 18 Blood Pressure 145/66 H 117/70 Pulse Oximetry 97 96 05/21/18 23:35 05/22/18 00:19 05/22/18 03:30 Temperature 97.8 F Pulse Rate 95 H 108 H 98 H Respiratory Rate 18 22 18 Blood Pressure 117/56 L Pulse Oximetry 96 05/22/18 03:50 05/22/18 08:00 05/22/18 11:09 Temperature 97.7 F 98.2 F Pulse Rate 89 70 Respiratory Rate 18 18 20 Blood Pressure 141/63 H 117/67 Pulse Oximetry 95 96 Intake & Output 05/21/18 05/22/18 05/22/18 18:59 06:59 18:59 Intake Total 50 / 50 340 / 340 Balance 50 / 50 340 / 340 Weight 64.8 kg Intake: IV 50 / 50 100 / 100 Zosyn 3.375 GM Premix 3.375 gm 50 / 50 100 / 100 In 50 ml @ 100 mls/hr IV.SIG Q8H [facility] Rx#:[id number] Oral 240 / 240 Other: # Voids 3 2 Date of Last Bowel Movement 05/21/18 05/21/18 # Bowel Movements 0 Narrative: wdwn 28yo aam aaox3 nad heart s1s2 reg lungs diffuse bronchospasm and wheeze, poor air movment abd soft nondt pos bs ext no edema no calf tenderness Results Labs CBC & Chem 7: 05/19/18 16:49 05/20/18 06:47 Labs: Microbiology 05/19/18 16:49 Blood - Peripheral Aerobic Blood Culture - Preliminary No growth in 3 days 05/19/18 16:49 Blood - Peripheral Anaerobic Blood Culture - Preliminary No growth in 3 days 05/19/18 16:42 Blood - Peripheral Aerobic Blood Culture - Preliminary No growth in 3 days 05/19/18 16:42 Blood - Peripheral Anaerobic Blood Culture - Preliminary No growth in 3 days Assessment and Plan Plan ACUTE EXACERBATION OF CHRONIC PERSISTANT ASTHMA - increase iv steroids today to q 6 hrs for severe bronchospasm, cont pulm tx. ACUTE BRONCHOPNEUMONIA - influenza neg, bc neg x 2, AIDS/HIV + - uncontrolled w DC4 40 - cont as per ID GONORRHEA +, GENITAL HSV- continue valacyclovir MEDICAL NONCOMPLIANCE- admitted or ed visits monthly since mar TOBACCO USE/NICOTINE ADDICTION - cessation counseling CKD II DVT prophylaxis dipso - home when improved Progress Note: Quality VTE Deep Vein Thrombosis/Pulmonary Embolism Present on Admission: No
[2018-05-22] MEDS: MethylPREDNISolone Sod Succinate Inj 125 MG/2 ML Vial IV.PUSH SCH ×4 (12:05→23:49)
[2018-05-22] MEDS ORDERED: Loratadine/Pseudoephedrine 12HR Tablet PO ONE (20:00)
[2018-05-22] MEDS: Montelukast 10 MG Tablet PO SCH (21:26)
[2018-05-22] MEDS: Melatonin 5 MG Tablet PO SCH (21:26)
[2018-05-23] MEDS: guaiFENesin/Codeine Syrup 200 MG/20 MG 10 ML UDC PO PRN ×4 (03:56→20:28)
[2018-05-23] MEDS: Piperacil/Tazo 3.375 GM Premix 3.375 GM/50 ML PIGGYBACK IV.SIG SCH ×3 (03:56→18:07)
[2018-05-23] MEDS: MethylPREDNISolone Sod Succinate Inj 125 MG/2 ML Vial IV.PUSH SCH ×3 (07:06→18:09)
[2018-05-23] MEDS: Azithromycin 250 MG Tablet PO SCH (08:26)
[2018-05-23] MEDS: metroNIDAZOLE 500 MG Tablet PO SCH ×2 (08:26→20:28)
[2018-05-23] MEDS: Pantoprazole Sodium 20 MG DR Tablet PO SCH (08:26)
[2018-05-23] MEDS: valACYclovir 500 MG Tab PO SCH ×2 (08:26→20:28)
[2018-05-23] MEDS: Loratadine 10 MG Tablet PO SCH ×2 (08:27)
--- NOTE | 2018-05-23 11:22 | P.PNIM ---
Subjective Interval history: 28 yo male with HIV and asthma admitted for asthma exacerbation. This morning feels his breathing is improving but not back to normal. Still slightly short of breath with wheezing. Speaks in full sentences without pausing for breath. No chest pain or fever. Physical Exam Vital signs: Vital Signs 05/22/18 12:00 05/22/18 15:55 05/22/18 16:00 Temperature 98.2 F 98.5 F Pulse Rate 108 H 84 93 H Respiratory Rate 18 20 18 Blood Pressure 122/61 132/68 Pulse Oximetry 94 L 96 05/22/18 20:00 05/22/18 20:04 05/23/18 00:00 Temperature 97.9 F 98.1 F Pulse Rate 95 H 84 97 H Respiratory Rate 17 18 17 Blood Pressure 140/65 137/62 Pulse Oximetry 94 L 93 L 05/23/18 00:37 05/23/18 04:00 05/23/18 04:49 Temperature 97.8 F Pulse Rate 86 96 H 86 Respiratory Rate 20 17 20 Blood Pressure 133/60 Pulse Oximetry 93 L 05/23/18 07:27 05/23/18 08:00 Temperature 97.9 F Pulse Rate 109 H 106 H Respiratory Rate 23 20 Blood Pressure 135/69 Pulse Oximetry 94 L Intake & Output 05/22/18 05/23/18 05/23/18 18:59 06:59 18:59 Intake Total 660 / 660 410 / 410 Balance 660 / 660 410 / 410 Weight 63.4 kg Intake: IV 100 / 100 50 / 50 Zosyn 3.375 GM Premix 3.375 gm 100 / 100 50 / 50 In 50 ml @ 100 mls/hr IV.SIG Q8H [facility] Rx#:[id number] Oral 560 / 560 360 / 360 Other: # Voids 4 2 Date of Last Bowel Movement 05/21/18 05/21/18 Narrative: Gen: young adult black male resting in bed appearing comfortable, NAD ENT: MMM Resp: Normal rate, mildly increased effort with slight intercostal retraction, no neck muscle use. Breath sounds normal bilaterally with diffuse wheezing noted. No crackles. CV: NRRR, normal S1/S2, no MRG MSK: No cyanosis or edema Results - Labs CBC & Chem 7: 05/23/18 12:01 05/20/18 06:47 Microbiology 05/19/18 16:49 Blood - Peripheral Aerobic Blood Culture - Preliminary No growth in 4 days 05/19/18 16:49 Blood - Peripheral Anaerobic Blood Culture - Preliminary No growth in 4 days 05/19/18 16:42 Blood - Peripheral Aerobic Blood Culture - Preliminary No growth in 4 days 05/19/18 16:42 Blood - Peripheral Anaerobic Blood Culture - Preliminary No growth in 4 days 05/21/18 18:58 Sputum - Expectorated Sputum Gram Stain - Final 05/21/18 18:58 Sputum - Expectorated Sputum Sputum Culture - Preliminary Heavy growth normal respiratory mari at 24 hours Assessment and Plan - Assessment (1) HIV (human immunodeficiency virus infection) Code(s): B20 - Human immunodeficiency virus [HIV] disease Status: Acute (2) Pneumonia Code(s): J18.9 - Pneumonia, unspecified organism Status: Acute (3) Asthma exacerbation Code(s): J45.901 - Unspecified asthma with (acute) exacerbation Status: Acute - Plan ACUTE EXACERBATION OF CHRONIC PERSISTANT ASTHMA - improving, continue iv steroids q 6 hrs for severe bronchospasm, cont pulm tx with ICS and bronchodilators, IS. Continue Claratin, Singulair. ACUTE BRONCHOPNEUMONIA - influenza neg, bc neg x 2, sputum Cx with normal respiratory mari - continue antibiotics per ID (Zosyn, Bactrim, azithromycin) AIDS/HIV + - uncontrolled w DC4 40 - cont as per ID with Truvada and Tivicay GONORRHEA +, GENITAL HSV- continue valacyclovir. No CLARIBEL documented in our record for gonorrhea, will repeat urine PCR. MEDICAL NONCOMPLIANCE - admitted or ed visits monthly since mar. Has no primary care physician, was to be seen by one soon (assigned to Dr. Cervantes). Will give number for family medicine residency practice on discharge. TOBACCO USE/NICOTINE ADDICTION - cessation counseling CKD II DVT prophylaxis - not indicated in this low-risk patient (early ambulation) dipso - home when improved - Attending Attestation The exam, history, and the medical decision-making described in the above note were completed with the assistance of the resident physician. I reviewed and agree with the findings presented. I attest that I had a [id number] encounter with the patient on the same day, and personally performed and documented my assessment and findings in the medical record. Patient reports he is feeling slightly better today. Breathing improving. On exam, normal S1 and S2. Air movement is fair. Diffuse wheezing bilaterally. Patient with acute asthma exacerbation and bronchopneumonia. HIV, noncompliant with treatment. Continue IV antibiotics per infectious disease, breathing treatments and supportive care. Continue plan as above. (3) Asthma exacerbation Qualifiers: Asthma severity: unspecified severity
[2018-05-23 12:45] LABS: Baso % (Auto) 0.4 % (0.0-2.0); Hematocrit 39.9 % (39.0-51.0); Hemoglobin 13.8 gm/dL (13.0-17.0); Lymph % (Auto) 9.6 % (9.0-44.0); Mean Corpuscular HGB Conc 34.6 % (32.0-36.0); Mean Corpuscular Hemoglobin 31.9 pg (27.0-34.0); Mean Corpuscular Volume 92.4 fL (80.0-100.0); Mean Platelet Volume 6.5 fL (7.0-11.0); Mono # (Auto) 0.4 th/mm3 (0.0-0.9); Mono % (Auto) 3.8 % (0.0-8.0); Neut # (Auto) 9.2 th/mm3 (1.8-7.7); Neut % (Auto) 86.2 % (16.0-70.0); Platelet Count 318 th/mm3 (150-450); Red Blood Count 4.32 mil/mm3 (4.50-5.90); Red Cell Distribution Width 14.6 % (11.6-17.2); White Blood Count 10.6 th/mm3 (4.0-11.0)
[2018-05-23] MEDS: Melatonin 5 MG Tablet PO SCH (20:29)
[2018-05-23] MEDS: Montelukast 10 MG Tablet PO SCH (20:29)
[2018-05-24] MEDS: guaiFENesin/Codeine Syrup 200 MG/20 MG 10 ML UDC PO PRN ×4 (00:13→18:50)
[2018-05-24] MEDS: MethylPREDNISolone Sod Succinate Inj 125 MG/2 ML Vial IV.PUSH SCH ×2 (00:13→05:22)
[2018-05-24] MEDS: Piperacil/Tazo 3.375 GM Premix 3.375 GM/50 ML PIGGYBACK IV.SIG SCH ×3 (02:06→18:47)
[2018-05-24] MEDS: Azithromycin 250 MG Tablet PO SCH (08:57)
[2018-05-24] MEDS: valACYclovir 500 MG Tab PO SCH ×2 (08:57→21:48)
[2018-05-24] MEDS: Pantoprazole Sodium 20 MG DR Tablet PO SCH (08:57)
[2018-05-24] MEDS: Loratadine 10 MG Tablet PO SCH (08:57)
[2018-05-24 09:24] LABS: Baso % (Auto) 0.5 % (0.0-2.0); Hematocrit 40.3 % (39.0-51.0); Hemoglobin 13.6 gm/dL (13.0-17.0); Lymph # (Auto) 0.9 th/mm3 (1.0-4.8); Lymph % (Auto) 9.3 % (9.0-44.0); Mean Corpuscular HGB Conc 33.7 % (32.0-36.0); Mean Corpuscular Hemoglobin 32.2 pg (27.0-34.0); Mean Corpuscular Volume 95.6 fL (80.0-100.0); Mean Platelet Volume 6.7 fL (7.0-11.0); Mono # (Auto) 0.4 th/mm3 (0.0-0.9); Mono % (Auto) 4.4 % (0.0-8.0); Neut % (Auto) 85.8 % (16.0-70.0); Platelet Count 324 th/mm3 (150-450); Red Blood Count 4.21 mil/mm3 (4.50-5.90); Red Cell Distribution Width 14.6 % (11.6-17.2); White Blood Count 9.3 th/mm3 (4.0-11.0)
[2018-05-24 09:45] LABS: Phosphorus 2.2 mg/dL (2.5-4.9)
[2018-05-24 09:47] LABS: Calcium 8.5 mg/dL (8.5-10.1); Carbon Dioxide 23.1 meq/L (21.0-32.0); Potassium 4.8 meq/L (3.5-5.1)
[2018-05-24] MEDS ORDERED: RESP: Albuterol Concentrated 2.5 MG/0.5 ML Neb NEB PRN (10:02)
[2018-05-24 10:10] LABS: Platelet Estimate Normal (Normal); Platelet Morphology Normal (Normal)
[2018-05-24] MEDS: predniSONE 20 MG Tablet PO SCH ×2 (10:27→21:48)
--- NOTE | 2018-05-24 11:15 | P.PNIM ---
Subjective Interval history: 28 yo HIV+ male with asthma admitted for asthma exacerbation. Today reports improvement, not as short of breath. Walked down the [place] yesterday and did get short of breath but not nearly as bad as admission. No chest pain. Speaking in full sentences. Physical Exam Vital signs: Vital Signs 05/23/18 11:48 05/23/18 12:00 05/23/18 15:10 Temperature 98 F Pulse Rate 115 H 88 102 H Respiratory Rate 22 20 19 Blood Pressure 153/67 H Pulse Oximetry 94 L 05/23/18 16:00 05/23/18 19:54 05/23/18 20:00 Temperature 98.2 F 99.3 F Pulse Rate 108 H 73 88 Respiratory Rate 20 16 16 Blood Pressure 143/85 H 142/60 H Pulse Oximetry 96 96 05/24/18 00:00 05/24/18 07:59 05/24/18 08:15 Temperature 99.4 F 98.1 F Pulse Rate 100 H 102 H 102 H Respiratory Rate 16 20 20 Blood Pressure 131/62 159/70 H Pulse Oximetry 97 95 Intake & Output 05/23/18 05/24/18 05/24/18 18:59 06:59 18:59 Intake Total 660 / 660 50 / 50 Output Total 600 / 600 Balance 660 / 660 -550 / -550 Weight 63.4 kg Intake: IV 100 / 100 50 / 50 Zosyn 3.375 GM Premix 3.375 gm 100 / 100 50 / 50 In 50 ml @ 100 mls/hr IV.SIG Q8H [facility] Rx#:[id number] Oral 560 / 560 Output: Urine 600 / 600 Other: # Voids 4 Date of Last Bowel Movement 05/21/18 05/21/18 Narrative: Gen: young adult black male resting in bed appearing comfortable, NAD ENT: MMM Resp: Normal rate and effort, no accessory muscle use. Breath sounds normal bilaterally with diffuse wheezing noted improved from yesterday's exam. No crackles. CV: Mild regular tachycardia, normal S1/S2, no MRG MSK: No cyanosis or edema Results - Labs CBC & Chem 7: 05/24/18 08:24 05/24/18 08:24 Laboratory Results - last 24 hr 05/23/18 05/24/18 05/24/18 12:01 08:24 08:24 WBC 10.6 9.3 RBC 4.32 L 4.21 L Hgb 13.8 13.6 Hct 39.9 40.3 MCV 92.4 95.6 MCH 31.9 32.2 MCHC 34.6 33.7 RDW 14.6 14.6 Plt Count 318 D 324 MPV 6.5 L 6.7 L Prelim Diff (Auto) Slide review pending Neut % (Auto) 86.2 H 85.8 H Lymph % (Auto) 9.6 9.3 [place] % (Auto) 3.8 4.4 Eos % (Auto) 0.0 0.0 Baso % (Auto) 0.4 0.5 Neut # (Auto) 9.2 H 8.0 H Lymph # (Auto) 1.0 0.9 L [place] # (Auto) 0.4 0.4 Eos # (Auto) 0.0 0.0 Baso # (Auto) 0.0 0.0 WBC Differential . . Diff Scan Auto diff confirmed Differential Comment Auto diff final . Platelet Estimate Normal Platelet Morphology Normal Sodium 139 Potassium 4.8 Chloride 106 Carbon Dioxide 23.1 Anion Gap 10 BUN 28 H Creatinine 1.37 H Estimated GFR 74 L Random Glucose 159 H Calcium 8.5 Phosphorus 2.2 L Albumin 3.0 L Microbiology 05/19/18 16:49 Blood - Peripheral Aerobic Blood Culture - Final No growth in 5 days 05/19/18 16:49 Blood - Peripheral Anaerobic Blood Culture - Final No growth in 5 days 05/19/18 16:42 Blood - Peripheral Aerobic Blood Culture - Final No growth in 5 days 05/19/18 16:42 Blood - Peripheral Anaerobic Blood Culture - Final No growth in 5 days 05/21/18 18:58 Sputum - Expectorated Sputum Gram Stain - Final 05/21/18 18:58 Sputum - Expectorated Sputum Sputum Culture - Final Heavy growth normal respiratory mari Assessment and Plan - Assessment (1) Asthma exacerbation Code(s): J45.901 - Unspecified asthma with (acute) exacerbation Status: Acute (2) HIV (human immunodeficiency virus infection) Code(s): B20 - Human immunodeficiency virus [HIV] disease Status: Acute (3) Pneumonia Code(s): J18.9 - Pneumonia, unspecified organism Status: Acute - Plan ACUTE EXACERBATION OF CHRONIC PERSISTENT ASTHMA - improving, change steroid from IV solu-medrol to PO prednisone 40 mg BID, cont pulm tx spaced to Q6H bronchodilator + Q4H PRN, scheduled ICS, IS. Continue Claritin, Singulair. ACUTE BRONCHOPNEUMONIA - influenza neg, bc neg x 2, sputum Cx with normal respiratory mari - continue antibiotics per ID (Zosyn, Bactrim, azithromycin). Will discuss with ID for recommendation on need for / duration of treatment and choice of agent. 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 No CLARIBEL documented in our record for gonorrhea, will repeat urine PCR. MEDICAL NONCOMPLIANCE - admitted or ed visits monthly since mar. Has no primary care physician, was to be seen by one soon (assigned to Dr. Cervantes). Will give number for family medicine residency practice on discharge. TOBACCO USE/NICOTINE ADDICTION - cessation counseling CKD II DVT prophylaxis - not indicated in this low-risk patient (early ambulation) dipso - home when improved, anticipate DC 05/25 or 05/26 at the latest Code Status: Full Code - Attending Attestation The exam, history, and the medical decision-making described in the above note were completed with the assistance of the resident physician. I reviewed and agree with the findings presented. I attest that I had a [id number] encounter with the patient on the same day, and personally performed and documented my assessment and findings in the medical record. Patient reports he is feeling better today. Breathing improving. On exam, normal S1 and S2. Still has some wheezing but is moving air better. Patient with acute asthma exacerbation and bronchopneumonia. HIV, noncompliant with treatment. We will transition to oral steroids today. Will discuss with ID regarding lifelong antibiotics treatment. If he can be transitioned to oral antibiotics only, he can be discharged tomorrow. Breathing treatments and supportive care. Continue plan as above. (1) Asthma exacerbation Qualifiers: Asthma severity: unspecified severity
--- NOTE | 2018-05-24 15:08 | P.DS ---
DS: Providers Date of admission: 05/21/18 15:21 Primary care physician: UNKNOWN Consults: 05/20/18 11:14 Consult to Infectious Diseases Routine Consulting Provider: Gay Mak Reason for Consultation: 28M with asthma exacerbation secondary to upper respiratory infection in the context of AIDS, CD4 = 40. Zosyn selected, continuing Bactrim, Diflucan, Valtrex. Please review antibiotic selection in preperation for eventual PO option in 2-3 days discharge home. Notified:: Service Spoke with:: CASTRO Date Notified:: 05/20/18 Time Notified:: 11:25 Ordering Provider: EDGAR Brief History from admission: 28-year-old male with a history of asthma and AIDS , presents to the ER with an asthma exacerbation has lasted for 2 days. He states that he has been having low-grade fevers and night sweats at home. He is on an empiric prophylactic doses of Bactrim, Diflucan, doxycycline, but none of these seem to stave off his exacerbation which seems to be related to upper respiratory infection. He was hospitalized 1 month ago and his CD4 count from May 01 shows count of 40 which is below 200 qualifying him for AIDS status. He has been slow to respond to treatments in the ER with Solu-Medrol and duo nebs. I am increasing his therapy to scheduled duo nebs, Solu-Medrol continued , inhaled budesonide. I am also adding empiric coverage with IV Zosyn and continuing Bactrim p.o. and Diflucan. He was unaware that he had AIDS but did only start his to antiretroviral medicines approximately 1 month ago when he was told his CD4 count was very low. He has some mild diarrhea, otherwise denies any nausea or vomiting. He has no urinary symptoms. He has no cardiac symptoms per DS: Diagnosis Discharge Diagnosis (1) Asthma exacerbation: Status: Acute (2) HIV (human immunodeficiency virus infection): Status: Acute (3) Pneumonia: Status: Acute DS: Summary Acute asthma exacerbation -improved. - albuterol nebs - will change the steroids to po prednisone. -antibiotics with Levaquin Syncope: suspect secondary to asthma exacerbation and hypoxia -treat asthma as above -Head CT and C-spine CT unremarkable -No further episodes Gonorrhea: gonorrhea PCR positive in the emergency department today -Patient diagnosed with gonorrhea on 04/11/18 and discharged from the ED with prescriptions for doxycycline and Flagyl with which he reports compliance -He has continued to have sexual intercourse with an untreated partner, likely reinfection -received rocephin per ID. -Follow-up outpatient for test of cure HIV/AIDS: chronic -Patient reports he is supposed to be on Descovy and Tivicay however he has not taken these medications in approximately 4-6 weeks as he has not been able to make it to the [facility] for follow-up secondary to work -Counseled patient as to the importance of compliance with antiretroviral medication including risks -Strongly encouraged to follow-up as outpatient either with PCP or [facility] -on Bactrim -Consulted ID, appreciate assistance Diarrhea: -Resolved Time Spent with Patient Total time spent providing and/or coordinating discharge services: Less than 30 minutes Quality: VTE Deep Vein Thrombosis/Pulmonary Embolism Present on Admission: No Results Labs on day of discharge: Labs from last 24 hours 05/24/18 05/24/18 05/24/18 08:24 08:24 08:24 WBC 9.3 RBC 4.21 L Hgb 13.6 Hct 40.3 MCV 95.6 MCH 32.2 MCHC 33.7 RDW 14.6 Plt Count 324 MPV 6.7 L Prelim Diff (Auto) Slide review pending Neut % (Auto) 85.8 H Lymph % (Auto) 9.3 [place] % (Auto) 4.4 Eos % (Auto) 0.0 Baso % (Auto) 0.5 Neut # (Auto) 8.0 H Lymph # (Auto) 0.9 L [place] # (Auto) 0.4 Eos # (Auto) 0.0 Baso # (Auto) 0.0 WBC Differential . Diff Scan Auto diff confirmed Differential Comment . Platelet Estimate Normal Platelet Morphology Normal Sodium 139 Potassium 4.8 Chloride 106 Carbon Dioxide 23.1 Anion Gap 10 BUN 28 H Creatinine 1.37 H Estimated GFR 74 L Random Glucose 159 H Calcium 8.5 Phosphorus 2.2 L Albumin 3.0 L Absolute Lymphocytes Pending % CD3 Cells Pending Abs CD3-/CD16+/CD56+ Pending % CD4 Cells Pending Absolute CD4 Count Pending T-Help/Suppress Ratio Pending % CD8 Cells Pending Absolute CD8 Count Pending % CD19 Cells Pending Absolute CD19 Count Pending Impressions ITS Impressions Chest X-Ray 05/19/18 15:08 CONCLUSION: No acute cardiopulmonary disease. Chest CT 05/20/18 19:24 CONCLUSION: 1. Subsegmental airspace disease in the lower lobes most characteristic of atelectasis. There is improvement from previous exam of January 2018. Discharge Plan Discharge Disposition Patient Disposition: 01 Discharge Home Discharge Condition Condition: Fair Physicians Team Primary Care Provider: CHRISTOS, Attending Provider: Juan Ramirez Other Providers: Gay Mak Rxs /Orders / Referrals /Forms Prescriptions: No Action albuterol sulfate [Ventolin HFA] 90 mcg/actuation Hfa Aerosol Inhaler 2 puff INHALATION Q4H PRN (Reason: Shortness Of Breath) Qty: 1 RF: 23 budesonide-formoterol [Symbicort] 160-4.5 mcg/actuation Hfa Aerosol Inhaler 2 puff INHALATION Q12H Qty: 1 RF: 11 ipratropium-albuterol 0.5 mg-3 mg(2.5 mg base)/3 mL Solution For Nebulization 1 amp NEB Q4HR NEB PRN (Reason: Shortness Of Breath) Qty: 1 RF: 0 montelukast 10 mg Tablet 10 mg PO HS Qty: 30 RF: 0 doxycycline hyclate 100 mg Capsule 100 mg PO BID RF: 0 metronidazole 500 mg Tablet 500 mg PO BID RF: 0 valacyclovir 500 mg Tablet 500 mg PO Q12H RF: 0 emtricitabine-tenofovir alafen [Descovy] 200-25 mg Tablet 1 tab PO DAILY RF: 0 dolutegravir [Tivicay] 25 mg Tablet 50 mg PO DAILY Qty: 0 RF: 0 sulfamethoxazole-trimethoprim 800-160 mg Tablet 1 tab PO EVERY OTHER DAY 30 Days Qty: 15 RF: 0 Referrals: UNKNOWN, [Primary Care Provider] - See Instructions Discharge Interventions Interventions: Discharge Planning - Case Management Last Done: 05/22/18 13:03 Status ED Status: Left Department
--- NOTE | 2018-05-24 17:05 | P.PNID ---
Subjective Remarks: doing better no fever no wheezing no PCP Antibiotics: tivicay [place] Allergies/Adverse Reactions: Allergies cucumber Allergy (Severe, Verified 05/19/18 15:27) Hives THE VEG CUCUMBER WELL CUCUMBER SOAP cucumber body wash Allergy (Severe, Uncoded 04/30/18 21:39) Hives/ shortness of breath,swelling. Objective Vital Signs 05/23/18 19:54 05/23/18 20:00 05/24/18 00:00 Temperature 99.3 F 99.4 F Pulse Rate 73 88 100 H Respiratory Rate 16 16 16 Blood Pressure 142/60 H 131/62 Pulse Oximetry 96 97 05/24/18 07:59 05/24/18 08:15 05/24/18 12:43 Temperature 98.1 F Pulse Rate 102 H 102 H 85 Respiratory Rate 20 20 18 Blood Pressure 159/70 H Pulse Oximetry 95 Intake & Output 05/23/18 05/24/18 05/24/18 18:59 06:59 18:59 Intake Total 660 / 660 50 / 50 50 / 50 Output Total 600 / 600 Balance 660 / 660 -550 / -550 50 / 50 Weight 63.4 kg Intake: IV 100 / 100 50 / 50 50 / 50 Zosyn 3.375 GM Premix 3.375 gm 100 / 100 50 / 50 50 / 50 In 50 ml @ 100 mls/hr IV.SIG Q8H [facility] Rx#:[id number] Oral 560 / 560 Output: Urine 600 / 600 Other: # Voids 4 Date of Last Bowel Movement 05/21/18 05/21/18 05/19/18 16:49 Blood - Peripheral Aerobic Blood Culture - Final No growth in 5 days 05/19/18 16:49 Blood - Peripheral Anaerobic Blood Culture - Final No growth in 5 days 05/19/18 16:42 Blood - Peripheral Aerobic Blood Culture - Final No growth in 5 days 05/19/18 16:42 Blood - Peripheral Anaerobic Blood Culture - Final No growth in 5 days 05/21/18 18:58 Sputum - Expectorated Sputum Gram Stain - Final 05/21/18 18:58 Sputum - Expectorated Sputum Sputum Culture - Final Heavy growth normal respiratory mari Lab - Hematology Results 05/23/18 05/24/18 12:01 08:24 WBC 10.6 9.3 RBC 4.32 L 4.21 L Hgb 13.8 13.6 Hct 39.9 40.3 MCV 92.4 95.6 MCH 31.9 32.2 MCHC 34.6 33.7 RDW 14.6 14.6 Plt Count 318 D 324 MPV 6.5 L 6.7 L Prelim Diff (Auto) Slide review pending Neut % (Auto) 86.2 H 85.8 H Lymph % (Auto) 9.6 9.3 [place] % (Auto) 3.8 4.4 Eos % (Auto) 0.0 0.0 Baso % (Auto) 0.4 0.5 Neut # (Auto) 9.2 H 8.0 H Lymph # (Auto) 1.0 0.9 L [place] # (Auto) 0.4 0.4 Eos # (Auto) 0.0 0.0 Baso # (Auto) 0.0 0.0 WBC Differential . . Diff Scan Auto diff confirmed Differential Comment Auto diff final . Platelet Estimate Normal Platelet Morphology Normal Lab - Chemistry Results 05/24/18 08:24 Sodium 139 Potassium 4.8 Chloride 106 Carbon Dioxide 23.1 Anion Gap 10 BUN 28 H Creatinine 1.37 H Estimated GFR 74 L Random Glucose 159 H Calcium 8.5 Phosphorus 2.2 L Albumin 3.0 L Imaging: ITS Impressions Chest X-Ray 05/19/18 15:08 CONCLUSION: No acute cardiopulmonary disease. Chest CT 05/20/18 19:24 CONCLUSION: 1. Subsegmental airspace disease in the lower lobes most characteristic of atelectasis. There is improvement from previous exam of January 2018. Physical Exam: GENERAL: NAD SKIN: Warm and dry. no rash CARDIOVASCULAR: Regular rate and rhythm. RESPIRATORY: No accessory muscle use. Clear to auscultation. Breath sounds equal bilaterally. GASTROINTESTINAL: Abdomen soft, non-tender, nondistended. MUSCULOSKELETAL: Extremities without clubbing, cyanosis, or edema. NEUROLOGICAL: Awake and alert. Non focal Normal speech. PSYCHIATRIC: Appropriate mood and affect; insight and judgment normal. Assessment and Plan - Plan HIV AIDS Non compliant Asthma exacertbation CT with non specific chnages, atelectactasis but also possible infiltrate no e/o PCP complete 7 days of azithromycin cont azithro MAC profilaxis 1200 mg weekly cont bactrim PCP profilaxis Bactrim DS daily cont HAART pt was counseled on need of HAART and HIV fu - he shows understanding
[2018-05-24 21:43] VITALS: RESP 18
[2018-05-24] MEDS: Montelukast 10 MG Tablet PO SCH (21:48)
[2018-05-24] MEDS: Melatonin 5 MG Tablet PO SCH (21:48)
[2018-05-25] MEDS: Piperacil/Tazo 3.375 GM Premix 3.375 GM/50 ML PIGGYBACK IV.SIG SCH (03:14)
[2018-05-25 05:59] VITALS: O2SAT 97
[2018-05-25] MEDS: guaiFENesin/Codeine Syrup 200 MG/20 MG 10 ML UDC PO PRN (07:34)
[2018-05-25 08:44] VITALS: BP 146/93; TEMP 98.1
[2018-05-25 08:53] VITALS: PULSE 82
[2018-05-25] MEDS: Azithromycin 250 MG Tablet PO SCH (09:19)
[2018-05-25] MEDS: predniSONE 20 MG Tablet PO SCH (09:20)
[2018-05-25] MEDS: Pantoprazole Sodium 20 MG DR Tablet PO SCH (09:22)
[2018-05-25] MEDS: valACYclovir 500 MG Tab PO SCH (09:22)
[2018-05-25] MEDS: Loratadine 10 MG Tablet PO SCH (09:22)
--- NOTE | 2018-05-25 09:25 | P.DS ---
<Ruddy Huggins S - Last Filed: 05/25/18 09:29> Date of admission: 05/21/18 15:21 Primary care physician: UNKNOWN Brief History from admission: History of Present Illness: 28-year-old male with a history of asthma and AIDS, presents to the ER with an asthma exacerbation has lasted for 2 days. He states that he has been having low-grade fevers and night sweats at home. He is on an empiric prophylactic doses of Bactrim, Diflucan, doxycycline, but none of these seem to stave off his exacerbation which seems to be related to upper respiratory infection. He was hospitalized 1 month ago and his CD4 count from May 01 shows count of 40 which is below 200 qualifying him for AIDS status. He has been slow to respond to treatments in the ER with Solu-Medrol and duo nebs. I am increasing his therapy to scheduled duo nebs, Solu-Medrol continued , inhaled budesonide. I am also adding empiric coverage with IV Zosyn and continuing Bactrim p.o. and Diflucan. He was unaware that he had AIDS but did only start his to antiretroviral medicines approximately 1 month ago when he was told his CD4 count was very low. He has some mild diarrhea, otherwise denies any nausea or vomiting. He has no urinary symptoms. He has no cardiac symptoms Patient update on day of discharge: Feels his breathing is much better. Still not 100% but no longer nearly as short of breath when walking. Speaking in full sentences. Feels ready to leave the hospital. DS: Diagnosis - Discharge Diagnosis (1) Asthma exacerbation Status: Acute Diagnosis: Principal (2) Pneumonia Status: Acute Diagnosis: Principal (3) HIV (human immunodeficiency virus infection) Status: Chronic DS: Medications - Discharge Medications Prescriptions: azithromycin 2 tab PO QWEEK #30 tab azithromycin 500 mg PO DAILY 4 Days #4 tab budesonide-formoterol [Symbicort] 2 puff INHALATION Q12H #1 inhaler montelukast 10 mg PO HS #30 tab prednisone 20 mg PO DIRECTED #30 tab sulfamethoxazole-trimethoprim 1 tab PO DAILY 30 Days #30 tab DS: Summary Hospital Course: Admitted for asthma exacerbation, found to have underlying pneumonia. Due to HIV with reported low CD4 count broad-spectrum antibiotics initiated, cultures obtained, ID consulted. Asthma improved with IV corticosteroids and aggressive pulmonary toilet with ICS and bronchodilators. Clinically improved over course of several days and steroid treatment weaned. Antibiotic coverage narrowed to azithromycin after results of cultures and CT scan of lungs showed no evidence of atypical or aggressive bacteria such as PJP. Patient stable for discharge home with short steroid taper, completion of course of azithromycin for pneumonia. ID placed recommendations for continued antibiotic prophylaxis given his low CD4 which were also given. He obtains his HAART from the health department. He has no PCP but plans to establish care with the family medicine residency. - Time Spent with Patient Total time spent providing and/or coordinating discharge services: Less than 30 minutes - Quality: VTE Deep Vein Thrombosis/Pulmonary Embolism Present on Admission: No Exam Vital signs: Vital Signs 05/24/18 12:00 05/24/18 12:43 05/24/18 16:00 Temperature 98.2 F 98.5 F Pulse Rate 86 85 92 H Respiratory Rate 20 18 20 Blood Pressure 142/64 H 132/72 Pulse Oximetry 97 96 05/24/18 20:00 05/24/18 20:11 05/24/18 20:15 Temperature 97.4 F L Pulse Rate 74 87 Respiratory Rate 18 14 Blood Pressure 135/76 Pulse Oximetry 96 98 05/24/18 23:10 05/25/18 04:55 05/25/18 08:00 Temperature 98.1 F 97.8 F 98.1 F Pulse Rate 95 H 79 80 Respiratory Rate 18 18 18 Blood Pressure 128/58 L 130/63 146/93 H Pulse Oximetry 96 97 97 05/25/18 08:52 Temperature Pulse Rate 82 Respiratory Rate 18 Blood Pressure Pulse Oximetry Intake & Output 05/24/18 05/25/18 05/25/18 18:59 06:59 18:59 Intake Total 890 / 890 820 / 820 Balance 890 / 890 820 / 820 Weight 65.3 kg Intake: IV 50 / 50 100 / 100 Zosyn 3.375 GM Premix 3.375 gm 50 / 50 100 / 100 In 50 ml @ 100 mls/hr IV.SIG Q8H [facility] Rx#:[id number] Oral 840 / 840 720 / 720 Other: # Voids 6 2 Date of Last Bowel Movement 05/21/18 05/24/18 # Bowel Movements 1 0 Narrative: Gen: young adult black male resting in bed appearing comfortable, NAD ENT: MMM Resp: Normal rate and effort, no accessory muscle use. Breath sounds normal bilaterally with diffuse expiratory wheezing, more faint today, improved from yesterday's exam. No crackles. CV: NRRR, normal S1/S2, no MRG MSK: No cyanosis or edema Results Procedures completed during hospitalization: None Labs on day of discharge: Labs from last 24 hours 05/24/18 05/24/18 05/24/18 14:51 08:24 08:24 WBC RBC Hgb Hct MCV MCH MCHC RDW Plt Count MPV Prelim Diff (Auto) Neut % (Auto) Lymph % (Auto) [place] % (Auto) Eos % (Auto) Baso % (Auto) Neut # (Auto) Lymph # (Auto) [place] # (Auto) Eos # (Auto) Baso # (Auto) WBC Differential Diff Scan Differential Comment Platelet Estimate Platelet Morphology Sodium 139 Potassium 4.8 Chloride 106 Carbon Dioxide 23.1 Anion Gap 10 BUN 28 H Creatinine 1.37 H Estimated GFR 74 L Random Glucose 159 H Calcium 8.5 Phosphorus 2.2 L Albumin 3.0 L Absolute Lymphocytes Pending % CD3 Cells Pending Abs CD3-/CD16+/CD56+ Pending % CD4 Cells Pending Absolute CD4 Count Pending T-Help/Suppress Ratio Pending % CD8 Cells Pending Absolute CD8 Count Pending % CD19 Cells Pending Absolute CD19 Count Pending Chlam trachomat DNA PCR Not detected N.gonorrhoeae DNA (PCR) Not detected 05/24/18 08:24 WBC 9.3 RBC 4.21 L Hgb 13.6 Hct 40.3 MCV 95.6 MCH 32.2 MCHC 33.7 RDW 14.6 Plt Count 324 MPV 6.7 L Prelim Diff (Auto) Slide review pending Neut % (Auto) 85.8 H Lymph % (Auto) 9.3 [place] % (Auto) 4.4 Eos % (Auto) 0.0 Baso % (Auto) 0.5 Neut # (Auto) 8.0 H Lymph # (Auto) 0.9 L [place] # (Auto) 0.4 Eos # (Auto) 0.0 Baso # (Auto) 0.0 WBC Differential . Diff Scan Auto diff confirmed Differential Comment . Platelet Estimate Normal Platelet Morphology Normal Sodium Potassium Chloride Carbon Dioxide Anion Gap BUN Creatinine Estimated GFR Random Glucose Calcium Phosphorus Albumin Absolute Lymphocytes % CD3 Cells Abs CD3-/CD16+/CD56+ % CD4 Cells Absolute CD4 Count T-Help/Suppress Ratio % CD8 Cells Absolute CD8 Count % CD19 Cells Absolute CD19 Count Chlam trachomat DNA PCR N.gonorrhoeae DNA (PCR) - Impressions ITS Impressions Chest X-Ray 05/19/18 15:08 CONCLUSION: No acute cardiopulmonary disease. Chest CT 05/20/18 19:24 CONCLUSION: 1. Subsegmental airspace disease in the lower lobes most characteristic of atelectasis. There is improvement from previous exam of January 2018. <Juan Ramirez - Last Filed: 05/25/18 14:27> Date of admission: 05/21/18 15:21 Primary care physician: UNKNOWN DS: Diagnosis - Discharge Diagnosis (1) Asthma exacerbation Status: Acute (2) HIV (human immunodeficiency virus infection) Status: Chronic (3) Pneumonia Status: Acute DS: Summary - Time Spent with Patient Total time spent providing and/or coordinating discharge services: Exam Vital signs: Vital Signs 05/24/18 16:00 05/24/18 20:00 05/24/18 20:11 Temperature 98.5 F 97.4 F L Pulse Rate 92 H 74 87 Respiratory Rate 20 18 14 Blood Pressure 132/72 135/76 Pulse Oximetry 96 96 05/24/18 20:15 05/24/18 23:10 05/25/18 04:55 Temperature 98.1 F 97.8 F Pulse Rate 95 H 79 Respiratory Rate 18 18 Blood Pressure 128/58 L 130/63 Pulse Oximetry 98 96 97 05/25/18 08:00 05/25/18 08:52 Temperature 98.1 F Pulse Rate 80 82 Respiratory Rate 18 18 Blood Pressure 146/93 H Pulse Oximetry 97 Intake & Output 05/24/18 05/25/18 05/25/18 18:59 06:59 18:59 Intake Total 890 / 890 820 / 820 Balance 890 / 890 820 / 820 Weight 65.3 kg Intake: IV 50 / 50 100 / 100 Zosyn 3.375 GM Premix 3.375 gm 50 / 50 100 / 100 In 50 ml @ 100 mls/hr IV.SIG Q8H [facility] Rx#:[id number] Oral 840 / 840 720 / 720 Other: # Voids 6 2 Date of Last Bowel Movement 05/21/18 05/24/18 05/24/18 # Bowel Movements 1 0 Results Labs on day of discharge: Labs from last 24 hours 05/24/18 14:51 Chlam trachomat DNA PCR Not detected N.gonorrhoeae DNA (PCR) Not detected - Impressions ITS Impressions Chest X-Ray 05/19/18 15:08 CONCLUSION: No acute cardiopulmonary disease. Chest CT 05/20/18 19:24 CONCLUSION: 1. Subsegmental airspace disease in the lower lobes most characteristic of atelectasis. There is improvement from previous exam of January 2018. - Additional Comments The exam, history, and the medical decision-making described in the above note were completed with the assistance of the resident physician. I reviewed and agree with the findings presented. I attest that I had a [id number] encounter with the patient on the same day, and personally performed and documented my assessment and findings in the medical record. Patient reports he is feeling better today. Breathing improving. On exam, normal S1 and S2. Still has some wheezing but is moving air better. Patient with acute asthma exacerbation and bronchopneumonia. HIV, noncompliant with treatment. Course as detailed above. Patient treated with IV antibiotics. He is stable for discharge on oral antibiotics and a steroid taper. He is discharged on HIV medications and advised to follow-up with department to continue HIV treatment. Discharge Plan - Discharge Order Discharge Orders: Discharge Order (Routine); Ordered 05/25/18 Ordered By: Ruddy Batista R3 - Discharge Details Anticipated Discharge Date: 05/25/18 - Physicians Team Primary Care Provider: UNKNOWN, Attending Provider: Juan Ramirez Other Providers: Gay Mak MD
== END 2018-05-25 10:32 | disposition home or self-care (01) | DRG 977 ==
LOC: NEPD 14:20 → NEDA 14:20 → NEPHCDU 17:42 → N04 05-21 20:26
PROVIDERS: ADMIT Family Medicine; ATTEND Family Medicine
CPT/HCPCS: 71010; 71045; 71250; 76937; 80048; 80069; 83605; 85025; 86064; 86355; 86357; 86359; 86360; 86379; 87040; 87070; 87205; 87275; 87276; 87491; 87591; 87804; 88112; 88180; 88184; 88185; 88305; 88312; 90772; 90782; 94640; 94664; 94665; 96365; 96366; 96372; 96375; 96376; 99285; G0378; J2543; J2920; J2930; J7506; J7512